=== PATIENT | female | born 1975 | race Caucasian/White ===

== ENCOUNTER 2017-03-05 16:59 | Emergency (ER) | payer SELFPAY ==
[2017-03-05 17:13] VITALS: BP 116/75; PULSE 90; RESP 16; TEMP 98.1
--- NOTE | 2017-03-05 17:27 | XR ---
EXAMINATION TYPE: XR ankle complete RT DATE OF EXAM: 03/05/2017 COMPARISON: NONE HISTORY: Injury and pain TECHNIQUE: 3 views FINDINGS: Ankle mortise is anatomic. I see no fracture nor dislocation. Joint spaces appear normal. IMPRESSION: Negative right ankle exam
--- NOTE | 2017-03-05 17:32 | ED ---
General Adult HPI - General Chief complaint: Extremity Injury, Lower Stated complaint: [facility]HS-Ankle Injury Time Seen by Provider: 03/05/17 17:06 Source: patient, RN notes reviewed Mode of arrival: ambulatory Limitations: no limitations - History of Present Illness Initial comments: This is a 42-year-old female who presents to the emergency department with chief complaint of right ankle injury. Patient states the injury occurred on . She states that she was at work during the time and was walking down a set of stairs. She fell down 2-3 stairs and is unsure of the mechanism of injury. She states that pain is localized to the "bone" of her ankle. She reports that she's been taking ibuprofen daily but that it is starting to make her feel sick to her stomach. She states that she is able to ambulate normally but continues to have mild pain. Denies fever, chills, chest pain, shortness of breath, abdominal pain, nausea or vomiting, constipation or diarrhea, dysuria or hematuria, numbness or tingling, headache or vision changes. - Related Data Home Medications Medication Instructions Recorded Confirmed No Known Home Medications [No 03/05/17 03/05/17 Known Home Medications] Allergies Allergy/AdvReac Type Severity Reaction Status Date / Time No Known Allergies Allergy Verified 03/05/17 17:22 Review of Systems ROS Statement: Those systems with pertinent positive or pertinent negative responses have been documented in the HPI. ROS Other: All systems not noted in ROS Statement are negative. Past Medical History Past Medical History: No Reported History History of Any Multi-Drug Resistant Organisms: None Reported Past Surgical History: No Surgical Hx Reported Past Psychological History: No Psychological Hx Reported Smoking Status: Current every day smoker Past Alcohol Use History: None Reported Past Drug Use History: None Reported General Exam - General Exam Comments Initial Comments: General: Awake and alert, well-developed; in no apparent distress. Ambulating normally. HEENT: Head atraumatic, normocephalic. Pupils are equal, round and reactive to light. Extraocular movements intact. Neck: Supple. Normal ROM. Cardiovascular: Regular rate and rhythm. No murmurs, rubs or gallops. Chest symmetrical. Respiratory: Lungs clear to auscultation bilaterally. No wheezes, rales or rhonchi. Normal respiratory effort with no use of accessory muscles. Musculoskeletal: Normal active and passive range of motion of right ankle however pain is elicited with flexion, extension, inversion and eversion. Mild swelling noted at the lateral malleolus. Sensation is intact. Pedal pulses 2+ equal and palpable bilaterally. Skin: [place], warm and dry without rashes or lesions. Neurological: Alert and oriented x3. CN II-XII grossly intact. Speech is fluent and answers are appropriate. No focal neuro deficits. Psychiatric: Normal mood and affect. No overt signs of depression or anxiety noted. Limitations: no limitations Course Vital Signs 03/05/17 17:10 Temperature 98.1 F Pulse Rate 90 Respiratory 16 Rate Blood Pressure 116/75 O2 Sat by Pulse 96 Oximetry Medical Decision Making - Medical Decision Making This is a 43-year-old female who presents to the emergency department with chief complaint of right ankle injury. Patient is unsure of the mechanism of injury but states that on 02/19/17 she fell down a set of stairs at work and has had right ankle pain ever since. X-ray revealed no acute fractures or dislocations. Recommended rest, elevation, ice and compression with Obed bandage. Patient given a referral to orthopedics. She is in no acute distress at this time. She'll be discharged home. Patient is in agreement and voices understanding. All questions were answered. - Radiology Data Radiology results: report reviewed X-ray right ankle findings: Ankle mortise is anatomic. I see no fracture nor dislocation. Joint spaces appear normal. Impression: Negative right ankle exam. Disposition Clinical Impression: Right ankle sprain Disposition: HOME SELF-CARE Condition: Good Instructions: Ankle Sprain (ED) Additional Instructions: Please follow up with primary care provider within 1-2 days. Return to emergency department if symptoms should worsen or any concerns arise. Referrals: None,Stated [Primary Care Provider] - 1-2 days Time of Disposition: 17:47
== END 2017-03-05 18:05 | disposition home or self-care (01) ==
LOC: EC 16:59
DX: S93.401A Sprain of unspecified ligament of right ankle, initial encounter (principal); F17.200 Nicotine dependence, unspecified, uncomplicated; W10.9XXA Fall (on) (from) unspecified stairs and steps, initial encounter; Y92.69 Other specified industrial and construction area as the place of occurrence of the external cause; Y93.89 Activity, other specified; Y99.0 Civilian activity done for income or pay
CPT/HCPCS: 99283

== ENCOUNTER → 2019-02-15 | Outpatient (CLI) | payer OTHER ==
--- NOTE | 2019-02-15 12:04 | XR ---
EXAMINATION TYPE: XR knee complete bilateral DATE OF EXAM: 02/15/2019 CLINICAL HISTORY: Fall last night with bilateral knee pain, contusions, and abrasions. TECHNIQUE: Three views of bilateral knees were obtained. COMPARISON: None. FINDINGS: There is no acute fracture/dislocation evident in either knee. The tri-compartment joint spaces appear aligned. Tibial plateau sclerosis and medial compartment joint space narrowing as well as lateral compartment joint space narrowing are seen on the right with subchondral cyst formation o f the lateral compartment. Very small patellofemoral compartment osteophyte is seen on the right. Kenneth evelyne is incidentally noted bilaterally. The overlying soft tissue appears unremarkable. IMPRESSION: 1. No acute fracture or dislocation in either knee. 2. 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
== END | disposition home or self-care (01) ==
LOC: RADXRMAIN 11:30
PROVIDERS: ATTEND Emergency Medicine
DX: M12.861 Other specific arthropathies, not elsewhere classified, right knee (principal); S80.02XA Contusion of left knee, initial encounter; S81.001A Unspecified open wound, right knee, initial encounter

== ENCOUNTER 2021-10-12 15:27 | Emergency (ER) | payer OTHER ==
[2021-10-12 15:50] VITALS: TEMP 98.3
[2021-10-12] MEDS ORDERED: IPRATROPIUM-ALBUTEROL 3 ML NEB INHALATION STA (16:19)
[2021-10-12] MEDS ORDERED: methylPREDNISolone SOD SUCCI 125 MG/2 ML VIAL IV STA (16:19)
[2021-10-12] MEDS ORDERED: MAGNESIUM SULFATE-D5W PMX 1 GM in DEXTROSE/WATER 1 100ML.BAG IVPB STA (16:19)
--- NOTE | 2021-10-12 16:56 | ED ---
SOB HPI - General Chief Complaint: Shortness of Breath Stated Complaint: BRIANNA Time Seen by Provider: 10/12/21 16:05 Source: patient Mode of arrival: ambulatory Limitations: no limitations - History of Present Illness Initial Comments: 46 year old female with no reported past medical history presents to the emergency Department with cough, shortness of breath and difficulty breathing since . She reports that she has a nonproductive cough, fatigue and some mild diarrhea. No sick contacts of similar symptoms. Denies fevers. No vomiting. Does have some nausea. She began having some chest pain due to the frequent coughing. Denies previous history of cardiac disease. No history of COPD or asthma. She is a smoker. Denies DVT or PE. No calf pain or swelling. Patient does not use nebulizers or inhalers. She is not vaccinated. She denies any abdominal pain. No back pain. No other alleviating, precipitating or modifying factors - Related Data Previous Rx's Medication Instructions Recorded Albuterol Sulfate [Proair Hfa] 1 - 2 puff INHALATION Q4HR PRN 10/12/21 #8.5 gm Doxycycline Hyclate 100 mg PO BID #10 tab 10/12/21 Allergies Allergy/AdvReac Type Severity Reaction Status Date / Time codeine Allergy Unknown Verified 10/12/21 15:50 Review of Systems ROS Statement: Those systems with pertinent positive or pertinent negative responses have been documented in the HPI. ROS Other: All systems not noted in ROS Statement are negative. Past Medical History Past Medical History: No Reported History History of Any Multi-Drug Resistant Organisms: None Reported Past Surgical History: Cholecystectomy Past Psychological History: No Psychological Hx Reported Smoking Status: Former smoker Past Alcohol Use History: None Reported Past Drug Use History: None Reported General Exam Limitations: no limitations Course Vital Signs 10/12/21 10/12/21 10/12/21 15:47 17:03 17:10 Temperature 98.3 F Pulse Rate 83 72 75 Respiratory 20 Rate Blood Pressure 124/81 O2 Sat by Pulse 95 Oximetry 10/12/21 10/12/21 18:29 19:02 Temperature Pulse Rate 78 Respiratory 18 18 Rate Blood Pressure 126/74 O2 Sat by Pulse 97 Oximetry Medical Decision Making - Medical Decision Making Upon arrival patient was placed into room 6. A thorough history and physical exam was performed. Patient is given a DuoNeb breathing treatment. IV access is established and she is given 1 g of magnesium, 125 of Solu-Medrol. Laboratory studies are conducted and chest x-rays performed. Laboratory studies reveal white count of 16.6. Covid and influenza are not affected. Chest x-ray demonstrates pulmonary interstitial edema. Heart failure or interstitial pneumonia. Patient's are clinically concerning for pneumonia. Recommended albuterol inhaler and antibiotics. Patient was given a dose of Rocephin. During administration she became nauseated and therefore was given 4 mg of Zofran. She is also given 500 mg of azithromycin. Patient will be discharged home on doxycycline. Instructed using inhaler every 4 hours. Needs to follow- up with her primary care doctor in 2-4 days. Repeat x-ray in 6 weeks to ensure improvement. Return to the emergency room for any new or worsening symptoms. Patient agreed to the treatment plan and discharged home in stable condition - Lab Data Result diagrams: 10/12/21 16:50 10/12/21 16:50 Lab Results 10/12/21 10/12/21 10/12/21 Range/Units 16:50 16:50 16:50 WBC 16.6 H (3.8-10.6) k/uL RBC 4.38 (3.80-5.40) m/uL Hgb 14.5 (11.4-16.0) gm/dL Hct 43.9 (34.0-46.0) % MCV 100.3 H (80.0-100.0) fL MCH 33.0 (25.0-35.0) pg MCHC 32.9 (31.0-37.0) g/dL RDW 13.0 (11.5-15.5) % Plt Count 362 (150-450) k/uL MPV 7.4 Neutrophils % 78 % Lymphocytes % 11 % Monocytes % 6 % Eosinophils % 3 % Basophils % 1 % Neutrophils # 12.9 H (1.3-7.7) k/uL Lymphocytes # 1.8 (1.0-4.8) k/uL Monocytes # 0.9 (0-1.0) k/uL Eosinophils # 0.5 (0-0.7) k/uL Basophils # 0.2 (0-0.2) k/uL PT 10.1 (9.0-12.0) sec INR 0.9 (<1.2) APTT 24.2 (22.0-30.0) sec Sodium 137 (137-145) mmol/L Potassium 4.2 (3.5-5.1) mmol/L Chloride 107 (98-107) mmol/L Carbon Dioxide 23 (22-30) mmol/L Anion Gap 7 mmol/L BUN 8 (7-17) mg/dL Creatinine 0.63 (0.52-1.04) mg/dL Est GFR (CKD-EPI)AfAm >90 (>60 ml/min/1.73 sqM) Est GFR (CKD-EPI)NonAf >90 (>60 ml/min/1.73 sqM) Glucose 90 (74-99) mg/dL Plasma Lactic Acid Yeison (0.7-2.0) mmol/L Calcium 8.6 (8.4-10.2) mg/dL Total Bilirubin 0.3 (0.2-1.3) mg/dL AST 52 H (14-36) U/L ALT 63 H (4-34) U/L Alkaline Phosphatase 106 (38-126) U/L Troponin I (0.000-0.034) ng/mL NT-Pro-B Natriuret Pep pg/mL Total Protein 6.7 (6.3-8.2) g/dL Albumin 3.9 (3.5-5.0) g/dL Coronavirus (PCR) (Not Detectd) Influenza Type A RNA (Not Detectd) Influenza Type B (PCR) (Not Detectd) 10/12/21 10/12/21 10/12/21 Range/Units 16:50 16:50 16:50 WBC (3.8-10.6) k/uL RBC (3.80-5.40) m/uL Hgb (11.4-16.0) gm/dL Hct (34.0-46.0) % MCV (80.0-100.0) fL MCH (25.0-35.0) pg MCHC (31.0-37.0) g/dL RDW (11.5-15.5) % Plt Count (150-450) k/uL MPV Neutrophils % % Lymphocytes % % Monocytes % % Eosinophils % % Basophils % % Neutrophils # (1.3-7.7) k/uL Lymphocytes # (1.0-4.8) k/uL Monocytes # (0-1.0) k/uL Eosinophils # (0-0.7) k/uL Basophils # (0-0.2) k/uL PT (9.0-12.0) sec INR (<1.2) APTT (22.0-30.0) sec Sodium (137-145) mmol/L Potassium (3.5-5.1) mmol/L Chloride (98-107) mmol/L Carbon Dioxide (22-30) mmol/L Anion Gap mmol/L BUN (7-17) mg/dL Creatinine (0.52-1.04) mg/dL Est GFR (CKD-EPI)AfAm (>60 ml/min/1.73 sqM) Est GFR (CKD-EPI)NonAf (>60 ml/min/1.73 sqM) Glucose (74-99) mg/dL Plasma Lactic Acid Yeison 1.1 (0.7-2.0) mmol/L Calcium (8.4-10.2) mg/dL Total Bilirubin (0.2-1.3) mg/dL AST (14-36) U/L ALT (4-34) U/L Alkaline Phosphatase (38-126) U/L Troponin I <0.012 (0.000-0.034) ng/mL NT-Pro-B Natriuret Pep 458 pg/mL Total Protein (6.3-8.2) g/dL Albumin (3.5-5.0) g/dL Coronavirus (PCR) (Not Detectd) Influenza Type A RNA (Not Detectd) Influenza Type B (PCR) (Not Detectd) 10/12/21 10/12/21 Range/Units 16:50 16:50 WBC (3.8-10.6) k/uL RBC (3.80-5.40) m/uL Hgb (11.4-16.0) gm/dL Hct (34.0-46.0) % MCV (80.0-100.0) fL MCH (25.0-35.0) pg MCHC (31.0-37.0) g/dL RDW (11.5-15.5) % Plt Count (150-450) k/uL MPV Neutrophils % % Lymphocytes % % Monocytes % % Eosinophils % % Basophils % % Neutrophils # (1.3-7.7) k/uL Lymphocytes # (1.0-4.8) k/uL Monocytes # (0-1.0) k/uL Eosinophils # (0-0.7) k/uL Basophils # (0-0.2) k/uL PT (9.0-12.0) sec INR (<1.2) APTT (22.0-30.0) sec Sodium (137-145) mmol/L Potassium (3.5-5.1) mmol/L Chloride (98-107) mmol/L Carbon Dioxide (22-30) mmol/L Anion Gap mmol/L BUN (7-17) mg/dL Creatinine (0.52-1.04) mg/dL Est GFR (CKD-EPI)AfAm (>60 ml/min/1.73 sqM) Est GFR (CKD-EPI)NonAf (>60 ml/min/1.73 sqM) Glucose (74-99) mg/dL Plasma Lactic Acid Yeison (0.7-2.0) mmol/L Calcium (8.4-10.2) mg/dL Total Bilirubin (0.2-1.3) mg/dL AST (14-36) U/L ALT (4-34) U/L Alkaline Phosphatase (38-126) U/L Troponin I (0.000-0.034) ng/mL NT-Pro-B Natriuret Pep pg/mL Total Protein (6.3-8.2) g/dL Albumin (3.5-5.0) g/dL Coronavirus (PCR) Not Detected (Not Detectd) Influenza Type A RNA Not Detected (Not Detectd) Influenza Type B (PCR) Not Detected (Not Detectd) - EKG Data EKG Comments: EKG demonstrates sinus rhythm with a rate of 69. AR interval 142. QRS 74. QTC 399. No acute ischemic changes Disposition Clinical Impression: Cough, Acute respiratory insufficiency, CAP (community acquired pneumonia) Disposition: HOME SELF-CARE Condition: Stable Instructions (If sedation given, give patient instructions): Bacterial Pneumonia (ED) Additional Instructions: Take the antibiotics as directed. Use your inhaler every 4 hours. Follow-up with your doctor in 2-4 days. you need to have a repeat chest x-ray in 6 weeks to ensure improvement Prescriptions: Doxycycline Hyclate 100 mg PO BID #10 tab Albuterol Sulfate [Proair Hfa] 1 - 2 puff INHALATION Q4HR PRN #8.5 gm PRN Reason: difficulty in breathing Is patient prescribed a controlled substance at d/c from ED?: No Referrals: None,Stated [Primary Care Provider] - 1-2 days Time of Disposition: 18:44
[2021-10-12 17:18] LABS: Basophils # (A) 0.2 k/uL (0-0.2); Basophils % (A) 1 %; Eosinophils # (A) 0.5 k/uL (0-0.7); Eosinophils % (A) 3 %; HCT 43.9 % (34.0-46.0); HGB 14.5 gm/dL (11.4-16.0); Lymphocytes # (A) 1.8 k/uL (1.0-4.8); Lymphocytes % (A) 11 %; MCHC 32.9 g/dL (31.0-37.0); MCV 100.3 fL (80.0-100.0); Mean Platelet Volume 7.4; Monocytes # (A) 0.9 k/uL (0-1.0); Monocytes % (A) 6 %; Neutrophils # (A) 12.9 k/uL (1.3-7.7); Neutrophils % (A) 78 %; Platelet Count 362 k/uL (150-450); RBC 4.38 m/uL (3.80-5.40); WBC 16.6 k/uL (3.8-10.6)
[2021-10-12 17:26] LABS: INR 0.9 (<1.2); Partial Thromboplastin Time 24.2 sec (22.0-30.0); Prothrombin Time 10.1 sec (9.0-12.0)
[2021-10-12 17:31] LABS: ALT 63 U/L (4-34); AST 52 U/L (14-36); African American GFR (CKD) >90 (>60 ml/min/1.73 sqM); Albumin 3.9 g/dL (3.5-5.0); Alkaline Phosphatase 106 U/L (38-126); Anion Gap 7 mmol/L; Blood Urea Nitrogen 8 mg/dL (7-17); Calcium 8.6 mg/dL (8.4-10.2); Carbon Dioxide 23 mmol/L (22-30); Chloride 107 mmol/L (98-107); Glucose 90 mg/dL (74-99); Non-African American GFR(CKD) >90 (>60 ml/min/1.73 sqM); Potassium 4.2 mmol/L (3.5-5.1); Sodium 137 mmol/L (137-145); Total Bilirubin 0.3 mg/dL (0.2-1.3); Total Protein 6.7 g/dL (6.3-8.2)
[2021-10-12] MEDS ORDERED: AZITHROMYCIN 500 MG TAB PO STA (18:15)
[2021-10-12] MEDS ORDERED: cefTRIAXone IN SWFI 1,000 MG/10 ML SYRINGE IVP STA (18:15)
--- NOTE | 2021-10-12 18:25 | XR ---
EXAMINATION TYPE: XR chest 2V DATE OF EXAM: 10/12/2021 COMPARISON: NONE HISTORY: Short of breath TECHNIQUE: Views FINDINGS: Heart is normal. There is coarse interstitial density in the lungs. There is pulmonary inte rstitial edema. No definite pleural effusion. Bony thorax is intact. IMPRESSION: There is some pulmonary interstitial edema. This could be due to heart failure or interst itial pneumonia.
[2021-10-12 18:35] VITALS: RESP 18
[2021-10-12] MEDS ORDERED: ONDANSETRON 4 MG/2 ML VIAL IVP STA (18:52)
[2021-10-12 19:02] VITALS: BP 126/74; PULSE 78
== END 2021-10-12 19:02 | disposition home or self-care (01) ==
LOC: EC 15:27
DX: J18.9 Pneumonia, unspecified organism (principal); Z20.822 Contact with and (suspected) exposure to COVID-19; Z87.891 Personal history of nicotine dependence
CPT/HCPCS: 36415; 94640; 93005; 83880; 80053; 83605; 84484; 85025; 85610; 85730; 87502; 87635; 71046; 99285; 96365; 96375 ×3; J2930; J2405; J0696; J3475

== ENCOUNTER 2021-11-03 11:56 | Emergency (ER) | payer OTHER ==
[2021-11-03 12:05] VITALS: TEMP 97.7
[2021-11-03 12:35] LABS: Basophils # (A) 0.1 k/uL (0-0.2); Basophils % (A) 1 %; Eosinophils # (A) 1.1 k/uL (0-0.7); Eosinophils % (A) 11 %; HCT 48.6 % (34.0-46.0); Lymphocytes # (A) 2.3 k/uL (1.0-4.8); Lymphocytes % (A) 25 %; MCH 32.5 pg (25.0-35.0); MCHC 32.9 g/dL (31.0-37.0); MCV 98.7 fL (80.0-100.0); Mean Platelet Volume 7.2; Monocytes # (A) 0.7 k/uL (0-1.0); Monocytes % (A) 7 %; Neutrophils % (A) 53 %; Platelet Count 350 k/uL (150-450); RBC 4.92 m/uL (3.80-5.40); RDW 13.1 % (11.5-15.5); WBC 9.4 k/uL (3.8-10.6)
[2021-11-03 12:50] LABS: ALT 88 U/L (4-34); AST 66 U/L (14-36); African American GFR (CKD) >90 (>60 ml/min/1.73 sqM); Albumin 4.1 g/dL (3.5-5.0); Alkaline Phosphatase 99 U/L (38-126); Anion Gap 6 mmol/L; Blood Urea Nitrogen 10 mg/dL (7-17); Calcium 8.9 mg/dL (8.4-10.2); Carbon Dioxide 23 mmol/L (22-30); Chloride 109 mmol/L (98-107); Glucose 85 mg/dL (74-99); Magnesium 2.1 mg/dL (1.6-2.3); Non-African American GFR(CKD) >90 (>60 ml/min/1.73 sqM); Potassium 4.1 mmol/L (3.5-5.1); Sodium 138 mmol/L (137-145); Total Bilirubin 0.5 mg/dL (0.2-1.3)
[2021-11-03 12:51] LABS: Prothrombin Time 10.7 sec (9.0-12.0)
--- NOTE | 2021-11-03 13:24 | ED ---
SOB HPI - General Chief Complaint: Shortness of Breath Stated Complaint: BRIANNA Source: patient Mode of arrival: ambulatory Limitations: no limitations - History of Present Illness Initial Comments: 36-year-old female presents the emergency room with reported shortness of breath. She was seen in the emergency department 3 weeks ago for similar complaint. Was diagnosed with pneumonia. She took a course of steroids and antibiotics. Was also prescribed an inhaler. Since the medications as directed and states that she originally did have some improvement in her symptoms. This was short-lived of the patient began having worsening shortness of breath this past week. She did not follow up with her primary care doctor. She admits to nonproductive cough. Patient is a smoker. No history of COPD or asthma. She denies any fevers, chills. No chest pain. No previous history of cardiac disease. Denies any lower extremity swelling. No other alleviating, precipitating or modifying factors - Related Data Home Medications Medication Instructions Recorded Confirmed Albuterol Sulfate [Proair Hfa] 1 - 2 puff INHALATION RT-Q4H PRN 11/03/21 11/03/21 Dextroamphetamine/Amphetamine 60 mg PO DAILY 11/03/21 11/03/21 [Adderall Xr 30 mg Capsule] Previous Rx's Medication Instructions Recorded Albuterol Sulfate [Proair Hfa] 1 - 2 puff INHALATION Q4HR #8.5 gm 11/03/21 predniSONE [Deltasone] 20 mg PO BID #10 tab 11/03/21 Allergies Allergy/AdvReac Type Severity Reaction Status Date / Time codeine Allergy Unknown Verified 11/03/21 14:32 Review of Systems ROS Statement: Those systems with pertinent positive or pertinent negative responses have been documented in the HPI. ROS Other: All systems not noted in ROS Statement are negative. Past Medical History Past Medical History: No Reported History History of Any Multi-Drug Resistant Organisms: None Reported Past Surgical History: Cholecystectomy Past Psychological History: No Psychological Hx Reported Smoking Status: Former smoker Past Alcohol Use History: None Reported Past Drug Use History: None Reported General Exam Limitations: no limitations General appearance: alert, in no apparent distress Head exam: Present: atraumatic, normocephalic, normal inspection Eye exam: Present: normal appearance, PERRL, EOMI. Absent: scleral icterus, conjunctival injection, periorbital swelling ENT exam: Present: normal exam, mucous membranes moist Neck exam: Present: normal inspection. Absent: tenderness, meningismus, lymphadenopathy Respiratory exam: Present: wheezes, decreased breath sounds. Absent: respiratory distress, rales, rhonchi, stridor Cardiovascular Exam: Present: regular rate, normal rhythm, normal heart sounds. Absent: systolic murmur, diastolic murmur, rubs, gallop, clicks GI/Abdominal exam: Present: soft, normal bowel sounds. Absent: distended, tenderness, guarding, rebound, rigid Extremities exam: Present: normal inspection, full ROM, normal capillary refill. Absent: tenderness, pedal edema, joint swelling, calf tenderness Back exam: Present: normal inspection Neurological exam: Present: alert, oriented X3, CN II-XII intact Psychiatric exam: Present: normal affect, normal mood Skin exam: Present: warm, dry, intact, normal color. Absent: rash Course Vital Signs 11/03/21 11/03/21 11/03/21 12:01 12:15 13:00 Temperature 97.7 F Pulse Rate 81 68 Respiratory 22 24 20 Rate Blood Pressure 114/72 106/71 O2 Sat by Pulse 95 97 Oximetry 11/03/21 14:24 Temperature Pulse Rate 71 Respiratory 18 Rate Blood Pressure 106/70 O2 Sat by Pulse 96 Oximetry Medical Decision Making - Medical Decision Making Upon arrival patient was placed into room 19. Thorough history and physical exam was performed. Patient does not demonstrate any signs of respiratory distress. IV is established laboratory studies are conducted area and she is swabbed for cold and flu. Patient went for a CT of her chest that she does have an elevated d-dimer which demonstrated some pulmonary fibrosis with no signs of PE. Results are discussed with the patient. She is resting comfortably in bed. I recommended steroid course at this time and need for pulmonology follow- up for primary function testing. Patient understood this. She is to see her primary care doctor in 2-4 days. Pulmonary function testing is negative and the patient will need further cardiac workup for which she understood. I did write her for another inhaler. She has any new or worsening symptoms she is to return to the emergency room. Patient agreed and was discharged home in stable condition - Lab Data Result diagrams: 11/03/21 12:11 11/03/21 12:11 Lab Results 11/03/21 11/03/21 11/03/21 Range/Units 12:11 12:11 12:11 WBC 9.4 (3.8-10.6) k/uL RBC 4.92 (3.80-5.40) m/uL Hgb 16.0 (11.4-16.0) gm/dL Hct 48.6 H (34.0-46.0) % MCV 98.7 (80.0-100.0) fL MCH 32.5 (25.0-35.0) pg MCHC 32.9 (31.0-37.0) g/dL RDW 13.1 (11.5-15.5) % Plt Count 350 (150-450) k/uL MPV 7.2 Neutrophils % 53 % Lymphocytes % 25 % Monocytes % 7 % Eosinophils % 11 % Basophils % 1 % Neutrophils # 5.0 (1.3-7.7) k/uL Lymphocytes # 2.3 (1.0-4.8) k/uL Monocytes # 0.7 (0-1.0) k/uL Eosinophils # 1.1 H (0-0.7) k/uL Basophils # 0.1 (0-0.2) k/uL PT 10.7 (9.0-12.0) sec INR 1.0 (<1.2) APTT 25.0 (22.0-30.0) sec D-Dimer 0.54 (<0.60) mg/L FEU Sodium 138 (137-145) mmol/L Potassium 4.1 (3.5-5.1) mmol/L Chloride 109 H (98-107) mmol/L Carbon Dioxide 23 (22-30) mmol/L Anion Gap 6 mmol/L BUN 10 (7-17) mg/dL Creatinine 0.66 (0.52-1.04) mg/dL Est GFR (CKD-EPI)AfAm >90 (>60 ml/min/1.73 sqM) Est GFR (CKD-EPI)NonAf >90 (>60 ml/min/1.73 sqM) Glucose 85 (74-99) mg/dL Plasma Lactic Acid Yeison (0.7-2.0) mmol/L Calcium 8.9 (8.4-10.2) mg/dL Magnesium 2.1 (1.6-2.3) mg/dL Total Bilirubin 0.5 (0.2-1.3) mg/dL AST 66 H (14-36) U/L ALT 88 H (4-34) U/L Alkaline Phosphatase 99 (38-126) U/L Troponin I (0.000-0.034) ng/mL NT-Pro-B Natriuret Pep pg/mL Total Protein 7.0 (6.3-8.2) g/dL Albumin 4.1 (3.5-5.0) g/dL Coronavirus (PCR) (Not Detectd) Influenza Type A RNA (Not Detectd) Influenza Type B (PCR) (Not Detectd) 11/03/21 11/03/21 11/03/21 Range/Units 12:11 12:11 12:11 WBC (3.8-10.6) k/uL RBC (3.80-5.40) m/uL Hgb (11.4-16.0) gm/dL Hct (34.0-46.0) % MCV (80.0-100.0) fL MCH (25.0-35.0) pg MCHC (31.0-37.0) g/dL RDW (11.5-15.5) % Plt Count (150-450) k/uL MPV Neutrophils % % Lymphocytes % % Monocytes % % Eosinophils % % Basophils % % Neutrophils # (1.3-7.7) k/uL Lymphocytes # (1.0-4.8) k/uL Monocytes # (0-1.0) k/uL Eosinophils # (0-0.7) k/uL Basophils # (0-0.2) k/uL PT (9.0-12.0) sec INR (<1.2) APTT (22.0-30.0) sec D-Dimer (<0.60) mg/L FEU Sodium (137-145) mmol/L Potassium (3.5-5.1) mmol/L Chloride (98-107) mmol/L Carbon Dioxide (22-30) mmol/L Anion Gap mmol/L BUN (7-17) mg/dL Creatinine (0.52-1.04) mg/dL Est GFR (CKD-EPI)AfAm (>60 ml/min/1.73 sqM) Est GFR (CKD-EPI)NonAf (>60 ml/min/1.73 sqM) Glucose (74-99) mg/dL Plasma Lactic Acid Yeison 1.0 (0.7-2.0) mmol/L Calcium (8.4-10.2) mg/dL Magnesium (1.6-2.3) mg/dL Total Bilirubin (0.2-1.3) mg/dL AST (14-36) U/L ALT (4-34) U/L Alkaline Phosphatase (38-126) U/L Troponin I <0.012 (0.000-0.034) ng/mL NT-Pro-B Natriuret Pep 59 pg/mL Total Protein (6.3-8.2) g/dL Albumin (3.5-5.0) g/dL Coronavirus (PCR) (Not Detectd) Influenza Type A RNA (Not Detectd) Influenza Type B (PCR) (Not Detectd) 11/03/21 11/03/21 Range/Units 12:11 12:11 WBC (3.8-10.6) k/uL RBC (3.80-5.40) m/uL Hgb (11.4-16.0) gm/dL Hct (34.0-46.0) % MCV (80.0-100.0) fL MCH (25.0-35.0) pg MCHC (31.0-37.0) g/dL RDW (11.5-15.5) % Plt Count (150-450) k/uL MPV Neutrophils % % Lymphocytes % % Monocytes % % Eosinophils % % Basophils % % Neutrophils # (1.3-7.7) k/uL Lymphocytes # (1.0-4.8) k/uL Monocytes # (0-1.0) k/uL Eosinophils # (0-0.7) k/uL Basophils # (0-0.2) k/uL PT (9.0-12.0) sec INR (<1.2) APTT (22.0-30.0) sec D-Dimer (<0.60) mg/L FEU Sodium (137-145) mmol/L Potassium (3.5-5.1) mmol/L Chloride (98-107) mmol/L Carbon Dioxide (22-30) mmol/L Anion Gap mmol/L BUN (7-17) mg/dL Creatinine (0.52-1.04) mg/dL Est GFR (CKD-EPI)AfAm (>60 ml/min/1.73 sqM) Est GFR (CKD-EPI)NonAf (>60 ml/min/1.73 sqM) Glucose (74-99) mg/dL Plasma Lactic Acid Yeison (0.7-2.0) mmol/L Calcium (8.4-10.2) mg/dL Magnesium (1.6-2.3) mg/dL Total Bilirubin (0.2-1.3) mg/dL AST (14-36) U/L ALT (4-34) U/L Alkaline Phosphatase (38-126) U/L Troponin I (0.000-0.034) ng/mL NT-Pro-B Natriuret Pep pg/mL Total Protein (6.3-8.2) g/dL Albumin (3.5-5.0) g/dL Coronavirus (PCR) Not Detected (Not Detectd) Influenza Type A RNA Not Detected (Not Detectd) Influenza Type B (PCR) Not Detected (Not Detectd) - EKG Data EKG Comments: EKG demonstrates sinus rhythm with a rate of 67. VT interval 146. QRS 71. QTC of 415. No acute ST segment elevations or depressions Disposition Clinical Impression: Acute respiratory insufficiency Disposition: HOME SELF-CARE Condition: Stable Instructions (If sedation given, give patient instructions): Shortness of Breath (ED) Additional Instructions: Take the steroids as directed. Use the inhaler every 4 hours, 2 puffs. Stop smoking. Follow up with the net technical [facility] for pulmonary function testing. If your lung function is normal, then I recommended an echo of your heart to further workup your shortness of breath Prescriptions: predniSONE [Deltasone] 20 mg PO BID #10 tab Albuterol Sulfate [Proair Hfa] 1 - 2 puff INHALATION Q4HR #8.5 gm Is patient prescribed a controlled substance at d/c from ED?: No Referrals: None,Stated [Primary Care Provider] - 1-2 days Shabbir Hernandez MD [STAFF PHYSICIAN] - 1-2 days Time of Disposition: 14:53
--- NOTE | 2021-11-03 14:15 | CT ---
EXAMINATION TYPE: CT chest angio for PE DATE OF EXAM: 11/03/2021 COMPARISON: Chest x-ray 10/12/2021 HISTORY: SOB, recent pneumonia CT DLP: 339.7 mGycm Automated exposure control for dose reduction was used. CONTRAST: CT Chest for pulmonary embolism performed with with IV Contrast, patient injected with 80cc mL of Iso jaylen 370. Three-dimensional reconstructions performed on an alternate workstation and reviewed. FINDINGS: LUNGS: The lungs are show calcified granuloma are scattered bilateral. There is no pleural effusion or pneumothorax seen. The tracheobronchial tree is patent. MEDIASTINUM: There is less than optimal enhancement of the pulmonary artery and its branches, there i s no CT evidence for pulmonary embolism. Calcified hilar or mediastinal nodes are noted. There are no greater than 1 cm hilar or mediastinal lymph nodes. No pericardial effusion is seen. AORTA: No additional significant abnormality is seen. OTHER: The liver shows low attenuation likely due to hepatic steatosis, patient is post cholecystect mariann. IMPRESSION: Old granulomatous disease. No evident pulmonary embolus. Additional findings above.
[2021-11-03 14:25] VITALS: BP 106/70; PULSE 71; RESP 18
[2021-11-03] MEDS ORDERED: methylPREDNISolone SOD SUCCI 125 MG/2 ML VIAL IV STA (14:51)
== END 2021-11-03 15:09 | disposition home or self-care (01) ==
LOC: EC 11:56
DX: R06.89 Other abnormalities of breathing (principal); Z87.891 Personal history of nicotine dependence; Z88.5 Allergy status to narcotic agent; Z79.899 Other long term (current) drug therapy; Z20.822 Contact with and (suspected) exposure to COVID-19
CPT/HCPCS: 36415; 93005; 85379; 83880; 80053; 83605; 83735; 84484; 85025; 85610; 85730; 87502; 87635; 71275; 99285; 96374; J2930; Q9967

== ENCOUNTER 2024-04-09 01:03 | Emergency (ER) | payer OTHER ==
[2024-04-09 02:59] VITALS: BP 125/78; PULSE 103; RESP 20; TEMP 98.6
--- NOTE | 2024-04-09 03:10 | ED ---
General Adult HPI - General Chief complaint: Extremity Injury, Lower Stated complaint: Foot Issue Source: patient, family Mode of arrival: wheelchair Limitations: no limitations - History of Present Illness Initial comments: 49-year-old female presenting with chief complaint of swelling to the bilateral lower extremities. Patient was seen at [facility] on 04/07 and diag nosed with a PE, she is currently on Eliquis. She is concerned today because she has increased swelling to the lower legs. She does confirm that she has a DVT. Patient currently has stage III cervical cancer and is undergoing chemotherapy and radiation. She is having no increased shortness of breath or chest pain. No fever. No injury or trauma. No numbness. - Related Data Home Medications Medication Instructions Recorded Confirmed Albuterol Sulfate [Proair Hfa] 1 - 2 puff INHALATION RT-Q4H PRN 11/03/21 11/03/21 Dextroamphetamine/Amphetamine 60 mg PO DAILY 11/03/21 11/03/21 [Adderall Xr 30 mg Capsule] Previous Rx's Medication Instructions Recorded Albuterol Sulfate [Proair Hfa] 1 - 2 puff INHALATION Q4HR #8.5 gm 11/03/21 predniSONE [Deltasone] 20 mg PO BID #10 tab 11/03/21 Furosemide [Lasix] 20 mg PO DAILY 3 Days #3 tab 04/09/24 Allergies Allergy/AdvReac Type Severity Reaction Status Date / Time codeine Allergy Unknown Verified 04/09/24 02:59 Review of Systems ROS Statement: Those systems with pertinent positive or pertinent negative responses have been documented in the HPI. ROS Other: All systems not noted in ROS Statement are negative. Past Medical History Past Medical History: No Reported History History of Any Multi-Drug Resistant Organisms: None Reported Past Surgical History: Cholecystectomy Past Psychological History: No Psychological Hx Reported Smoking Status: Current some day smoker Past Alcohol Use History: None Reported Past Drug Use History: None Reported General Exam Limitations: no limitations General appearance: alert, in no apparent distress Head exam: Present: atraumatic, normocephalic, normal inspection Eye exam: Present: normal appearance, EOMI Neck exam: Present: normal inspection. Absent: meningismus Respiratory exam: Absent: respiratory distress Extremities exam: Present: pedal edema Neurological exam: Present: alert, oriented X3 Psychiatric exam: Present: normal affect, normal mood Skin exam: Present: warm, dry, normal color Course Vital Signs 04/09/24 02:52 Temperature 98.6 F Pulse Rate 103 H Respiratory 20 Rate Blood Pressure 125/78 O2 Sat by Pulse 99 Oximetry Medical Decision Making - Medical Decision Making Was pt. sent in by a medical professional or institution (MANJULA Clinton, SCREW MACHINE SET UP OPERATOR, urgent care, hospital, or custodial...) When possible be specific @ -No Did you speak to anyone other than the patient for history (EMS, parent, family, police, friend...)? What history was obtained from this source @ -No Did you review nursing and triage notes (agree or disagree)? Why? @ -I reviewed and agree with nursing and triage notes Were old charts reviewed (outside hosp., previous admission, EMS record, old EKG, old radiological studies, urgent care reports/EKG's, custodial records)? Report findings @ -No old charts were reviewed Differential Diagnosis (chest pain, altered mental status, abdominal pain women, abdominal pain men, vaginal bleeding, weakness, fever, dyspnea, syncope, headache, dizziness, GI bleed, back pain, seizure, CVA, palpatations, mental health, musculoskeletal)? @ -Differential includes DVT, chemotherapy side effect, CHF, this is not an all-inclusive list EKG interpreted by me (3pts min.). @ -As above X-rays interpreted by me (1pt min.). @ -None done CT interpreted by me (1pt min.). @ -None done U/S interpreted by me (1pt. min.). @ -None done What testing was considered but not performed or refused? (CT, X-rays, U/S, labs)? Why? @ -None What meds were considered but not given or refused? Why? @ -None Did you discuss the management of the patient with other professionals (professionals i.e. MANJULA Clinton, SCREW MACHINE SET UP OPERATOR, lab, RT, psych nurse, social work supervisor, beater out leveling machine, teacher, infantry weapons officer, case supervisor)? Give summary @ -No Was smoking cessation discussed for >3mins.? @ -No Was critical care preformed (if so, how long)? @ -No Were there social determinants of health that impacted care today? How? (Homelessness, low income, unemployed, alcoholism, drug addiction, transportation, low edu. Level, literacy, decrease access to med. care, long-term, rehab)? @ -No Was there de-escalation of care discussed even if they declined (Discuss DNR or withdrawal of care, Hospice)? DNR status @ -No What co-morbidities impacted this encounter? (DM, HTN, Smoking, COPD, CAD, Cancer, CVA, ARF, Chemo, Hep., AIDS, mental health diagnosis, sleep apnea, morbid obesity)? @ -None Was patient admitted / discharged? Hospital course, mention meds given and route, prescriptions, significant lab abnormalities, going to OR and other pertinent info. @ -49-year-old female presenting with chief complaint of lower extremity swelling. Patient was diagnosed with a DVT back on the and is currently on Eliquis. She is concerned that she has increased swelling to the lower extremities. She is having no increased shortness of breath or chest pain. Patient currently has stage III cervical cancer and is on chemotherapy and radiation. She does have 2+ pitting edema to the lower extremities. This is likely a combination of the patient's DVT and possible decreased oncotic pressure with chemotherapy treatments. I offered to perform labs, the patient declined stating that she would just rather go home and rest. She is given a short course of Lasix 20 mg. Continue taking Eliquis as prescribed. Follow-up with oncologist. Follow-up with PCP. Report back to ER with any new or worsening symptoms. Discussed return parameters and answered all questions. Patient conveyed verbal understanding and agreed to the plan. I discussed this case in detail with my attending Dr. Lucia Undiagnosed new problem with uncertain prognosis? @ -No Drug Therapy requiring intensive monitoring for toxicity (Heparin, Nitro, Insulin, Cardizem)? @ -No Were any procedures done? @ -No Diagnosis/symptom? @ -Lower extremity swelling Acute, or Chronic, or Acute on Chronic? @ -Acute Uncomplicated (without systemic symptoms) or Complicated (systemic symptoms)? @ -Uncomplicated Side effects of treatment? @ -No Exacerbation, Progression, or Severe Exacerbation? @ -No Poses a threat to life or bodily function? How? (Chest pain, [place], CA, pneumonia, PE, COPD, DKA, ARF, appy, cholecystitis, CVA, Diverticulitis, Homicidal, Suicidal, threat to staff... and all critical care pts) @ -The swelling alone poses no immediate threat Disposition Clinical Impression: Swelling of lower extremity, DVT (deep venous thrombosis) Disposition: HOME SELF-CARE Condition: Good Instructions (If sedation given, give patient instructions): Deep Vein Thrombosis (ED) Additional Instructions: Follow-up with your PCP and oncologist. Report back to ER with any new or worsening symptoms. Continue taking your blood thinner as prescribed Prescriptions: Furosemide [Lasix] 20 mg PO DAILY 3 Days #3 tab Is patient prescribed a controlled substance at d/c from ED?: No Referrals: Nonstaff,Physician [Primary Care Provider] - 1-2 days Time of Disposition: 03:10
== END 2024-04-09 03:10 | disposition home or self-care (01) ==
LOC: EC 01:03
DX: I82.403 Acute embolism and thrombosis of unspecified deep veins of lower extremity, bilateral (principal); F17.200 Nicotine dependence, unspecified, uncomplicated; Z88.5 Allergy status to narcotic agent
CPT/HCPCS: 99282

== ENCOUNTER 2024-04-16 11:48 | Inpatient (IN) | payer BC, OTHER ==
--- NOTE | 2024-04-16 12:03 | ED ---
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 Patient is currently on chemo but has not had a treatment in approximately 2 to 3 weeks. Oncology out of [place]. Patient's is aiding in HPI and past medical history as patient feels unwell. They report for the past 2 days patient has not been able to urinate except for dribbles. Patient also is experiencing abdominal distention and fluid retention. Patient reports she has been feeling extremely weak with chills. No fevers at home. Patient has taken [id number] Tylenol for symptom control last dose last night. No history of alcoholism. , at bedside, states patient does appear mildly jaundiced. This is new in the past 2 days. Patient reports nausea no vomiting. No change in bowel habits. Patient does admit to an increase of shortness of breath in the past couple of days with a cough. No chest pain. - Related Data Home Medications Medication Instructions Recorded Confirmed Apixaban [Eliquis] 5 mg PO BID 04/16/24 04/16/24 metFORMIN HCL [Glucophage] 500 mg PO BID 04/16/24 04/16/24 sitaGLIPtin [Januvia] 100 mg PO DAILY 04/16/24 04/16/24 Allergies Allergy/AdvReac Type Severity Reaction Status Date / Time codeine Allergy Unknown Verified 04/16/24 16:14 Review of Systems ROS Statement: Those systems with pertinent positive or pertinent negative responses have been documented in the HPI. ROS Other: All systems not noted in ROS Statement are negative. Past Medical History Past Medical History: No Reported History History of Any Multi-Drug Resistant Organisms: None Reported Past Surgical History: Cholecystectomy Past Psychological History: No Psychological Hx Reported Smoking Status: Current some day smoker Past Alcohol Use History: None Reported Past Drug Use History: None Reported General Exam - General Exam Comments Initial Comments: Visual Physical Exam Vital signs reviewed General: Ill-appearing, shaking, no signs of acute distress Head: Normocephalic, atraumatic Eyes: PERRLA, EOMI ENT: Airway patent Chest: Nonlabored breathing Skin: No visual rash, normal skin tone Neuro: Alert and oriented 3 Musculoskeletal: No gross abnormalities General appearance: alert, in no apparent distress Respiratory exam: Present: normal lung sounds bilaterally. Absent: respiratory distress, wheezes, rales, rhonchi, stridor Cardiovascular Exam: Present: normal rhythm, tachycardia, normal heart sounds GI/Abdominal exam: Present: soft, distended Extremities exam: Present: other (1+ pedal edema bilaterally.) Neurological exam: Present: alert, oriented X3, CN II-XII intact Skin exam: Present: warm, dry, intact, other (Jaundiced) Course Vital Signs 04/16/24 04/16/24 04/16/24 12:15 14:58 15:36 Temperature 101.5 F H 101.2 F H Pulse Rate 122 H 114 H 112 H Respiratory 18 22 22 Rate Blood Pressure 118/67 124/67 109/63 O2 Sat by Pulse 100 100 Oximetry 04/16/24 04/16/24 04/16/24 16:00 17:00 19:49 Temperature 99.0 F Pulse Rate 108 H 112 H 107 H Respiratory 24 22 18 Rate Blood Pressure 112/64 99/55 92/46 O2 Sat by Pulse 98 97 96 Oximetry - Reevaluation(s) Reevaluation #1: 04/16/24 13:16 Bladder scan 533ml. Walker catheter insertion with 75 cc of output. 04/16/24 1541 Case discussed with Mika CONWAY, [facility] physicians, for admission. 04/16/2024 15:45 Case discussed with on-call vascular, , given concern of near occluded infrarenal abdominal aorta. He states this can be managed outpatient. EKG Findings - EKG Comments: EKG Findings:: EKG taken at 12: 28 showing sinus tachycardia. No ST segment elevations or depressions. No T wave abnormalities. Normal axis. Ventricular rate 124, WV interval 100, QRS ration 70, QT/QTc 315/388. Medical Decision Making - Medical Decision Making I performed the quick note portion of this chart. Electronically signed by Calvin Meier PA-C Was pt. sent in by a medical professional or institution (MANJULA Clinton, MOBILE MARKETING MANAGER, urgent care, hospital, or group home...) When possible be specific @ -No Did you speak to anyone other than the patient for history (EMS, parent, family, police, friend...)? What history was obtained from this source @ -No Did you review nursing and triage notes (agree or disagree)? Why? @ -I reviewed and agree with nursing and triage notes Were old charts reviewed (outside hosp., previous admission, EMS record, old EKG, old radiological studies, urgent care reports/EKG's, group home records)? Report findings @ -Yes, I reviewed ER visit from 04-09-2024 patient seen here for bilateral lower extremity edema. Per that note on 04-07-2024 patient diagnosed with a pulmonary embolism at [facility] and started on Eliquis. Patient refusing further workup and was discharged with Lasix. Differential Diagnosis (chest pain, altered mental status, abdominal pain women, abdominal pain men, vaginal bleeding, weakness, fever, dyspnea, syncope, headache, dizziness, GI bleed, back pain, seizure, CVA, palpatations, mental health, musculoskeletal)? @ -Differential Abdominal Pain Women: Appendicitis, Cholecystitis, diverticulosis, ischemic bowel, pancreatitis, hepatitis, UTI, gastroenteritis, AAA, incarcerated hernia, bowel obstruction, constipation, inflammatory bowel, hepatitis, peptic ulcer disease, splenic infarction, perforated viscus, vulvitis, ovarian torsion, PID, kidney stone, placenta abruption, this is not meant to be an all-inclusive list EKG interpreted by me (3pts min.). @ -As above X-rays interpreted by me (1pt min.). @ -CXR interpreted me negative for acute focal consolidations or pneumothorax. CT interpreted by me (1pt min.). @ -CTA chest showing bilateral lower lobe segmental and subsegmental pulmonary artery emboli. Right greater than left. No evidence of right heart strain. CT abdomen pelvis showing moderate volume diffuse abdominal ascites. 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 Bilateral common iliac arteries are patent due to reconstruction. U/S interpreted by me (1pt. min.). @ -None done What testing was considered but not performed or refused? (CT, X-rays, U/S, labs)? Why? @ -None What meds were considered but not given or refused? Why? @ -None Did you discuss the management of the patient with other professionals (professionals i.e. , PA, MOBILE MARKETING MANAGER, lab, RT, psych nurse, social media marketing manager, title lawyer, teacher, tax revenue officer, pillowcase turner)? Give summary @ -Yes, case discussed with [facility], Mika Keating MOBILE MARKETING MANAGER. for admission. Case also discussed with computer application developer vascular, Dr. Emerson, given concern of near occlusion infrarenal abdominal aorta. He advises can be managed outpatient. Was smoking cessation discussed for >3mins.? @ -I discussed smoking cessation for greater than 3 minutes. The risk of smoking were discussed with the patient including but not limited to risks of cancer, stroke, coronary artery disease and COPD. Also discussed with patient were multiple methods of quitting smoking. Lastly we discussed the financial cost of smoking. Was critical care preformed (if so, how long)? @ -Yes, 31 minutes Were there social determinants of health that impacted care today? How? (Homelessness, low income, unemployed, alcoholism, drug addiction, transportation, low edu. Level, literacy, decrease access to med. care, senior care, rehab)? @ -No Was there de-escalation of care discussed even if they declined (Discuss DNR or withdrawal of care, Hospice)? DNR status @ -No What co-morbidities impacted this encounter? (DM, HTN, Smoking, COPD, CAD, Cancer, CVA, ARF, Chemo, Hep., AIDS, mental health diagnosis, sleep apnea, morbid obesity)? @ -Cervical cancer currently on chemotherapy, diabetes mellitus, history of pulmonary embolism on Eliquis Was patient admitted / discharged? Hospital course, mention meds given and route, prescriptions, significant lab abnormalities, going to OR and other pertinent info. @ -Discharged. 49-year-old female presented to the ER for evaluation of urinary retention. Upon examination, patient resting comfortably on stretcher. Patient is febrile upon arrival at 101.5 F and tachycardic at 112 vitals otherwise stable. Patient appears jaundice with mild conversational dyspnea. Patient has a distended abdomen with generalized tenderness. 1+ pedal edema bilaterally. Given patient's presentation and history, thorough workup including CTA chest and CT abdomen/pelvis will be obtained. Bladder scan initially obtained showing 533 mL, accuracy of this may be skewed due to ascites. Walker catheter placed at that time with 75 mL dark urine output. CBC showing a hyperchromic normocytic anemia of 9.9, thrombocytopenia 68, WBC 7.5. Sodium 131, potassium 4.1, chloride 101, carbon dioxide 20. Lactic acid 3.4. Total bilirubin 3.3, AST 310, ALT 45, alk phos 491. Transaminitis/ascites possibly due to metastatic disease. Serum alcohol and acetaminophen levels less than 10. Urine analysis with 2+ bilirubin and 7 WBCs, rare bacteria. Viral swabs positive for COVID. Chest x-ray negative. CTA chest obtained as patient reports a history of pulmonary embolisms and complaining of shortness of breath. CTA chest showing bilateral pulmonary embolus with no evidence of right heart strain. High-dose heparin given for pulmonary emboli. CT abdomen pelvis showing moderate abdominal ascites. 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 Abdominal aorta findings were discussed with on-call vascular, Dr. Silver, who states incidental finding can be followed up outpatient. Patient's fever treated with p.o. ibuprofen and Tylenol. Given findings of pulmonary embolisms admission was considered and discussed with [facility] physicians, Laron Keating NP. Patient started on maintenance fluid at 130cc/h as chest x-ray showing no signs of pulmonary vascular congestion.. Pulmonology on consult. Patient is agreeable for admission. Case discussed with the attending by Dr. Mcgraw. Undiagnosed new problem with uncertain prognosis? @ -No Drug Therapy requiring intensive monitoring for toxicity (Heparin, Nitro, Insulin, Cardizem)? @ -Yes, heparin Were any procedures done? @ -No Diagnosis/symptom? @ -Bilateral pulmonary emboli/COVID-19/acute viral sinusitis/transaminitis/ascites Acute, or Chronic, or Acute on Chronic? @ -Acute Uncomplicated (without systemic symptoms) or Complicated (systemic symptoms)? @ -Complicated Side effects of treatment? @ -No Exacerbation, Progression, or Severe Exacerbation? @ -No Poses a threat to life or bodily function? How? (Chest pain, USA, PA, pneumonia, PE, COPD, DKA, ARF, appy, cholecystitis, CVA, Diverticulitis, Homicidal, Suicidal, threat to staff... and all critical care pts) @ -Yes, pulmonary embolisms can lead to hypoxia and lethal cardiac arrhythmias. Malignancy is also life-threatening. - Lab Data Result diagrams: 04/16/24 17:44 04/16/24 12:55 Lab Results 04/16/24 04/16/24 04/16/24 Range/Units 12:39 12:55 12:55 WBC 7.5 (3.8-10.6) k/uL RBC 3.03 L (3.80-5.40) m/uL Hgb 9.9 L (11.4-16.0) gm/dL Hct 30.8 L (34.0-46.0) % MCV 101.5 H (80.0-100.0) fL MCH 32.7 (25.0-35.0) pg MCHC 32.2 (31.0-37.0) g/dL RDW 30.0 H (11.5-15.5) % Plt Count 68 L (150-450) k/uL MPV 10.4 Neutrophils % 89 % Lymphocytes % 2 % Monocytes % 5 % Eosinophils % 2 % Basophils % 0 % Neutrophils # 6.7 (1.3-7.7) k/uL Lymphocytes # 0.1 L (1.0-4.8) k/uL Monocytes # 0.4 (0-1.0) k/uL Eosinophils # 0.2 (0-0.7) k/uL Basophils # 0.0 (0-0.2) k/uL Manual Slide Review Performed Hypochromasia Moderate Anisocytosis Marked Microcytosis Slight Macrocytosis Marked A Target Cells Present PT (10.0-12.5) sec INR (<1.2) APTT (22.0-30.0) sec Sodium 131 L (137-145) mmol/L Potassium 4.1 (3.5-5.1) mmol/L Chloride 101 (98-107) mmol/L Carbon Dioxide 20 L (22-30) mmol/L Anion Gap 10 mmol/L BUN 10 (7-17) mg/dL Creatinine 0.58 (0.52-1.04) mg/dL Est GFR (CKD-EPI)AfAm >90 (>60 ml/min/1.73 sqM) Est GFR (CKD-EPI)NonAf >90 (>60 ml/min/1.73 sqM) Glucose 181 H (74-99) mg/dL Lactic Ac Sepsis Rflx Plasma Lactic Acid Yeison (0.7-2.0) mmol/L Calcium 7.4 L (8.4-10.2) mg/dL Total Bilirubin 3.3 H (0.2-1.3) mg/dL Conjugated Bilirubin 1.0 H (0.0-0.3) mg/dL Unconjugated Bilirubin 0.8 (0.0-1.1) mg/dL Delta Bilirubin 1.5 H (0.0-0.2) mg/dL AST 310 H (14-36) U/L ALT 45 H (4-34) U/L Alkaline Phosphatase 491 H (38-126) U/L NT-Pro-B Natriuret Pep pg/mL Total Protein 6.5 (6.3-8.2) g/dL Albumin 2.7 L (3.5-5.0) g/dL Urine Color Urine Appearance (Clear) Urine pH (5.0-8.0) Ur Specific [place] (1.001-1.035) Urine Protein (Negative) Urine Glucose (UA) (Negative) Urine Ketones (Negative) Urine Blood (Negative) Urine Nitrite (Negative) Urine Bilirubin (Negative) Urine Urobilinogen (<2.0) mg/dL Ur Leukocyte Esterase (Negative) Urine RBC (0-5) /hpf Urine WBC (0-5) /hpf Ur Squamous Epith Cells (0-4) /hpf Urine Bacteria (None) /hpf Urine Mucus (None) /hpf Acetaminophen <10.0 ug/mL Serum Alcohol <10 mg/dL Influenza Type A (PCR) Not Detected (Not Detectd) Influenza Type B (PCR) Not Detected (Not Detectd) RSV (PCR) Not Detected (Not Detectd) SARS-CoV-2 (PCR) Detected A (Not Detectd) 04/16/24 04/16/24 04/16/24 Range/Units 12:55 12:55 12:55 WBC (3.8-10.6) k/uL RBC (3.80-5.40) m/uL Hgb (11.4-16.0) gm/dL Hct (34.0-46.0) % MCV (80.0-100.0) fL MCH (25.0-35.0) pg MCHC (31.0-37.0) g/dL RDW (11.5-15.5) % Plt Count (150-450) k/uL MPV Neutrophils % % Lymphocytes % % Monocytes % % Eosinophils % % Basophils % % Neutrophils # (1.3-7.7) k/uL Lymphocytes # (1.0-4.8) k/uL Monocytes # (0-1.0) k/uL Eosinophils # (0-0.7) k/uL Basophils # (0-0.2) k/uL Manual Slide Review Hypochromasia Anisocytosis Microcytosis Macrocytosis Target Cells PT 15.6 H (10.0-12.5) sec INR 1.5 H (<1.2) APTT 24.4 (22.0-30.0) sec Sodium (137-145) mmol/L Potassium (3.5-5.1) mmol/L Chloride (98-107) mmol/L Carbon Dioxide (22-30) mmol/L Anion Gap mmol/L BUN (7-17) mg/dL Creatinine (0.52-1.04) mg/dL Est GFR (CKD-EPI)AfAm (>60 ml/min/1.73 sqM) Est GFR (CKD-EPI)NonAf (>60 ml/min/1.73 sqM) Glucose (74-99) mg/dL Lactic Ac Sepsis Rflx Plasma Lactic Acid Yeison 3.4 H* (0.7-2.0) mmol/L Calcium (8.4-10.2) mg/dL Total Bilirubin (0.2-1.3) mg/dL Conjugated Bilirubin (0.0-0.3) mg/dL Unconjugated Bilirubin (0.0-1.1) mg/dL Delta Bilirubin (0.0-0.2) mg/dL AST (14-36) U/L ALT (4-34) U/L Alkaline Phosphatase (38-126) U/L NT-Pro-B Natriuret Pep 800 pg/mL Total Protein (6.3-8.2) g/dL Albumin (3.5-5.0) g/dL Urine Color Urine Appearance (Clear) Urine pH (5.0-8.0) Ur Specific [place] (1.001-1.035) Urine Protein (Negative) Urine Glucose (UA) (Negative) Urine Ketones (Negative) Urine Blood (Negative) Urine Nitrite (Negative) Urine Bilirubin (Negative) Urine Urobilinogen (<2.0) mg/dL Ur Leukocyte Esterase (Negative) Urine RBC (0-5) /hpf Urine WBC (0-5) /hpf Ur Squamous Epith Cells (0-4) /hpf Urine Bacteria (None) /hpf Urine Mucus (None) /hpf Acetaminophen ug/mL Serum Alcohol mg/dL Influenza Type A (PCR) (Not Detectd) Influenza Type B (PCR) (Not Detectd) RSV (PCR) (Not Detectd) SARS-CoV-2 (PCR) (Not Detectd) 04/16/24 04/16/24 Range/Units 13:07 14:13 WBC (3.8-10.6) k/uL RBC (3.80-5.40) m/uL Hgb (11.4-16.0) gm/dL Hct (34.0-46.0) % MCV (80.0-100.0) fL MCH (25.0-35.0) pg MCHC (31.0-37.0) g/dL RDW (11.5-15.5) % Plt Count (150-450) k/uL MPV Neutrophils % % Lymphocytes % % Monocytes % % Eosinophils % % Basophils % % Neutrophils # (1.3-7.7) k/uL Lymphocytes # (1.0-4.8) k/uL Monocytes # (0-1.0) k/uL Eosinophils # (0-0.7) k/uL Basophils # (0-0.2) k/uL Manual Slide Review Hypochromasia Anisocytosis Microcytosis Macrocytosis Target Cells PT (10.0-12.5) sec INR (<1.2) APTT (22.0-30.0) sec Sodium (137-145) mmol/L Potassium (3.5-5.1) mmol/L Chloride (98-107) mmol/L Carbon Dioxide (22-30) mmol/L Anion Gap mmol/L BUN (7-17) mg/dL Creatinine (0.52-1.04) mg/dL Est GFR (CKD-EPI)AfAm (>60 ml/min/1.73 sqM) Est GFR (CKD-EPI)NonAf (>60 ml/min/1.73 sqM) Glucose (74-99) mg/dL Lactic Ac Sepsis Rflx Y Plasma Lactic Acid Yeison (0.7-2.0) mmol/L Calcium (8.4-10.2) mg/dL Total Bilirubin (0.2-1.3) mg/dL Conjugated Bilirubin (0.0-0.3) mg/dL Unconjugated Bilirubin (0.0-1.1) mg/dL Delta Bilirubin (0.0-0.2) mg/dL AST (14-36) U/L ALT (4-34) U/L Alkaline Phosphatase (38-126) U/L NT-Pro-B Natriuret Pep pg/mL Total Protein (6.3-8.2) g/dL Albumin (3.5-5.0) g/dL Urine Color Dark Brown Urine Appearance Cloudy H (Clear) Urine pH 6.0 (5.0-8.0) Ur Specific [place] 1.038 H (1.001-1.035) Urine Protein 1+ H (Negative) Urine Glucose (UA) 1+ H (Negative) Urine Ketones Negative (Negative) Urine Blood Negative (Negative) Urine Nitrite Negative (Negative) Urine Bilirubin 2+ H (Negative) Urine Urobilinogen 12.0 (<2.0) mg/dL Ur Leukocyte Esterase Negative (Negative) Urine RBC 2 (0-5) /hpf Urine WBC 7 H (0-5) /hpf Ur Squamous Epith Cells <1 (0-4) /hpf Urine Bacteria Rare H (None) /hpf Urine Mucus Many H (None) /hpf Acetaminophen ug/mL Serum Alcohol mg/dL Influenza Type A (PCR) (Not Detectd) Influenza Type B (PCR) (Not Detectd) RSV (PCR) (Not Detectd) SARS-CoV-2 (PCR) (Not Detectd) - Radiology Data Radiology results: report reviewed, image reviewed Disposition Clinical Impression: Pulmonary embolism, Cervical cancer, Transaminitis, COVID-19, Acute viral sinusitis Disposition: ADMITTED IP TO THIS HOSP Condition: Stable Time of Disposition: 15:50
[2024-04-16] MEDS: ACETAMINOPHEN TAB 500 MG TAB PO STA (13:00)
[2024-04-16 13:23] LABS: Influenza A Not Detected (Not Detectd); Influenza B Not Detected (Not Detectd); RSV Not Detected (Not Detectd)
[2024-04-16 13:24] LABS: ALT 45 U/L (4-34); AST 310 U/L (14-36); Acetaminophen <10.0 ug/mL; African American GFR (CKD) >90 (>60 ml/min/1.73 sqM); Albumin 2.7 g/dL (3.5-5.0); Alcohol <10 mg/dL; Alkaline Phosphatase 491 U/L (38-126); Anion Gap 10 mmol/L; Bilirubin, Delta 1.5 mg/dL (0.0-0.2); Bilirubin,Unconjugated 0.8 mg/dL (0.0-1.1); Blood Urea Nitrogen 10 mg/dL (7-17); Calcium 7.4 mg/dL (8.4-10.2); Carbon Dioxide 20 mmol/L (22-30); Chloride 101 mmol/L (98-107); Glucose 181 mg/dL (74-99); Non-African American GFR(CKD) >90 (>60 ml/min/1.73 sqM); Potassium 4.1 mmol/L (3.5-5.1); Sodium 131 mmol/L (137-145); Total Bilirubin 3.3 mg/dL (0.2-1.3); Total Protein 6.5 g/dL (6.3-8.2)
[2024-04-16 13:38] LABS: Appearance,Urine Cloudy (Clear); Bacteria,Urine Rare /hpf; Bilirubin,Urine 2+ (Negative); Blood,Urine Negative (Negative); Color,Urine Dark Brown; Glucose,Urine (UA) 1+ (Negative); Ketones,Urine Negative (Negative); Leukocyte Esterase,Urine Negative (Negative); Mucus,Urine Many /hpf; Nitrite,Urine Negative (Negative); Protein,Urine 1+ (Negative); RBC,Urine 2 /hpf (0-5); Specific Gravity,Urine 1.038 (1.001-1.035); Squamous Epithelial Cell,Urine <1 /hpf (0-4); WBC,Urine 7 /hpf (0-5)
[2024-04-16 13:41] LABS: Anisocytosis Marked; Basophils % (A) 0 %; Eosinophils # (A) 0.2 k/uL (0-0.7); Eosinophils % (A) 2 %; HCT 30.8 % (34.0-46.0); HGB 9.9 gm/dL (11.4-16.0); Hypochromasia Moderate; Lymphocytes # (A) 0.1 k/uL (1.0-4.8); Lymphocytes % (A) 2 %; MCH 32.7 pg (25.0-35.0); MCHC 32.2 g/dL (31.0-37.0); MCV 101.5 fL (80.0-100.0); Macrocytosis Marked; Mean Platelet Volume 10.4; Microcytosis Slight; Monocytes # (A) 0.4 k/uL (0-1.0); Monocytes % (A) 5 %; Neutrophils # (A) 6.7 k/uL (1.3-7.7); Neutrophils % (A) 89 %; RBC 3.03 m/uL (3.80-5.40); WBC 7.5 k/uL (3.8-10.6)
[2024-04-16 13:46] LABS: INR 1.5 (<1.2); Partial Thromboplastin Time 24.4 sec (22.0-30.0); Prothrombin Time 15.6 sec (10.0-12.5)
[2024-04-16 14:19] LABS: Target Cells Present
[2024-04-16 14:20] LABS: Platelet Count 68 k/uL (150-450)
--- NOTE | 2024-04-16 14:50 | XR ---
EXAMINATION TYPE: XR chest 2V DATE OF EXAM: 04/16/2024 2:44 PM COMPARISON: Previous chest 10/12/2021. CLINICAL INDICATION: Female, 49 years old with history of fever; H TECHNIQUE: XR chest 2V Frontal and lateral views of the chest. FINDINGS: Lungs/Pleura: There is no evidence of pleural effusion, focal consolidation, or pneumothorax. Pulmonary vascularity: Unremarkable. Heart/mediastinum: Cardiomediastinal silhouette is unremarkable. Musculoskeletal: No acute osseous pathology. Other findings: None Lines/Tubes: Left chest wall port catheter with distal catheter tip terminating in the region of the distal SVC. IMPRESSION: No acute cardiopulmonary disease/process. [facility], , 04/16/2024 2:48 PM
--- NOTE | 2024-04-16 15:15 | CT ---
EXAMINATION TYPE: CT abdomen pelvis w con DATE OF EXAM: 04/16/2024 2:46 PM COMPARISON: None. CLINICAL INDICATION: Female, 49 years old with history of distended abdomen/urinary retention/hx cerv ical ca; Abdominal distension, urinary retention, hx cervical ca TECHNIQUE: Axial CT abdomen pelvis w con;Sagittal and coronal reformats were created on a separate w orkstation. Contrast used:100 mL of Isovue 370 with IV Contrast, (none if empty) Oral contrast used: without Oral Contrast (none if empty) CT DLP: 2200.9 mGycm, Automated exposure control for dose reduction was used. FINDINGS: LOWER CHEST: Unremarkable ABDOMEN LIVER: Diffusely hypoattenuating parenchyma. GALLBLADDER AND BILE DUCTS: The gallbladder is surgically absent. PANCREAS: Unremarkable. SPLEEN: Unremarkable. ADRENAL GLANDS: Mild nonspecific nodularity of the right adrenal gland measuring 8 mm (series 3 image 35). No left-sided renal nodule. KIDNEYS AND URETERS: Calcifications along the mid/inferior left kidney. No hydronephrosis or hydroure ter. No enhancing renal mass. PELVIS BLADDER: Decompressed with intraluminal Walker catheter and associated nondependent gas. REPRODUCTIVE: Uterus unremarkable. ABDOMEN & PELVIS STOMACH AND BOWEL: Stomach and duodenum are unremarkable No evidence of bowel obstruction. PERITONEUM/RETROPERITONEUM: Moderate volume diffuse abdominal ascites. VASCULATURE: Diffuse mixed calcified carotid plaque throughout the abdominal aorta with near complete occlusion of the infrarenal aorta (series 3 image 56) 3 prominently noncalcified plaque. Bilateral c ommon iliac arteries appear patent with reconstitution. MUSCULOSKELETAL: No acute osseous abnormalities LYMPH NODES: No gross evidence for lymphadenopathy. SOFT TISSUE/ABDOMINAL WALL: Unremarkable IMPRESSION: 1. Moderate volume diffuse abdominal ascites. 2. Hepatic steatosis. 3. 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 Bilateral common iliac arteries are patent due to reconstitution. [facility], , 04/16/2024 3:13 PM
--- NOTE | 2024-04-16 15:23 | CT ---
EXAMINATION TYPE: CT chest angio for PE DATE OF EXAM: 04/16/2024 2:46 PM COMPARISON: Previous CT chest study 11/03/2021. CLINICAL INDICATION: Female, 49 years old with history of SOB/ hc PE; SOB, hx PE, Covid + TECHNIQUE/CONTRAST: CTA scan of the thorax is performed with IV Contrast, patient injected with 100 mL of Isovue 370, MIP images are created and reviewed these are created on a separate workstation.. CT DLP: 2200.9 mGycm, Automated exposure control for dose reduction was used. FINDINGS: Pulmonary Artery: Low-density filling defects throughout the bilateral lower lobe segmental and subse gmental pulmonary artery branches, right greater than left. No convincing CT evidence for right heart strain at this time. The pulmonary artery is of normal size. Lungs/Pleura: No evidence of focal consolidation, pleural effusion or pneumothorax. No new suspicious or enlarging pulmonary nodule. Airway: Large airways are patent. Heart: Heart is within normal limits for size. Vasculature: No evidence of aortic aneurysm. Mediastinum: No gross evidence of adenopathy. Musculoskeletal: No acute osseous abnormalities Soft Tissues/lymph nodes: Unremarkable. Lower neck: No significant findings. Upper Abdomen: Hepatic steatosis. IMPRESSION: Bilateral lower lobe segmental and subsegmental pulmonary artery emboli, right greater than left. No convincing CT evidence of right heart strain. *Critical findings were discussed with Lindsey FAIR at 3:15 PM on 04/16/2024. [facility], , 04/16/2024 3:21 PM
[2024-04-16] MEDS ORDERED: HEPARIN SODIUM 1,000 UN/ML (10ML VL) IV PRN (15:24)
[2024-04-16] MEDS: HEPARIN SODIUM 1,000 UN/ML (10ML VL) IV ONE (15:39)
[2024-04-16] MEDS: HEPARIN SOD,PORK IN 0.45% NACL 25,000 UNIT in 0.45% NACL 1 250ML.BAG IV SCH (15:40)
[2024-04-16] MEDS: IBUPROFEN 600 MG TAB PO STA (15:41)
[2024-04-16] MEDS: SODIUM CHLORIDE 0.9% 1,000 ML IV STA (15:41)
[2024-04-16] MEDS: MORPHINE SULFATE 4 MG/ML SYRINGE IVP STA (15:42)
[2024-04-16] MEDS ORDERED: NALOXONE 0.4 MG/ML 1 ML VIAL IV PRN ×2 (15:47→16:11)
[2024-04-16] MEDS ORDERED: DEXTROSE 50% SYRINGE 50 ML IVP PRN ×2 (16:45)
--- NOTE | 2024-04-16 16:48 | P.HPIM ---
History of Present Illness H&P Date: 04/16/24 Chief Complaint: abdominal pain Nell is a 49-year-old female with past medical history of type 2 diabetes and history of DVT/PE on Eliquis History is a bit limited as the patient appears to be slightly confused. I attempted to call the patient's however the number was noted to be disconnected. Most of the history is obtained through the patient although was limited due to her confusion The patient reports that she was diagnosed with stage III ovarian cancer in January. She reports that she was diagnosed with ovarian cancer she was noted to be having vaginal bleeding. She reports that he started chemotherapy and radiation shortly thereafter. She is unable to tell me what chemotherapy she is receiving. She reports her oncologist is out of [place]. She reports that she has not had chemotherapy or radiation for the past 2 weeks due to feeling un well. She had then presented to the ER for further evaluation When she presented the ER she was very tachycardic 100% room air and was noted to be febrile with a temperature of 101.5 lab work had shown a white blood cell count 7.5 MCV was 101.5. CMP had revealed a lactic acid of 3.4 urinalysis had revealed slight hemoglobin. COVID-[address] abdomen pelvis had revealed moderate volume diffuse abdominal ascites with hepatic steatosis. 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 CTA chest revealed bilateral lower segmental and subsegmental PE. Past Medical History Past Medical History: No Reported History Additional Past Medical History / Comment(s): Cervical cx stage- 3C. DVT History of Any Multi-Drug Resistant Organisms: None Reported Past Surgical History: Cholecystectomy Past Psychological History: No Psychological Hx Reported Smoking Status: Current some day smoker Past Alcohol Use History: None Reported Past Drug Use History: None Reported Medications and Allergies Home Medications Medication Instructions Recorded Confirmed Type Apixaban [Eliquis] 5 mg PO BID 04/16/24 04/16/24 History metFORMIN HCL [Glucophage] 500 mg PO BID 04/16/24 04/16/24 History sitaGLIPtin [Januvia] 100 mg PO DAILY 04/16/24 04/16/24 History Allergies Allergy/AdvReac Type Severity Reaction Status Date / Time codeine Allergy Unknown Verified 04/16/24 16:14 Physical Exam Vitals: Vital Signs Temp Pulse Resp BP Pulse Ox 04/16/24 16:00 108 H 24 112/64 98 01/05/25 15:36 112 H 22 109/63 04/16/24 14:58 101.2 F H 114 H 22 124/67 100 04/16/24 12:15 101.5 F H 122 H 18 118/67 100 Intake and Output 04/16/24 04/16/24 04/16/24 06:59 14:59 22:59 Other: Weight 90.718 kg General: Female, appears stated age, appears slightly ill Derm: warm, dry Head: atraumatic, normocephalic, symmetric Eyes: EOMI, no lid lag, anicteric sclera, pupils equal round reactive to light ENT: Nose and ears atraumatic, no thrush, no pharyngeal erythema Neck: No thyromegaly, no cervical lymphadenopathy, trachea midline, supple Mouth: no lip lesion, mucus membranes moist Cardiovascular: S1S2 reg, no murmur, positive posterior tibial pulse bilateral, no edema, capillary refill less than 2 seconds Lungs: clear to ascultation bilateral on nasal cannula Abdominal: soft, nontender to palpation, no guarding, no appreciable organomegaly, normal bowel sounds Ext: no gross muscle atrophy, muscle strength muscle strength 5 out of 5 in all 4 extremities, no contractures Neuro: Moving all extremity spontaneously Psych: Alert, oriented, appropriate affect Results CBC & Chem 7: 04/16/24 12:55 04/16/24 12:55 Labs: Abnormal Lab Results - Last 24 Hours (Table) 04/16/24 04/16/24 04/16/24 Range/Units 12:39 12:55 12:55 RBC 3.03 L (3.80-5.40) m/uL Hgb 9.9 L (11.4-16.0) gm/dL Hct 30.8 L (34.0-46.0) % MCV 101.5 H (80.0-100.0) fL RDW 30.0 H (11.5-15.5) % Plt Count 68 L (150-450) k/uL Lymphocytes # 0.1 L (1.0-4.8) k/uL Macrocytosis Marked A PT (10.0-12.5) sec INR (<1.2) Sodium 131 L (137-145) mmol/L Carbon Dioxide 20 L (22-30) mmol/L Glucose 181 H (74-99) mg/dL Plasma Lactic Acid Yeison (0.7-2.0) mmol/L Calcium 7.4 L (8.4-10.2) mg/dL Total Bilirubin 3.3 H (0.2-1.3) mg/dL Conjugated Bilirubin 1.0 H (0.0-0.3) mg/dL Delta Bilirubin 1.5 H (0.0-0.2) mg/dL AST 310 H (14-36) U/L ALT 45 H (4-34) U/L Alkaline Phosphatase 491 H (38-126) U/L Albumin 2.7 L (3.5-5.0) g/dL Urine Appearance (Clear) Ur Specific [place] (1.001-1.035) Urine Protein (Negative) Urine Glucose (UA) (Negative) Urine Bilirubin (Negative) Urine WBC (0-5) /hpf Urine Bacteria (None) /hpf Urine Mucus (None) /hpf SARS-CoV-2 (PCR) Detected A (Not Detectd) 04/16/24 04/16/24 04/16/24 Range/Units 12:55 12:55 13:07 RBC (3.80-5.40) m/uL Hgb (11.4-16.0) gm/dL Hct (34.0-46.0) % MCV (80.0-100.0) fL RDW (11.5-15.5) % Plt Count (150-450) k/uL Lymphocytes # (1.0-4.8) k/uL Macrocytosis PT 15.6 H (10.0-12.5) sec INR 1.5 H (<1.2) Sodium (137-145) mmol/L Carbon Dioxide (22-30) mmol/L Glucose (74-99) mg/dL Plasma Lactic Acid Yeison 3.4 H* (0.7-2.0) mmol/L Calcium (8.4-10.2) mg/dL Total Bilirubin (0.2-1.3) mg/dL Conjugated Bilirubin (0.0-0.3) mg/dL Delta Bilirubin (0.0-0.2) mg/dL AST (14-36) U/L ALT (4-34) U/L Alkaline Phosphatase (38-126) U/L Albumin (3.5-5.0) g/dL Urine Appearance Cloudy H (Clear) Ur Specific [place] 1.038 H (1.001-1.035) Urine Protein 1+ H (Negative) Urine Glucose (UA) 1+ H (Negative) Urine Bilirubin 2+ H (Negative) Urine WBC 7 H (0-5) /hpf Urine Bacteria Rare H (None) /hpf Urine Mucus Many H (None) /hpf SARS-CoV-2 (PCR) (Not Detectd) Assessment and Plan Assessment: #) B/l PE. Likely provoked in the setting of active malignancy. Home medication list shows she is on Eliquis however the patient denied any history of DVT/PE when I had discussed with her. Chart review reveals that she was di agnosed with a PE on April 07 at [facility]. 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 The patient does have a history of tobacco use. ER had discussed with vascular surgery and no acute surgical intervention for now. #) Moderate volume abdominal ascites. On my review of CT scan there is a small pocket of ascites, however I do not think that this is amenable to paracentesis. I suspect this may be malignant ascites from her cervical cancer however will need to confirm with cytology and an order for that would ideally wait for ascites to be larger to safely perform a paracentesis #) Hepatic steatosis. The patient denied any excessive alcohol consumption upon my history taking however her MCV is noted be 101 her ethanol level is negative however CT imaging does show evidence of hepatic steatosis. Furthermore her platelet count is noted to be 68. #) COVID-19. The patient is on room air she is slightly dyspneic and she is febrile. Blood cultures have been obtained and are pending. At this time I would monitor off antibiotics as there is no source of bacterial infection, however low threshold to start antibiotics if any signs of hemodynamic instability. I suspect the patient may be immunocompromised from her concurrent chemotherapy but it is unknown which regimen she is on #) Tobacco use. uses 1/2 PPD. Recommend cessation. Nicotine patch while inpatient #) Stage III cervical cancer. She was diagnosed in January 2024 as she was having vaginal bleeding. She was started on chemotherapy and radiation. She reports her last session was 2 weeks prior. She reports her primary oncologist is from [place]. ONcology input as she expresses she would like a 2nd opinon and a new oncologist. #) Dm2, continue metformin, sitagliptin. Low intensity sliding scale insulin Dispo: med/surge Time with Patient: Greater than 30
[2024-04-16] MEDS: NICOTINE 14MG/24HR PATCH TRANSDERM SCH (17:06)
[2024-04-16 17:26] LABS: Glucose,Whole Blood 231 mg/dL (70-110)
[2024-04-16] MEDS: INSULIN ASPART (NovoLOG) 100 UNIT/ML VIAL SQ SCH (17:28)
[2024-04-16] MEDS: metFORMIN 500 MG TAB PO SCH (17:28)
[2024-04-16 18:22] LABS: NT-Pro-B-Type Natriuretic Pept 800 pg/mL
--- NOTE | 2024-04-16 18:24 | US ---
EXAMINATION TYPE: US venous doppler duplex LE DATE OF EXAM: 04/16/2024 4:57 PM COMPARISON: NONE CLINICAL INDICATION: Female, 49 years old with history of pulmonary embolism; ON IV heparin, bilatera l PE, Pain TECHNIQUE: The lower extremity deep venous system is examined utilizing real time linear array sonog yusra with graded compression, color doppler sonography, and spectral doppler. SIDE PERFORMED: Bilateral FINDINGS: VESSELS IMAGED: Common Femoral Vein Deep Femoral Vein Greater Saphenous Vein Femoral Vein Popliteal Vein Small Saphenous Vein Proximal Calf Veins Right Leg: Echogenic echoes in proximal popliteal vein, Color Doppler imaging shows patency of the v essels. Spectral waveforms are within normal limits. Left Leg: Negative for DVT, Color Doppler imaging shows patency of the vessels. Spectral waveforms a re within normal limits. IMPRESSION: 1. Nonocclusive thrombosis involving the right popliteal vein with preserved compression. 2. No evidence of left-sided DVT. [facility], , 04/16/2024 6:22 PM
[2024-04-16 18:34] LABS: Anisocytosis Marked; Basophils % (A) 0 %; Eosinophils # (A) 0.1 k/uL (0-0.7); Eosinophils % (A) 1 %; HCT 25.3 % (34.0-46.0); Hypochromasia Marked; Lymphocytes # (A) 0.2 k/uL (1.0-4.8); Lymphocytes % (A) 2 %; MCH 32.1 pg (25.0-35.0); MCHC 31.1 g/dL (31.0-37.0); Macrocytosis Marked; Mean Platelet Volume 9.9; Microcytosis Slight; Monocytes # (A) 0.5 k/uL (0-1.0); Monocytes % (A) 5 %; Neutrophils # (A) 9.3 k/uL (1.3-7.7); Neutrophils % (A) 91 %; RBC 2.46 m/uL (3.80-5.40); WBC 10.2 k/uL (3.8-10.6)
[2024-04-16 18:40] LABS: HGB 7.9 gm/dL (11.4-16.0); Platelet Count 62 k/uL (150-450); RDW 29.9 % (11.5-15.5)
[2024-04-16 21:08] LABS: Glucose,Whole Blood 252 mg/dL (70-110)
[2024-04-16 23:23] LABS: Chol/HDL Ratio 6.33 Ratio; LDL Cholesterol,Calculated 61.8 mg/dL (0.0-131.0)
[2024-04-17] MEDS: HYDROcodone/APAP 5-325MG 1 EACH TAB PO PRN (00:40)
[2024-04-17] MEDS: ONDANSETRON 4 MG/2 ML VIAL IVP PRN (04:08)
[2024-04-17] MEDS ORDERED: ALBUTEROL NEBULIZED 2.5 MG/3 ML INHALATION PRN (05:21)
--- NOTE | 2024-04-17 05:28 | P.CNPUL ---
History of Present Illness Consult date: 04/17/24 Requesting physician: Lindsey Meier Reason for consult: pulmonary embolism Chief complaint: Urinary retention History of present illness: Patient is a 49-year-old female with past medical history significant for cervical cancer, current smoker, diabetes mellitus, and recent diagnosis of pulmonary embolism/DVT. Patient is technically a poor historian. Receives most of her medical care out of [place]. Her oncologist is out of [place]. She has cervical cancer and stopped chemotherapy treatments approximately 3 weeks ago because she has been feeling too sick. States that she was recent hospitalized on April 06 at [facility] and was found to have DVT/PE. She was started on Eliquis. Denies missing any doses. Reportedly, had a more recent hospitalization at [facility], but left AGAINST MEDICAL ADVICE. Patient presented to emergency department yesterday afternoon with a chief complaint of inability to urinate and abdominal distention/bladder fullness. No other urinary symptoms or dysuria. An indwelling urinary catheter was inserted and remains in place. Patient also reporting symptoms of nonproductive cough, fevers, generalized weakness. Her appetite has been poor intermittently nauseous. Denies any abdominal, vomiting, diarrhea. Denies any chest pain, heart palpitation, lightheadedness, syncopal events. Does endorse right lower extremity swelling. Chest x-ray did not show any acute cardiopulmonary process. 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 Bilateral common iliac artery is patent due to reconstitution. Chest CT angio demo nstrating bilateral lower lobe segmental and subsegmental pulmonary artery emboli, right greater than left, without obvious CT evidence of right-sided heart strain. Patient was started on IV heparin infusion. CBC on arrival: WBC count 10.2, hemoglobin 7.9, hematocrit 25.3, platelets 62,000. Most recent APTT supratherapeutic at 92.6. CMP: Sodium 131, potassium 4.1, chloride 101, serum bicarb 20, BUN 10, creatinine 0.58, glucose 181. Lactic was 3.4 and is down to 1.8. Total bilirubin 3.3. AST 310, ALT 45, ALP 491. Troponin is less than 0.012. NT proBNP 800. Intermittently febrile with a Tmax of 101.5 F in the ED. Urinalysis unremarkable for urinary tract infection. Was positive for COVID PCR. Patient is currently being evaluated in the emergency department, she is on room air oxygen, no acute distress. Continues on IV heparin infusion per protocol. Denies any acute blood loss including vaginal bleeding, melena, hematochezia, hematemesis. Current vitals: 99 F, heart rate 96 bpm, blood pressure 127/67 mmHg, nontachypneic, SpO2 96% on room air oxygen. Review of Systems Constitutional: Reports chills, Reports fatigue, Reports fever, Reports poor appetite, Reports weight loss, Denies night sweats, Denies weight gain Ears, nose, mouth and throat: Reports nasal congestion, Reports post-nasal drip, Denies epistaxis, Denies headache, Denies nasal discharge, Denies sinus pain, Denies sinus pressure, Denies sore throat Cardiovascular: Denies chest pain, Denies leg edema, Denies orthopnea, Denies palpitations, Denies paroxysmal nocturnal dyspnea, Denies syncope Respiratory: Reports congestion, Reports cough, Reports dyspnea, Denies cough with sputum, Denies hemoptysis, Denies home oxygen Gastrointestinal: Reports loss of appetite, Reports nausea, Denies abdominal pain, Denies change in bowel habits, Denies diarrhea, Denies vomiting Genitourinary: Reports incomplete emptying, Denies dysuria, Denies flank pain, Denies urinary frequency Musculoskeletal: Denies limitation of motion Integumentary: Denies rash, Denies unusual bruising Neurological: Denies seizures, Denies syncope Psychiatric: Denies anxiety, Denies depression Past Medical History Past Medical History: No Reported History Additional Past Medical History / Comment(s): Cervical cx stage- 3C. DVT History of Any Multi-Drug Resistant Organisms: None Reported Past Surgical History: Cholecystectomy Past Psychological History: No Psychological Hx Reported Smoking Status: Current some day smoker Past Alcohol Use History: None Reported Past Drug Use History: None Reported Medications and Allergies Home Medications Medication Instructions Recorded Confirmed Type Apixaban [Eliquis] 5 mg PO BID 04/16/24 04/16/24 History metFORMIN HCL [Glucophage] 500 mg PO BID 04/16/24 04/16/24 History sitaGLIPtin [Januvia] 100 mg PO DAILY 04/16/24 04/16/24 History Allergies Allergy/AdvReac Type Severity Reaction Status Date / Time codeine Allergy Unknown Verified 04/16/24 16:14 Physical Exam Vitals: Vital Signs Temp Pulse Resp BP Pulse Ox 04/17/24 02:53 96 16 127/67 04/16/24 23:58 96 16 102/61 96 04/16/24 19:49 107 H 18 92/46 96 04/16/24 17:00 99.0 F 112 H 22 99/55 97 04/16/24 16:00 108 H 24 112/64 98 04/16/24 15:36 112 H 22 109/63 04/16/24 14:58 101.2 F H 114 H 22 124/67 100 04/16/24 12:15 101.5 F H 122 H 18 118/67 100 Intake and Output 04/16/24 04/16/24 04/17/24 14:59 22:59 06:59 Intake Total 120.018 Balance 120.018 Intake: Intake, IV Titration 120.018 Amount Heparin Sod,Pork in 0.45% 120.018 NaCl 25,000 unit In 0.45 % NaCl 1 250ml.bag @ 18 UNITS/KG/HR 16.329 mls/hr IV .[id number] [facility] Rx#: [id number] Other: Weight 90.718 kg GENERAL EXAM: Alert, 49-year-old white female, comfortable in no apparent distress. HEAD: Normocephalic and atraumatic EYES: Normal reaction of pupils, equal size. NOSE: Clear with pink turbinates. THROAT: No erythema or exudates. NECK: No masses, no JVD. CHEST: No chest wall deformity. LUNGS: Equal air entry with no crackles, wheeze, rhonchi or dullness. On room air oxygen. No conversational dyspnea or accessory muscle use.. CVS: S1 and S2 normal with no audible murmur, regular rhythm. No extra heart sounds ABDOMEN: No hepatosplenomegaly, active bowel sounds, no guarding or rigidity. SPINE: No scoliosis or deformity SKIN: No rashes CENTRAL NERVOUS SYSTEM: No focal deficits, tone is normal in all 4 extremities. EXTREMITIES: Nonpitting bilateral lower extremity edema, right greater than left. No clubbing, or cyanosis. Peripheral pulses are intact. Results - Laboratory Findings CBC and BMP: 04/17/24 06:11 04/16/24 12:55 PT/INR, D-dimer PT 15.6 sec (10.0-12.5) H 04/16/24 12:55 INR 1.5 (<1.2) H 04/16/24 12:55 Abnormal lab findings: Abnormal Labs 04/16/24 04/16/24 04/16/24 12:39 12:55 12:55 RBC 3.03 L Hgb 9.9 L Hct 30.8 L MCV 101.5 H RDW 30.0 H Plt Count 68 L Neutrophils # Lymphocytes # 0.1 L Macrocytosis Marked A PT INR APTT Sodium 131 L Carbon Dioxide 20 L Glucose 181 H POC Glucose (mg/dL) Plasma Lactic Acid Yeison Calcium 7.4 L Total Bilirubin 3.3 H Conjugated Bilirubin 1.0 H Delta Bilirubin 1.5 H AST 310 H ALT 45 H Alkaline Phosphatase 491 H Albumin 2.7 L Triglycerides HDL Cholesterol Urine Appearance Ur Specific [place] Urine Protein Urine Glucose (UA) Urine Bilirubin Urine WBC Urine Bacteria Urine Mucus SARS-CoV-2 (PCR) Detected A 04/16/24 04/16/24 04/16/24 12:55 12:55 12:55 RBC Hgb Hct MCV RDW Plt Count Neutrophils # Lymphocytes # Macrocytosis PT 15.6 H INR 1.5 H APTT Sodium Carbon Dioxide Glucose POC Glucose (mg/dL) Plasma Lactic Acid Yeison 3.4 H* Calcium Total Bilirubin Conjugated Bilirubin Delta Bilirubin AST ALT Alkaline Phosphatase Albumin Triglycerides 171.00 H HDL Cholesterol 18.00 L Urine Appearance Ur Specific [place] Urine Protein Urine Glucose (UA) Urine Bilirubin Urine WBC Urine Bacteria Urine Mucus SARS-CoV-2 (PCR) 04/16/24 04/16/24 04/16/24 13:07 17:24 17:44 RBC 2.46 L Hgb 7.9 L D Hct 25.3 L MCV 103.0 H RDW 29.9 H Plt Count 62 L Neutrophils # 9.3 H Lymphocytes # 0.2 L Macrocytosis Marked A PT INR APTT Sodium Carbon Dioxide Glucose POC Glucose (mg/dL) 231 H Plasma Lactic Acid Yeison Calcium Total Bilirubin Conjugated Bilirubin Delta Bilirubin AST ALT Alkaline Phosphatase Albumin Triglycerides HDL Cholesterol Urine Appearance Cloudy H Ur Specific [place] 1.038 H Urine Protein 1+ H Urine Glucose (UA) 1+ H Urine Bilirubin 2+ H Urine WBC 7 H Urine Bacteria Rare H Urine Mucus Many H SARS-CoV-2 (PCR) 04/16/24 04/16/24 04/16/24 20:00 21:05 21:24 RBC Hgb Hct MCV RDW Plt Count Neutrophils # Lymphocytes # Macrocytosis PT INR APTT 92.6 H Sodium Carbon Dioxide Glucose POC Glucose (mg/dL) 252 H Plasma Lactic Acid Yeison 2.3 H* Calcium Total Bilirubin Conjugated Bilirubin Delta Bilirubin AST ALT Alkaline Phosphatase Albumin Triglycerides HDL Cholesterol Urine Appearance Ur Specific [place] Urine Protein Urine Glucose (UA) Urine Bilirubin Urine WBC Urine Bacteria Urine Mucus SARS-CoV-2 (PCR) - Diagnostic Findings Chest x-ray: image reviewed CT scan - chest: image reviewed Assessment and Plan Assessment: Bilateral lower lobe segmental and subsegmental pulmonary artery emboli, right greater than left clot burden. No CT evidence of right-sided heart strain. States that she was recently diagnosed with PE/DVT at outside facility, and was already started on Eliquis. 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, with reconstitution at the bilateral common iliac arteries, vascular surgery consulted DVT, nonocclusive thrombus involving the right popliteal vein Moderate volume diffuse abdominal ascites, as reported in CT Hepatic steatosis Bicytopenia, with anemia and thrombocytopenia Current ongoing tobacco dependence Plan: Patient's medications, labs, imaging reviewed Continue IV heparin infusion On room air oxygen, no signs of hemodynamic compromise No CT evidence of right-sided heart strain, follow-up with transthoracic echocardiogram Will likely transition patient back to Eliquis prior to hospital discharge, which will continue indefinitely Monitor for acute blood loss, patient did have a 2 g drop in her hemoglobin. Continue supportive treatment for patient's acute COVID infection. No evidence of focal infiltrates/pneumonia or COVID-pneumonia. Tylenol for antipyretic, Robitussin DM as antitussive, as needed albuterol HFA inhaler for wheezing or dyspnea Oncology is consulted in regards to patient's cervical cancer Vascular surgery consult for abdominal aortic occlusion We will continue to follow I have personally seen and examined the patient, performed the documentation and the assessment and plan as written. Number of minutes spent on the visit:20 On 04/17/2024, the patient is being seen in joint evaluation along with the nurse practitioner. This evaluation was done more than 30 minutes. In summary, this is a 49-year-old female patient with known history of stage III cervical cancer who has received systemic chemotherapy on outpatient basis. The patient had a recent admission to [facility] where the patient was found to have DVT/pulmonary embolism. The patient was started on anticoagulation. She denies missing any doses. Subsequently, she went to [facility] where she left AGAINST MEDICAL ADVICE. She presented to us with difficulties in urination and abdominal distention and bladder fullness. CAT scan of the abdomen and pelvis was done and showed moderate volume abdominal ascites, hepatic steatosis, and occlusion of the infrarenal abdominal aorta and patent bilateral iliacs. CAT scan of the chest showed bilateral lower lobe segmental and subsegmental pulmo nary embolism right more than left. the patient is currently on iv heparin. The patient has no significant pelvic pain. The patient was seen by urology and based on their opinion, there is no significant urinary retention. In terms of her blood work, she has normal creatinine of 0.5 with a BUN of 10. Her sodium levels at 131 with a potassium level of 4.1. LFTs are mildly elevated and a serum bicarb is at 20 with a sodium level of 131. The white cell count today is at 10.4 with a hemoglobin of 7.8. The patient is currently on IV heparin. No significant respiratory distress. She is on room air oxygen with a pulse ox of 99%. Echocardiogram was also done and it showed a preserved LV function with an EF of around 55 to 60%. No significant valve abnormalities. RV size and function was essentially within normal limits. Doppler of the lower extremity showed nonocclusive thrombus in the right popliteal vein and no DVT on the left. Plan In terms of her pulmonary embolism, we will keep the patient on IV heparin. Will need a vascular surgical consultation regarding a large plaque involving the infrarenal aorta. Will follow-up with urology. Will monitor urine output. May need a paracentesis regarding the abdominal ascites. A oncology consultation will also be of value. Time with Patient: Greater than 30
[2024-04-17 06:39] LABS: Anisocytosis Marked; Basophils % (A) 0 %; Eosinophils # (A) 0.2 k/uL (0-0.7); Eosinophils % (A) 2 %; HGB 7.8 gm/dL (11.4-16.0); Hypochromasia Marked; Lymphocytes # (A) 0.3 k/uL (1.0-4.8); Lymphocytes % (A) 3 %; MCH 32.1 pg (25.0-35.0); MCHC 31.2 g/dL (31.0-37.0); MCV 102.7 fL (80.0-100.0); Macrocytosis Marked; Mean Platelet Volume 9.5; Microcytosis Slight; Monocytes # (A) 0.3 k/uL (0-1.0); Monocytes % (A) 3 %; Neutrophils # (A) 9.5 k/uL (1.3-7.7); Neutrophils % (A) 91 %; RBC 2.44 m/uL (3.80-5.40); WBC 10.4 k/uL (3.8-10.6)
[2024-04-17 06:41] LABS: Platelet Count 56 k/uL (150-450)
[2024-04-17 08:48] LABS: Glucose,Whole Blood 209 mg/dL (70-110)
[2024-04-17] MEDS ORDERED: NON FORMULARY DRUG (Dextroamphetamine/Amphetamine [Adderall Xr 30 Mg Capsule] 30 MG Cap.Er PO SCH (09:00)
[2024-04-17] MEDS: LINAGLIPTIN 5 MG TABLET PO SCH (09:09)
[2024-04-17 12:14] LABS: Glucose,Whole Blood 236 mg/dL (70-110)
--- NOTE | 2024-04-17 12:45 | P.GSCN ---
History of Present Illness Consult date: 04/17/24 Reason for Consult: Abdominal aorta occlusion Requesting physician: Archie Jean History of present illness: This is a pleasant 49-year-old female with a history of diabetes mellitus, cervical cancer diagnosed in January who was undergoing chemotherapy and radiation treatment, recent diagnosis of pulmonary embolism, and half pack per day smoker for 30 years. Patient presented to the hospital with complaints that she has been unable to urinate. Apparently as part of her evaluation she had a CT of the abdomen that reported infrarenal abdominal aorta occlusion and vascular surgery was consulted. Patient was recently diagnosed with pulmonary embolism and DVT a couple weeks ago and was on Eliquis. Patient states she was told that she only had clot in one of her lungs. She had a CTA of her chest that shows bilateral PEs. Currently has a Walker catheter in with about a liter of dark urine. Patient states that she has no history of known abdominal aortic occlusion. No abdominal pain or chest pain. Review of Systems A 14 point review systems was completed all pertinent positives and negatives as stated in the HPI. Past Medical History Past Medical History: No Reported History Additional Past Medical History / Comment(s): Cervical cx stage- 3C. DVT History of Any Multi-Drug Resistant Organisms: None Reported Past Surgical History: Cholecystectomy Past Psychological History: No Psychological Hx Reported Smoking Status: Current some day smoker Past Alcohol Use History: None Reported Past Drug Use History: None Reported Medications and Allergies Home Medications Medication Instructions Recorded Confirmed Type Apixaban [Eliquis] 5 mg PO BID 04/16/24 04/16/24 History metFORMIN HCL [Glucophage] 500 mg PO BID 04/16/24 04/16/24 History sitaGLIPtin [Januvia] 100 mg PO DAILY 04/16/24 04/16/24 History Allergies Allergy/AdvReac Type Severity Reaction Status Date / Time codeine Allergy Unknown Verified 04/16/24 16:14 Surgical - Exam Vital Signs Temp Pulse Resp BP Pulse Ox 101.5 F H 122 H 18 118/67 100 04/16/24 12:15 04/16/24 12:15 04/16/24 12:15 04/16/24 12:15 04/16/24 12:15 General appearance: The patient is alert, oriented, appears in no acute distress. HET: Head is normocephalic and atraumatic. Pupils are equal and reactive. Neck: Supple. No carotid bruit. Heart: Regular. Lungs: Equal expansion, normal respiratory effort, bilateral expiratory wheeze. Abdomen: Soft, nontender, nondistended. Anasarca. Extremities: Normal skin color and turgor. Palpable bilateral femoral and popli teal pulses. Palpable left PT. Neurological: No focal deficits. Strength and sensation are grossly intact. Results - Labs 04/17/24 06:11 04/16/24 12:55 Abnormal Lab Results - Last 24 Hours (Table) 04/16/24 04/16/24 04/16/24 Range/Units 12:39 12:55 12:55 RBC 3.03 L (3.80-5.40) m/uL Hgb 9.9 L (11.4-16.0) gm/dL Hct 30.8 L (34.0-46.0) % MCV 101.5 H (80.0-100.0) fL RDW 30.0 H (11.5-15.5) % Plt Count 68 L (150-450) k/uL Neutrophils # (1.3-7.7) k/uL Lymphocytes # 0.1 L (1.0-4.8) k/uL Macrocytosis Marked A PT (10.0-12.5) sec INR (<1.2) APTT (22.0-30.0) sec Sodium 131 L (137-145) mmol/L Carbon Dioxide 20 L (22-30) mmol/L Glucose 181 H (74-99) mg/dL POC Glucose (mg/dL) (70-110) mg/dL Hemoglobin A1c (<=6.0) % Plasma Lactic Acid Yeison (0.7-2.0) mmol/L Calcium 7.4 L (8.4-10.2) mg/dL Total Bilirubin 3.3 H (0.2-1.3) mg/dL Conjugated Bilirubin 1.0 H (0.0-0.3) mg/dL Delta Bilirubin 1.5 H (0.0-0.2) mg/dL AST 310 H (14-36) U/L ALT 45 H (4-34) U/L Alkaline Phosphatase 491 H (38-126) U/L Albumin 2.7 L (3.5-5.0) g/dL Triglycerides (0.00-149.00) mg/dL HDL Cholesterol (40.00-60.00) mg/dL Urine Appearance (Clear) Ur Specific Broadbent (1.001-1.035) Urine Protein (Negative) Urine Glucose (UA) (Negative) Urine Bilirubin (Negative) Urine WBC (0-5) /hpf Urine Bacteria (None) /hpf Urine Mucus (None) /hpf SARS-CoV-2 (PCR) Detected A (Not Detectd) 04/16/24 04/16/24 04/16/24 Range/Units 12:55 12:55 12:55 RBC (3.80-5.40) m/uL Hgb (11.4-16.0) gm/dL Hct (34.0-46.0) % MCV (80.0-100.0) fL RDW (11.5-15.5) % Plt Count (150-450) k/uL Neutrophils # (1.3-7.7) k/uL Lymphocytes # (1.0-4.8) k/uL Macrocytosis PT 15.6 H (10.0-12.5) sec INR 1.5 H (<1.2) APTT (22.0-30.0) sec Sodium (137-145) mmol/L Carbon Dioxide (22-30) mmol/L Glucose (74-99) mg/dL POC Glucose (mg/dL) (70-110) mg/dL Hemoglobin A1c (<=6.0) % Plasma Lactic Acid Yeison 3.4 H* (0.7-2.0) mmol/L Calcium (8.4-10.2) mg/dL Total Bilirubin (0.2-1.3) mg/dL Conjugated Bilirubin (0.0-0.3) mg/dL Delta Bilirubin (0.0-0.2) mg/dL AST (14-36) U/L ALT (4-34) U/L Alkaline Phosphatase (38-126) U/L Albumin (3.5-5.0) g/dL Triglycerides 171.00 H (0.00-149.00) mg/dL HDL Cholesterol 18.00 L (40.00-60.00) mg/dL Urine Appearance (Clear) Ur Specific Broadbent (1.001-1.035) Urine Protein (Negative) Urine Glucose (UA) (Negative) Urine Bilirubin (Negative) Urine WBC (0-5) /hpf Urine Bacteria (None) /hpf Urine Mucus (None) /hpf SARS-CoV-2 (PCR) (Not Detectd) 04/16/24 04/16/24 04/16/24 Range/Units 13:07 17:24 17:44 RBC 2.46 L (3.80-5.40) m/uL Hgb 7.9 L D (11.4-16.0) gm/dL Hct 25.3 L (34.0-46.0) % MCV 103.0 H (80.0-100.0) fL RDW 29.9 H (11.5-15.5) % Plt Count 62 L (150-450) k/uL Neutrophils # 9.3 H (1.3-7.7) k/uL Lymphocytes # 0.2 L (1.0-4.8) k/uL Macrocytosis Marked A PT (10.0-12.5) sec INR (<1.2) APTT (22.0-30.0) sec Sodium (137-145) mmol/L Carbon Dioxide (22-30) mmol/L Glucose (74-99) mg/dL POC Glucose (mg/dL) 231 H (70-110) mg/dL Hemoglobin A1c (<=6.0) % Plasma Lactic Acid Yeison (0.7-2.0) mmol/L Calcium (8.4-10.2) mg/dL Total Bilirubin (0.2-1.3) mg/dL Conjugated Bilirubin (0.0-0.3) mg/dL Delta Bilirubin (0.0-0.2) mg/dL AST (14-36) U/L ALT (4-34) U/L Alkaline Phosphatase (38-126) U/L Albumin (3.5-5.0) g/dL Triglycerides (0.00-149.00) mg/dL HDL Cholesterol (40.00-60.00) mg/dL Urine Appearance Cloudy H (Clear) Ur Specific Broadbent 1.038 H (1.001-1.035) Urine Protein 1+ H (Negative) Urine Glucose (UA) 1+ H (Negative) Urine Bilirubin 2+ H (Negative) Urine WBC 7 H (0-5) /hpf Urine Bacteria Rare H (None) /hpf Urine Mucus Many H (None) /hpf SARS-CoV-2 (PCR) (Not Detectd) 04/16/24 04/16/24 04/16/24 Range/Units 20:00 21:05 21:24 RBC (3.80-5.40) m/uL Hgb (11.4-16.0) gm/dL Hct (34.0-46.0) % MCV (80.0-100.0) fL RDW (11.5-15.5) % Plt Count (150-450) k/uL Neutrophils # (1.3-7.7) k/uL Lymphocytes # (1.0-4.8) k/uL Macrocytosis PT (10.0-12.5) sec INR (<1.2) APTT 92.6 H (22.0-30.0) sec Sodium (137-145) mmol/L Carbon Dioxide (22-30) mmol/L Glucose (74-99) mg/dL POC Glucose (mg/dL) 252 H (70-110) mg/dL Hemoglobin A1c (<=6.0) % Plasma Lactic Acid Yeison 2.3 H* (0.7-2.0) mmol/L Calcium (8.4-10.2) mg/dL Total Bilirubin (0.2-1.3) mg/dL Conjugated Bilirubin (0.0-0.3) mg/dL Delta Bilirubin (0.0-0.2) mg/dL AST (14-36) U/L ALT (4-34) U/L Alkaline Phosphatase (38-126) U/L Albumin (3.5-5.0) g/dL Triglycerides (0.00-149.00) mg/dL HDL Cholesterol (40.00-60.00) mg/dL Urine Appearance (Clear) Ur Specific Broadbent (1.001-1.035) Urine Protein (Negative) Urine Glucose (UA) (Negative) Urine Bilirubin (Negative) Urine WBC (0-5) /hpf Urine Bacteria (None) /hpf Urine Mucus (None) /hpf SARS-CoV-2 (PCR) (Not Detectd) 04/17/24 04/17/24 04/17/24 Range/Units 06:11 06:11 06:11 RBC 2.44 L (3.80-5.40) m/uL Hgb 7.8 L (11.4-16.0) gm/dL Hct 25.0 L (34.0-46.0) % MCV 102.7 H (80.0-100.0) fL RDW 30.0 H (11.5-15.5) % Plt Count 56 L (150-450) k/uL Neutrophils # 9.5 H (1.3-7.7) k/uL Lymphocytes # 0.3 L (1.0-4.8) k/uL Macrocytosis Marked A PT (10.0-12.5) sec INR (<1.2) APTT 53.6 H (22.0-30.0) sec Sodium (137-145) mmol/L Carbon Dioxide (22-30) mmol/L Glucose (74-99) mg/dL POC Glucose (mg/dL) (70-110) mg/dL Hemoglobin A1c 9.6 H (<=6.0) % Plasma Lactic Acid Yeison (0.7-2.0) mmol/L Calcium (8.4-10.2) mg/dL Total Bilirubin (0.2-1.3) mg/dL Conjugated Bilirubin (0.0-0.3) mg/dL Delta Bilirubin (0.0-0.2) mg/dL AST (14-36) U/L ALT (4-34) U/L Alkaline Phosphatase (38-126) U/L Albumin (3.5-5.0) g/dL Triglycerides (0.00-149.00) mg/dL HDL Cholesterol (40.00-60.00) mg/dL Urine Appearance (Clear) Ur Specific Broadbent (1.001-1.035) Urine Protein (Negative) Urine Glucose (UA) (Negative) Urine Bilirubin (Negative) Urine WBC (0-5) /hpf Urine Bacteria (None) /hpf Urine Mucus (None) /hpf SARS-CoV-2 (PCR) (Not Detectd) 04/17/24 Range/Units 08:41 RBC (3.80-5.40) m/uL Hgb (11.4-16.0) gm/dL Hct (34.0-46.0) % MCV (80.0-100.0) fL RDW (11.5-15.5) % Plt Count (150-450) k/uL Neutrophils # (1.3-7.7) k/uL Lymphocytes # (1.0-4.8) k/uL Macrocytosis PT (10.0-12.5) sec INR (<1.2) APTT (22.0-30.0) sec Sodium (137-145) mmol/L Carbon Dioxide (22-30) mmol/L Glucose (74-99) mg/dL POC Glucose (mg/dL) 209 H (70-110) mg/dL Hemoglobin A1c (<=6.0) % Plasma Lactic Acid Yeison (0.7-2.0) mmol/L Calcium (8.4-10.2) mg/dL Total Bilirubin (0.2-1.3) mg/dL Conjugated Bilirubin (0.0-0.3) mg/dL Delta Bilirubin (0.0-0.2) mg/dL AST (14-36) U/L ALT (4-34) U/L Alkaline Phosphatase (38-126) U/L Albumin (3.5-5.0) g/dL Triglycerides (0.00-149.00) mg/dL HDL Cholesterol (40.00-60.00) mg/dL Urine Appearance (Clear) Ur Specific Broadbent (1.001-1.035) Urine Protein (Negative) Urine Glucose (UA) (Negative) Urine Bilirubin (Negative) Urine WBC (0-5) /hpf Urine Bacteria (None) /hpf Urine Mucus (None) /hpf SARS-CoV-2 (PCR) (Not Detectd) Diabetes panel 04/16/24 04/16/24 04/17/24 Range/Units 12:55 12:55 06:11 Sodium 131 L (137-145) mmol/L Potassium 4.1 (3.5-5.1) mmol/L Chloride 101 (98-107) mmol/L Carbon Dioxide 20 L (22-30) mmol/L BUN 10 (7-17) mg/dL Creatinine 0.58 (0.52-1.04) mg/dL Glucose 181 H (74-99) mg/dL Hemoglobin A1c 9.6 H (<=6.0) % Calcium 7.4 L (8.4-10.2) mg/dL AST 310 H (14-36) U/L ALT 45 H (4-34) U/L Alkaline Phosphatase 491 H (38-126) U/L Total Protein 6.5 (6.3-8.2) g/dL Albumin 2.7 L (3.5-5.0) g/dL Triglycerides 171.00 H (0.00-149.00) mg/dL HDL Cholesterol 18.00 L (40.00-60.00) mg/dL Calcium panel 04/16/24 Range/Units 12:55 Calcium 7.4 L (8.4-10.2) mg/dL Albumin 2.7 L (3.5-5.0) g/dL Pituitary panel 04/16/24 Range/Units 12:55 Sodium 131 L (137-145) mmol/L Potassium 4.1 (3.5-5.1) mmol/L Chloride 101 (98-107) mmol/L Carbon Dioxide 20 L (22-30) mmol/L BUN 10 (7-17) mg/dL Creatinine 0.58 (0.52-1.04) mg/dL Glucose 181 H (74-99) mg/dL Calcium 7.4 L (8.4-10.2) mg/dL Adrenal panel 04/16/24 Range/Units 12:55 Sodium 131 L (137-145) mmol/L Potassium 4.1 (3.5-5.1) mmol/L Chloride 101 (98-107) mmol/L Carbon Dioxide 20 L (22-30) mmol/L BUN 10 (7-17) mg/dL Creatinine 0.58 (0.52-1.04) mg/dL Glucose 181 H (74-99) mg/dL Calcium 7.4 L (8.4-10.2) mg/dL Total Bilirubin 3.3 H (0.2-1.3) mg/dL AST 310 H (14-36) U/L ALT 45 H (4-34) U/L Alkaline Phosphatase 491 H (38-126) U/L Total Protein 6.5 (6.3-8.2) g/dL Albumin 2.7 L (3.5-5.0) g/dL - Imaging Comments: CT abdomen pelvis with contrast reports moderate volume diffuse abdominal ascite s. Hepatic steatosis. 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 Bilateral common iliac arteries are patent due to reconstitution. Chest CTA reports bilateral lower lobe segmental and subsegmental pulmonary artery emboli, right greater than left. No convincing CT evidence of right heart strain. Venous Doppler reports nonocclusive thrombosis involving the right popliteal vein with preserved compression. No evidence of left-sided DVT. Assessment and Plan Assessment: 1. 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 Urinary retention 3. Cervical cancer 4. Diabetes mellitus 5. Current smoker Plan: Patient is here presenting with urinary retention and inability to urinate. Recent diagnosis of cervical cancer in January of this year was on chemo therapy and radiation therapy. current daily smoker with history of diabetes, she is asymptomatic of abdominal aortic occlusion. She has reconstitution of bilateral common iliac arteries. There is no indication for any vascular surgical intervention. She can follow-up as an outpatient with vascular surgery. Recommend consultation with urology for urinary retention. Thank you for this consultation, we will sign off at this time. The impression and plan of care has been dictated as directed. I performed a history and examination of this patient, discussed the same with the dictator. I agree with the dictator's note ,documented as a scribe. Any additional findings or plans will be noted.
[2024-04-17] MEDS: HYDROmorphone 0.5 MG/0.5 ML SYRINGE IVP PRN (13:00)
--- NOTE | 2024-04-17 13:29 | CA ---
Transthoracic Echo Report Name: Nell Soliman Age: 49 Gender: F : 1975 Exam Date: 04/17/2024 10:57 Exam Location: [facility] Ht (in): 68 Wt (lb): 200 Ordering Physician: Bakari Hui NPC Attending/Referring Phys: Belkis Apodaca NPC [employer] Sales Producer Sindy Garza, MAMIE Procedure CPT: Indications: bilateral PE; evaluate for RV strain Cardiac Hx: Covid+ Technical Quality: Fair Contrast 1: Total Dose (mL): Contrast 2: Total Dose (mL): MEASUREMENTS (Male / Female) Normal Values 2D ECHO LV Diastolic Diameter PLAX 4.4 cm 4.2 - 5.9 / 3.9 - 5.3 cm LV Systolic Diameter PLAX 2.5 cm IVS Diastolic Thickness 1.0 cm 0.6 - 1.0 / 0.6 - 0.9 cm LVPW Diastolic Thickness 1.2 cm 0.6 - 1.0 / 0.6 - 0.9 cm LV Relative Wall Thickness 0.5 RV Internal Dim ED PLAX 2.1 cm LA Systolic Diameter LX 4.1 cm 3.0 - 4.0 / 2.7 - 3.8 cm LV Diastolic Volume MOD BP 59.2 cm??? 67 - 155 / 56 - 104 cm??? LV Systolic Volume MOD BP 20.9 cm??? 22 - 58 / 19 - 49 cm??? LV Ejection Fraction MOD BP 64.7 % >= 55 % LV Cardiac Index MOD BP 1741.1 cm???/min???m??? LV Diastolic Volume MOD 4C 65.5 cm??? LV Systolic Volume MOD 4C 23.0 cm??? LV Ejection Fraction MOD 4C 65.0 % LV Cardiac Index MOD 4C 1934.9 cm???/min???m??? LV Diastolic Length 4C 8.0 cm LV Systolic Length 4C 5.8 cm LV Diastolic Volume MOD 2C 42.7 cm??? LV Systolic Volume MOD 2C 19.2 cm??? LV Ejection Fraction MOD 2C 55.0 % LV Cardiac Index MOD 2C 1066.2 cm???/min???m??? LV Diastolic Length 2C 6.3 cm LV Systolic Length 2C 5.8 cm M-MODE Aortic Root Diameter MM 2.3 cm LA Systolic Diameter MM 4.1 cm LA Ao Ratio MM 1.8 DOPPLER AV Peak Velocity 177.9 cm/s AV Peak Gradient 12.7 mmHg AV Mean Velocity 139.9 cm/s AV Mean Gradient 8.3 mmHg AV Velocity Time Integral 35.5 cm LVOT Peak Velocity 133.6 cm/s LVOT Peak Gradient 7.1 mmHg LVOT Velocity Time Integral 27.8 cm Mitral E Point Velocity 132.8 cm/s Mitral A Point Velocity 103.6 cm/s Mitral E to A Ratio 1.3 MV Deceleration Time 288.5 ms MV E' Velocity 10.2 cm/s Mitral E to MV E' Ratio 13.1 TR Peak Velocity 250.6 cm/s TR Peak Gradient 25.1 mmHg Right Ventricular Systolic Press 36.5 mmHg FINDINGS Left Ventricle Left ventricular ejection fraction is estimated at 55-60 %. Mildly increased septal wall thickness. Mildly increased posterior wall thickness. Normal left ventricular systolic function with no obvious regional wall motion abnormalities. Left ventricular cavity size normal. Right Ventricle Normal RV size. normal right ventricular global systolic function. Mild pulmonary hypertension. Right Atrium Normal right atrial size. Left Atrium Mildly increased left atrial diameter. Mitral Valve Structurally normal mitral valve. Trace mitral regurgitation. No mitral stenosis. Aortic Valve Trileaflet aortic valve. No aortic valve stenosis or regurgitation. Tricuspid Valve Structurally normal tricuspid valve. Mild tricuspid regurgitation. No tricuspid stenosis. Pulmonic Valve Structurally normal pulmonic valve. Trace pulmonic regurgitation. No pulmonic stenosis. Pericardium No pericardial or pleural effusion. Aorta Normal size aortic root and proximal ascending aorta. CONCLUSIONS LVEF 55% Mild concentric LVH No obvious regional wall motion abnormality Normal RV size and systolic function. RVSP 37 mmHg Mild left atrial dilatation No significant valvular dysfunction Previewed by: Dr Douglas Puga (Electronically Signed) Final Date: 17 April 2024 13:28
--- NOTE | 2024-04-17 13:51 | P.GSCN ---
History of Present Illness Consult date: 04/17/24 History of present illness: 49 yo female with cervical cancer being treated with chemotherapy 1953 and radiation in . She came in with sob, bilateral pe and abdominal distention. We were asked to see for "urine retention". the patient has ascites on the ct scan. She was bladder scanned for > 500ml but only 75 ml were obtained with the catheter. She states that she has been straining to void. The patients urine is unremarkable. Uniquely the patient has not had that sensation to void she just feels that she thinks she should void given the time of day and the mount of fluid she is taken in. She has never had previous urologic problems. She has never seen a urologist before. There was some pelvic pain. Review of Systems All systems: negative - Constitutional Denies fever, Denies weight loss - EENT Eyes: denies blurred vision Ears, nose, mouth and throat: Denies dysphagia - Cardiovascular Denies chest pain, Denies shortness of breath - Respiratory Denies cough, Denies 7 - Gastrointestinal Reports as per HPI - Genitourinary Genitourinary: Denies dysuria, Denies hematuria - Integumentary Denies rash, Denies unusual bruising - Neurological Denies headaches, Denies syncope - Hematologic/Lymphatic Denies easy bleeding, Denies easy bruising Past Medical History Past Medical History: No Reported History Additional Past Medical History / Comment(s): Cervical cx stage- 3C. DVT History of Any Multi-Drug Resistant Organisms: None Reported Past Surgical History: Cholecystectomy Past Psychological History: No Psychological Hx Reported Smoking Status: Current some day smoker Past Alcohol Use History: None Reported Past Drug Use History: None Reported Medications and Allergies Home Medications Medication Instructions Recorded Confirmed Type Apixaban [Eliquis] 5 mg PO BID 04/16/24 04/16/24 History metFORMIN HCL [Glucophage] 500 mg PO BID 04/16/24 04/16/24 History sitaGLIPtin [Januvia] 100 mg PO DAILY 04/16/24 04/16/24 History Allergies Allergy/AdvReac Type Severity Reaction Status Date / Time codeine Allergy Unknown Verified 04/16/24 16:14 Surgical - Exam Vital Signs Temp Pulse Resp BP Pulse Ox 101.5 F H 122 H 18 118/67 100 04/16/24 12:15 04/16/24 12:15 04/16/24 12:15 04/16/24 12:15 04/16/24 12:15 - General well developed, well nourished, no distress - Eyes normal ocular movement, no icteric - ENT no hearing loss, no congestion - Neck no masses, trachea midline - Respiratory normal respiratory effort, clear to auscultation - Abdomen Abdomen: soft, non tender, no guarding, no rigid, no rebound, distended - Integumentary no rash, no abnormal pigmentation - Neurologic no disoriented, no combative - Psychiatric oriented to time, oriented to person, oriented to place, speech is normal, memory intact Results - Labs 04/17/24 06:11 04/16/24 12:55 Abnormal Lab Results - Last 24 Hours (Table) 04/16/24 04/16/24 04/16/24 Range/Units 12:39 12:55 12:55 RBC 3.03 L (3.80-5.40) m/uL Hgb 9.9 L (11.4-16.0) gm/dL Hct 30.8 L (34.0-46.0) % MCV 101.5 H (80.0-100.0) fL RDW 30.0 H (11.5-15.5) % Plt Count 68 L (150-450) k/uL Neutrophils # (1.3-7.7) k/uL Lymphocytes # 0.1 L (1.0-4.8) k/uL Macrocytosis Marked A PT (10.0-12.5) sec INR (<1.2) APTT (22.0-30.0) sec Sodium 131 L (137-145) mmol/L Carbon Dioxide 20 L (22-30) mmol/L Glucose 181 H (74-99) mg/dL POC Glucose (mg/dL) (70-110) mg/dL Hemoglobin A1c (<=6.0) % Plasma Lactic Acid Yeison (0.7-2.0) mmol/L Calcium 7.4 L (8.4-10.2) mg/dL Total Bilirubin 3.3 H (0.2-1.3) mg/dL Conjugated Bilirubin 1.0 H (0.0-0.3) mg/dL Delta Bilirubin 1.5 H (0.0-0.2) mg/dL AST 310 H (14-36) U/L ALT 45 H (4-34) U/L Alkaline Phosphatase 491 H (38-126) U/L Albumin 2.7 L (3.5-5.0) g/dL Triglycerides (0.00-149.00) mg/dL HDL Cholesterol (40.00-60.00) mg/dL Urine Appearance (Clear) Ur Specific Mason (1.001-1.035) Urine Protein (Negative) Urine Glucose (UA) (Negative) Urine Bilirubin (Negative) Urine WBC (0-5) /hpf Urine Bacteria (None) /hpf Urine Mucus (None) /hpf SARS-CoV-2 (PCR) Detected A (Not Detectd) 04/16/24 04/16/24 04/16/24 Range/Units 12:55 12:55 12:55 RBC (3.80-5.40) m/uL Hgb (11.4-16.0) gm/dL Hct (34.0-46.0) % MCV (80.0-100.0) fL RDW (11.5-15.5) % Plt Count (150-450) k/uL Neutrophils # (1.3-7.7) k/uL Lymphocytes # (1.0-4.8) k/uL Macrocytosis PT 15.6 H (10.0-12.5) sec INR 1.5 H (<1.2) APTT (22.0-30.0) sec Sodium (137-145) mmol/L Carbon Dioxide (22-30) mmol/L Glucose (74-99) mg/dL POC Glucose (mg/dL) (70-110) mg/dL Hemoglobin A1c (<=6.0) % Plasma Lactic Acid Yeison 3.4 H* (0.7-2.0) mmol/L Calcium (8.4-10.2) mg/dL Total Bilirubin (0.2-1.3) mg/dL Conjugated Bilirubin (0.0-0.3) mg/dL Delta Bilirubin (0.0-0.2) mg/dL AST (14-36) U/L ALT (4-34) U/L Alkaline Phosphatase (38-126) U/L Albumin (3.5-5.0) g/dL Triglycerides 171.00 H (0.00-149.00) mg/dL HDL Cholesterol 18.00 L (40.00-60.00) mg/dL Urine Appearance (Clear) Ur Specific Mason (1.001-1.035) Urine Protein (Negative) Urine Glucose (UA) (Negative) Urine Bilirubin (Negative) Urine WBC (0-5) /hpf Urine Bacteria (None) /hpf Urine Mucus (None) /hpf SARS-CoV-2 (PCR) (Not Detectd) 04/16/24 04/16/24 04/16/24 Range/Units 13:07 17:24 17:44 RBC 2.46 L (3.80-5.40) m/uL Hgb 7.9 L D (11.4-16.0) gm/dL Hct 25.3 L (34.0-46.0) % MCV 103.0 H (80.0-100.0) fL RDW 29.9 H (11.5-15.5) % Plt Count 62 L (150-450) k/uL Neutrophils # 9.3 H (1.3-7.7) k/uL Lymphocytes # 0.2 L (1.0-4.8) k/uL Macrocytosis Marked A PT (10.0-12.5) sec INR (<1.2) APTT (22.0-30.0) sec Sodium (137-145) mmol/L Carbon Dioxide (22-30) mmol/L Glucose (74-99) mg/dL POC Glucose (mg/dL) 231 H (70-110) mg/dL Hemoglobin A1c (<=6.0) % Plasma Lactic Acid Yeison (0.7-2.0) mmol/L Calcium (8.4-10.2) mg/dL Total Bilirubin (0.2-1.3) mg/dL Conjugated Bilirubin (0.0-0.3) mg/dL Delta Bilirubin (0.0-0.2) mg/dL AST (14-36) U/L ALT (4-34) U/L Alkaline Phosphatase (38-126) U/L Albumin (3.5-5.0) g/dL Triglycerides (0.00-149.00) mg/dL HDL Cholesterol (40.00-60.00) mg/dL Urine Appearance Cloudy H (Clear) Ur Specific Mason 1.038 H (1.001-1.035) Urine Protein 1+ H (Negative) Urine Glucose (UA) 1+ H (Negative) Urine Bilirubin 2+ H (Negative) Urine WBC 7 H (0-5) /hpf Urine Bacteria Rare H (None) /hpf Urine Mucus Many H (None) /hpf SARS-CoV-2 (PCR) (Not Detectd) 04/16/24 04/16/24 04/16/24 Range/Units 20:00 21:05 21:24 RBC (3.80-5.40) m/uL Hgb (11.4-16.0) gm/dL Hct (34.0-46.0) % MCV (80.0-100.0) fL RDW (11.5-15.5) % Plt Count (150-450) k/uL Neutrophils # (1.3-7.7) k/uL Lymphocytes # (1.0-4.8) k/uL Macrocytosis PT (10.0-12.5) sec INR (<1.2) APTT 92.6 H (22.0-30.0) sec Sodium (137-145) mmol/L Carbon Dioxide (22-30) mmol/L Glucose (74-99) mg/dL POC Glucose (mg/dL) 252 H (70-110) mg/dL Hemoglobin A1c (<=6.0) % Plasma Lactic Acid Yeison 2.3 H* (0.7-2.0) mmol/L Calcium (8.4-10.2) mg/dL Total Bilirubin (0.2-1.3) mg/dL Conjugated Bilirubin (0.0-0.3) mg/dL Delta Bilirubin (0.0-0.2) mg/dL AST (14-36) U/L ALT (4-34) U/L Alkaline Phosphatase (38-126) U/L Albumin (3.5-5.0) g/dL Triglycerides (0.00-149.00) mg/dL HDL Cholesterol (40.00-60.00) mg/dL Urine Appearance (Clear) Ur Specific Mason (1.001-1.035) Urine Protein (Negative) Urine Glucose (UA) (Negative) Urine Bilirubin (Negative) Urine WBC (0-5) /hpf Urine Bacteria (None) /hpf Urine Mucus (None) /hpf SARS-CoV-2 (PCR) (Not Detectd) 04/17/24 04/17/24 04/17/24 Range/Units 06:11 06:11 06:11 RBC 2.44 L (3.80-5.40) m/uL Hgb 7.8 L (11.4-16.0) gm/dL Hct 25.0 L (34.0-46.0) % MCV 102.7 H (80.0-100.0) fL RDW 30.0 H (11.5-15.5) % Plt Count 56 L (150-450) k/uL Neutrophils # 9.5 H (1.3-7.7) k/uL Lymphocytes # 0.3 L (1.0-4.8) k/uL Macrocytosis Marked A PT (10.0-12.5) sec INR (<1.2) APTT 53.6 H (22.0-30.0) sec Sodium (137-145) mmol/L Carbon Dioxide (22-30) mmol/L Glucose (74-99) mg/dL POC Glucose (mg/dL) (70-110) mg/dL Hemoglobin A1c 9.6 H (<=6.0) % Plasma Lactic Acid Yeison (0.7-2.0) mmol/L Calcium (8.4-10.2) mg/dL Total Bilirubin (0.2-1.3) mg/dL Conjugated Bilirubin (0.0-0.3) mg/dL Delta Bilirubin (0.0-0.2) mg/dL AST (14-36) U/L ALT (4-34) U/L Alkaline Phosphatase (38-126) U/L Albumin (3.5-5.0) g/dL Triglycerides (0.00-149.00) mg/dL HDL Cholesterol (40.00-60.00) mg/dL Urine Appearance (Clear) Ur Specific Mason (1.001-1.035) Urine Protein (Negative) Urine Glucose (UA) (Negative) Urine Bilirubin (Negative) Urine WBC (0-5) /hpf Urine Bacteria (None) /hpf Urine Mucus (None) /hpf SARS-CoV-2 (PCR) (Not Detectd) 04/17/24 Range/Units 08:41 RBC (3.80-5.40) m/uL Hgb (11.4-16.0) gm/dL Hct (34.0-46.0) % MCV (80.0-100.0) fL RDW (11.5-15.5) % Plt Count (150-450) k/uL Neutrophils # (1.3-7.7) k/uL Lymphocytes # (1.0-4.8) k/uL Macrocytosis PT (10.0-12.5) sec INR (<1.2) APTT (22.0-30.0) sec Sodium (137-145) mmol/L Carbon Dioxide (22-30) mmol/L Glucose (74-99) mg/dL POC Glucose (mg/dL) 209 H (70-110) mg/dL Hemoglobin A1c (<=6.0) % Plasma Lactic Acid Yeison (0.7-2.0) mmol/L Calcium (8.4-10.2) mg/dL Total Bilirubin (0.2-1.3) mg/dL Conjugated Bilirubin (0.0-0.3) mg/dL Delta Bilirubin (0.0-0.2) mg/dL AST (14-36) U/L ALT (4-34) U/L Alkaline Phosphatase (38-126) U/L Albumin (3.5-5.0) g/dL Triglycerides (0.00-149.00) mg/dL HDL Cholesterol (40.00-60.00) mg/dL Urine Appearance (Clear) Ur Specific Mason (1.001-1.035) Urine Protein (Negative) Urine Glucose (UA) (Negative) Urine Bilirubin (Negative) Urine WBC (0-5) /hpf Urine Bacteria (None) /hpf Urine Mucus (None) /hpf SARS-CoV-2 (PCR) (Not Detectd) Diabetes panel 04/16/24 04/16/24 04/17/24 Range/Units 12:55 12:55 06:11 Sodium 131 L (137-145) mmol/L Potassium 4.1 (3.5-5.1) mmol/L Chloride 101 (98-107) mmol/L Carbon Dioxide 20 L (22-30) mmol/L BUN 10 (7-17) mg/dL Creatinine 0.58 (0.52-1.04) mg/dL Glucose 181 H (74-99) mg/dL Hemoglobin A1c 9.6 H (<=6.0) % Calcium 7.4 L (8.4-10.2) mg/dL AST 310 H (14-36) U/L ALT 45 H (4-34) U/L Alkaline Phosphatase 491 H (38-126) U/L Total Protein 6.5 (6.3-8.2) g/dL Albumin 2.7 L (3.5-5.0) g/dL Triglycerides 171.00 H (0.00-149.00) mg/dL HDL Cholesterol 18.00 L (40.00-60.00) mg/dL Calcium panel 04/16/24 Range/Units 12:55 Calcium 7.4 L (8.4-10.2) mg/dL Albumin 2.7 L (3.5-5.0) g/dL Pituitary panel 04/16/24 Range/Units 12:55 Sodium 131 L (137-145) mmol/L Potassium 4.1 (3.5-5.1) mmol/L Chloride 101 (98-107) mmol/L Carbon Dioxide 20 L (22-30) mmol/L BUN 10 (7-17) mg/dL Creatinine 0.58 (0.52-1.04) mg/dL Glucose 181 H (74-99) mg/dL Calcium 7.4 L (8.4-10.2) mg/dL Adrenal panel 04/16/24 Range/Units 12:55 Sodium 131 L (137-145) mmol/L Potassium 4.1 (3.5-5.1) mmol/L Chloride 101 (98-107) mmol/L Carbon Dioxide 20 L (22-30) mmol/L BUN 10 (7-17) mg/dL Creatinine 0.58 (0.52-1.04) mg/dL Glucose 181 H (74-99) mg/dL Calcium 7.4 L (8.4-10.2) mg/dL Total Bilirubin 3.3 H (0.2-1.3) mg/dL AST 310 H (14-36) U/L ALT 45 H (4-34) U/L Alkaline Phosphatase 491 H (38-126) U/L Total Protein 6.5 (6.3-8.2) g/dL Albumin 2.7 L (3.5-5.0) g/dL - Imaging CT scan - abdomen: report reviewed, image reviewed CT scan - pelvis: report reviewed, image reviewed Assessment and Plan Assessment: Impression: cervical cancer with abdominal distention and ascites. Sensory urinary issues r/o retention recommendations. the patient was not in retention as evidenced by only 75ml in the bladder. I suspect the bladder scan was erroneus due to the ascites which is a common cause of error on bladder scan. I suspect her sensory issues are due to the ascites.. At this juncture I have no further urological recommendations. The catheter should remain in place until she is ambulatory and feeling better. She will obviously need medical and oncologic evaluation for her ascites.
--- NOTE | 2024-04-17 14:50 | P.PN ---
Subjective Progress Note Date: 04/17/24 Principal diagnosis: sob 49-year-old female with past medical history of type 2 diabetes and recent history of DVT/PE on Eliquis. The patient reports that she was diagnosed with s tage III ovarian cancer in January. She reports that he started chemotherapy and radiation shortly thereafter. She is unable to tell me what chemotherapy she is receiving. She reports her oncologist is out of [place]. She reports that she has not had chemotherapy or radiation for the past 2 weeks due to feeling unwell. She had then presented to the ER for further evaluation. When she presented the ER she was very tachycardic, sats 100% room air and was noted to be febrile with a temperature of 101.5 lab work had shown a white blood cell count 7.5 MCV was 101.5. CMP had revealed a lactic acid of 3.4 urinalysis had revealed slight hemoglobin. COVID-[address] abdomen pelvis had r evealed moderate volume diffuse abdominal ascites with hepatic steatosis. 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 CTA chest revealed bilateral lower segmental and subsegmental PE. 1/ Feeling the same. Still with sob. Has cough that is chronic. No pain. No nausea or vomiting. Peak temp 101.5 24 hours ago. Objective - Vital Signs Vital signs: Vital Signs Temp 98.7 F 04/17/24 10:12 Pulse 98 04/17/24 12:55 Resp 19 04/17/24 12:55 BP 124/69 04/17/24 12:55 Pulse Ox 99 04/17/24 12:55 FiO2 Intake & Output 04/16/24 04/17/24 04/17/24 18:59 06:59 18:59 Intake Total 120.018 123.379 Balance 120.018 123.379 Weight 90.718 kg Intake: Intake, IV Titration 120.018 123.379 Amount Heparin Sod,Pork in 0.45% 120.018 123.379 NaCl 25,000 unit In 0.45 % NaCl 1 250ml.bag @ 18 UNITS/KG/HR 16.329 mls/hr IV .[id number] [facility] Rx#: [id number] - Exam General: Female, appears stated age, appears slightly ill Derm: warm, dry Head: atraumatic, normocephalic, symmetric Eyes: EOMI, no lid lag, anicteric sclera, pupils equal round reactive to light ENT: Nose and ears atraumatic, no thrush, no pharyngeal erythema Neck: No thyromegaly, no cervical lymphadenopathy, trachea midline, supple Mouth: no lip lesion, mucus membranes moist Cardiovascular: S1S2 reg, no murmur, positive posterior tibial pulse bilateral, no edema, capillary refill less than 2 seconds Lungs: clear to ascultation bilateral on nasal cannula Abdominal: soft, nontender to palpation, no guarding, no appreciable organomegaly, normal bowel sounds Ext: no gross muscle atrophy, muscle strength muscle strength 5 out of 5 in all 4 extremities, no contractures Neuro: Moving all extremity spontaneously Psych: Alert, oriented, appropriate affect - Labs CBC & Chem 7: 04/17/24 06:11 04/16/24 12:55 Labs: Abnormal Lab Results - Last 24 Hours (Table) 04/16/24 04/16/24 04/16/24 Range/Units 12:55 17:24 17:44 RBC 2.46 L (3.80-5.40) m/uL Hgb 7.9 L D (11.4-16.0) gm/dL Hct 25.3 L (34.0-46.0) % MCV 103.0 H (80.0-100.0) fL RDW 29.9 H (11.5-15.5) % Plt Count 62 L (150-450) k/uL Neutrophils # 9.3 H (1.3-7.7) k/uL Lymphocytes # 0.2 L (1.0-4.8) k/uL Macrocytosis Marked A APTT (22.0-30.0) sec POC Glucose (mg/dL) 231 H (70-110) mg/dL Hemoglobin A1c (<=6.0) % Plasma Lactic Acid Yeison (0.7-2.0) mmol/L Triglycerides 171.00 H (0.00-149.00) mg/dL HDL Cholesterol 18.00 L (40.00-60.00) mg/dL 04/16/24 04/16/24 04/16/24 Range/Units 20:00 21:05 21:24 RBC (3.80-5.40) m/uL Hgb (11.4-16.0) gm/dL Hct (34.0-46.0) % MCV (80.0-100.0) fL RDW (11.5-15.5) % Plt Count (150-450) k/uL Neutrophils # (1.3-7.7) k/uL Lymphocytes # (1.0-4.8) k/uL Macrocytosis APTT 92.6 H (22.0-30.0) sec POC Glucose (mg/dL) 252 H (70-110) mg/dL Hemoglobin A1c (<=6.0) % Plasma Lactic Acid Yeison 2.3 H* (0.7-2.0) mmol/L Triglycerides (0.00-149.00) mg/dL HDL Cholesterol (40.00-60.00) mg/dL 04/17/24 04/17/24 04/17/24 Range/Units 06:11 06:11 06:11 RBC 2.44 L (3.80-5.40) m/uL Hgb 7.8 L (11.4-16.0) gm/dL Hct 25.0 L (34.0-46.0) % MCV 102.7 H (80.0-100.0) fL RDW 30.0 H (11.5-15.5) % Plt Count 56 L (150-450) k/uL Neutrophils # 9.5 H (1.3-7.7) k/uL Lymphocytes # 0.3 L (1.0-4.8) k/uL Macrocytosis Marked A APTT 53.6 H (22.0-30.0) sec POC Glucose (mg/dL) (70-110) mg/dL Hemoglobin A1c 9.6 H (<=6.0) % Plasma Lactic Acid Yeison (0.7-2.0) mmol/L Triglycerides (0.00-149.00) mg/dL HDL Cholesterol (40.00-60.00) mg/dL 04/17/24 04/17/24 Range/Units 08:41 12:12 RBC (3.80-5.40) m/uL Hgb (11.4-16.0) gm/dL Hct (34.0-46.0) % MCV (80.0-100.0) fL RDW (11.5-15.5) % Plt Count (150-450) k/uL Neutrophils # (1.3-7.7) k/uL Lymphocytes # (1.0-4.8) k/uL Macrocytosis APTT (22.0-30.0) sec POC Glucose (mg/dL) 209 H 236 H (70-110) mg/dL Hemoglobin A1c (<=6.0) % Plasma Lactic Acid Yeison (0.7-2.0) mmol/L Triglycerides (0.00-149.00) mg/dL HDL Cholesterol (40.00-60.00) mg/dL Assessment and Plan Plan: #) B/l PE. Likely provoked in the setting of active malignancy. Continue heparin GTT at this time for anticoagulation. Convert to oral eliquis upon discharge per pulm. Echo showed EF 55% without right heart strain. 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 The patient does have a history of tobacco use. ER had discussed with vascular surgery and no acute surgical intervention for now. #) Moderate volume abdominal ascites. On my review of CT scan there is a small pocket of ascites, consult IR for possible paracentesis, r/o malignant ascites from her cervical cancer however will need to confirm with cytology. #) COVID-19. Likley the cause of the fever. Blood cultures have been obtained and are pending. At this time I would monitor off antibiotics as there is no source of bacterial infection, however low threshold to start antibiotics if any signs of hemodynamic instability. #) Tobacco use. uses 1/2 PPD. Recommend cessation. Nicotine patch while inpatient #) Stage III cervical cancer. D/w oncology service Dr. Kwok. She was diagnosed in January 2024 as she was having vaginal bleeding. She was started on chemotherapy and radiation. She reports her last session was 2 weeks prior. She reports her primary oncologist is from [place]. #) Dm2, continue metformin, sitagliptin. Low intensity sliding scale insulin. A1c 9.6
[2024-04-17 16:18] LABS: Glucose,Whole Blood 208 mg/dL (70-110)
[2024-04-17] MEDS: ACETAMINOPHEN TAB 325 MG TAB PO PRN (17:14)
--- NOTE | 2024-04-17 21:00 | P.CONS ---
History of Present Illness - Reason for Consult Consult date: 04/17/24 [facility] cancer Requesting physician: Archie Jean - Chief Complaint abd pain, weakness - History of Present Illness Patient is a 49 year old female with past medical history significant for cervical cancer, current smoker, diabetes mellitus, and recent diagnosis of pul monary embolism/DVT anticoagulated with Eliquis. Patient receives her oncological care in [place] and has been treated with RT and chemo, completing cycle 5 approx 3 weeks ago, and states she has decided to not proceed with her last cycle of treatment due to side effects. Per patient she has localized disease with no known distant metastases. She reports she was recently hospitalized on April 06 at [facility] and was found to have DVT/PE and was subsequently started on Eliquis. Denies any missed doses and that she completed the loading dose. Patient presented to emergency room with urinary retention and abdominal discomfort. Denies dysuria. UA negative for UTI. Blood cultures pending. Viral testing, positive for COVID. Tmax of 101.5 has been noted. Lactic acid 3.4, bilirubin 3.3 with transaminitis noted. Creatinine 0.58, GFR greater than 90. WBC 10.4, hemoglobin 7.8, platelets 56,000. On admit CTA chest showing bilateral lower lobe segmental and subsegmental pulmonary artery emboli, right greater than left with no convincing evidence of right heart strain. Dopplers of bilateral lower extremities showing nonocclusive thrombosis in proximal right popliteal vein. Left lower extremity negative for DVT. Heparin drip started. CT abdomen pelvis revealed moderate volume diffuse abdominal ascites. Hepatic steatosis. 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 Bilateral common iliac arteries patent. Review of Systems 10 point ROS is negative except as stated in the HPI Past Medical History Past Medical History: No Reported History Additional Past Medical History / Comment(s): Cervical cx stage- 3C. DVT History of Any Multi-Drug Resistant Organisms: None Reported Past Surgical History: Cholecystectomy Past Psychological History: No Psychological Hx Reported Smoking Status: Current some day smoker Past Alcohol Use History: None Reported Past Drug Use History: None Reported Medications and Allergies Home Medications Medication Instructions Recorded Confirmed Type Apixaban [Eliquis] 5 mg PO BID 04/16/24 04/16/24 History metFORMIN HCL [Glucophage] 500 mg PO BID 04/16/24 04/16/24 History sitaGLIPtin [Januvia] 100 mg PO DAILY 04/16/24 04/16/24 History Allergies Allergy/AdvReac Type Severity Reaction Status Date / Time codeine Allergy Unknown Verified 04/16/24 16:14 Physical Exam Vitals: Vital Signs Temp Pulse Resp BP Pulse Ox 04/17/24 05:46 95 16 101/65 04/17/24 02:53 96 16 127/67 04/16/24 23:58 96 16 102/61 96 04/16/24 19:49 107 H 18 92/46 96 04/16/24 17:00 99.0 F 112 H 22 99/55 97 04/16/24 16:00 108 H 24 112/64 98 04/16/24 15:36 112 H 22 109/63 04/16/24 14:58 101.2 F H 114 H 22 124/67 100 04/16/24 12:15 101.5 F H 122 H 18 118/67 100 Intake and Output 04/16/24 04/17/24 04/17/24 22:59 06:59 14:59 Intake Total 120.018 123.379 Balance 120.018 123.379 Intake: Intake, IV Titration 120.018 123.379 Amount Heparin Sod,Pork in 0.45% 120.018 123.379 NaCl 25,000 unit In 0.45 % NaCl 1 250ml.bag @ 18 UNITS/KG/HR 16.329 mls/hr IV .[id number] [facility] Rx#: [id number] - Constitutional General appearance: no acute distress - EENT Eyes: EOMI ENT: hearing grossly normal - Respiratory Respiratory: bilateral: CTA - Cardiovascular Rhythm: regular - Gastrointestinal mild diffuse tenderness General gastrointestinal: distended - Integumentary Integumentary: no cyanotic, pale - Psychiatric Psychiatric: A&O x's 3 Results CBC & Chem 7: 04/17/24 06:11 04/16/24 12:55 Labs: Abnormal Lab Results - Last 24 Hours (Table) 04/16/24 04/16/24 04/16/24 Range/Units 12:39 12:55 12:55 RBC 3.03 L (3.80-5.40) m/uL Hgb 9.9 L (11.4-16.0) gm/dL Hct 30.8 L (34.0-46.0) % MCV 101.5 H (80.0-100.0) fL RDW 30.0 H (11.5-15.5) % Plt Count 68 L (150-450) k/uL Neutrophils # (1.3-7.7) k/uL Lymphocytes # 0.1 L (1.0-4.8) k/uL Macrocytosis Marked A PT (10.0-12.5) sec INR (<1.2) APTT (22.0-30.0) sec Sodium 131 L (137-145) mmol/L Carbon Dioxide 20 L (22-30) mmol/L Glucose 181 H (74-99) mg/dL POC Glucose (mg/dL) (70-110) mg/dL Hemoglobin A1c (<=6.0) % Plasma Lactic Acid Yeison (0.7-2.0) mmol/L Calcium 7.4 L (8.4-10.2) mg/dL Total Bilirubin 3.3 H (0.2-1.3) mg/dL Conjugated Bilirubin 1.0 H (0.0-0.3) mg/dL Delta Bilirubin 1.5 H (0.0-0.2) mg/dL AST 310 H (14-36) U/L ALT 45 H (4-34) U/L Alkaline Phosphatase 491 H (38-126) U/L Albumin 2.7 L (3.5-5.0) g/dL Triglycerides (0.00-149.00) mg/dL HDL Cholesterol (40.00-60.00) mg/dL Urine Appearance (Clear) Ur Specific [place] (1.001-1.035) Urine Protein (Negative) Urine Glucose (UA) (Negative) Urine Bilirubin (Negative) Urine WBC (0-5) /hpf Urine Bacteria (None) /hpf Urine Mucus (None) /hpf SARS-CoV-2 (PCR) Detected A (Not Detectd) 04/16/24 04/16/24 04/16/24 Range/Units 12:55 12:55 12:55 RBC (3.80-5.40) m/uL Hgb (11.4-16.0) gm/dL Hct (34.0-46.0) % MCV (80.0-100.0) fL RDW (11.5-15.5) % Plt Count (150-450) k/uL Neutrophils # (1.3-7.7) k/uL Lymphocytes # (1.0-4.8) k/uL Macrocytosis PT 15.6 H (10.0-12.5) sec INR 1.5 H (<1.2) APTT (22.0-30.0) sec Sodium (137-145) mmol/L Carbon Dioxide (22-30) mmol/L Glucose (74-99) mg/dL POC Glucose (mg/dL) (70-110) mg/dL Hemoglobin A1c (<=6.0) % Plasma Lactic Acid Yeison 3.4 H* (0.7-2.0) mmol/L Calcium (8.4-10.2) mg/dL Total Bilirubin (0.2-1.3) mg/dL Conjugated Bilirubin (0.0-0.3) mg/dL Delta Bilirubin (0.0-0.2) mg/dL AST (14-36) U/L ALT (4-34) U/L Alkaline Phosphatase (38-126) U/L Albumin (3.5-5.0) g/dL Triglycerides 171.00 H (0.00-149.00) mg/dL HDL Cholesterol 18.00 L (40.00-60.00) mg/dL Urine Appearance (Clear) Ur Specific [place] (1.001-1.035) Urine Protein (Negative) Urine Glucose (UA) (Negative) Urine Bilirubin (Negative) Urine WBC (0-5) /hpf Urine Bacteria (None) /hpf Urine Mucus (None) /hpf SARS-CoV-2 (PCR) (Not Detectd) 04/16/24 04/16/24 04/16/24 Range/Units 13:07 17:24 17:44 RBC 2.46 L (3.80-5.40) m/uL Hgb 7.9 L D (11.4-16.0) gm/dL Hct 25.3 L (34.0-46.0) % MCV 103.0 H (80.0-100.0) fL RDW 29.9 H (11.5-15.5) % Plt Count 62 L (150-450) k/uL Neutrophils # 9.3 H (1.3-7.7) k/uL Lymphocytes # 0.2 L (1.0-4.8) k/uL Macrocytosis Marked A PT (10.0-12.5) sec INR (<1.2) APTT (22.0-30.0) sec Sodium (137-145) mmol/L Carbon Dioxide (22-30) mmol/L Glucose (74-99) mg/dL POC Glucose (mg/dL) 231 H (70-110) mg/dL Hemoglobin A1c (<=6.0) % Plasma Lactic Acid Yeison (0.7-2.0) mmol/L Calcium (8.4-10.2) mg/dL Total Bilirubin (0.2-1.3) mg/dL Conjugated Bilirubin (0.0-0.3) mg/dL Delta Bilirubin (0.0-0.2) mg/dL AST (14-36) U/L ALT (4-34) U/L Alkaline Phosphatase (38-126) U/L Albumin (3.5-5.0) g/dL Triglycerides (0.00-149.00) mg/dL HDL Cholesterol (40.00-60.00) mg/dL Urine Appearance Cloudy H (Clear) Ur Specific [place] 1.038 H (1.001-1.035) Urine Protein 1+ H (Negative) Urine Glucose (UA) 1+ H (Negative) Urine Bilirubin 2+ H (Negative) Urine WBC 7 H (0-5) /hpf Urine Bacteria Rare H (None) /hpf Urine Mucus Many H (None) /hpf SARS-CoV-2 (PCR) (Not Detectd) 04/16/24 04/16/24 04/16/24 Range/Units 20:00 21:05 21:24 RBC (3.80-5.40) m/uL Hgb (11.4-16.0) gm/dL Hct (34.0-46.0) % MCV (80.0-100.0) fL RDW (11.5-15.5) % Plt Count (150-450) k/uL Neutrophils # (1.3-7.7) k/uL Lymphocytes # (1.0-4.8) k/uL Macrocytosis PT (10.0-12.5) sec INR (<1.2) APTT 92.6 H (22.0-30.0) sec Sodium (137-145) mmol/L Carbon Dioxide (22-30) mmol/L Glucose (74-99) mg/dL POC Glucose (mg/dL) 252 H (70-110) mg/dL Hemoglobin A1c (<=6.0) % Plasma Lactic Acid Yeison 2.3 H* (0.7-2.0) mmol/L Calcium (8.4-10.2) mg/dL Total Bilirubin (0.2-1.3) mg/dL Conjugated Bilirubin (0.0-0.3) mg/dL Delta Bilirubin (0.0-0.2) mg/dL AST (14-36) U/L ALT (4-34) U/L Alkaline Phosphatase (38-126) U/L Albumin (3.5-5.0) g/dL Triglycerides (0.00-149.00) mg/dL HDL Cholesterol (40.00-60.00) mg/dL Urine Appearance (Clear) Ur Specific [place] (1.001-1.035) Urine Protein (Negative) Urine Glucose (UA) (Negative) Urine Bilirubin (Negative) Urine WBC (0-5) /hpf Urine Bacteria (None) /hpf Urine Mucus (None) /hpf SARS-CoV-2 (PCR) (Not Detectd) 04/17/24 04/17/24 04/17/24 Range/Units 06:11 06:11 06:11 RBC 2.44 L (3.80-5.40) m/uL Hgb 7.8 L (11.4-16.0) gm/dL Hct 25.0 L (34.0-46.0) % MCV 102.7 H (80.0-100.0) fL RDW 30.0 H (11.5-15.5) % Plt Count 56 L (150-450) k/uL Neutrophils # 9.5 H (1.3-7.7) k/uL Lymphocytes # 0.3 L (1.0-4.8) k/uL Macrocytosis Marked A PT (10.0-12.5) sec INR (<1.2) APTT 53.6 H (22.0-30.0) sec Sodium (137-145) mmol/L Carbon Dioxide (22-30) mmol/L Glucose (74-99) mg/dL POC Glucose (mg/dL) (70-110) mg/dL Hemoglobin A1c 9.6 H (<=6.0) % Plasma Lactic Acid Yeison (0.7-2.0) mmol/L Calcium (8.4-10.2) mg/dL Total Bilirubin (0.2-1.3) mg/dL Conjugated Bilirubin (0.0-0.3) mg/dL Delta Bilirubin (0.0-0.2) mg/dL AST (14-36) U/L ALT (4-34) U/L Alkaline Phosphatase (38-126) U/L Albumin (3.5-5.0) g/dL Triglycerides (0.00-149.00) mg/dL HDL Cholesterol (40.00-60.00) mg/dL Urine Appearance (Clear) Ur Specific [place] (1.001-1.035) Urine Protein (Negative) Urine Glucose (UA) (Negative) Urine Bilirubin (Negative) Urine WBC (0-5) /hpf Urine Bacteria (None) /hpf Urine Mucus (None) /hpf SARS-CoV-2 (PCR) (Not Detectd) 04/17/24 Range/Units 08:41 RBC (3.80-5.40) m/uL Hgb (11.4-16.0) gm/dL Hct (34.0-46.0) % MCV (80.0-100.0) fL RDW (11.5-15.5) % Plt Count (150-450) k/uL Neutrophils # (1.3-7.7) k/uL Lymphocytes # (1.0-4.8) k/uL Macrocytosis PT (10.0-12.5) sec INR (<1.2) APTT (22.0-30.0) sec Sodium (137-145) mmol/L Carbon Dioxide (22-30) mmol/L Glucose (74-99) mg/dL POC Glucose (mg/dL) 209 H (70-110) mg/dL Hemoglobin A1c (<=6.0) % Plasma Lactic Acid Yeison (0.7-2.0) mmol/L Calcium (8.4-10.2) mg/dL Total Bilirubin (0.2-1.3) mg/dL Conjugated Bilirubin (0.0-0.3) mg/dL Delta Bilirubin (0.0-0.2) mg/dL AST (14-36) U/L ALT (4-34) U/L Alkaline Phosphatase (38-126) U/L Albumin (3.5-5.0) g/dL Triglycerides (0.00-149.00) mg/dL HDL Cholesterol (40.00-60.00) mg/dL Urine Appearance (Clear) Ur Specific [place] (1.001-1.035) Urine Protein (Negative) Urine Glucose (UA) (Negative) Urine Bilirubin (Negative) Urine WBC (0-5) /hpf Urine Bacteria (None) /hpf Urine Mucus (None) /hpf SARS-CoV-2 (PCR) (Not Detectd) CT scan - abdomen: report reviewed CT scan - chest: report reviewed CT scan - pelvis: report reviewed Venous US: report reviewed Assessment and Plan (1) COVID-19 Current Visit: Yes Status: Acute Priority: High Code(s): U07.1 - COVID-19 SNOMED Code(s): 134131517 (2) Cervical cancer Current Visit: Yes Status: Acute Priority: High Code(s): C53.9 - MALIGNANT NEOPLASM OF CERVIX UTERI, UNSPECIFIED SNOMED Code(s): 459791992 (3) Pulmonary embolism Current Visit: Yes Status: Acute Priority: High Code(s): I26.99 - OTHER PULMONARY EMBOLISM WITHOUT ACUTE COR PULMONALE SNOMED Code(s): 01064172 (4) Transaminitis Current Visit: Yes Status: Acute Priority: High Code(s): R74.01 - ELEVATION OF LEVELS OF LIVER TRANSAMINASE LEVELS SNOMED Code(s): 046264865 (5) DVT (deep venous thrombosis) Current Visit: Yes Status: Acute Priority: High Code(s): I82.409 - ACUTE EMBOLISM AND THOMBOS UNSP DEEP VN UNSP LOWER EXTREMITY SNOMED Code(s): 185010495 Plan: DVT/PE: Diagnosed with pulmonary embolism/DVT at [facility] on 04/06/24. Anticoagulated with Eliquis, denies any missed doses -On admit CTA chest showing bilateral lower lobe segmental and subsegmental pulmonary artery emboli, right greater than left with no convincing evidence of right heart strain. Dopplers of bilateral lower extremities showing nonocclusive thrombosis in proximal right popliteal vein. Left lower extremity negative for DVT -Heparin drip started -Hemoglobin 7.8, platelets 56,000. Cytopenias likely chemo induced. Continue to monitor CBC, hold anticoagulation for plts less than 50,000 -Unsure at this time, if this would be considered Eliquis failure, as patient was just diagnosed with PE/DVT on 04/06. More likely these findings are the same from recently noted blood clots on 04/06. Will need to request imaging obtained at [facility] for comparison. For now continue heparin drip COVID: Positive COVID testing -Continue supportive care -Defer management to admitting team and pulm Cervical cancer: History of cervical cancer. Patient receives her oncological care in [place] and has been treated with RT and chemo, completing cycle 5 approx 3 weeks ago, and states she has decided to not proceed with her last cycle of treatment due to side effects. Per patient she has localized disease with no known distant metastases. -CT abdomen pelvis revealed moderate volume diffuse abdominal ascites. Hepatic steatosis. -IR consult placed for paracentesis, cytology requested. Ok to hold heparin prior to procedure -Patient to follow up with her primary oncologist on discharge for further treatment recommendations attests: I have seen and examined pt, performed H&P, developed impression and plan of care. Discussed with dictator. Agree with documentation, dictated as a scribe
[2024-04-17 21:26] LABS: Glucose,Whole Blood 340 mg/dL (70-110)
[2024-04-18 01:25] LABS: ALT 42 U/L (8-44); AST 204 U/L (13-35); Albumin 2.2 g/dL (3.8-4.9); Alkaline Phosphatase 378 U/L (41-126); Blood Urea Nitrogen 13.9 mg/dL (9.0-27.0); Carbon Dioxide 21.6 mmol/L (21.6-31.8); Chloride 103 mmol/L (96-109); Glucose 207 mg/dL (70-110); Potassium 3.4 mmol/L (3.5-5.5); Sodium 137 mmol/L (135-145); Total Protein 5.3 g/dL (6.2-8.2)
[2024-04-18] MEDS: guaiFENesin-DM 100-10MG/5ML 10 ML CUP PO PRN (04:54)
[2024-04-18 07:32] LABS: Glucose,Whole Blood 153 mg/dL (70-110)
[2024-04-18 08:02] LABS: Anisocytosis Marked; Basophils % (A) 0 %; Eosinophils # (A) 0.1 k/uL (0-0.7); Eosinophils % (A) 1 %; HCT 24.8 % (34.0-46.0); HGB 7.3 gm/dL (11.4-16.0); Hypochromasia Marked; Lymphocytes # (A) 0.3 k/uL (1.0-4.8); Lymphocytes % (A) 3 %; MCH 30.6 pg (25.0-35.0); MCHC 29.5 g/dL (31.0-37.0); MCV 103.5 fL (80.0-100.0); Macrocytosis Marked; Mean Platelet Volume 9.4; Microcytosis Slight; Monocytes # (A) 0.5 k/uL (0-1.0); Monocytes % (A) 4 %; Neutrophils # (A) 9.4 k/uL (1.3-7.7); Neutrophils % (A) 90 %; WBC 10.4 k/uL (3.8-10.6)
[2024-04-18 08:07] LABS: Platelet Count 72 k/uL (150-450); RDW 30.3 % (11.5-15.5)
[2024-04-18] MEDS: ALBUTEROL HFA INHALER INHALATION PRN (08:40)
[2024-04-18 10:51] LABS: Glucose,Whole Blood 199 mg/dL (70-110)
[2024-04-18 11:35] LABS: ALT 35 U/L (4-34); AST 170 U/L (14-36); African American GFR (CKD) >90 (>60 ml/min/1.73 sqM); Albumin 2.2 g/dL (3.5-5.0); Alkaline Phosphatase 502 U/L (38-126); Anion Gap 6 mmol/L; Blood Urea Nitrogen 11 mg/dL (7-17); Calcium 6.9 mg/dL (8.4-10.2); Carbon Dioxide 23 mmol/L (22-30); Chloride 102 mmol/L (98-107); Glucose 171 mg/dL (74-99); Non-African American GFR(CKD) >90 (>60 ml/min/1.73 sqM); Potassium 3.5 mmol/L (3.5-5.1); Sodium 131 mmol/L (137-145); Total Bilirubin 1.9 mg/dL (0.2-1.3); Total Protein 5.4 g/dL (6.3-8.2)
[2024-04-18 14:58] VITALS: BMI 30.4
--- NOTE | 2024-04-18 15:56 | P.PN ---
Subjective Progress Note Date: 04/18/24 Hospital Course: A 49-year-old female with medical history of type II DM, tobacco use disorder, history of DVT/PE on Eliquis, history of stage III ovarian cancer chemotherapy and radiation, last treatment 2 weeks before admission, who presented to the ED with abdominal pain. When she presented the ER she was very tachycardic 100% room air and was noted to be febrile with a temperature of 101.5 lab work had shown a white blood cell count 7.5 MCV was 101.5. CMP had revealed a lactic acid of 3.4 urinalysis had revealed slight hemoglobin. COVID-[address] abdomen pelvis had revealed moderate volume diffuse abdominal ascites with hepatic steatosis. 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 CTA chest revealed bilateral lower segmental and subsegmental PE. TTE showed EF of 55% with no right heart strain. Patient was started on heparin, pulmonology consulted. Recommended vascular surgery consult to evaluate for large plaque involving the infrarenal aorta, vascular surgery did not recommend any intervention at this time as patient is asymptomatic. We are consulted for paracentesis, cytology requested, heme-onc following. Subjective: Patient was seen and examined at bedside, complains of fatigue, otherwise feeling better, states that lower extremity swelling is improved Pertinent positives and negatives as discussed above, a complete review of systems was performed and all other systems are negative. Vitals Signs Reviewed. General: [nontoxic], [no distress], [appears at stated age] Derm: [warm], [dry] Head: [atraumatic], [normocephalic], [symmetric] Eyes: [EOMI], [no lid lag], [anicteric sclera] Mouth: [no lip lesion], [mucus membranes moist] Cardiovascular: [S1S2 reg], [no murmur] Lungs: [CTA bilateral], [no rhonchi, no rales] , [no accessory muscle use] Abdominal: [soft], [ nontender to palpation], [no guarding], [no appreciable organomegaly], mildly distended, fluid wave Ext: [no gross muscle atrophy], [no edema], [no contractures] Neuro: [ CN II-XI grossly intact], [no focal neuro deficits] Psych: [Alert], [oriented], [appropriate affect] CBC with stable thrombocytopenia and normocytic anemia, hyponatremia Assessment and Plan: [Active:] Bilateral lower lobe segmental and subsegmental pulmonary emboli with no right heart strain Diagnosed with a DVT and PE on 04/06/2024 started on Eliquis -Bilateral lower extremity venous duplex negative for DVT -Continue heparin drip -Will be resumed on Eliquis at discharge Asymptomatic COVID infection Continue supportive supportive measures Cervical cancer Moderate ascites Hepatic steatosis Acute on chronic anemia Thrombocytopenia likely secondary to chemotherapy Hyponatremia Elevated AST, ALT, ALP -Receives care in [place] -Status post chemo and radiation therap -IR consulted for paracentesis, cytology requested -Follow-up with primary oncology at discharge for further treatment recommendation 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 -Vascular surgery consulted, no surgical intervention at this time -Monitor CBC, hold anticoagulation for platelets less than 50K Type II DM, continue metformin, sitagliptin, SSI DVT ppx: Heparin drip Anticipated discharge place: TBD Anticipated discharge time: 48 hours Objective - Vital Signs Vital signs: Vital Signs Temp 98.2 F 04/18/24 15:36 Pulse 100 04/18/24 15:36 Resp 20 04/18/24 15:36 BP 120/58 04/18/24 15:36 Pulse Ox 99 04/18/24 15:36 FiO2 Intake & Output 04/17/24 04/18/24 04/18/24 18:59 06:59 18:59 Intake Total 123.379 218.635 415.997 Output Total 1100 500 Balance 123.379 -881.365 -84.003 Weight 90.718 kg Intake: Intake, IV Titration 123.379 218.635 175.997 Amount Heparin Sod,Pork in 0.45% 123.379 218.635 175.997 NaCl 25,000 unit In 0.45 % NaCl 1 250ml.bag @ 18 UNITS/KG/HR 16.329 mls/hr IV .[id number] [facility] Rx#: [id number] Oral 240 Output: Urine 1100 500 Uretheral (Walker) 1100 350 Other: Voiding Method Indwelling Catheter - Labs CBC & Chem 7: 04/18/24 05:53 04/18/24 10:34 Labs: Abnormal Lab Results - Last 24 Hours (Table) 04/17/24 04/17/24 04/17/24 Range/Units 06:11 16:15 21:25 RBC (3.80-5.40) m/uL Hgb (11.4-16.0) gm/dL Hct (34.0-46.0) % MCV (80.0-100.0) fL MCHC (31.0-37.0) g/dL RDW (11.5-15.5) % Plt Count (150-450) k/uL Neutrophils # (1.3-7.7) k/uL Lymphocytes # (1.0-4.8) k/uL Macrocytosis APTT (22.0-30.0) sec Sodium (137-145) mmol/L Potassium 3.4 L (3.5-5.5) mmol/L Anion Gap 12.40 H (4.00-12.00) mmol/L Creatinine (0.52-1.04) mg/dL Glucose 207 H (70-110) mg/dL POC Glucose (mg/dL) 208 H 340 H (70-110) mg/dL Calcium 7.0 L (8.7-10.3) mg/dL Total Bilirubin 2.0 H (0.3-1.2) mg/dL AST 204 H (13-35) U/L ALT (4-34) U/L Alkaline Phosphatase 378 H (41-126) U/L Total Protein 5.3 L (6.2-8.2) g/dL Albumin 2.2 L (3.8-4.9) g/dL 04/18/24 04/18/24 04/18/24 Range/Units 05:53 05:53 07:29 RBC 2.40 L (3.80-5.40) m/uL Hgb 7.3 L (11.4-16.0) gm/dL Hct 24.8 L (34.0-46.0) % MCV 103.5 H (80.0-100.0) fL MCHC 29.5 L (31.0-37.0) g/dL RDW 30.3 H (11.5-15.5) % Plt Count 72 L (150-450) k/uL Neutrophils # 9.4 H (1.3-7.7) k/uL Lymphocytes # 0.3 L (1.0-4.8) k/uL Macrocytosis Marked A APTT 41.7 H (22.0-30.0) sec Sodium (137-145) mmol/L Potassium (3.5-5.5) mmol/L Anion Gap (4.00-12.00) mmol/L Creatinine (0.52-1.04) mg/dL Glucose (70-110) mg/dL POC Glucose (mg/dL) 153 H (70-110) mg/dL Calcium (8.7-10.3) mg/dL Total Bilirubin (0.3-1.2) mg/dL AST (13-35) U/L ALT (4-34) U/L Alkaline Phosphatase (41-126) U/L Total Protein (6.2-8.2) g/dL Albumin (3.8-4.9) g/dL 04/18/24 04/18/24 Range/Units 10:34 10:50 RBC (3.80-5.40) m/uL Hgb (11.4-16.0) gm/dL Hct (34.0-46.0) % MCV (80.0-100.0) fL MCHC (31.0-37.0) g/dL RDW (11.5-15.5) % Plt Count (150-450) k/uL Neutrophils # (1.3-7.7) k/uL Lymphocytes # (1.0-4.8) k/uL Macrocytosis APTT (22.0-30.0) sec Sodium 131 L (137-145) mmol/L Potassium (3.5-5.5) mmol/L Anion Gap (4.00-12.00) mmol/L Creatinine 0.51 L (0.52-1.04) mg/dL Glucose 171 H (70-110) mg/dL POC Glucose (mg/dL) 199 H (70-110) mg/dL Calcium 6.9 L (8.7-10.3) mg/dL Total Bilirubin 1.9 H (0.3-1.2) mg/dL AST 170 H (13-35) U/L ALT 35 H (4-34) U/L Alkaline Phosphatase 502 H (41-126) U/L Total Protein 5.4 L (6.2-8.2) g/dL Albumin 2.2 L (3.8-4.9) g/dL Microbiology - Last 24 Hours (Table) 04/16/24 12:55 Blood Culture - Preliminary Blood 04/16/24 12:55 Blood Culture - Preliminary Blood
[2024-04-18 16:37] LABS: Glucose,Whole Blood 173 mg/dL (70-110)
[2024-04-18] MEDS: MELATONIN 3 MG TABLET PO PRN (20:08)
[2024-04-18 20:45] LABS: Glucose,Whole Blood 176 mg/dL (70-110)
--- NOTE | 2024-04-18 22:03 | P.PN ---
Subjective Progress Note Date: 04/18/24 Patient is a 49-year-old female with past medical history significant for cervical cancer, current smoker, diabetes mellitus, and recent diagnosis of pulmonary embolism/DVT. Patient is technically a poor historian. Receives most of her medical care out of [place]. Her oncologist is out of [place]. She has cervical cancer and stopped chemotherapy treatments approximately 3 weeks ago because she has been feeling too sick. States that she was recent hospitalized on April 06 at [facility] and was found to have DVT/PE. She was started on Eliquis. Denies missing any doses. Reportedly, had a more recent hospitalization at [facility], but left AGAINST MEDICAL ADVICE. Patient presented to emergency department yesterday afternoon with a chief complaint of inability to urinate and abdominal distention/bladder fullness. No other urinary symptoms or dysuria. An indwelling urinary catheter was inserted and remains in place. Patient also reporting symptoms of nonproductive cough, fevers, generalized weakness. Her appetite has been poor intermittently nauseous. Denies any abdominal, vomiting, diarrhea. Denies any chest pain, heart palpitation, lightheadedness, syncopal events. Does endorse right lower extremity swelling. Chest x-ray did not show any acute cardiopulmonary process. 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 Bilateral common iliac artery is patent due to reconstitution. Chest CT angio demonstrating bilateral lower lobe segmental and subsegmental pulmonary artery emboli, right greater than left, without obvious CT evidence of right-sided heart strain. Patient was started on IV heparin infusion. CBC on arrival: WBC count 10.2, hemoglobin 7.9, hematocrit 25.3, platelets 62,000. Most recent APTT supratherapeutic at 92.6. CMP: Sodium 131, potassium 4.1, chloride 101, serum bicarb 20, BUN 10, creatinine 0.58, glucose 181. Lactic was 3.4 and is down to 1.8. Total bilirubin 3.3. AST 310, ALT 45, ALP 491. Troponin is less than 0.012. NT proBNP 800. Intermittently febrile with a Tmax of 101.5 F in the ED. Urinalysis unremarkable for urinary tract infection. Was positive for COVID PCR. Patient is currently being evaluated in the emergency department, she is on room air oxygen, no acute distress. Continues on IV heparin infusion per protocol. Denies any acute blood loss including vaginal bleeding, melena, hematochezia, hematemesis. Current vitals: 99 F, heart rate 96 bpm, blood pressure 127/67 mmHg, nontachypneic, SpO2 96% on room air oxygen. On 04/18/2024, the patient is being seen for a follow-up. Doing well. No specific complaints. Remains on IV heparin. No chest pain. No cough. No sputum production. No pleurisy. No hemoptysis. Producing urine output and the patient has a Walker catheter in place. Renal function stable with a BUN of 11 and a creatinine of 0.5. Rest of the electrolytes are all within normal limits. LFTs remain mildly elevated. The white cell count is at 10.4 with a hemoglobin 7.3 and a platelet count of 72. The patient was seen by medical oncology. Recommendations were made to drain the pelvic fluid for diagnostic and therapeutic purposes. The patient has also noted to be COVID-positive and the patient is receiving supportive care. Doppler lower extremity showed nonocclusive thrombus in the proximal right popliteal vein. Left lower extremity was negative for DVT. The patient is also known to have segmental and subsegmental pulmonary emboli in the lower lobes right more than left. Hemodynamically stable. Echocardiogram was done on 04/17/2024 revealing a p reserved LV function, no significant valvular abnormalities. Objective - Vital Signs Vital signs: Vital Signs Temp 99 F 04/18/24 10:00 Pulse 99 04/18/24 10:00 Resp 18 04/18/24 10:00 BP 128/64 04/18/24 10:00 Pulse Ox 98 04/18/24 10:00 FiO2 Intake & Output 04/17/24 04/18/24 04/18/24 18:59 06:59 18:59 Intake Total 123.379 218.635 Output Total 1100 350 Balance 123.379 -881.365 -350 Intake: Intake, IV Titration 123.379 218.635 Amount Heparin Sod,Pork in 0.45% 123.379 218.635 NaCl 25,000 unit In 0.45 % NaCl 1 250ml.bag @ 18 UNITS/KG/HR 16.329 mls/hr IV .[id number] [facility] Rx#: [id number] Output: Urine 1100 350 Uretheral (Walker) 1100 350 - Exam GENERAL EXAM: Alert, 49-year-old white female, comfortable in no apparent distress. HEAD: Normocephalic and atraumatic EYES: Normal reaction of pupils, equal size. NOSE: Clear with pink turbinates. THROAT: No erythema or exudates. NECK: No masses, no JVD. CHEST: No chest wall deformity. LUNGS: Equal air entry with no crackles, wheeze, rhonchi or dullness. On room air oxygen. No conversational dyspnea or accessory muscle use.. CVS: S1 and S2 normal with no audible murmur, regular rhythm. No extra heart sounds ABDOMEN: No hepatosplenomegaly, active bowel sounds, no guarding or rigidity. SPINE: No scoliosis or deformity SKIN: No rashes CENTRAL NERVOUS SYSTEM: No focal deficits, tone is normal in all 4 extremities. EXTREMITIES: Nonpitting bilateral lower extremity edema, right greater than left. No clubbing, or cyanosis. Peripheral pulses are intact. - Labs CBC & Chem 7: 04/18/24 05:53 04/18/24 10:34 Labs: Abnormal Lab Results - Last 24 Hours (Table) 04/17/24 04/17/24 04/17/24 Range/Units 06:11 12:12 16:15 RBC (3.80-5.40) m/uL Hgb (11.4-16.0) gm/dL Hct (34.0-46.0) % MCV (80.0-100.0) fL MCHC (31.0-37.0) g/dL RDW (11.5-15.5) % Plt Count (150-450) k/uL Neutrophils # (1.3-7.7) k/uL Lymphocytes # (1.0-4.8) k/uL Macrocytosis APTT (22.0-30.0) sec Potassium 3.4 L (3.5-5.5) mmol/L Anion Gap 12.40 H (4.00-12.00) mmol/L Glucose 207 H (70-110) mg/dL POC Glucose (mg/dL) 236 H 208 H (70-110) mg/dL Calcium 7.0 L (8.7-10.3) mg/dL Total Bilirubin 2.0 H (0.3-1.2) mg/dL AST 204 H (13-35) U/L Alkaline Phosphatase 378 H (41-126) U/L Total Protein 5.3 L (6.2-8.2) g/dL Albumin 2.2 L (3.8-4.9) g/dL 04/17/24 04/18/24 04/18/24 Range/Units 21:25 05:53 05:53 RBC 2.40 L (3.80-5.40) m/uL Hgb 7.3 L (11.4-16.0) gm/dL Hct 24.8 L (34.0-46.0) % MCV 103.5 H (80.0-100.0) fL MCHC 29.5 L (31.0-37.0) g/dL RDW 30.3 H (11.5-15.5) % Plt Count 72 L (150-450) k/uL Neutrophils # 9.4 H (1.3-7.7) k/uL Lymphocytes # 0.3 L (1.0-4.8) k/uL Macrocytosis Marked A APTT 41.7 H (22.0-30.0) sec Potassium (3.5-5.5) mmol/L Anion Gap (4.00-12.00) mmol/L Glucose (70-110) mg/dL POC Glucose (mg/dL) 340 H (70-110) mg/dL Calcium (8.7-10.3) mg/dL Total Bilirubin (0.3-1.2) mg/dL AST (13-35) U/L Alkaline Phosphatase (41-126) U/L Total Protein (6.2-8.2) g/dL Albumin (3.8-4.9) g/dL 04/18/24 04/18/24 Range/Units 07:29 10:50 RBC (3.80-5.40) m/uL Hgb (11.4-16.0) gm/dL Hct (34.0-46.0) % MCV (80.0-100.0) fL MCHC (31.0-37.0) g/dL RDW (11.5-15.5) % Plt Count (150-450) k/uL Neutrophils # (1.3-7.7) k/uL Lymphocytes # (1.0-4.8) k/uL Macrocytosis APTT (22.0-30.0) sec Potassium (3.5-5.5) mmol/L Anion Gap (4.00-12.00) mmol/L Glucose (70-110) mg/dL POC Glucose (mg/dL) 153 H 199 H (70-110) mg/dL Calcium (8.7-10.3) mg/dL Total Bilirubin (0.3-1.2) mg/dL AST (13-35) U/L Alkaline Phosphatase (41-126) U/L Total Protein (6.2-8.2) g/dL Albumin (3.8-4.9) g/dL Microbiology - Last 24 Hours (Table) 04/16/24 12:55 Blood Culture - Preliminary Blood 04/16/24 12:55 Blood Culture - Preliminary Blood Assessment and Plan Assessment: Bilateral lower lobe segmental and subsegmental pulmonary artery emboli, right greater than left clot burden. No CT evidence of right-sided heart strain. States that she was recently diagnosed with PE/DVT at outside facility, and was already started on Eliquis. Currently, the patient is on IV heparin. 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, with reconstitution at the bilateral common iliac arteries, vascular surgery consulted DVT, nonocclusive thrombus involving the right popliteal vein Moderate volume diffuse abdominal ascites, as reported in CT Hepatic steatosis Bicytopenia, with anemia and thrombocytopenia Current ongoing tobacco dependence Plan: Continue IV heparin infusion Interventional radiology to drain the pelvic fluid for diagnostic and therapeutic purposes and staging purposes Patient currently on room air oxygen No CT evidence of right-sided heart strain, follow-up with transthoracic echocardiogram Will likely transition patient back to Eliquis once oncologic workup and staging is completed Continue supportive treatment for patient's acute COVID infection. No evidence of focal infiltrates/pneumonia or COVID-pneumonia. Tylenol for antipyretic, Robitussin DM as antitussive, as needed albuterol HFA inhaler for wheezing or dyspnea Oncology is consulted in regards to patient's cervical cancer Vascular surgery consult for abdominal aortic occlusion, consult is appreciated no intervention to be done Urine output is adequate and the patient has normal renal function We will continue to followis regarding the abdominal ascites. A oncology consultation will also be of value.
[2024-04-19 05:53] LABS: Glucose,Whole Blood 140 mg/dL (70-110)
[2024-04-19 08:25] LABS: African American GFR (CKD) >90 (>60 ml/min/1.73 sqM); Anion Gap 6 mmol/L; Blood Urea Nitrogen 9 mg/dL (7-17); Calcium 6.8 mg/dL (8.4-10.2); Carbon Dioxide 23 mmol/L (22-30); Chloride 103 mmol/L (98-107); Glucose 130 mg/dL (74-99); Non-African American GFR(CKD) >90 (>60 ml/min/1.73 sqM); Potassium 3.6 mmol/L (3.5-5.1); Sodium 132 mmol/L (137-145)
[2024-04-19 08:27] LABS: Anisocytosis Marked; Basophils % (A) 0 %; Eosinophils # (A) 0.2 k/uL (0-0.7); Eosinophils % (A) 2 %; HCT 26.7 % (34.0-46.0); HGB 8.1 gm/dL (11.4-16.0); Hypochromasia Marked; Lymphocytes # (A) 0.4 k/uL (1.0-4.8); Lymphocytes % (A) 4 %; MCH 31.8 pg (25.0-35.0); MCHC 30.4 g/dL (31.0-37.0); MCV 104.9 fL (80.0-100.0); Macrocytosis Marked; Mean Platelet Volume 8.9; Microcytosis Slight; Monocytes # (A) 0.3 k/uL (0-1.0); Monocytes % (A) 3 %; Neutrophils # (A) 9.6 k/uL (1.3-7.7); Neutrophils % (A) 90 %; RBC 2.55 m/uL (3.80-5.40); WBC 10.6 k/uL (3.8-10.6)
[2024-04-19 08:31] LABS: Platelet Count 59 k/uL (150-450); RDW 29.8 % (11.5-15.5)
--- NOTE | 2024-04-19 10:27 | US ---
EXAMINATION TYPE: US paracentesis abd w/image DATE OF EXAM: 04/19/2024 9:46 AM COMPARISON: prior paracentesis. CLINICAL INDICATION:Female, 49 years old with history of ascites; , ascites ATTENDING: Dr. Baljeet Albert PROCEDURE: Informed consent was obtained. The risks of the procedure were extensively explained incl uding risk of damage to surrounding bowel with perforation and need for additional procedures. Proced ure was performed in the ultrasound procedure suite. Ultrasound imaging of the abdomen demonstrate as citic fluid. An appropriate access site was localized to the right lower abdomen. Timeout was taken p er protocol. The skin was prepped and draped in the usual sterile fashion and then locally anesthetiz ed with 1% lidocaine. The peritoneal cavity was then accessed via a 5-[place] one-step needle/cathete r. Approximately 1200 mL of clear straw-colored fluid was obtained. Samples were sent to the lab for analysis. Postprocedural imaging of the abdomen demonstrate a minimal amount of abdominal fluid. Patient tolerated procedure well without immediate complication. Hemostasis at the procedural site w as obtained with a sterile bandage placed. The patient was monitored in the holding area following th e procedure and was subsequently discharged in stable condition. IMPRESSION: Ultrasound guided paracentesis, with approximately 1200 mL of clear straw-colored fluid drained. Path ology results pending. No immediate complications were evident. [facility], , 04/19/2024 10:25 AM
[2024-04-19 11:33] LABS: Glucose,Whole Blood 163 mg/dL (70-110)
--- NOTE | 2024-04-19 11:59 | P.PN ---
Subjective Progress Note Date: 04/19/24 Hospital Course: A 49-year-old female with medical history of type II DM, tobacco use disorder, history of DVT/PE on Eliquis, history of stage III ovarian cancer chemotherapy and radiation, last treatment 2 weeks before admission, who presented to the ED with abdominal pain. When she presented the ER she was very tachycardic 100% room air and was noted to be febrile with a temperature of 101.5 lab work had shown a white blood cell count 7.5 MCV was 101.5. CMP had revealed a lactic acid of 3.4 urinalysis had revealed slight hemoglobin. COVID-[address] abdomen pelvis had revealed moderate volume diffuse abdominal ascites with hepatic steatosis. 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 CTA chest revealed bilateral lower segmental and subsegmental PE. TTE showed EF of 55% with no right heart strain. Patient was started on heparin, pulmonology consulted. Recommended vascular surgery consult to evaluate for large plaque involving the infrarenal aorta, vascular surgery did not recommend any intervention at this time as patient is asymptomatic. IR consulted for paracentesis, cytology requested, heme-onc following. , s/p 1200 cc of clear straw-colored fluid drained on 04/19, cytology pending Pertinent Imaging: Ultrasound paracentesis note reviewed Subjective: Patient was seen and examined after paracentesis, feeling better, denies SOB, chest pain today Pertinent positives and negatives as discussed above, a complete review of syste ms was performed and all other systems are negative. Vitals Signs Reviewed. General: [nontoxic], [no distress], [appears at stated age] Derm: [warm], [dry] Head: [atraumatic], [normocephalic], [symmetric] Eyes: [EOMI], [no lid lag], [anicteric sclera] Mouth: [no lip lesion], [mucus membranes moist] Cardiovascular: [S1S2 reg], [no murmur] Lungs: [CTA bilateral], [no rhonchi, no rales] , [no accessory muscle use] Abdominal: [soft], [ nontender to palpation], [no guarding], [no appreciable organomegaly], mildly distended, fluid wave Ext: [no gross muscle atrophy], [no edema], [no contractures] Neuro: [ CN II-XI grossly intact], [no focal neuro deficits] Psych: [Alert], [oriented], [appropriate affect] Data Reviewed Today: Pertinent Labs: No leukocytosis, hemoglobin stable at 8, platelets count down from 72-59, sodium 132 up from 131 yesterday, euglycemic Imaging: [] Assessment and Plan: Bilateral lower lobe segmental and subsegmental pulmonary emboli with no right heart strain Diagnosed with a DVT and PE on 04/06/2024 started on Eliquis -Bilateral lower extremity venous duplex negative for DVT -Continue heparin drip -Will be resumed on Eliquis at discharge Asymptomatic COVID infection Continue supportive supportive measures Cervical cancer Moderate ascites status post paracentesis 04/19 Hepatic steatosis Acute on chronic anemia Thrombocytopenia likely secondary to chemotherapy Hyponatremia Elevated AST, ALT, ALP -Receives care in [place] -Status post chemo and radiation therap -IR consulted for paracentesis, s/p 1200 cc of clear straw-colored fluid drained cytology pending -Follow-up with primary oncology at discharge for further treatment recommendation 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 -Vascular surgery consulted, no surgical intervention at this time -Monitor CBC, hold anticoagulation for platelets less than 50K Type II DM, continue metformin, sitagliptin, SSI DVT ppx: Heparin drip Anticipated discharge place: TBD Anticipated discharge time: 48 hours Objective - Vital Signs Vital signs: Vital Signs Temp 96.6 F L 04/19/24 03:30 Pulse 96 04/19/24 09:41 Resp 12 04/19/24 09:41 BP 135/63 04/19/24 09:41 Pulse Ox 98 04/19/24 09:41 FiO2 Intake & Output 04/18/24 04/19/24 04/19/24 18:59 06:59 18:59 Intake Total 415.997 Output Total 500 300 150 Balance -84.003 -300 -150 Weight 90.718 kg 107.3 kg Intake: Intake, IV Titration 175.997 Amount Heparin Sod,Pork in 0.45% 175.997 NaCl 25,000 unit In 0.45 % NaCl 1 250ml.bag @ 18 UNITS/KG/HR 16.329 mls/hr IV .[id number] [facility] Rx#: [id number] Oral 240 Output: Urine 500 300 150 Uretheral (Walker) 350 Other: Voiding Method Indwelling Catheter Indwelling Catheter - Labs CBC & Chem 7: 04/19/24 06:55 04/19/24 06:55 Labs: Abnormal Lab Results - Last 24 Hours (Table) 04/18/24 04/18/24 04/19/24 Range/Units 16:36 20:43 05:52 RBC (3.80-5.40) m/uL Hgb (11.4-16.0) gm/dL Hct (34.0-46.0) % MCV (80.0-100.0) fL MCHC (31.0-37.0) g/dL RDW (11.5-15.5) % Plt Count (150-450) k/uL Neutrophils # (1.3-7.7) k/uL Lymphocytes # (1.0-4.8) k/uL Macrocytosis APTT (22.0-30.0) sec Sodium (137-145) mmol/L Glucose (74-99) mg/dL POC Glucose (mg/dL) 173 H 176 H 140 H (70-110) mg/dL Calcium (8.4-10.2) mg/dL 04/19/24 04/19/24 04/19/24 Range/Units 06:55 06:55 06:55 RBC 2.55 L (3.80-5.40) m/uL Hgb 8.1 L (11.4-16.0) gm/dL Hct 26.7 L (34.0-46.0) % MCV 104.9 H (80.0-100.0) fL MCHC 30.4 L (31.0-37.0) g/dL RDW 29.8 H (11.5-15.5) % Plt Count 59 L (150-450) k/uL Neutrophils # 9.6 H (1.3-7.7) k/uL Lymphocytes # 0.4 L (1.0-4.8) k/uL Macrocytosis Marked A APTT 33.1 H (22.0-30.0) sec Sodium 132 L (137-145) mmol/L Glucose 130 H (74-99) mg/dL POC Glucose (mg/dL) (70-110) mg/dL Calcium 6.8 L (8.4-10.2) mg/dL 04/19/24 Range/Units 11:22 RBC (3.80-5.40) m/uL Hgb (11.4-16.0) gm/dL Hct (34.0-46.0) % MCV (80.0-100.0) fL MCHC (31.0-37.0) g/dL RDW (11.5-15.5) % Plt Count (150-450) k/uL Neutrophils # (1.3-7.7) k/uL Lymphocytes # (1.0-4.8) k/uL Macrocytosis APTT (22.0-30.0) sec Sodium (137-145) mmol/L Glucose (74-99) mg/dL POC Glucose (mg/dL) 163 H (70-110) mg/dL Calcium (8.4-10.2) mg/dL Microbiology - Last 24 Hours (Table) 04/16/24 12:55 Blood Culture - Preliminary Blood 04/16/24 12:55 Blood Culture - Preliminary Blood
--- NOTE | 2024-04-19 14:03 | P.PN ---
Subjective Progress Note Date: 04/19/24 Patient is a 49-year-old female with past medical history significant for cervical cancer, current smoker, diabetes mellitus, and recent diagnosis of pulmonary embolism/DVT. Patient is technically a poor historian. Receives most of her medical care out of [place]. Her oncologist is out of [place]. She has cervical cancer and stopped chemotherapy treatments approximately 3 weeks ago because she has been feeling too sick. States that she was recent hospitalized on April 06 at [facility] and was found to have DVT/PE. She was started on Eliquis. Denies missing any doses. Reportedly, had a more recent hospitalization at [facility], but left AGAINST MEDICAL ADVICE. Patient presented to emergency department yesterday afternoon with a chief complaint of inability to urinate and abdominal distention/bladder fullness. No other urinary symptoms or dysuria. An indwelling urinary catheter was inserted and remains in place. Patient also reporting symptoms of nonproductive cough, fevers, generalized weakness. Her appetite has been poor intermittently nauseous. Denies any abdominal, vomiting, diarrhea. Denies any chest pain, heart palpitation, lightheadedness, syncopal events. Does endorse right lower extremity swelling. Chest x-ray did not show any acute cardiopulmonary process. 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 Bilateral common iliac artery is patent due to reconstitution. Chest CT angio demonstrating bilateral lower lobe segmental and subsegmental pulmonary artery emboli, right greater than left, without obvious CT evidence of right-sided heart strain. Patient was started on IV heparin infusion. CBC on arrival: WBC count 10.2, hemoglobin 7.9, hematocrit 25.3, platelets 62,000. Most recent APTT supratherapeutic at 92.6. CMP: Sodium 131, potassium 4.1, chloride 101, serum bicarb 20, BUN 10, creatinine 0.58, glucose 181. Lactic was 3.4 and is down to 1.8. Total bilirubin 3.3. AST 310, ALT 45, ALP 491. Troponin is less than 0.012. NT proBNP 800. Intermittently febrile with a Tmax of 101.5 F in the ED. Urinalysis unremarkable for urinary tract infection. Was positive for COVID PCR. Patient is currently being evaluated in the emergency department, she is on room air oxygen, no acute distress. Continues on IV heparin infusion per protocol. Denies any acute blood loss including vaginal bleeding, melena, hematochezia, hematemesis. Current vitals: 99 F, heart rate 96 bpm, blood pressure 127/67 mmHg, nontachypneic, SpO2 96% on room air oxygen. On 04/18/2024, the patient is being seen for a follow-up. Doing well. No specific complaints. Remains on IV heparin. No chest pain. No cough. No sputum production. No pleurisy. No hemoptysis. Producing urine output and the patient has a Walker catheter in place. Renal function stable with a BUN of 11 and a creatinine of 0.5. Rest of the electrolytes are all within normal limits. LFTs remain mildly elevated. The white cell count is at 10.4 with a hemoglobin 7.3 and a platelet count of 72. The patient was seen by medical oncology. Recommendations were made to drain the pelvic fluid for diagnostic and therapeutic purposes. The patient has also noted to be COVID-positive and the patient is receiving supportive care. Doppler lower extremity showed nonocclusive thrombus in the proximal right popliteal vein. Left lower extremity was negative for DVT. The patient is also known to have segmental and subsegmental pulmonary emboli in the lower lobes right more than left. Hemodynamically stable. Echocardiogram was done on 04/17/2024 revealing a p reserved LV function, no significant valvular abnormalities. On 04/19/2024, the patient is being seen for a follow-up. Resting comfortably in bed. Remains on IV heparin. No chest pain pleurisy or hemoptysis. Tolerating anticoagulation well and the patient's hemoglobin today is at 8.1. Rest of the electrolytes are all within normal limits. She does have some abdominal distention. She is having regular bowel movements and her last bowel movement was around 2 days ago. She is also voiding and urinating. The patient underwent an ultrasound-guided paracentesis by interventional radiology and approximately 1.2 L of clear straw-colored fluid was drained. The fluid will be sent for cytologic evaluation. Otherwise, the electrolytes are all within normal limits. Sodium levels at 132, potassium level is 3.6, BUN is 9 with a creatinine of 0.5. Oncology on the case. Echocardiogram showed a preserved LV function, no significant valvular abnormalities. Objective - Vital Signs Vital signs: Vital Signs Temp 96.6 F L 04/19/24 03:30 Pulse 96 04/19/24 09:41 Resp 12 04/19/24 09:41 BP 135/63 04/19/24 09:41 Pulse Ox 98 04/19/24 09:41 FiO2 Intake & Output 04/18/24 04/19/24 04/19/24 18:59 06:59 18:59 Intake Total 415.997 Output Total 500 300 150 Balance -84.003 -300 -150 Weight 90.718 kg 107.3 kg Intake: Intake, IV Titration 175.997 Amount Heparin Sod,Pork in 0.45% 175.997 NaCl 25,000 unit In 0.45 % NaCl 1 250ml.bag @ 18 UNITS/KG/HR 16.329 mls/hr IV .[id number] [facility] Rx#: [id number] Oral 240 Output: Urine 500 300 150 Uretheral (Walker) 350 Other: Voiding Method Indwelling Catheter Indwelling Catheter - Exam GENERAL EXAM: Alert, 49-year-old white female, comfortable in no apparent distress. HEAD: Normocephalic and atraumatic EYES: Normal reaction of pupils, equal size. NOSE: Clear with pink turbinates. THROAT: No erythema or exudates. NECK: No masses, no JVD. CHEST: No chest wall deformity. LUNGS: Equal air entry with no crackles, wheeze, rhonchi or dullness. On room air oxygen. No conversational dyspnea or accessory muscle use.. CVS: S1 and S2 normal with no audible murmur, regular rhythm. No extra heart sounds ABDOMEN: No hepatosplenomegaly, active bowel sounds, no guarding or rigidity. SPINE: No scoliosis or deformity SKIN: No rashes CENTRAL NERVOUS SYSTEM: No focal deficits, tone is normal in all 4 extremities. EXTREMITIES: Nonpitting bilateral lower extremity edema, right greater than left. No clubbing, or cyanosis. Peripheral pulses are intact. - Labs CBC & Chem 7: 04/19/24 06:55 04/19/24 06:55 Labs: Abnormal Lab Results - Last 24 Hours (Table) 04/18/24 04/18/24 04/19/24 Range/Units 16:36 20:43 05:52 RBC (3.80-5.40) m/uL Hgb (11.4-16.0) gm/dL Hct (34.0-46.0) % MCV (80.0-100.0) fL MCHC (31.0-37.0) g/dL RDW (11.5-15.5) % Plt Count (150-450) k/uL Neutrophils # (1.3-7.7) k/uL Lymphocytes # (1.0-4.8) k/uL Macrocytosis APTT (22.0-30.0) sec Sodium (137-145) mmol/L Glucose (74-99) mg/dL POC Glucose (mg/dL) 173 H 176 H 140 H (70-110) mg/dL Calcium (8.4-10.2) mg/dL 04/19/24 04/19/24 04/19/24 Range/Units 06:55 06:55 06:55 RBC 2.55 L (3.80-5.40) m/uL Hgb 8.1 L (11.4-16.0) gm/dL Hct 26.7 L (34.0-46.0) % MCV 104.9 H (80.0-100.0) fL MCHC 30.4 L (31.0-37.0) g/dL RDW 29.8 H (11.5-15.5) % Plt Count 59 L (150-450) k/uL Neutrophils # 9.6 H (1.3-7.7) k/uL Lymphocytes # 0.4 L (1.0-4.8) k/uL Macrocytosis Marked A APTT 33.1 H (22.0-30.0) sec Sodium 132 L (137-145) mmol/L Glucose 130 H (74-99) mg/dL POC Glucose (mg/dL) (70-110) mg/dL Calcium 6.8 L (8.4-10.2) mg/dL 04/19/24 Range/Units 11:22 RBC (3.80-5.40) m/uL Hgb (11.4-16.0) gm/dL Hct (34.0-46.0) % MCV (80.0-100.0) fL MCHC (31.0-37.0) g/dL RDW (11.5-15.5) % Plt Count (150-450) k/uL Neutrophils # (1.3-7.7) k/uL Lymphocytes # (1.0-4.8) k/uL Macrocytosis APTT (22.0-30.0) sec Sodium (137-145) mmol/L Glucose (74-99) mg/dL POC Glucose (mg/dL) 163 H (70-110) mg/dL Calcium (8.4-10.2) mg/dL Microbiology - Last 24 Hours (Table) 04/16/24 12:55 Blood Culture - Preliminary Blood 04/16/24 12:55 Blood Culture - Preliminary Blood Assessment and Plan Assessment: Bilateral lower lobe segmental and subsegmental pulmonary artery emboli, right greater than left clot burden. No CT evidence of right-sided heart strain. States that she was recently diagnosed with PE/DVT at outside facility, and was already started on Eliquis. Currently, the patient is on IV heparin. This is a provoked event and underlying risk factors including cervical cancer and recent COVID-19 infections Acute COVID infection, chest x-ray does not show any evidence of COVID-pneumonia or focal infiltrate, currently on room air oxygen Acute dyspnea, likely secondary to combination of above, currently inactive and stable History of cervical cancer, reportedly took herself off chemotherapy treatments 3 weeks ago Ascites, status post IR guided paracentesis with removal of 1.2 L of ascitic fluid. Pending further workup and cytology. 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, with reconstitution at the bilateral common iliac arteries, vascular surgery consulted DVT, nonocclusive thrombus involving the right popliteal vein Moderate volume diffuse abdominal ascites, as reported in CT Hepatic steatosis Bicytopenia, with anemia and thrombocytopenia Current ongoing tobacco dependence Plan: Continue IV heparin infusion Paracentesis was done this morning by interventional radiology with removal of 1.2 L of ascitic fluid, pending cytologic evaluation, rule out malignant ascites Patient currently on room air oxygen No CT evidence of right-sided heart strain, follow-up with transthoracic echoc ardiogram Will likely transition patient back to Eliquis once oncologic workup and staging is completed Continue supportive treatment for patient's acute COVID infection. No evidence of focal infiltrates/pneumonia or COVID-pneumonia. Tylenol for antipyretic, Robitussin DM as antitussive, as needed albuterol HFA inhaler for wheezing or dyspnea Oncology is consulted in regards to patient's cervical cancer Vascular surgery consult for abdominal aortic occlusion, consult is appreciated no intervention to be done Urine output is adequate and the patient has normal renal function We will continue to follow
[2024-04-19 16:19] LABS: Glucose,Whole Blood 223 mg/dL (70-110)
[2024-04-19 17:00] LABS: Appearance,BF Clear (Clear)
--- NOTE | 2024-04-19 18:34 | P.PN ---
Subjective Progress Note Date: 04/19/24 At todays visit, pt reporting hse is feeling improved. Denies SOB, CP. Continues heparin drip. S/p paracentesis, with 1.2L removed Objective - Vital Signs Vital signs: Vital Signs Temp 96.6 F L 04/19/24 03:30 Pulse 96 04/19/24 09:41 Resp 12 04/19/24 09:41 BP 135/63 04/19/24 09:41 Pulse Ox 98 04/19/24 09:41 FiO2 Intake & Output 04/18/24 04/19/24 04/19/24 18:59 06:59 18:59 Intake Total 415.997 Output Total 500 300 150 Balance -84.003 -300 -150 Weight 90.718 kg 107.3 kg Intake: Intake, IV Titration 175.997 Amount Heparin Sod,Pork in 0.45% 175.997 NaCl 25,000 unit In 0.45 % NaCl 1 250ml.bag @ 18 UNITS/KG/HR 16.329 mls/hr IV .[id number] [facility] Rx#: [id number] Oral 240 Output: Urine 500 300 150 Uretheral (Walker) 350 Other: Voiding Method Indwelling Catheter Indwelling Catheter - Constitutional General appearance: Present: average body habitus, no acute distress - EENT Eyes: Present: anicteric sclerae, EOMI ENT: Present: hearing grossly normal - Respiratory Details: breathing is even and unlabored - Cardiovascular Details: well perfused - Integumentary Integumentary: Absent: cyanotic, jaundiced - Musculoskeletal Musculoskeletal: Present: strength equal bilaterally - Psychiatric Psychiatric: Present: A&O x's 3 - Labs CBC & Chem 7: 04/19/24 06:55 04/19/24 06:55 Labs: Abnormal Lab Results - Last 24 Hours (Table) 04/18/24 04/18/24 04/19/24 Range/Units 16:36 20:43 05:52 RBC (3.80-5.40) m/uL Hgb (11.4-16.0) gm/dL Hct (34.0-46.0) % MCV (80.0-100.0) fL MCHC (31.0-37.0) g/dL RDW (11.5-15.5) % Plt Count (150-450) k/uL Neutrophils # (1.3-7.7) k/uL Lymphocytes # (1.0-4.8) k/uL Macrocytosis APTT (22.0-30.0) sec Sodium (137-145) mmol/L Glucose (74-99) mg/dL POC Glucose (mg/dL) 173 H 176 H 140 H (70-110) mg/dL Calcium (8.4-10.2) mg/dL 04/19/24 04/19/24 04/19/24 Range/Units 06:55 06:55 06:55 RBC 2.55 L (3.80-5.40) m/uL Hgb 8.1 L (11.4-16.0) gm/dL Hct 26.7 L (34.0-46.0) % MCV 104.9 H (80.0-100.0) fL MCHC 30.4 L (31.0-37.0) g/dL RDW 29.8 H (11.5-15.5) % Plt Count 59 L (150-450) k/uL Neutrophils # 9.6 H (1.3-7.7) k/uL Lymphocytes # 0.4 L (1.0-4.8) k/uL Macrocytosis Marked A APTT 33.1 H (22.0-30.0) sec Sodium 132 L (137-145) mmol/L Glucose 130 H (74-99) mg/dL POC Glucose (mg/dL) (70-110) mg/dL Calcium 6.8 L (8.4-10.2) mg/dL 04/19/24 Range/Units 11:22 RBC (3.80-5.40) m/uL Hgb (11.4-16.0) gm/dL Hct (34.0-46.0) % MCV (80.0-100.0) fL MCHC (31.0-37.0) g/dL RDW (11.5-15.5) % Plt Count (150-450) k/uL Neutrophils # (1.3-7.7) k/uL Lymphocytes # (1.0-4.8) k/uL Macrocytosis APTT (22.0-30.0) sec Sodium (137-145) mmol/L Glucose (74-99) mg/dL POC Glucose (mg/dL) 163 H (70-110) mg/dL Calcium (8.4-10.2) mg/dL Microbiology - Last 24 Hours (Table) 04/16/24 12:55 Blood Culture - Preliminary Blood 04/16/24 12:55 Blood Culture - Preliminary Blood - Imaging and Cardiology CT scan - chest: report reviewed Assessment and Plan (1) COVID-19 Current Visit: Yes Status: Acute Priority: High Code(s): U07.1 - COVID-19 SNOMED Code(s): 192106058 (2) Cervical cancer Current Visit: Yes Status: Acute Priority: High Code(s): C53.9 - MALIGNANT NEOPLASM OF CERVIX UTERI, UNSPECIFIED SNOMED Code(s): 134587974 (3) Pulmonary embolism Current Visit: Yes Status: Acute Priority: High Code(s): I26.99 - OTHER PULMONARY EMBOLISM WITHOUT ACUTE COR PULMONALE SNOMED Code(s): 43145074 (4) Transaminitis Current Visit: Yes Status: Acute Priority: High Code(s): R74.01 - ELEVATION OF LEVELS OF LIVER TRANSAMINASE LEVELS SNOMED Code(s): 696495352 (5) DVT (deep venous thrombosis) Current Visit: Yes Status: Acute Priority: High Code(s): I82.409 - ACUTE EMBOLISM AND THOMBOS UNSP DEEP VN UNSP LOWER EXTREMITY SNOMED Code(s): 417880922 Plan: DVT/PE: Diagnosed with pulmonary embolism/DVT at [facility] on 04/06/24. Anticoagulated with Eliquis, denies any missed doses -On admit CTA chest showing bilateral lower lobe segmental and subsegmental pulmonary artery emboli, right greater than left with no convincing evidence of right heart strain. Dopplers of bilateral lower extremities showing nonocclusive thrombosis in proximal right popliteal vein. Left lower extremity negative for DVT -Heparin drip started -Hemoglobin 8.1, platelets 59,000. Cytopenias likely chemo induced. Continue to monitor CBC, hold anticoagulation for plts less than 50,000 -Requested records from [facility] for comparison, images unable to sent electronically, CD of images have been requested to be sent to hospital. Reviewed written report of CTA chest obtained at [place], reporting small volume right lower lobe pulmonary emboli, most proximal clot in the segmental branches. Repeat CTA obtained here, now reports bilateral lower lobe segmental and subsegmental pulmonary emboli, right greater than left. Based on these findings would have to assume Eliquis failure. Will obtain APLS labs, if found to positive pt will need to be anticoagulated with coumadin or lovenox, if negative pt can be started on pradaxa. Continue heparin drip for now COVID: Positive COVID testing -Continue supportive care -Defer management to admitting team and pulm Cervical cancer: History of cervical cancer. Patient receives her oncological care in [place] and has been treated with RT and chemo, completing cycle 5 approx 3 weeks ago, and states she has decided to not proceed with her last cycle of treatment due to side effects. Per patient she has localized disease with no known distant metastases. -CT abdomen pelvis revealed moderate volume diffuse abdominal ascites. Hepatic steatosis. -IR consult placed for paracentesis. S/p para with 1.2 L removed. Cytology pending -Patient to follow up with her primary oncologist on discharge for further treatment recommendations
[2024-04-19 19:05] LABS: Glucose, BF Source Ascities; Glucose, Body Fluid 139 mg/dL; T. Protein, Body Fluid Source Ascities; Total Protein, Body Fluid 3060 mg/dL
[2024-04-19 20:13] LABS: Glucose,Whole Blood 163 mg/dL (70-110)
[2024-04-19 20:49] LABS: Cardiolipin Ab IgG Interp Negative (Negative); Cardiolipin Ab IgM Interp Negative (Negative); Cardiolipin IgA Antibody 2.3 U/mL; Cardiolipin IgM Antibody <1.5 U/mL
[2024-04-20 05:53] LABS: Glucose,Whole Blood 126 mg/dL (70-110)
[2024-04-20 07:12] LABS: Anisocytosis Marked; Basophils % (A) 0 %; Eosinophils # (A) 0.2 k/uL (0-0.7); Eosinophils % (A) 2 %; HCT 26.8 % (34.0-46.0); HGB 8.2 gm/dL (11.4-16.0); Hypochromasia Marked; Lymphocytes # (A) 0.3 k/uL (1.0-4.8); Lymphocytes % (A) 4 %; MCH 32.1 pg (25.0-35.0); MCHC 30.6 g/dL (31.0-37.0); MCV 104.7 fL (80.0-100.0); Macrocytosis Marked; Mean Platelet Volume 9.4; Microcytosis Slight; Monocytes # (A) 0.4 k/uL (0-1.0); Monocytes % (A) 5 %; Neutrophils # (A) 7.3 k/uL (1.3-7.7); Neutrophils % (A) 87 %; RBC 2.56 m/uL (3.80-5.40); WBC 8.4 k/uL (3.8-10.6)
[2024-04-20 07:21] LABS: African American GFR (CKD) >90 (>60 ml/min/1.73 sqM); Anion Gap 3 mmol/L; Blood Urea Nitrogen 8 mg/dL (7-17); Calcium 6.9 mg/dL (8.4-10.2); Carbon Dioxide 28 mmol/L (22-30); Chloride 101 mmol/L (98-107); Glucose 110 mg/dL (74-99); Non-African American GFR(CKD) >90 (>60 ml/min/1.73 sqM); Potassium 3.5 mmol/L (3.5-5.1); Sodium 132 mmol/L (137-145)
[2024-04-20 07:40] LABS: Platelet Count 71 k/uL (150-450); RDW 29.6 % (11.5-15.5)
[2024-04-20 11:48] LABS: Glucose,Whole Blood 143 mg/dL (70-110)
[2024-04-20 12:04] LABS: APTT 78 Sec(s) (<43); APTT 1:1 Mix 51 Sec(s) (<43); DRVVT 1:1 Mix 37 Sec(s) (<44); Dilute Russell Viper Venom 54 Sec(s) (<44); Hexagonal Phase Neutralization Positive (Negative)
--- NOTE | 2024-04-20 13:29 | P.PN ---
Subjective Progress Note Date: 04/20/24 Hospital Course: A 49-year-old female with medical history of type II DM, tobacco use disorder, history of DVT/PE on Eliquis, history of stage III ovarian cancer chemotherapy and radiation, last treatment 2 weeks before admission, who presented to the ED with abdominal pain. When she presented the ER she was very tachycardic 100% room air and was noted to be febrile with a temperature of 101.5 lab work had shown a white blood cell count 7.5 MCV was 101.5. CMP had revealed a lactic acid of 3.4 urinalysis had revealed slight hemoglobin. COVID-[address] abdomen pelvis had revealed moderate volume diffuse abdominal ascites with hepatic steatosis. 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 CTA chest revealed bilateral lower segmental and subsegmental PE. TTE showed EF of 55% with no right heart strain. Patient was started on heparin, pulmonology consulted. Recommended vascular surgery consult to evaluate for large plaque involving the infrarenal aorta, vascular surgery did not recommend any intervention at this time as patient is asymptomatic. IR consulted for paracentesis, cytology requested, heme-onc following. , s/p 1200 cc of clear straw-colored fluid drained on 04/19, cytology pending. Per heme-onc, patient's initial CT reported small volume right lower lobe pulmonary emboli with most proximal clot in the segmental branches, while CTA on admission here reported bilateral lower lobe segmental and subsegmental pulmonary emboli. Thus, patient is considered to have Eliquis failure, antiphospholipid syndrome labs ordered. Subjective: Patient was seen and examined at bedside, complains of feeling fatigued, also noted headache, Pertinent positives and negatives as discussed above, a complete review of systems was performed and all other systems are negative. Vitals Signs Reviewed. General: [nontoxic], [no distress], [appears at stated age] Derm: [warm], [dry] Head: [atraumatic], [normocephalic], [symmetric] Eyes: [EOMI], [no lid lag], [anicteric sclera] Mouth: [no lip lesion], [mucus membranes moist] Cardiovascular: [S1S2 reg], [no murmur] Lungs: [CTA bilateral], [no rhonchi, no rales] , [no accessory muscle use] Abdominal: [soft], [ nontender to palpation], [no guarding], [no appreciable organomegaly], mildly distended, fluid wave Ext: [no gross muscle atrophy], [no edema], [no contractures] Neuro: [ CN II-XI grossly intact], [no focal neuro deficits] Psych: [Alert], [oriented], [appropriate affect] Data Reviewed Today: Pertinent Labs: Hemoglobin stable at 8.2, platelet count slightly improved to 71, WBCs WNL, sodium stable 132, creatinine normal, blood sugars well- controlled. Assessment and Plan: Bilateral lower lobe segmental and subsegmental pulmonary emboli with no right heart strain, eliquis failure Diagnosed with a DVT and PE on 04/06/2024 started on Eliquis -Bilateral lower extremity venous duplex negative for DVT -Continue heparin drip -Antiphospholipid workup -Heme-onc following -Pulmonology following -Complains of marked SOB 04/20, ordered chest x-ray, EKG, pending Asymptomatic COVID infection Continue supportive supportive measures Cervical cancer Moderate ascites status post paracentesis 04/19 Hepatic steatosis Acute on chronic anemia Thrombocytopenia likely secondary to chemotherapy Hyponatremia Elevated AST, ALT, ALP -Receives care in [place] -Status post chemo and radiation therap -IR consulted for paracentesis, s/p 1200 cc of clear straw-colored fluid drained cytology pending -Follow-up with primary oncology at discharge for further treatment recommendation 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 -Vascular surgery consulted, no surgical intervention at this time -Monitor CBC, hold anticoagulation for platelets less than 50K Type II DM, continue metformin, sitagliptin, SSI DVT ppx: Heparin drip Anticipated discharge place: home Anticipated discharge time: 24-48 hours Objective - Vital Signs Vital signs: Vital Signs Temp 97 F L 04/20/24 00:10 Pulse 99 04/20/24 04:10 Resp 16 04/20/24 04:10 BP 116/65 04/20/24 04:10 Pulse Ox 100 04/20/24 04:10 FiO2 Intake & Output 04/19/24 04/20/24 04/20/24 18:59 06:59 18:59 Intake Total 694 225.893 114.988 Output Total 700 375 Balance -6 -149.107 114.988 Weight 106.2 kg Intake: Intake, IV Titration 250 225.893 114.988 Amount Heparin Sod,Pork in 0.45% 250 225.893 114.988 NaCl 25,000 unit In 0.45 % NaCl 1 250ml.bag @ 18 UNITS/KG/HR 16.329 mls/hr IV .[id number] [facility] Rx#: [id number] Oral 444 Output: Urine 700 375 Other: Voiding Method Indwelling Catheter Indwelling Catheter # Bowel Movements 0 - Labs CBC & Chem 7: 04/20/24 05:53 04/20/24 05:53 Labs: Abnormal Lab Results - Last 24 Hours (Table) 04/19/24 04/19/24 04/19/24 Range/Units 12:13 16:17 18:41 RBC (3.80-5.40) m/uL Hgb (11.4-16.0) gm/dL Hct (34.0-46.0) % MCV (80.0-100.0) fL MCHC (31.0-37.0) g/dL RDW (11.5-15.5) % Plt Count (150-450) k/uL Lymphocytes # (1.0-4.8) k/uL Macrocytosis APTT 40.4 H (22.0-30.0) sec Lupus Anticoag aPTT 78 H (<43) Sec(s) Lupus Anticoag PTT Mix 51 H (<43) Sec(s) Dil Carlos Viper Venom 54 H (<44) Sec(s) Lupus Hexagonal Phase Positive A (Negative) Sodium (137-145) mmol/L Glucose (74-99) mg/dL POC Glucose (mg/dL) 223 H (70-110) mg/dL Calcium (8.4-10.2) mg/dL 04/19/24 04/20/24 04/20/24 Range/Units 20:09 05:50 05:53 RBC 2.56 L (3.80-5.40) m/uL Hgb 8.2 L (11.4-16.0) gm/dL Hct 26.8 L (34.0-46.0) % MCV 104.7 H (80.0-100.0) fL MCHC 30.6 L (31.0-37.0) g/dL RDW 29.6 H (11.5-15.5) % Plt Count 71 L (150-450) k/uL Lymphocytes # 0.3 L (1.0-4.8) k/uL Macrocytosis Marked A APTT (22.0-30.0) sec Lupus Anticoag aPTT (<43) Sec(s) Lupus Anticoag PTT Mix (<43) Sec(s) Dil Carlos Viper Venom (<44) Sec(s) Lupus Hexagonal Phase (Negative) Sodium (137-145) mmol/L Glucose (74-99) mg/dL POC Glucose (mg/dL) 163 H 126 H (70-110) mg/dL Calcium (8.4-10.2) mg/dL 04/20/24 04/20/24 04/20/24 Range/Units 05:53 05:53 11:46 RBC (3.80-5.40) m/uL Hgb (11.4-16.0) gm/dL Hct (34.0-46.0) % MCV (80.0-100.0) fL MCHC (31.0-37.0) g/dL RDW (11.5-15.5) % Plt Count (150-450) k/uL Lymphocytes # (1.0-4.8) k/uL Macrocytosis APTT 33.3 H (22.0-30.0) sec Lupus Anticoag aPTT (<43) Sec(s) Lupus Anticoag PTT Mix (<43) Sec(s) Dil Carlos Viper Venom (<44) Sec(s) Lupus Hexagonal Phase (Negative) Sodium 132 L (137-145) mmol/L Glucose 110 H (74-99) mg/dL POC Glucose (mg/dL) 143 H (70-110) mg/dL Calcium 6.9 L (8.4-10.2) mg/dL 04/20/24 Range/Units 12:15 RBC (3.80-5.40) m/uL Hgb (11.4-16.0) gm/dL Hct (34.0-46.0) % MCV (80.0-100.0) fL MCHC (31.0-37.0) g/dL RDW (11.5-15.5) % Plt Count (150-450) k/uL Lymphocytes # (1.0-4.8) k/uL Macrocytosis APTT 38.7 H (22.0-30.0) sec Lupus Anticoag aPTT (<43) Sec(s) Lupus Anticoag PTT Mix (<43) Sec(s) Dil Carlos Viper Venom (<44) Sec(s) Lupus Hexagonal Phase (Negative) Sodium (137-145) mmol/L Glucose (74-99) mg/dL POC Glucose (mg/dL) (70-110) mg/dL Calcium (8.4-10.2) mg/dL Microbiology - Last 24 Hours (Table) 04/19/24 09:27 Gram Stain - Preliminary Ascites Fluid Body Fluid Culture - Preliminary 04/16/24 12:55 Blood Culture - Preliminary Blood 04/16/24 12:55 Blood Culture - Preliminary Blood
[2024-04-20 16:55] LABS: Glucose,Whole Blood 185 mg/dL (70-110)
--- NOTE | 2024-04-20 17:27 | P.PN ---
Subjective Progress Note Date: 04/20/24 Patient is a 49-year-old female with past medical history significant for cervical cancer, current smoker, diabetes mellitus, and recent diagnosis of pulmonary embolism/DVT. Patient is technically a poor historian. Receives most of her medical care out of [place]. Her oncologist is out of [place]. She has cervical cancer and stopped chemotherapy treatments approximately 3 weeks ago because she has been feeling too sick. States that she was recent hospitalized on April 06 at [facility] and was found to have DVT/PE. She was started on Eliquis. Denies missing any doses. Reportedly, had a more recent hospitalization at [facility], but left AGAINST MEDICAL ADVICE. Patient presented to emergency department yesterday afternoon with a chief complaint of inability to urinate and abdominal distention/bladder fullness. No other urinary symptoms or dysuria. An indwelling urinary catheter was inserted and remains in place. Patient also reporting symptoms of nonproductive cough, fevers, generalized weakness. Her appetite has been poor intermittently nauseous. Denies any abdominal, vomiting, diarrhea. Denies any chest pain, heart palpitation, lightheadedness, syncopal events. Does endorse right lower extremity swelling. Chest x-ray did not show any acute cardiopulmonary process. 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 Bilateral common iliac artery is patent due to reconstitution. Chest CT angio demonstrating bilateral lower lobe segmental and subsegmental pulmonary artery emboli, right greater than left, without obvious CT evidence of right-sided heart strain. Patient was started on IV heparin infusion. CBC on arrival: WBC count 10.2, hemoglobin 7.9, hematocrit 25.3, platelets 62,000. Most recent APTT supratherapeutic at 92.6. CMP: Sodium 131, potassium 4.1, chloride 101, serum bicarb 20, BUN 10, creatinine 0.58, glucose 181. Lactic was 3.4 and is down to 1.8. Total bilirubin 3.3. AST 310, ALT 45, ALP 491. Troponin is less than 0.012. NT proBNP 800. Intermittently febrile with a Tmax of 101.5 F in the ED. Urinalysis unremarkable for urinary tract infection. Was positive for COVID PCR. Patient is currently being evaluated in the emergency department, she is on room air oxygen, no acute distress. Continues on IV heparin infusion per protocol. Denies any acute blood loss including vaginal bleeding, melena, hematochezia, hematemesis. Current vitals: 99 F, heart rate 96 bpm, blood pressure 127/67 mmHg, nontachypneic, SpO2 96% on room air oxygen. On 04/18/2024, the patient is being seen for a follow-up. Doing well. No specific complaints. Remains on IV heparin. No chest pain. No cough. No sputum production. No pleurisy. No hemoptysis. Producing urine output and the patient has a Walker catheter in place. Renal function stable with a BUN of 11 and a creatinine of 0.5. Rest of the electrolytes are all within normal limits. LFTs remain mildly elevated. The white cell count is at 10.4 with a hemoglobin 7.3 and a platelet count of 72. The patient was seen by medical oncology. Recommendations were made to drain the pelvic fluid for diagnostic and therapeutic purposes. The patient has also noted to be COVID-positive and the patient is receiving supportive care. Doppler lower extremity showed nonocclusive thrombus in the proximal right popliteal vein. Left lower extremity was negative for DVT. The patient is also known to have segmental and subsegmental pulmonary emboli in the lower lobes right more than left. Hemodynamically stable. Echocardiogram was done on 04/17/2024 revealing a p reserved LV function, no significant valvular abnormalities. On 04/19/2024, the patient is being seen for a follow-up. Resting comfortably in bed. Remains on IV heparin. No chest pain pleurisy or hemoptysis. Tolerating anticoagulation well and the patient's hemoglobin today is at 8.1. Rest of the electrolytes are all within normal limits. She does have some abdominal distention. She is having regular bowel movements and her last bowel movement was around 2 days ago. She is also voiding and urinating. The patient underwent an ultrasound-guided paracentesis by interventional radiology and approximately 1.2 L of clear straw-colored fluid was drained. The fluid will be sent for cytologic evaluation. Otherwise, the electrolytes are all within normal limits. Sodium levels at 132, potassium level is 3.6, BUN is 9 with a creatinine of 0.5. Oncology on the case. Echocardiogram showed a preserved LV function, no significant valvular abnormalities. On 04/20/2024, the patient is being seen for a follow-up. Resting comfortably in bed. Remains on IV heparin. Continues to have some abdominal distention. Patient is status post paracentesis. Ascitic fluid cytology still pending for now. No respiratory distress. Currently afebrile. Hemodynamically stable with a pulse ox of 91% room air oxygen. No new labs are available from today. She is feeling fatigued. She is able to urinate for now. Objective - Vital Signs Vital signs: Vital Signs Temp 97 F L 04/20/24 00:10 Pulse 99 04/20/24 04:10 Resp 16 04/20/24 04:10 BP 116/65 04/20/24 04:10 Pulse Ox 100 04/20/24 04:10 FiO2 Intake & Output 04/19/24 04/20/24 04/20/24 18:59 06:59 18:59 Intake Total 694 225.893 Output Total 700 375 Balance -6 -149.107 Weight 106.2 kg Intake: Intake, IV Titration 250 225.893 Amount Heparin Sod,Pork in 0.45% 250 225.893 NaCl 25,000 unit In 0.45 % NaCl 1 250ml.bag @ 18 UNITS/KG/HR 16.329 mls/hr IV .[id number] [facility] Rx#: [id number] Oral 444 Output: Urine 700 375 Other: Voiding Method Indwelling Catheter Indwelling Catheter - Exam GENERAL EXAM: Alert, 49-year-old white female, comfortable in no apparent distress. HEAD: Normocephalic and atraumatic EYES: Normal reaction of pupils, equal size. NOSE: Clear with pink turbinates. THROAT: No erythema or exudates. NECK: No masses, no JVD. CHEST: No chest wall deformity. LUNGS: Equal air entry with no crackles, wheeze, rhonchi or dullness. On room air oxygen. No conversational dyspnea or accessory muscle use.. CVS: S1 and S2 normal with no audible murmur, regular rhythm. No extra heart sounds ABDOMEN: No hepatosplenomegaly, active bowel sounds, no guarding or rigidity. SPINE: No scoliosis or deformity SKIN: No rashes CENTRAL NERVOUS SYSTEM: No focal deficits, tone is normal in all 4 extremities. EXTREMITIES: Nonpitting bilateral lower extremity edema, right greater than left. No clubbing, or cyanosis. Peripheral pulses are intact. - Labs CBC & Chem 7: 04/20/24 05:53 04/20/24 05:53 Labs: Abnormal Lab Results - Last 24 Hours (Table) 04/19/24 04/19/24 04/19/24 Range/Units 11:22 16:17 18:41 RBC (3.80-5.40) m/uL Hgb (11.4-16.0) gm/dL Hct (34.0-46.0) % MCV (80.0-100.0) fL MCHC (31.0-37.0) g/dL RDW (11.5-15.5) % Plt Count (150-450) k/uL Lymphocytes # (1.0-4.8) k/uL Macrocytosis APTT 40.4 H (22.0-30.0) sec Sodium (137-145) mmol/L Glucose (74-99) mg/dL POC Glucose (mg/dL) 163 H 223 H (70-110) mg/dL Calcium (8.4-10.2) mg/dL 04/19/24 04/20/24 04/20/24 Range/Units 20:09 05:50 05:53 RBC 2.56 L (3.80-5.40) m/uL Hgb 8.2 L (11.4-16.0) gm/dL Hct 26.8 L (34.0-46.0) % MCV 104.7 H (80.0-100.0) fL MCHC 30.6 L (31.0-37.0) g/dL RDW 29.6 H (11.5-15.5) % Plt Count 71 L (150-450) k/uL Lymphocytes # 0.3 L (1.0-4.8) k/uL Macrocytosis Marked A APTT (22.0-30.0) sec Sodium (137-145) mmol/L Glucose (74-99) mg/dL POC Glucose (mg/dL) 163 H 126 H (70-110) mg/dL Calcium (8.4-10.2) mg/dL 04/20/24 04/20/24 Range/Units 05:53 05:53 RBC (3.80-5.40) m/uL Hgb (11.4-16.0) gm/dL Hct (34.0-46.0) % MCV (80.0-100.0) fL MCHC (31.0-37.0) g/dL RDW (11.5-15.5) % Plt Count (150-450) k/uL Lymphocytes # (1.0-4.8) k/uL Macrocytosis APTT 33.3 H (22.0-30.0) sec Sodium 132 L (137-145) mmol/L Glucose 110 H (74-99) mg/dL POC Glucose (mg/dL) (70-110) mg/dL Calcium 6.9 L (8.4-10.2) mg/dL Microbiology - Last 24 Hours (Table) 04/19/24 09:27 Gram Stain - Preliminary Ascites Fluid Body Fluid Culture - Preliminary 04/16/24 12:55 Blood Culture - Preliminary Blood 04/16/24 12:55 Blood Culture - Preliminary Blood Assessment and Plan Assessment: Bilateral lower lobe segmental and subsegmental pulmonary artery emboli, right greater than left clot burden. No CT evidence of right-sided heart strain. States that she was recently diagnosed with PE/DVT at outside facility, and was already started on Eliquis. Currently, the patient is on IV heparin. This is a provoked event and underlying risk factors including cervical cancer and recent COVID-19 infections Acute COVID infection, chest x-ray does not show any evidence of COVID-pneumonia or focal infiltrate, currently on room air oxygen Acute dyspnea, likely secondary to combination of above, currently inactive and stable History of cervical cancer, reportedly took herself off chemotherapy treatments 3 weeks ago Ascites, status post IR guided paracentesis with removal of 1.2 L of ascitic fluid. Pending further workup and cytology. 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, with reconstitution at the bilateral common iliac arteries, vascular surgery consulted DVT, nonocclusive thrombus involving the right popliteal vein Moderate volume diffuse abdominal ascites, as reported in CT Hepatic steatosis Bicytopenia, with anemia and thrombocytopenia Current ongoing tobacco dependence Plan: Overall respiratory status is stable Continue IV heparin infusion, can be transition to Eliquis at the time of discharge Paracentesis was done this morning by interventional radiology with removal of 1.2 L of ascitic fluid, pending cytologic evaluation, rule out malignant ascites Patient currently on room air oxygen No CT evidence of right-sided heart strain, follow-up with transthoracic echocardiogram Will likely transition patient back to [facility] once oncologic workup and staging is completed Continue supportive treatment for patient's acute COVID infection. No evidence of focal infiltrates/pneumonia or COVID-pneumonia. Tylenol for antipyretic, Robitussin DM as antitussive, as needed albuterol HFA inhaler for wheezing or dyspnea Oncology is consulted in regards to patient's cervical cancer Vascular surgery consult for abdominal aortic occlusion, consult is appreciated no intervention to be done Urine output is adequate and the patient has normal renal function We will continue to follow
[2024-04-20 20:22] LABS: Glucose,Whole Blood 209 mg/dL (70-110)
[2024-04-21 03:00] VITALS: RESP 18
[2024-04-21 05:56] LABS: Glucose,Whole Blood 161 mg/dL (70-110)
[2024-04-21 07:26] LABS: Anisocytosis Marked; Basophils % (A) 0 %; Eosinophils # (A) 0.2 k/uL (0-0.7); Eosinophils % (A) 2 %; HCT 24.3 % (34.0-46.0); HGB 7.5 gm/dL (11.4-16.0); Hypochromasia Marked; Lymphocytes # (A) 0.5 k/uL (1.0-4.8); Lymphocytes % (A) 6 %; MCH 32.4 pg (25.0-35.0); MCHC 30.8 g/dL (31.0-37.0); MCV 105.3 fL (80.0-100.0); Macrocytosis Marked; Mean Platelet Volume 8.8; Microcytosis Slight; Monocytes # (A) 0.4 k/uL (0-1.0); Monocytes % (A) 4 %; Neutrophils # (A) 7.5 k/uL (1.3-7.7); Neutrophils % (A) 85 %; RBC 2.31 m/uL (3.80-5.40); WBC 8.7 k/uL (3.8-10.6)
[2024-04-21 07:43] LABS: RDW 28.8 % (11.5-15.5)
[2024-04-21 07:44] LABS: Platelet Count 68 k/uL (150-450)
[2024-04-21 07:52] LABS: African American GFR (CKD) >90 (>60 ml/min/1.73 sqM); Anion Gap 4 mmol/L; Blood Urea Nitrogen 8 mg/dL (7-17); Calcium 6.8 mg/dL (8.4-10.2); Carbon Dioxide 25 mmol/L (22-30); Chloride 102 mmol/L (98-107); Glucose 131 mg/dL (74-99); Non-African American GFR(CKD) >90 (>60 ml/min/1.73 sqM); Potassium 3.8 mmol/L (3.5-5.1); Sodium 131 mmol/L (137-145)
--- NOTE | 2024-04-21 08:37 | XR ---
EXAMINATION TYPE: XR chest 1V portable DATE OF EXAM: 04/21/2024 CLINICAL HISTORY: Difficulty breathing progress study. TECHNIQUE: Single AP portable upright view of the chest is obtained. COMPARISON: Chest x-ray from 5 days earlier FINDINGS: Stable left-sided subclavian MediPort catheter. There is mild vascular congestion and smal l to tiny left pleural effusion. Cardiac silhouette size is upper limits of normal. There is new righ t mid lung lateral basilar linear atelectasis. Osseous structures are intact. IMPRESSION: New Mild central vascular congestion and small to tiny left pleural effusion. Findings s uggest fluid overload state. [facility], , 04/21/2024 8:34 AM
[2024-04-21 10:25] LABS: Mixed Population RBC Present; Poikilocytosis (M) Present
[2024-04-21] MEDS: FUROSEMIDE 10 MG/ML 4 ML VIAL IV ONE (10:42)
[2024-04-21 11:47] LABS: Glucose,Whole Blood 148 mg/dL (70-110)
--- NOTE | 2024-04-21 15:45 | P.PN ---
Subjective Progress Note Date: 04/21/24 Patient is a 49-year-old female with past medical history significant for cervical cancer, current smoker, diabetes mellitus, and recent diagnosis of pulmonary embolism/DVT. Patient is technically a poor historian. Receives most of her medical care out of [place]. Her oncologist is out of [place]. She has cervical cancer and stopped chemotherapy treatments approximately 3 weeks ago because she has been feeling too sick. States that she was recent hospitalized on April 06 at [facility] and was found to have DVT/PE. She was started on Eliquis. Denies missing any doses. Reportedly, had a more recent hospitalization at [facility], but left AGAINST MEDICAL ADVICE. Patient presented to emergency department yesterday afternoon with a chief complaint of inability to urinate and abdominal distention/bladder fullness. No other urinary symptoms or dysuria. An indwelling urinary catheter was inserted and remains in place. Patient also reporting symptoms of nonproductive cough, fevers, generalized weakness. Her appetite has been poor intermittently nauseous. Denies any abdominal, vomiting, diarrhea. Denies any chest pain, heart palpitation, lightheadedness, syncopal events. Does endorse right lower extremity swelling. Chest x-ray did not show any acute cardiopulmonary process. 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 Bilateral common iliac artery is patent due to reconstitution. Chest CT angio demonstrating bilateral lower lobe segmental and subsegmental pulmonary artery emboli, right greater than left, without obvious CT evidence of right-sided heart strain. Patient was started on IV heparin infusion. CBC on arrival: WBC count 10.2, hemoglobin 7.9, hematocrit 25.3, platelets 62,000. Most recent APTT supratherapeutic at 92.6. CMP: Sodium 131, potassium 4.1, chloride 101, serum bicarb 20, BUN 10, creatinine 0.58, glucose 181. Lactic was 3.4 and is down to 1.8. Total bilirubin 3.3. AST 310, ALT 45, ALP 491. Troponin is less than 0.012. NT proBNP 800. Intermittently febrile with a Tmax of 101.5 F in the ED. Urinalysis unremarkable for urinary tract infection. Was positive for COVID PCR. Patient is currently being evaluated in the emergency department, she is on room air oxygen, no acute distress. Continues on IV heparin infusion per protocol. Denies any acute blood loss including vaginal bleeding, melena, hematochezia, hematemesis. Current vitals: 99 F, heart rate 96 bpm, blood pressure 127/67 mmHg, nontachypneic, SpO2 96% on room air oxygen. On 04/18/2024, the patient is being seen for a follow-up. Doing well. No specific complaints. Remains on IV heparin. No chest pain. No cough. No sputum production. No pleurisy. No hemoptysis. Producing urine output and the patient has a Walker catheter in place. Renal function stable with a BUN of 11 and a creatinine of 0.5. Rest of the electrolytes are all within normal limits. LFTs remain mildly elevated. The white cell count is at 10.4 with a hemoglobin 7.3 and a platelet count of 72. The patient was seen by medical oncology. Recommendations were made to drain the pelvic fluid for diagnostic and therapeutic purposes. The patient has also noted to be COVID-positive and the patient is receiving supportive care. Doppler lower extremity showed nonocclusive thrombus in the proximal right popliteal vein. Left lower extremity was negative for DVT. The patient is also known to have segmental and subsegmental pulmonary emboli in the lower lobes right more than left. Hemodynamically stable. Echocardiogram was done on 04/17/2024 revealing a p reserved LV function, no significant valvular abnormalities. On 04/19/2024, the patient is being seen for a follow-up. Resting comfortably in bed. Remains on IV heparin. No chest pain pleurisy or hemoptysis. Tolerating anticoagulation well and the patient's hemoglobin today is at 8.1. Rest of the electrolytes are all within normal limits. She does have some abdominal distention. She is having regular bowel movements and her last bowel movement was around 2 days ago. She is also voiding and urinating. The patient underwent an ultrasound-guided paracentesis by interventional radiology and approximately 1.2 L of clear straw-colored fluid was drained. The fluid will be sent for cytologic evaluation. Otherwise, the electrolytes are all within normal limits. Sodium levels at 132, potassium level is 3.6, BUN is 9 with a creatinine of 0.5. Oncology on the case. Echocardiogram showed a preserved LV function, no significant valvular abnormalities. On 04/20/2024, the patient is being seen for a follow-up. Resting comfortably in bed. Remains on IV heparin. Continues to have some abdominal distention. Patient is status post paracentesis. Ascitic fluid cytology still pending for now. No respiratory distress. Currently afebrile. Hemodynamically stable with a pulse ox of 91% room air oxygen. No new labs are available from today. She is feeling fatigued. She is able to urinate for now. On 04/21/2024, patient is being seen for a follow-up. Remains on IV heparin. No shortness of breath and oxygenation remained stable and the patient remains on room air oxygen. Oncologist to follow-up on the cervical cancer as the patient also has a ascitic fluid that was drained and the fluid cytology remains pending. Blood work from today shows a hemoglobin of 7.5, slightly lower compared to yesterday with a white cell count of 8.7 and a platelet count of 68. Noted the patient's platelet counts have been persistently lower. BUN is at 8 with a creatinine of 0.5 and a sodium levels at 131 with a potassium level of 3.8. The follow-up chest x-ray was done today and it shows mild pulm vessel congestion and a tiny left-sided pleural effusion. Remains on Tradjenta. Remains on Glucophage. Remains on NovoLog sign scale coverage. Objective - Vital Signs Vital signs: Vital Signs Temp 97.3 F L 04/20/24 23:17 Pulse 107 H 04/21/24 03:00 Resp 18 04/21/24 03:00 BP 132/66 04/21/24 03:00 Pulse Ox 100 04/21/24 03:00 FiO2 Intake & Output 04/20/24 04/21/24 04/21/24 18:59 06:59 18:59 Intake Total 114.988 135.012 193.289 Output Total 500 Balance -385.012 135.012 193.289 Intake: Intake, IV Titration 114.988 135.012 193.289 Amount Heparin Sod,Pork in 0.45% 114.988 135.012 193.289 NaCl 25,000 unit In 0.45 % NaCl 1 250ml.bag @ 18 UNITS/KG/HR 16.329 mls/hr IV .[id number] [facility] Rx#: [id number] Output: Urine 500 Other: Voiding Method Indwelling Catheter Indwelling Catheter # Bowel Movements 2 1 - Exam GENERAL EXAM: Alert, 49-year-old white female, comfortable in no apparent distress. HEAD: Normocephalic and atraumatic EYES: Normal reaction of pupils, equal size. NOSE: Clear with pink turbinates. THROAT: No erythema or exudates. NECK: No masses, no JVD. CHEST: No chest wall deformity. LUNGS: Equal air entry with no crackles, wheeze, rhonchi or dullness. On room air oxygen. No conversational dyspnea or accessory muscle use.. CVS: S1 and S2 normal with no audible murmur, regular rhythm. No extra heart sounds ABDOMEN: No hepatosplenomegaly, active bowel sounds, no guarding or rigidity. SPINE: No scoliosis or deformity SKIN: No rashes CENTRAL NERVOUS SYSTEM: No focal deficits, tone is normal in all 4 extremities. EXTREMITIES: Nonpitting bilateral lower extremity edema, right greater than left. No clubbing, or cyanosis. Peripheral pulses are intact. - Labs CBC & Chem 7: 04/21/24 06:43 04/21/24 06:43 Labs: Abnormal Lab Results - Last 24 Hours (Table) 04/19/24 04/20/24 04/20/24 Range/Units 12:13 11:46 12:15 RBC (3.80-5.40) m/uL Hgb (11.4-16.0) gm/dL Hct (34.0-46.0) % MCV (80.0-100.0) fL MCHC (31.0-37.0) g/dL RDW (11.5-15.5) % Plt Count (150-450) k/uL Lymphocytes # (1.0-4.8) k/uL Macrocytosis APTT 38.7 H (22.0-30.0) sec Lupus Anticoag aPTT 78 H (<43) Sec(s) Lupus Anticoag PTT Mix 51 H (<43) Sec(s) Dil Carlos Viper Venom 54 H (<44) Sec(s) Lupus Hexagonal Phase Positive A (Negative) Sodium (137-145) mmol/L Glucose (74-99) mg/dL POC Glucose (mg/dL) 143 H (70-110) mg/dL Calcium (8.4-10.2) mg/dL 04/20/24 04/20/24 04/20/24 Range/Units 16:53 18:55 20:21 RBC (3.80-5.40) m/uL Hgb (11.4-16.0) gm/dL Hct (34.0-46.0) % MCV (80.0-100.0) fL MCHC (31.0-37.0) g/dL RDW (11.5-15.5) % Plt Count (150-450) k/uL Lymphocytes # (1.0-4.8) k/uL Macrocytosis APTT 41.6 H (22.0-30.0) sec Lupus Anticoag aPTT (<43) Sec(s) Lupus Anticoag PTT Mix (<43) Sec(s) Dil Carlos Viper Venom (<44) Sec(s) Lupus Hexagonal Phase (Negative) Sodium (137-145) mmol/L Glucose (74-99) mg/dL POC Glucose (mg/dL) 185 H 209 H (70-110) mg/dL Calcium (8.4-10.2) mg/dL 04/21/24 04/21/24 04/21/24 Range/Units 05:55 06:43 06:43 RBC 2.31 L (3.80-5.40) m/uL Hgb 7.5 L (11.4-16.0) gm/dL Hct 24.3 L (34.0-46.0) % MCV 105.3 H (80.0-100.0) fL MCHC 30.8 L (31.0-37.0) g/dL RDW 28.8 H (11.5-15.5) % Plt Count 68 L (150-450) k/uL Lymphocytes # 0.5 L (1.0-4.8) k/uL Macrocytosis Marked A APTT (22.0-30.0) sec Lupus Anticoag aPTT (<43) Sec(s) Lupus Anticoag PTT Mix (<43) Sec(s) Dil Carlos Viper Venom (<44) Sec(s) Lupus Hexagonal Phase (Negative) Sodium 131 L (137-145) mmol/L Glucose 131 H (74-99) mg/dL POC Glucose (mg/dL) 161 H (70-110) mg/dL Calcium 6.8 L (8.4-10.2) mg/dL 04/21/24 Range/Units 06:43 RBC (3.80-5.40) m/uL Hgb (11.4-16.0) gm/dL Hct (34.0-46.0) % MCV (80.0-100.0) fL MCHC (31.0-37.0) g/dL RDW (11.5-15.5) % Plt Count (150-450) k/uL Lymphocytes # (1.0-4.8) k/uL Macrocytosis APTT 38.5 H (22.0-30.0) sec Lupus Anticoag aPTT (<43) Sec(s) Lupus Anticoag PTT Mix (<43) Sec(s) Dil Carlos Viper Venom (<44) Sec(s) Lupus Hexagonal Phase (Negative) Sodium (137-145) mmol/L Glucose (74-99) mg/dL POC Glucose (mg/dL) (70-110) mg/dL Calcium (8.4-10.2) mg/dL Microbiology - Last 24 Hours (Table) 04/19/24 09:27 Gram Stain - Preliminary Ascites Fluid Body Fluid Culture - Preliminary Assessment and Plan Assessment: Bilateral lower lobe segmental and subsegmental pulmonary artery emboli, right greater than left clot burden. No CT evidence of right-sided heart strain. States that she was recently diagnosed with PE/DVT at outside facility, and was already started on Eliquis. Currently, the patient is on IV heparin. This is a provoked event and underlying risk factors including cervical cancer and recent COVID-19 infections. Chest x-ray from 04/21/2024 shows cardiomegaly with mild pulm vessel congestion. Acute COVID infection, chest x-ray does not show any evidence of COVID-pneumonia or focal infiltrate, currently on room air oxygen Acute dyspnea, likely secondary to combination of above, currently inactive and stable History of cervical cancer, reportedly took herself off chemotherapy treatments 3 weeks ago Ascites, status post IR guided paracentesis with removal of 1.2 L of ascitic fluid. Pending further workup and cytology. 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 Plan: Overall respiratory status is stable Continue IV heparin infusion, can be transition to Eliquis at the time of discharge Paracentesis was done this morning by interventional radiology with removal of 1.2 L of ascitic fluid, pending cytologic evaluation, rule out malignant ascites Patient currently on room air oxygen No CT evidence of right-sided heart strain, follow-up with transthoracic echocardiogram Will likely transition patient back to [facility] once oncologic workup and staging is completed Continue supportive treatment for patient's acute COVID infection. No evidence of focal infiltrates/pneumonia or COVID-pneumonia. Tylenol for antipyretic, Robitussin DM as antitussive, as needed albuterol HFA inhaler for wheezing or dyspnea Oncology is consulted in regards to patient's cervical cancer Vascular surgery consult for abdominal aortic occlusion, consult is appreciated no intervention to be done Urine output is adequate and the patient has normal renal function Follow-up chest x-ray from today was noted We will continue to follow
--- NOTE | 2024-04-21 16:01 | P.DS ---
Providers Date of admission: 04/16/24 16:28 Attending physician: Wesley Lazo MD Consults: 04/16/24 15:47 Consult Physician Urgent Consulting Provider: Baljeet Green Consult Reason/Comments: PE Do you want consulting provider notified?: Yes 04/16/24 16:46 Consult Physician Routine Consulting Provider: Lauryn Coronel Consult Reason/Comments: stage 3 cervical cancer Do you want consulting provider notified?: Yes 04/17/24 09:26 Consult Physician Routine Consulting Provider: Cecil Momin Consult Reason/Comments: unable to urinate, cervical ca Do you want consulting provider notified?: Yes 04/21/24 10:12 Consult Physician Urgent Consulting Provider: Lauryn Coronel Consult Reason/Comments: Cervical cancer, PE, anticoagulation recommendation Do you want consulting provider notified?: Yes Hospital Course: Discharge Diagnosis: Bilateral lower lobe segmental and subsegmental pulmonary emboli with no right heart strain, eliquis failure Diagnosed with a DVT and PE on 04/06/2024 started on Eliquis Asymptomatic COVID infection Cervical cancer Moderate ascites status post paracentesis 04/19 Hepatic steatosis Acute on chronic anemia Thrombocytopenia likely secondary to chemotherapy Hyponatremia Elevated AST, ALT, ALP 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 When she presented the ER she was very tachycardic 100% room air and was noted to be febrile with a temperature of 101.5 lab work had shown a white blood cell count 7.5 MCV was 101.5. CMP had revealed a lactic acid of 3.4 urinalysis had revealed slight hemoglobin. COVID-[address] abdomen pelvis had revealed moderate volume diffuse abdominal ascites with hepatic steatosis. 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 CTA chest revealed bilateral lower segmental and subsegmental PE. TTE showed EF of 55% with no right heart strain. Patient was started on heparin, pulmonology consulted. Recommended vascular surgery consult to evaluate for large plaque involving the infrarenal aorta, vascular surgery did not recommend any intervention at this time as patient is asymptomatic. IR consulted for paracentesis, cytology requested, heme-onc following. , s/p 1200 cc of clear straw-colored fluid drained on 04/19, cytology revealed no malignant cells. Per heme-onc, patient's initial CT reported small volume right lower lobe pulmonary emboli with most proximal clot in the segmental branches, while CTA on admission here reported bilateral lower lobe segmental and subsegmental pulmonary emboli. Thus, patient is considered to have Eliquis failure, antiphospholipid syndrome labs ordered and came back negative, patient will be discharged on Pradaxa. Patient was complaining of ongoing shortness of breath, chest x-ray showed mild pulmonary congestion, was given a dose of IV Lasix, will be discharged home on 3 more days of oral Lasix, follow-up with PCP. Patient needs to follow-up with her primary oncology team Declined PTOT eval Patient seen and examined at bedside. Vital signs reviewed and stable. General: [nontoxic], [no distress], [appears at stated age] Derm: [warm], [dry] Head: [atraumatic], [normocephalic], [symmetric] Eyes: [EOMI], [no lid lag], [anicteric sclera] Mouth: [no lip lesion], [mucus membranes moist] Cardiovascular: [S1S2 reg], [no murmur] Lungs: [CTA bilateral], [no rhonchi, no rales] , [no accessory muscle use] Abdominal: [soft], [ nontender to palpation], [no guarding], [no appreciable organomegaly], mildly distended Ext: [no gross muscle atrophy], [no edema], [no contractures] Neuro: [ CN II-XI grossly intact], [no focal neuro deficits] Psych: [Alert], [oriented], [appropriate affect] A total of 40 minutes of time were spent preparing this complex discharge summar y. Patient was discharged on 04/21/2024. Patient Condition at Discharge: Stable Plan - Discharge Summary Discharge Rx Participant: No New Discharge Prescriptions: New Furosemide [Lasix] 40 mg PO DAILY #3 tablet Dabigatran [Pradaxa] 150 mg PO BID #60 capsule Continue metFORMIN HCL [Glucophage] 500 mg PO BID sitaGLIPtin [Januvia] 100 mg PO DAILY Discharge Medication List metFORMIN HCL [Glucophage] 500 mg PO BID 04/16/24 [History] sitaGLIPtin [Januvia] 100 mg PO DAILY 04/16/24 [History] Dabigatran [Pradaxa] 150 mg PO BID #60 capsule 04/21/24 [Rx] Furosemide [Lasix] 40 mg PO DAILY #3 tablet 04/21/24 [Rx] Follow up Appointment(s)/Referral(s): Juan Francisco Emerson DO [Doctor of Osteopathic Medicine] - 4 Weeks None,Stated [REFERRING] - 1-2 days Patient Instructions/Handouts: Dabigatran (By mouth) Activity/Diet/Wound Care/Special Instructions: Please, follow up with your PCP, oncology Tale lasix 40 daily for the next 3 days, please, discuss need for further water pills with your PCP Discharge Disposition: HOME SELF-CARE
--- NOTE | 2024-04-21 17:06 | P.PN ---
Subjective Progress Note Date: 04/21/24 Hospital Course: A 49-year-old female with medical history of type II DM, tobacco use disorder, history of DVT/PE on Eliquis, history of stage III ovarian cancer chemotherapy and radiation, last treatment 2 weeks before admission, who presented to the ED with abdominal pain. When she presented the ER she was very tachycardic 100% room air and was noted to be febrile with a temperature of 101.5 lab work had shown a white blood cell count 7.5 MCV was 101.5. CMP had revealed a lactic acid of 3.4 urinalysis had revealed slight hemoglobin. COVID-[address] abdomen pelvis had revealed moderate volume diffuse abdominal ascites with hepatic steatosis. 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 CTA chest revealed bilateral lower segmental and subsegmental PE. TTE showed EF of 55% with no right heart strain. Patient was started on heparin, pulmonology consulted. Recommended vascular surgery consult to evaluate for large plaque involving the infrarenal aorta, vascular surgery did not recommend any intervention at this time as patient is asymptomatic. IR consulted for paracentesis, cytology requested, heme-onc following. , s/p 1200 cc of clear straw-colored fluid drained on 04/19, cytology revealed no malignant cells. Per heme-onc, patient's initial CT reported small volume right lower lobe pulmonary emboli with most proximal clot in the segmental branches, while CTA on admission here reported bilateral lower lobe segmental and subsegmental p ulmonary emboli. Thus, patient is considered to have Eliquis failure, antiphospholipid syndrome labs ordered and came back negative, patient will be discharged on Pradaxa. Patient was complaining of ongoing shortness of breath, chest x-ray showed mild pulmonary congestion, was given a dose of IV Lasix, will be discharged home on 3 more days of oral Lasix, follow-up with PCP. Patient needs to follow-up with her primary oncology team Declined PTOT eval 04/21 patient is cleared for discharge, pending insurance authorization for generic Pradaxa. Subjective: Seen and examined at bedside, complaining of fatigue, low energy, some shortness of breath Pertinent positives and negatives as discussed above, a complete review of systems was performed and all other systems are negative. Vitals Signs Reviewed. Vital signs reviewed and stable. General: [nontoxic], [no distress], [appears at stated age] Derm: [warm], [dry] Head: [atraumatic], [normocephalic], [symmetric] Eyes: [EOMI], [no lid lag], [anicteric sclera] Mouth: [no lip lesion], [mucus membranes moist] Cardiovascular: [S1S2 reg], [no murmur] Lungs: [CTA bilateral], [no rhonchi, no rales] , [no accessory muscle use] Abdominal: [soft], [ nontender to palpation], [no guarding], [no appreciable organomegaly], mildly distended Ext: [no gross muscle atrophy], [no edema], [no contractures] Neuro: [ CN II-XI grossly intact], [no focal neuro deficits] Psych: [Alert], [oriented], [appropriate affect] Data Reviewed Today: Pertinent Labs: Hemoglobin 7.5, no leukocytosis, platelets 68, sodium 131,, normal kidney function Last x-ray with mild pulmonary vascular congestion Bilateral lower lobe segmental and subsegmental pulmonary emboli with no right heart strain, eliquis failure Diagnosed with a DVT and PE on 04/06/2024 started on Eliquis SOB, mild pulmonary vascular congestion -Bilateral lower extremity venous duplex negative for DVT -stop heparin, start pradaxa -antiphospholipid syndrome labs ordered and came back negative, patient will be discharged on Pradaxa, pending insurance authorization -Heme-onc following -Pulmonology following -Complains of SOB 04/20, ordered chest x-ray, EKG no ischemic changes -A dose of IV Lasix 40 onc Asymptomatic COVID infection Continue supportive supportive measures Cervical cancer Moderate ascites status post paracentesis 04/19 Hepatic steatosis Acute on chronic anemia Thrombocytopenia likely secondary to chemotherapy Hyponatremia Elevated AST, ALT, ALP -Receives care in [place] -Status post chemo and radiation therap -IR consulted for paracentesis, s/p 1200 cc of clear straw-colored fluid drained cytology pending -Follow-up with primary oncology at discharge for further treatment recommendation 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 -Vascular surgery consulted, no surgical intervention at this time -Monitor CBC, hold anticoagulation for platelets less than 50K Type II DM, continue metformin, sitagliptin, SSI DVT ppx: pradaxa Anticipated discharge place: home Anticipated discharge time: 04/22/2024 Objective - Vital Signs Vital signs: Vital Signs Temp 97.3 F L 04/20/24 23:17 Pulse 107 H 04/21/24 14:00 Resp 18 04/21/24 14:00 BP 132/66 04/21/24 03:00 Pulse Ox 100 04/21/24 03:00 FiO2 Intake & Output 04/20/24 04/21/24 04/21/24 18:59 06:59 18:59 Intake Total 114.988 135.012 250.000 Output Total 500 1600 Balance -385.012 135.012 -1350.000 Intake: Intake, IV Titration 114.988 135.012 250.000 Amount Heparin Sod,Pork in 0.45% 114.988 135.012 250.000 NaCl 25,000 unit In 0.45 % NaCl 1 250ml.bag @ 18 UNITS/KG/HR 16.329 mls/hr IV .[id number] [facility] Rx#: [id number] Output: Urine 500 1600 Other: Voiding Method Indwelling Catheter Indwelling Catheter Indwelling Catheter # Bowel Movements 2 1 - Labs CBC & Chem 7: 04/21/24 06:43 04/21/24 06:43 Labs: Abnormal Lab Results - Last 24 Hours (Table) 04/20/24 04/20/24 04/21/24 Range/Units 18:55 20:21 05:55 RBC (3.80-5.40) m/uL Hgb (11.4-16.0) gm/dL Hct (34.0-46.0) % MCV (80.0-100.0) fL MCHC (31.0-37.0) g/dL RDW (11.5-15.5) % Plt Count (150-450) k/uL Lymphocytes # (1.0-4.8) k/uL Macrocytosis APTT 41.6 H (22.0-30.0) sec Sodium (137-145) mmol/L Glucose (74-99) mg/dL POC Glucose (mg/dL) 209 H 161 H (70-110) mg/dL Calcium (8.4-10.2) mg/dL 04/21/24 04/21/24 04/21/24 Range/Units 06:43 06:43 06:43 RBC 2.31 L (3.80-5.40) m/uL Hgb 7.5 L (11.4-16.0) gm/dL Hct 24.3 L (34.0-46.0) % MCV 105.3 H (80.0-100.0) fL MCHC 30.8 L (31.0-37.0) g/dL RDW 28.8 H (11.5-15.5) % Plt Count 68 L (150-450) k/uL Lymphocytes # 0.5 L (1.0-4.8) k/uL Macrocytosis Marked A APTT 38.5 H (22.0-30.0) sec Sodium 131 L (137-145) mmol/L Glucose 131 H (74-99) mg/dL POC Glucose (mg/dL) (70-110) mg/dL Calcium 6.8 L (8.4-10.2) mg/dL 04/21/24 Range/Units 11:46 RBC (3.80-5.40) m/uL Hgb (11.4-16.0) gm/dL Hct (34.0-46.0) % MCV (80.0-100.0) fL MCHC (31.0-37.0) g/dL RDW (11.5-15.5) % Plt Count (150-450) k/uL Lymphocytes # (1.0-4.8) k/uL Macrocytosis APTT (22.0-30.0) sec Sodium (137-145) mmol/L Glucose (74-99) mg/dL POC Glucose (mg/dL) 148 H (70-110) mg/dL Calcium (8.4-10.2) mg/dL Microbiology - Last 24 Hours (Table) 04/19/24 09:27 Anaerobic Culture - Preliminary Ascites Fluid 04/19/24 09:27 Gram Stain - Preliminary Ascites Fluid Body Fluid Culture - Preliminary
[2024-04-21 17:07] LABS: Glucose,Whole Blood 165 mg/dL (70-110)
--- NOTE | 2024-04-21 17:55 | P.PN ---
Subjective Progress Note Date: 04/21/24 At todays visit, pt reporting she is concerned for discharge due to urinary retention. Walker catheter is in place. Denies SOB, CP. Continues heparin drip, awaiting prior auth for pradaxa. S/p paracentesis, with 1.2L removed, cytology pending Objective - Vital Signs Vital signs: Vital Signs Temp 97.3 F L 04/20/24 23:17 Pulse 107 H 04/21/24 03:00 Resp 18 04/21/24 03:00 BP 132/66 04/21/24 03:00 Pulse Ox 100 04/21/24 03:00 FiO2 Intake & Output 04/20/24 04/21/24 04/21/24 18:59 06:59 18:59 Intake Total 114.988 135.012 193.289 Output Total 500 Balance -385.012 135.012 193.289 Intake: Intake, IV Titration 114.988 135.012 193.289 Amount Heparin Sod,Pork in 0.45% 114.988 135.012 193.289 NaCl 25,000 unit In 0.45 % NaCl 1 250ml.bag @ 18 UNITS/KG/HR 16.329 mls/hr IV .[id number] [facility] Rx#: [id number] Output: Urine 500 Other: Voiding Method Indwelling Catheter Indwelling Catheter # Bowel Movements 2 1 - Constitutional General appearance: Present: average body habitus, no acute distress - EENT Eyes: Present: anicteric sclerae, EOMI ENT: Present: hearing grossly normal - Respiratory Details: breathing is even and unlabored - Cardiovascular Details: skin warm and dry - Gastrointestinal General gastrointestinal: Present: soft. Absent: tenderness - Integumentary Integumentary: Absent: cyanotic, jaundiced - Psychiatric Psychiatric: Present: A&O x's 3 - Labs CBC & Chem 7: 04/21/24 06:43 04/21/24 06:43 Labs: Abnormal Lab Results - Last 24 Hours (Table) 04/19/24 04/20/24 04/20/24 Range/Units 12:13 11:46 12:15 RBC (3.80-5.40) m/uL Hgb (11.4-16.0) gm/dL Hct (34.0-46.0) % MCV (80.0-100.0) fL MCHC (31.0-37.0) g/dL RDW (11.5-15.5) % Plt Count (150-450) k/uL Lymphocytes # (1.0-4.8) k/uL Macrocytosis APTT 38.7 H (22.0-30.0) sec Lupus Anticoag aPTT 78 H (<43) Sec(s) Lupus Anticoag PTT Mix 51 H (<43) Sec(s) Dil Carlos Viper Venom 54 H (<44) Sec(s) Lupus Hexagonal Phase Positive A (Negative) Sodium (137-145) mmol/L Glucose (74-99) mg/dL POC Glucose (mg/dL) 143 H (70-110) mg/dL Calcium (8.4-10.2) mg/dL 04/20/24 04/20/24 04/20/24 Range/Units 16:53 18:55 20:21 RBC (3.80-5.40) m/uL Hgb (11.4-16.0) gm/dL Hct (34.0-46.0) % MCV (80.0-100.0) fL MCHC (31.0-37.0) g/dL RDW (11.5-15.5) % Plt Count (150-450) k/uL Lymphocytes # (1.0-4.8) k/uL Macrocytosis APTT 41.6 H (22.0-30.0) sec Lupus Anticoag aPTT (<43) Sec(s) Lupus Anticoag PTT Mix (<43) Sec(s) Dil Carlos Viper Venom (<44) Sec(s) Lupus Hexagonal Phase (Negative) Sodium (137-145) mmol/L Glucose (74-99) mg/dL POC Glucose (mg/dL) 185 H 209 H (70-110) mg/dL Calcium (8.4-10.2) mg/dL 04/21/24 04/21/24 04/21/24 Range/Units 05:55 06:43 06:43 RBC 2.31 L (3.80-5.40) m/uL Hgb 7.5 L (11.4-16.0) gm/dL Hct 24.3 L (34.0-46.0) % MCV 105.3 H (80.0-100.0) fL MCHC 30.8 L (31.0-37.0) g/dL RDW 28.8 H (11.5-15.5) % Plt Count 68 L (150-450) k/uL Lymphocytes # 0.5 L (1.0-4.8) k/uL Macrocytosis Marked A APTT (22.0-30.0) sec Lupus Anticoag aPTT (<43) Sec(s) Lupus Anticoag PTT Mix (<43) Sec(s) Dil Carlos Viper Venom (<44) Sec(s) Lupus Hexagonal Phase (Negative) Sodium 131 L (137-145) mmol/L Glucose 131 H (74-99) mg/dL POC Glucose (mg/dL) 161 H (70-110) mg/dL Calcium 6.8 L (8.4-10.2) mg/dL 04/21/24 Range/Units 06:43 RBC (3.80-5.40) m/uL Hgb (11.4-16.0) gm/dL Hct (34.0-46.0) % MCV (80.0-100.0) fL MCHC (31.0-37.0) g/dL RDW (11.5-15.5) % Plt Count (150-450) k/uL Lymphocytes # (1.0-4.8) k/uL Macrocytosis APTT 38.5 H (22.0-30.0) sec Lupus Anticoag aPTT (<43) Sec(s) Lupus Anticoag PTT Mix (<43) Sec(s) Dil Carlos Viper Venom (<44) Sec(s) Lupus Hexagonal Phase (Negative) Sodium (137-145) mmol/L Glucose (74-99) mg/dL POC Glucose (mg/dL) (70-110) mg/dL Calcium (8.4-10.2) mg/dL Microbiology - Last 24 Hours (Table) 04/19/24 09:27 Gram Stain - Preliminary Ascites Fluid Body Fluid Culture - Preliminary Assessment and Plan (1) COVID-19 Current Visit: Yes Status: Acute Priority: High Code(s): U07.1 - COVID-19 SNOMED Code(s): 794967188 (2) Cervical cancer Current Visit: Yes Status: Acute Priority: High Code(s): C53.9 - MALIGNANT NEOPLASM OF CERVIX UTERI, UNSPECIFIED SNOMED Code(s): 779938794 (3) Pulmonary embolism Current Visit: Yes Status: Acute Priority: High Code(s): I26.99 - OTHER PULMONARY EMBOLISM WITHOUT ACUTE COR PULMONALE SNOMED Code(s): 98237840 (4) Transaminitis Current Visit: Yes Status: Acute Priority: High Code(s): R74.01 - ELEVATI ON OF LEVELS OF LIVER TRANSAMINASE LEVELS SNOMED Code(s): 359580848 (5) DVT (deep venous thrombosis) Current Visit: Yes Status: Acute Priority: High Code(s): I82.409 - ACUTE EMBOLISM AND THOMBOS UNSP DEEP VN UNSP LOWER EXTREMITY SNOMED Code(s): 515819601 Plan: DVT/PE: Diagnosed with pulmonary embolism/DVT at [facility] on 04/06/24. Anticoagulated with Eliquis, denies any missed doses -On admit CTA chest showing bilateral lower lobe segmental and subsegmental pulmonary artery emboli, right greater than left with no convincing evidence of right heart strain. Dopplers of bilateral lower extremities showing nonocclusive thrombosis in proximal right popliteal vein. Left lower extremity negative for DVT -Heparin drip started -Hemoglobin 8.7, platelets 68,000. Cytopenias likely chemo induced. Continue to monitor CBC, hold anticoagulation for plts less than 50,000 -Requested records from [facility] for comparison, images unable to sent electronically, CD of images have been requested to be sent to hospital. Reviewed written report of CTA chest obtained at [place], reporting small volume right lower lobe pulmonary emboli, most proximal clot in the segmental branches. Repeat CTA obtained here, now reports bilateral lower lobe segmental and subsegmental pulmonary emboli, right greater than left. Based on these findings would have to assume Eliquis failure. -APLS labs obtained. Beta 2- glycoprotein antibodies and cardiolipins negative. Lupus anticoagulant positive, but this is non-specific, due to heparin use. -Patient can be transitioned to pradaxa 150mg BID once prior auth obtained. Case management consulted to obtain prior auth, script has been sent to [place] Anticoagulation change discussed with pt, instructed pt to discontinue Eliquis. Case discussed with admitting team today COVID: Positive COVID testing -Continue supportive care -Defer management to admitting team and pulm Cervical cancer: History of cervical cancer. Patient receives her oncological care in [place] and has been treated with RT and chemo, completing cycle 5 approx 3 weeks ago, and states she has decided to not proceed with her last cycle of treatment due to side effects. Per patient she has localized disease with no known distant metastases. -CT abdomen pelvis revealed moderate volume diffuse abdominal ascites. Hepatic steatosis. -IR consult placed for paracentesis. S/p para with 1.2 L removed. Cytology pending -Patient to follow up with her primary oncologist on discharge for further treatment recommendations attests: I have seen and examined pt, performed H&P, developed impression and plan of care. Discussed with dictator. Agree with documentation, dictated as a scribe
[2024-04-21] MEDS: DABIGATRAN 150 MG CAP PO SCH (20:58)
[2024-04-21 21:32] LABS: Glucose,Whole Blood 171 mg/dL (70-110)
[2024-04-22 04:42] VITALS: TEMP 97.5
[2024-04-22 04:43] VITALS: BP 118/57; PULSE 98
[2024-04-22 05:48] LABS: Glucose,Whole Blood 192 mg/dL (70-110)
--- NOTE | 2024-04-22 12:51 | P.PN ---
Subjective Progress Note Date: 04/22/24 Patient is a 49-year-old female with past medical history significant for cervical cancer, current smoker, diabetes mellitus, and recent diagnosis of pulmonary embolism/DVT. Patient is technically a poor historian. Receives most of her medical care out of [place]. Her oncologist is out of [place]. She has cervical cancer and stopped chemotherapy treatments approximately 3 weeks ago because she has been feeling too sick. States that she was recent hospitalized on April 06 at [facility] and was found to have DVT/PE. She was started on Eliquis. Denies missing any doses. Reportedly, had a more recent hospitalization at [facility], but left AGAINST MEDICAL ADVICE. Patient presented to emergency department yesterday afternoon with a chief complaint of inability to urinate and abdominal distention/bladder fullness. No other urinary symptoms or dysuria. An indwelling urinary catheter was inserted and remains in place. Patient also reporting symptoms of nonproductive cough, fevers, generalized weakness. Her appetite has been poor intermittently nauseous. Denies any abdominal, vomiting, diarrhea. Denies any chest pain, heart palpitation, lightheadedness, syncopal events. Does endorse right lower extremity swelling. Chest x-ray did not show any acute cardiopulmonary process. 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 Bilateral common iliac artery is patent due to reconstitution. Chest CT angio demonstrating bilateral lower lobe segmental and subsegmental pulmonary artery emboli, right greater than left, without obvious CT evidence of right-sided heart strain. Patient was started on IV heparin infusion. CBC on arrival: WBC count 10.2, hemoglobin 7.9, hematocrit 25.3, platelets 62,000. Most recent APTT supratherapeutic at 92.6. CMP: Sodium 131, potassium 4.1, chloride 101, serum bicarb 20, BUN 10, creatinine 0.58, glucose 181. Lactic was 3.4 and is down to 1.8. Total bilirubin 3.3. AST 310, ALT 45, ALP 491. Troponin is less than 0.012. NT proBNP 800. Intermittently febrile with a Tmax of 101.5 F in the ED. Urinalysis unremarkable for urinary tract infection. Was positive for COVID PCR. Patient is currently being evaluated in the emergency department, she is on room air oxygen, no acute distress. Continues on IV heparin infusion per protocol. Denies any acute blood loss including vaginal bleeding, melena, hematochezia, hematemesis. Current vitals: 99 F, heart rate 96 bpm, blood pressure 127/67 mmHg, nontachypneic, SpO2 96% on room air oxygen. On 04/18/2024, the patient is being seen for a follow-up. Doing well. No specific complaints. Remains on IV heparin. No chest pain. No cough. No sputum production. No pleurisy. No hemoptysis. Producing urine output and the patient has a Walker catheter in place. Renal function stable with a BUN of 11 and a creatinine of 0.5. Rest of the electrolytes are all within normal limits. LFTs remain mildly elevated. The white cell count is at 10.4 with a hemoglobin 7.3 and a platelet count of 72. The patient was seen by medical oncology. Recommendations were made to drain the pelvic fluid for diagnostic and therapeutic purposes. The patient has also noted to be COVID-positive and the patient is receiving supportive care. Doppler lower extremity showed nonocclusive thrombus in the proximal right popliteal vein. Left lower extremity was negative for DVT. The patient is also known to have segmental and subsegmental pulmonary emboli in the lower lobes right more than left. Hemodynamically stable. Echocardiogram was done on 04/17/2024 revealing a p reserved LV function, no significant valvular abnormalities. On 04/19/2024, the patient is being seen for a follow-up. Resting comfortably in bed. Remains on IV heparin. No chest pain pleurisy or hemoptysis. Tolerating anticoagulation well and the patient's hemoglobin today is at 8.1. Rest of the electrolytes are all within normal limits. She does have some abdominal distention. She is having regular bowel movements and her last bowel movement was around 2 days ago. She is also voiding and urinating. The patient underwent an ultrasound-guided paracentesis by interventional radiology and approximately 1.2 L of clear straw-colored fluid was drained. The fluid will be sent for cytologic evaluation. Otherwise, the electrolytes are all within normal limits. Sodium levels at 132, potassium level is 3.6, BUN is 9 with a creatinine of 0.5. Oncology on the case. Echocardiogram showed a preserved LV function, no significant valvular abnormalities. On 04/20/2024, the patient is being seen for a follow-up. Resting comfortably in bed. Remains on IV heparin. Continues to have some abdominal distention. Patient is status post paracentesis. Ascitic fluid cytology still pending for now. No respiratory distress. Currently afebrile. Hemodynamically stable with a pulse ox of 91% room air oxygen. No new labs are available from today. She is feeling fatigued. She is able to urinate for now. On 04/21/2024, patient is being seen for a follow-up. Remains on IV heparin. No shortness of breath and oxygenation remained stable and the patient remains on room air oxygen. Oncologist to follow-up on the cervical cancer as the patient also has a ascitic fluid that was drained and the fluid cytology remains pending. Blood work from today shows a hemoglobin of 7.5, slightly lower compared to yesterday with a white cell count of 8.7 and a platelet count of 68. Noted the patient's platelet counts have been persistently lower. BUN is at 8 with a creatinine of 0.5 and a sodium levels at 131 with a potassium level of 3.8. The follow-up chest x-ray was done today and it shows mild pulm vessel congestion and a tiny left-sided pleural effusion. Remains on Tradjenta. Remains on Glucophage. Remains on NovoLog sign scale coverage. On 04/22/2024, condition is stable. No new complaints. The patient will be taken off the IV heparin and the patient will be discharged home on Pradaxa 150 mg p.o. twice a day. She remains on room air oxygen. The plan is to follow-up with oncology regarding the malignancy. The ascitic fluid showed mesothelial cells and there was no evidence of any malignancy. No new labs are available from today. Hemodynamically stable. Objective - Vital Signs Vital signs: Vital Signs Temp 97.5 F L 04/22/24 03:20 Pulse 98 04/22/24 03:20 Resp 18 04/22/24 03:20 BP 118/57 04/22/24 03:20 Pulse Ox 97 04/22/24 03:20 FiO2 Intake & Output 04/21/24 04/22/24 04/22/24 18:59 06:59 18:59 Intake Total 368.000 Output Total 1950 Balance -1582.000 Weight 107 kg Intake: Intake, IV Titration 250.000 Amount Heparin Sod,Pork in 0.45% 250.000 NaCl 25,000 unit In 0.45 % NaCl 1 250ml.bag @ 18 UNITS/KG/HR 16.329 mls/hr IV .[id number] [facility] Rx#: [id number] Oral 118 Output: Urine 1950 Other: Voiding Method Indwelling Catheter Toilet # Voids 1 - Exam GENERAL EXAM: Alert, 49-year-old white female, comfortable in no apparent distress. HEAD: Normocephalic and atraumatic EYES: Normal reaction of pupils, equal size. NOSE: Clear with pink turbinates. THROAT: No erythema or exudates. NECK: No masses, no JVD. CHEST: No chest wall deformity. LUNGS: Equal air entry with no crackles, wheeze, rhonchi or dullness. On room air oxygen. No conversational dyspnea or accessory muscle use.. CVS: S1 and S2 normal with no audible murmur, regular rhythm. No extra heart sounds ABDOMEN: No hepatosplenomegaly, active bowel sounds, no guarding or rigidity. SPINE: No scoliosis or deformity SKIN: No rashes CENTRAL NERVOUS SYSTEM: No focal deficits, tone is normal in all 4 extremities. EXTREMITIES: Nonpitting bilateral lower extremity edema, right greater than left. No clubbing, or cyanosis. Peripheral pulses are intact. - Labs CBC & Chem 7: 04/21/24 06:43 04/21/24 06:43 Labs: Abnormal Lab Results - Last 24 Hours (Table) 04/21/24 04/21/24 04/21/24 Range/Units 06:43 11:46 17:06 Lymphocytes # 0.5 L (1.0-4.8) k/uL POC Glucose (mg/dL) 148 H 165 H (70-110) mg/dL 04/21/24 04/22/24 Range/Units 21:11 05:47 Lymphocytes # (1.0-4.8) k/uL POC Glucose (mg/dL) 171 H 192 H (70-110) mg/dL Microbiology - Last 24 Hours (Table) 04/19/24 09:27 Gram Stain - Preliminary Ascites Fluid Body Fluid Culture - Preliminary 04/16/24 12:55 Blood Culture - Final Blood 04/16/24 12:55 Blood Culture - Final Blood 04/19/24 09:27 Anaerobic Culture - Preliminary Ascites Fluid Assessment and Plan Assessment: Bilateral lower lobe segmental and subsegmental pulmonary artery emboli, right greater than left clot burden. No CT evidence of right-sided heart strain. States that she was recently diagnosed with PE/DVT at outside facility, and was already started on Eliquis. Currently, the patient is on IV heparin. This is a provoked event and underlying risk factors including cervical cancer and recent COVID-19 infections. Chest x-ray from 04/21/2024 shows cardiomegaly with mild pulm vessel congestion. The patient remains on room air oxygen. Hemodynamically stable. Acute COVID infection, chest x-ray does not show any evidence of COVID-pneumonia or focal infiltrate, currently on room air oxygen Acute dyspnea, likely secondary to combination of above, currently inactive and stable History of cervical cancer, reportedly took herself off chemotherapy treatments 3 weeks ago Ascites, status post IR guided paracentesis with removal of 1.2 L of ascitic fluid. Pending further workup and cytology. 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 Plan: Overall respiratory status is stable Patient was discharged home on Pradaxa 150 mg p.o. twice a day Paracentesis was done this morning by interventional radiology with removal of 1.2 L of ascitic fluid, fluid cytology was negative for malignancy Patient currently on room air oxygen No CT evidence of right-sided heart strain, follow-up with transthoracic echocardiogram Continue supportive treatment for patient's acute COVID infection. Tylenol for antipyretic, Robitussin DM as antitussive, as needed albuterol HFA inhaler for wheezing or dyspnea Oncology is consulted in regards to patient's cervical cancer Vascular surgery consult for abdominal aortic occlusion, consult is appreciated no intervention to be done Urine output is adequate and the patient has normal renal function Will likely get discharged home today
--- NOTE | 2024-04-24 18:54 | CDI ---
Documentation Clarification Form Date: 04/24/2024 06:39:28 PM From: Nirmala Ruiz Phone: Admit Date: 04/16/2024 04:28:00 PM Patient Name: Nell Soliman Visit Number: [id number] Discharge Date: 04/22/2024 08:53:00 AM ATTENTION: The Clinical Documentation Specialists (CDI) and [facility] Coding Staff appreciate your assistance in clarifying documentation. Please respond to the clarification below the line at the bottom and electronically sign. The CDI & [facility] Coding staff will review the response and follow-up if needed. Please note: Queries are made part of the Legal Health Record. If you have any questions, please contact the author of this message via ITS. Doctor/Provider: Victorina Ash Your patient has a [id number]. Please clarify if there is an additional diagnosis and/or clinical significance related to this value. History/Risk Factors: 49yo F, Dino lower lobe segmental andsubsegmental pulmonary emboli d/t eliquis failure, COVID, Cervical cancer, ascites, hepatic steatosis, anemia, thrombocytopeniad/tchemotherapy, hyponatremia, intrarenal abdominal aorta Clinical indicators: Glucose 04/16 181 1/6 207 1/7 171 1/8 130 1/9 110 /10 131 Treatment: Low intensity sliding scale insulin Is there an additional diagnosis and/or clinical significance related to the above lab result/information? [ x ] Type 2 diabetes mellitus with hyperglycemia [ ] Type 2 diabetes mellitus without hyperglycemia [ ] No additional diagnosis/Not clinically significant [ ] Other, please specify [ ] Unable to determine (Template Last Revised: May 2020) MTDD
== END 2024-04-22 08:53 | disposition home or self-care (01) | DRG 175 ==
LOC: EC 11:48 → 3SCARD 16:28
PROVIDERS: ADMIT Family Medicine; ATTEND Family Medicine
PROC: 0W9G3ZZ Drainage of Peritoneal Cavity, Percutaneous Approach (ICD-10-PCS; principal; 2024-04-19)
DX: I26.99 Other pulmonary embolism without acute cor pulmonale (principal); U07.1 COVID-19; R18.8 Other ascites; I74.09 Other arterial embolism and thrombosis of abdominal aorta; E87.1 Hypo-osmolality and hyponatremia; C56.9 Malignant neoplasm of unspecified ovary; D69.59 Other secondary thrombocytopenia; C53.9 Malignant neoplasm of cervix uteri, unspecified; K76.0 Fatty (change of) liver, not elsewhere classified; D63.0 Anemia in neoplastic disease; E11.65 Type 2 diabetes mellitus with hyperglycemia; I82.431 Acute embolism and thrombosis of right popliteal vein; T45.1X5A Adverse effect of antineoplastic and immunosuppressive drugs, initial encounter; F17.210 Nicotine dependence, cigarettes, uncomplicated; R33.9 Retention of urine, unspecified; R39.16 Straining to void; I51.7 Cardiomegaly; Z92.3 Personal history of irradiation; Z79.01 Long term (current) use of anticoagulants; Z79.84 Long term (current) use of oral hypoglycemic drugs
CPT/HCPCS: 36415; 49083; 51702; 51798; 71045; 71046; 71275; 74177; 80048; 80053; 80061; 80143; 80320; 81001; 82248; 82607; 82945; 83036; 83605; 83880; 84157; 84484; 85025; 85598; 85610; 85613; 85730; 85732; 86146; 86147; 87040; 87070; 87075; 87205; 87636; 88108; 88305; 88341; 88342; 89050; 93005; 93306; 93970; 94640; 96361; 96365; 96366; 96375; 96376; 99291; 99406

== ENCOUNTER 2024-04-30 11:59 | Inpatient (IN) | payer BC, OTHER ==
[2024-04-30 13:15] LABS: Anisocytosis Marked; Basophils % (A) 0 %; Eosinophils # (A) 0.1 k/uL (0-0.7); Eosinophils % (A) 1 %; HCT 29.3 % (34.0-46.0); Hypochromasia Marked; Lymphocytes # (A) 0.5 k/uL (1.0-4.8); Lymphocytes % (A) 5 %; MCH 35.1 pg (25.0-35.0); MCHC 31.4 g/dL (31.0-37.0); Macrocytosis Marked; Mean Platelet Volume 8.4; Monocytes # (A) 0.6 k/uL (0-1.0); Monocytes % (A) 6 %; Neutrophils # (A) 7.9 k/uL (1.3-7.7); Neutrophils % (A) 85 %; RBC 2.62 m/uL (3.80-5.40); RDW 24.8 % (11.5-15.5); WBC 9.3 k/uL (3.8-10.6)
[2024-04-30 13:17] LABS: HGB 9.2 gm/dL (11.4-16.0); MCV 111.7 fL (80.0-100.0)
[2024-04-30] MEDS: MORPHINE SULFATE 4 MG/ML SYRINGE IVP STA ×2 (13:17→15:51)
[2024-04-30 13:18] LABS: INR 1.4 (<1.2); Partial Thromboplastin Time 25.2 sec (22.0-30.0); Platelet Count 200 k/uL (150-450); Prothrombin Time 14.6 sec (10.0-12.5)
[2024-04-30 13:24] LABS: ALT 29 U/L (4-34); AST 125 U/L (14-36); African American GFR (CKD) >90 (>60 ml/min/1.73 sqM); Albumin 2.5 g/dL (3.5-5.0); Alkaline Phosphatase 738 U/L (38-126); Anion Gap 10 mmol/L; Blood Urea Nitrogen 7 mg/dL (7-17); Calcium 7.5 mg/dL (8.4-10.2); Carbon Dioxide 22 mmol/L (22-30); Chloride 104 mmol/L (98-107); Glucose 201 mg/dL (74-99); Magnesium 1.8 mg/dL (1.6-2.3); Non-African American GFR(CKD) >90 (>60 ml/min/1.73 sqM); Potassium 2.8 mmol/L (3.5-5.1); Sodium 136 mmol/L (137-145); Total Bilirubin 1.8 mg/dL (0.2-1.3); Total Protein 6.3 g/dL (6.3-8.2)
[2024-04-30 13:32] LABS: NT-Pro-B-Type Natriuretic Pept 704 pg/mL
--- NOTE | 2024-04-30 13:35 | XR ---
EXAMINATION TYPE: XR chest 2V DATE OF EXAM: 04/30/2024 1:29 PM COMPARISON: Chest radiographs from 04/21/2024 CLINICAL INDICATION: Female, 49 years old with history of difficulty breathing; [facility] TECHNIQUE: XR chest 2V Frontal and lateral views of the chest. FINDINGS: Lungs/Pleura: There is no evidence of pleural effusion, focal consolidation, or pneumothorax. Pulmonary vascularity: Unremarkable. Heart/mediastinum: Cardiomediastinal silhouette is enlarged and stable. Musculoskeletal: No acute osseous pathology. Other findings: None Lines/Tubes: [id number] projecting over the left hemithorax with distal tip at the superior vena cava.. IMPRESSION: No acute cardiopulmonary disease/process. [facility], , 04/30/2024 1:33 PM
[2024-04-30 13:41] LABS: Poikilocytosis (M) Present; Polychromasia Present
[2024-04-30 13:42] LABS: Tear Drop Cells Present
[2024-04-30 13:55] LABS: Appearance,Urine Clear (Clear); Bacteria,Urine Many /hpf; Bilirubin,Urine 1+ (Negative); Blood,Urine Negative (Negative); Color,Urine Yellow; Glucose,Urine (UA) 4+ (Negative); Ketones,Urine Trace (Negative); Leukocyte Esterase,Urine Trace (Negative); Mucus,Urine Many /hpf; Nitrite,Urine Negative (Negative); Protein,Urine 1+ (Negative); RBC,Urine <1 /hpf (0-5); Specific Gravity,Urine 1.022 (1.001-1.035); Squamous Epithelial Cell,Urine 1 /hpf (0-4); WBC,Urine 21 /hpf (0-5)
[2024-04-30] MEDS ORDERED: NALOXONE 0.4 MG/ML 1 ML VIAL IV PRN (14:50)
--- NOTE | 2024-04-30 14:54 | ED ---
SOB HPI - General Chief Complaint: Shortness of Breath Stated Complaint: BRIANNA Time Seen by Provider: 04/30/24 12:05 Source: patient Mode of arrival: ambulatory Limitations: no limitations - History of Present Illness Initial Comments: 49-year-old female with past medical history of cervical cancer on radiation, PE, diabetes who presents emergency department reporting shortness of breath. Patient was recently hospitalized and discharged on the after they found a pulmonary embolism. Patient had been on Eliquis at that time and continued to have extension of the PE therefore she was switched to Pradaxa. She has been taking the medication as it is prescribed without any missed doses. Reports that she continues to be short of breath. During last hospitalization they thought that she had some fluid in her lungs. They sent her home on a 3-day course of Lasix. States that she took all 3 pills but continues to be short of breath. Patient admits to lower extremity edema as well as increasing abdominal ascites. Patient recently had paracentesis with removal of 1 L. She admits to continued weight gain. No fevers. No coughing. Patient also has 2 dribbling of urine. No other alleviating, precipitating or modifying factors - Related Data Previous Rx's Medication Instructions Recorded Dabigatran [Pradaxa] 150 mg PO BID #60 capsule 04/21/24 Furosemide [Lasix] 40 mg PO DAILY 30 Days #30 tab 05/09/24 HYDROcodone/APAP 5-325MG [[place] 1 tab PO Q4HR PRN 3 Days #18 tab 05/09/24 5-325] Naloxone HCl [Narcan] 4 mg NASAL ONCE #1 each 05/09/24 Nicotine 14Mg/24Hr Patch [Habitrol] 1 patch TRANSDERM DAILY 28 Days 05/09/24 #28 patch Spironolactone [Aldactone] 50 mg PO BID 30 Days #30 tab 05/09/24 Tamsulosin [Flomax] 0.4 mg PO PC-BRKFST 30 Days #30 cap 05/09/24 Allergies Allergy/AdvReac Type Severity Reaction Status Date / Time codeine Allergy Unknown Verified 04/30/24 15:02 Review of Systems ROS Statement: Those systems with pertinent positive or pertinent negative responses have been documented in the HPI. ROS Other: All systems not noted in ROS Statement are negative. Past Medical History Past Medical History: Diabetes Mellitus Additional Past Medical History / Comment(s): Cervical cx stage- 3C. DVT History of Any Multi-Drug Resistant Organisms: None Reported Past Surgical History: Cholecystectomy Additional Past Surgical History / Comment(s): right foot ortho surgery Past Anesthesia/Blood Transfusion Reactions: No Reported Reaction Past Psychological History: No Psychological Hx Reported Smoking Status: Current some day smoker Past Alcohol Use History: None Reported Past Drug Use History: None Reported General Exam Limitations: no limitations General appearance: alert, in no apparent distress Head exam: Present: atraumatic, normocephalic, normal inspection Eye exam: Present: normal appearance, PERRL, EOMI. Absent: scleral icterus, conjunctival injection, periorbital swelling ENT exam: Present: normal exam, mucous membranes moist Neck exam: Present: normal inspection. Absent: tenderness, meningismus, lymphadenopathy Respiratory exam: Present: decreased breath sounds Cardiovascular Exam: Present: normal rhythm, tachycardia GI/Abdominal exam: Present: distended, tenderness, other (fluid wave) Back exam: Present: normal inspection Neurological exam: Present: alert, oriented X3, CN II-XII intact Psychiatric exam: Present: normal affect, normal mood Skin exam: Present: warm, dry, intact, normal color. Absent: rash Course Vital Signs 04/30/24 04/30/24 04/30/24 12:00 12:09 12:30 Temperature 98 F Pulse Rate 116 H 97 Respiratory 20 22 20 Rate Blood Pressure 150/61 127/71 O2 Sat by Pulse 100 Oximetry 04/30/24 04/30/24 04/30/24 13:00 13:30 14:00 Temperature Pulse Rate 96 102 H 100 Respiratory 21 20 21 Rate Blood Pressure 136/79 127/69 124/73 O2 Sat by Pulse Oximetry 04/30/24 04/30/24 04/30/24 14:30 15:16 20:10 Temperature Pulse Rate 106 H 113 H Respiratory 20 24 20 Rate Blood Pressure 139/70 122/77 128/63 O2 Sat by Pulse 97 Oximetry 05/01/24 05/01/24 05/01/24 00:01 02:21 04:14 Temperature Pulse Rate 106 H 101 H 106 H Respiratory 18 18 20 Rate Blood Pressure 132/77 133/76 128/68 O2 Sat by Pulse 96 97 95 Oximetry 05/01/24 06:53 Temperature 96.7 F L Pulse Rate 95 Respiratory 18 Rate Blood Pressure 123/77 O2 Sat by Pulse 98 Oximetry Medical Decision Making - Medical Decision Making Was pt. sent in by a medical professional or institution (MANJULA Clinton, REGISTERED NURSING PROFESSOR, urgent care, hospital, or penitentiary...) When possible be specific @ -No Did you speak to anyone other than the patient for history (EMS, parent, family, police, friend...)? What history was obtained from this source @ -No Did you review nursing and triage notes (agree or disagree)? Why? @ -I reviewed and agree with nursing and triage notes Were old charts reviewed (outside hosp., previous admission, EMS record, old EKG, old radiological studies, urgent care reports/EKG's, penitentiary records)? Report findings @ -I reviewed an echo that the patient had completed on April 17 Differential Diagnosis (chest pain, altered mental status, abdominal pain women, abdominal pain men, vaginal bleeding, weakness, fever, dyspnea, syncope, headache, dizziness, GI bleed, back pain, seizure, CVA, palpatations, mental health, musculoskeletal)? @ -Differential Dyspnea: Coronary syndrome, arrhythmia, tamponade, asthma, COPD, pulmonary embolism, pneumonia, pneumothorax, pulmonary effusion, anaphylaxis, diabetic ketoacidosis, flailed chest, pulmonary contusion, diaphragmatic rupture, anemia, neuromuscular, this is not meant to be an all-inclusive list. EKG interpreted by me (3pts min.). @ -Yes and demonstrates sinus tachycardia with a rate of 103. MI interval 130. QRS 80. QTc of 391. No acute ST segment elevations or depressions X-rays interpreted by me (1pt min.). @ -Yes which demonstrates no acute process CT interpreted by me (1pt min.). @ -Yes which does not appear to show extension of her PE U/S interpreted by me (1pt. min.). @ -None done What testing was considered but not performed or refused? (CT, X-rays, U/S, labs)? Why? @ -None What meds were considered but not given or refused? Why? @ -None Did you discuss the management of the patient with other professionals (professionals i.e. MANJULA Clinton, REGISTERED NURSING PROFESSOR, lab, RT, psych nurse, administrator social welfare, leather carver, teacher, patient safety officer, case fitter)? Give summary @ -Spoke with Dr. Santana for admission Was smoking cessation discussed for >3mins.? @ -No Was critical care preformed (if so, how long)? @ -No Were there social determinants of health that impacted care today? How? (Homelessness, low income, unemployed, alcoholism, drug addiction, transportation, low edu. Level, literacy, decrease access to med. care, nursing home, rehab)? @ -No Was there de-escalation of care discussed even if they declined (Discuss DNR or withdrawal of care, Hospice)? DNR status @ -No What co-morbidities impacted this encounter? (DM, HTN, Smoking, COPD, CAD, Cancer, CVA, ARF, Chemo, Hep., AIDS, mental health diagnosis, sleep apnea, morbid obesity)? @ -Cervical cancer, PE Was patient admitted / discharged? Hospital course, mention meds given and route, prescriptions, significant lab abnormalities, going to OR and other pertinent info. @ -Upon arrival patient seen and evaluated in bed 8. Thorough history and physical exam was performed. IV access was established. Laboratory studies are conducted. Chest x-ray was performed. I did repeat the patient's CT as she was reporting increasing dyspnea with recent PE diagnosis. She previously failed anticoagulation and developed a PE while on it. CT does not demonstrate any worsening PE. This is discussed with the patient. Dyspnea may be due to increasing fluid status. Patient will be admitted for paracentesis consultation. Spoke with Dr. Santana for the admission Undiagnosed new problem with uncertain prognosis? @ -No Drug Therapy requiring intensive monitoring for toxicity (Heparin, Nitro, Insulin, Cardizem)? @ -No Were any procedures done? @ -No Diagnosis/symptom? @ -Acute dyspnea, abdominal ascites, history of cervical cancer, recent diagnosis of PE Acute, or Chronic, or Acute on Chronic? @ -Acute on chronic Uncomplicated (without systemic symptoms) or Complicated (systemic symptoms)? @ -Complicated Side effects of treatment? @ -No Exacerbation, Progression, or Severe Exacerbation? @ -No Poses a threat to life or bodily function? How? (Chest pain, [place], [place], pneumonia, PE, COPD, DKA, ARF, appy, cholecystitis, CVA, Diverticulitis, Homicidal, Suicidal, threat to staff... and all critical care pts) @ -No - Lab Data Result diagrams: 05/08/24 04:00 05/08/24 04:00 Lab Results 04/30/24 04/30/2404/30/25 Range/Units 13:00 13:00 13:00 WBC 9.3 (3.8-10.6) k/uL RBC 2.62 L (3.80-5.40) m/uL Hgb 9.2 L D (11.4-16.0) gm/dL Hct 29.3 L (34.0-46.0) % MCV 111.7 H D (80.0-100.0) fL MCH 35.1 H (25.0-35.0) pg MCHC 31.4 (31.0-37.0) g/dL RDW 24.8 H (11.5-15.5) % Plt Count 200 D (150-450) k/uL MPV 8.4 Neutrophils % 85 % Lymphocytes % 5 % Monocytes % 6 % Eosinophils % 1 % Basophils % 0 % Neutrophils # 7.9 H (1.3-7.7) k/uL Lymphocytes # 0.5 L (1.0-4.8) k/uL Monocytes # 0.6 (0-1.0) k/uL Eosinophils # 0.1 (0-0.7) k/uL Basophils # 0.0 (0-0.2) k/uL Manual Slide Review Performed Polychromasia Present Hypochromasia Marked Poikilocytosis (manual Present Anisocytosis Marked Macrocytosis Marked A Tear Drop Cells Present PT 14.6 H (10.0-12.5) sec INR 1.4 H (<1.2) APTT 25.2 (22.0-30.0) sec Sodium 136 L (137-145) mmol/L Potassium 2.8 L (3.5-5.1) mmol/L Chloride 104 (98-107) mmol/L Carbon Dioxide 22 (22-30) mmol/L Anion Gap 10 mmol/L BUN 7 (7-17) mg/dL Creatinine 0.51 L (0.52-1.04) mg/dL Est GFR (CKD-EPI)AfAm >90 (>60 ml/min/1.73 sqM) Est GFR (CKD-EPI)NonAf >90 (>60 ml/min/1.73 sqM) Glucose 201 H (74-99) mg/dL POC Glucose (mg/dL) (70-110) mg/dL POC Glu Pin Sticker ID Lactic Ac Sepsis Rflx Plasma Lactic Acid Yeison (0.7-2.0) mmol/L Calcium 7.5 L (8.4-10.2) mg/dL Magnesium 1.8 (1.6-2.3) mg/dL Total Bilirubin 1.8 H (0.2-1.3) mg/dL AST 125 H (14-36) U/L ALT 29 (4-34) U/L Alkaline Phosphatase 738 H (38-126) U/L Troponin I (0.000-0.034) ng/mL NT-Pro-B Natriuret Pep 704 pg/mL Total Protein 6.3 (6.3-8.2) g/dL Albumin 2.5 L (3.5-5.0) g/dL Urine Color Urine Appearance (Clear) Urine pH (5.0-8.0) Ur Specific [place] (1.001-1.035) Urine Protein (Negative) Urine Glucose (UA) (Negative) Urine Ketones (Negative) Urine Blood (Negative) Urine Nitrite (Negative) Urine Bilirubin (Negative) Urine Urobilinogen (<2.0) mg/dL Ur Leukocyte Esterase (Negative) Urine RBC (0-5) /hpf Urine WBC (0-5) /hpf Ur Squamous Epith Cells (0-4) /hpf Urine Bacteria (None) /hpf Urine Mucus (None) /hpf 04/30/24 04/30/24 04/30/24 Range/Units 13:00 13:00 13:23 WBC (3.8-10.6) k/uL RBC (3.80-5.40) m/uL Hgb (11.4-16.0) gm/dL Hct (34.0-46.0) % MCV (80.0-100.0) fL MCH (25.0-35.0) pg MCHC (31.0-37.0) g/dL RDW (11.5-15.5) % Plt Count (150-450) k/uL MPV Neutrophils % % Lymphocytes % % Monocytes % % Eosinophils % % Basophils % % Neutrophils # (1.3-7.7) k/uL Lymphocytes # (1.0-4.8) k/uL Monocytes # (0-1.0) k/uL Eosinophils # (0-0.7) k/uL Basophils # (0-0.2) k/uL Manual Slide Review Polychromasia Hypochromasia Poikilocytosis (manual Anisocytosis Macrocytosis Tear Drop Cells PT (10.0-12.5) sec INR (<1.2) APTT (22.0-30.0) sec Sodium (137-145) mmol/L Potassium (3.5-5.1) mmol/L Chloride (98-107) mmol/L Carbon Dioxide (22-30) mmol/L Anion Gap mmol/L BUN (7-17) mg/dL Creatinine (0.52-1.04) mg/dL Est GFR (CKD-EPI)AfAm (>60 ml/min/1.73 sqM) Est GFR (CKD-EPI)NonAf (>60 ml/min/1.73 sqM) Glucose (74-99) mg/dL POC Glucose (mg/dL) (70-110) mg/dL POC Glu Pin Sticker ID Lactic Ac Sepsis Rflx Y Plasma Lactic Acid Yeison 4.1 H* (0.7-2.0) mmol/L Calcium (8.4-10.2) mg/dL Magnesium (1.6-2.3) mg/dL Total Bilirubin (0.2-1.3) mg/dL AST (14-36) U/L ALT (4-34) U/L Alkaline Phosphatase (38-126) U/L Troponin I <0.012 (0.000-0.034) ng/mL NT-Pro-B Natriuret Pep pg/mL Total Protein (6.3-8.2) g/dL Albumin (3.5-5.0) g/dL Urine Color Urine Appearance (Clear) Urine pH (5.0-8.0) Ur Specific [place] (1.001-1.035) Urine Protein (Negative) Urine Glucose (UA) (Negative) Urine Ketones (Negative) Urine Blood (Negative) Urine Nitrite (Negative) Urine Bilirubin (Negative) Urine Urobilinogen (<2.0) mg/dL Ur Leukocyte Esterase (Negative) Urine RBC (0-5) /hpf Urine WBC (0-5) /hpf Ur Squamous Epith Cells (0-4) /hpf Urine Bacteria (None) /hpf Urine Mucus (None) /hpf 04/30/24 04/30/24 04/30/24 Range/Units 13:35 16:03 16:54 WBC (3.8-10.6) k/uL RBC (3.80-5.40) m/uL Hgb (11.4-16.0) gm/dL Hct (34.0-46.0) % MCV (80.0-100.0) fL MCH (25.0-35.0) pg MCHC (31.0-37.0) g/dL RDW (11.5-15.5) % Plt Count (150-450) k/uL MPV Neutrophils % % Lymphocytes % % Monocytes % % Eosinophils % % Basophils % % Neutrophils # (1.3-7.7) k/uL Lymphocytes # (1.0-4.8) k/uL Monocytes # (0-1.0) k/uL Eosinophils # (0-0.7) k/uL Basophils # (0-0.2) k/uL Manual Slide Review Polychromasia Hypochromasia Poikilocytosis (manual Anisocytosis Macrocytosis Tear Drop Cells PT (10.0-12.5) sec INR (<1.2) APTT (22.0-30.0) sec Sodium (137-145) mmol/L Potassium (3.5-5.1) mmol/L Chloride (98-107) mmol/L Carbon Dioxide (22-30) mmol/L Anion Gap mmol/L BUN (7-17) mg/dL Creatinine (0.52-1.04) mg/dL Est GFR (CKD-EPI)AfAm (>60 ml/min/1.73 sqM) Est GFR (CKD-EPI)NonAf (>60 ml/min/1.73 sqM) Glucose (74-99) mg/dL POC Glucose (mg/dL) (70-110) mg/dL POC Glu Pin Sticker ID Lactic Ac Sepsis Rflx Y Plasma Lactic Acid Yeison 3.0 H* (0.7-2.0) mmol/L Calcium (8.4-10.2) mg/dL Magnesium (1.6-2.3) mg/dL Total Bilirubin (0.2-1.3) mg/dL AST (14-36) U/L ALT (4-34) U/L Alkaline Phosphatase (38-126) U/L Troponin I (0.000-0.034) ng/mL NT-Pro-B Natriuret Pep pg/mL Total Protein (6.3-8.2) g/dL Albumin (3.5-5.0) g/dL Urine Color Yellow Urine Appearance Clear (Clear) Urine pH 6.0 (5.0-8.0) Ur Specific [place] 1.022 (1.001-1.035) Urine Protein 1+ H (Negative) Urine Glucose (UA) 4+ H (Negative) Urine Ketones Trace H (Negative) Urine Blood Negative (Negative) Urine Nitrite Negative (Negative) Urine Bilirubin 1+ H (Negative) Urine Urobilinogen 6.0 (<2.0) mg/dL Ur Leukocyte Esterase Trace H (Negative) Urine RBC <1 (0-5) /hpf Urine WBC 21 H (0-5) /hpf Ur Squamous Epith Cells 1 (0-4) /hpf Urine Bacteria Many H (None) /hpf Urine Mucus Many H (None) /hpf 04/30/24 04/30/24 04/30/24 Range/Units 18:00 18:00 18:19 WBC (3.8-10.6) k/uL RBC (3.80-5.40) m/uL Hgb (11.4-16.0) gm/dL Hct (34.0-46.0) % MCV (80.0-100.0) fL MCH (25.0-35.0) pg MCHC (31.0-37.0) g/dL RDW (11.5-15.5) % Plt Count (150-450) k/uL MPV Neutrophils % % Lymphocytes % % Monocytes % % Eosinophils % % Basophils % % Neutrophils # (1.3-7.7) k/uL Lymphocytes # (1.0-4.8) k/uL Monocytes # (0-1.0) k/uL Eosinophils # (0-0.7) k/uL Basophils # (0-0.2) k/uL Manual Slide Review Polychromasia Hypochromasia Poikilocytosis (manual Anisocytosis Macrocytosis Tear Drop Cells PT 14.5 H (10.0-12.5) sec INR 1.4 H (<1.2) APTT 33.3 H (22.0-30.0) sec Sodium (137-145) mmol/L Potassium (3.5-5.1) mmol/L Chloride (98-107) mmol/L Carbon Dioxide (22-30) mmol/L Anion Gap mmol/L BUN (7-17) mg/dL Creatinine (0.52-1.04) mg/dL Est GFR (CKD-EPI)AfAm (>60 ml/min/1.73 sqM) Est GFR (CKD-EPI)NonAf (>60 ml/min/1.73 sqM) Glucose (74-99) mg/dL POC Glucose (mg/dL) 185 H (70-110) mg/dL POC Glu Pin Sticker ID Elmer Torres Lactic Ac Sepsis Rflx Plasma Lactic Acid Yeison 2.1 H* (0.7-2.0) mmol/L Calcium (8.4-10.2) mg/dL Magnesium (1.6-2.3) mg/dL Total Bilirubin (0.2-1.3) mg/dL AST (14-36) U/L ALT (4-34) U/L Alkaline Phosphatase (38-126) U/L Troponin I (0.000-0.034) ng/mL NT-Pro-B Natriuret Pep pg/mL Total Protein (6.3-8.2) g/dL Albumin (3.5-5.0) g/dL Urine Color Urine Appearance (Clear) Urine pH (5.0-8.0) Ur Specific [place] (1.001-1.035) Urine Protein (Negative) Urine Glucose (UA) (Negative) Urine Ketones (Negative) Urine Blood (Negative) Urine Nitrite (Negative) Urine Bilirubin (Negative) Urine Urobilinogen (<2.0) mg/dL Ur Leukocyte Esterase (Negative) Urine RBC (0-5) /hpf Urine WBC (0-5) /hpf Ur Squamous Epith Cells (0-4) /hpf Urine Bacteria (None) /hpf Urine Mucus (None) /hpf 04/30/24 04/30/24 04/30/24 Range/Units 19:21 20:19 21:42 WBC (3.8-10.6) k/uL RBC (3.80-5.40) m/uL Hgb (11.4-16.0) gm/dL Hct (34.0-46.0) % MCV (80.0-100.0) fL MCH (25.0-35.0) pg MCHC (31.0-37.0) g/dL RDW (11.5-15.5) % Plt Count (150-450) k/uL MPV Neutrophils % % Lymphocytes % % Monocytes % % Eosinophils % % Basophils % % Neutrophils # (1.3-7.7) k/uL Lymphocytes # (1.0-4.8) k/uL Monocytes # (0-1.0) k/uL Eosinophils # (0-0.7) k/uL Basophils # (0-0.2) k/uL Manual Slide Review Polychromasia Hypochromasia Poikilocytosis (manual Anisocytosis Macrocytosis Tear Drop Cells PT (10.0-12.5) sec INR (<1.2) APTT (22.0-30.0) sec Sodium (137-145) mmol/L Potassium (3.5-5.1) mmol/L Chloride (98-107) mmol/L Carbon Dioxide (22-30) mmol/L Anion Gap mmol/L BUN (7-17) mg/dL Creatinine (0.52-1.04) mg/dL Est GFR (CKD-EPI)AfAm (>60 ml/min/1.73 sqM) Est GFR (CKD-EPI)NonAf (>60 ml/min/1.73 sqM) Glucose (74-99) mg/dL POC Glucose (mg/dL) 152 H (70-110) mg/dL POC Glu Pin Sticker ID Payne Brian Lactic Ac Sepsis Rflx Y Plasma Lactic Acid Yeison 1.6 (0.7-2.0) mmol/L Calcium (8.4-10.2) mg/dL Magnesium (1.6-2.3) mg/dL Total Bilirubin (0.2-1.3) mg/dL AST (14-36) U/L ALT (4-34) U/L Alkaline Phosphatase (38-126) U/L Troponin I (0.000-0.034) ng/mL NT-Pro-B Natriuret Pep pg/mL Total Protein (6.3-8.2) g/dL Albumin (3.5-5.0) g/dL Urine Color Urine Appearance (Clear) Urine pH (5.0-8.0) Ur Specific [place] (1.001-1.035) Urine Protein (Negative) Urine Glucose (UA) (Negative) Urine Ketones (Negative) Urine Blood (Negative) Urine Nitrite (Negative) Urine Bilirubin (Negative) Urine Urobilinogen (<2.0) mg/dL Ur Leukocyte Esterase (Negative) Urine RBC (0-5) /hpf Urine WBC (0-5) /hpf Ur Squamous Epith Cells (0-4) /hpf Urine Bacteria (None) /hpf Urine Mucus (None) /hpf 05/01/24 05/01/24 05/01/24 Range/Units 00:41 00:53 01:01 WBC 11.4 H (3.8-10.6) k/uL RBC 2.18 L (3.80-5.40) m/uL Hgb 7.6 L D (11.4-16.0) gm/dL Hct 24.4 L (34.0-46.0) % MCV 112.0 H (80.0-100.0) fL MCH 35.0 (25.0-35.0) pg MCHC 31.3 (31.0-37.0) g/dL RDW 24.7 H (11.5-15.5) % Plt Count 210 (150-450) k/uL MPV 7.9 Neutrophils % 83 % Lymphocytes % 5 % Monocytes % 8 % Eosinophils % 2 % Basophils % 0 % Neutrophils # 9.5 H (1.3-7.7) k/uL Lymphocytes # 0.6 L (1.0-4.8) k/uL Monocytes # 0.9 (0-1.0) k/uL Eosinophils # 0.2 (0-0.7) k/uL Basophils # 0.0 (0-0.2) k/uL Manual Slide Review Polychromasia Hypochromasia Marked Poikilocytosis (manual Anisocytosis Marked Macrocytosis Marked A Tear Drop Cells PT (10.0-12.5) sec INR (<1.2) APTT 48.1 H (22.0-30.0) sec Sodium 131 L (137-145) mmol/L Potassium 3.1 L (3.5-5.1) mmol/L Chloride 99 (98-107) mmol/L Carbon Dioxide 25 (22-30) mmol/L Anion Gap 7 mmol/L BUN 6 L (7-17) mg/dL Creatinine 0.54 (0.52-1.04) mg/dL Est GFR (CKD-EPI)AfAm >90 (>60 ml/min/1.73 sqM) Est GFR (CKD-EPI)NonAf >90 (>60 ml/min/1.73 sqM) Glucose 133 H (74-99) mg/dL POC Glucose (mg/dL) (70-110) mg/dL POC Glu Pin Sticker ID Lactic Ac Sepsis Rflx Plasma Lactic Acid Yeison (0.7-2.0) mmol/L Calcium 7.1 L (8.4-10.2) mg/dL Magnesium (1.6-2.3) mg/dL Total Bilirubin (0.2-1.3) mg/dL AST (14-36) U/L ALT (4-34) U/L Alkaline Phosphatase (38-126) U/L Troponin I (0.000-0.034) ng/mL NT-Pro-B Natriuret Pep pg/mL Total Protein (6.3-8.2) g/dL Albumin (3.5-5.0) g/dL Urine Color Urine Appearance (Clear) Urine pH (5.0-8.0) Ur Specific [place] (1.001-1.035) Urine Protein (Negative) Urine Glucose (UA) (Negative) Urine Ketones (Negative) Urine Blood (Negative) Urine Nitrite (Negative) Urine Bilirubin (Negative) Urine Urobilinogen (<2.0) mg/dL Ur Leukocyte Esterase (Negative) Urine RBC (0-5) /hpf Urine WBC (0-5) /hpf Ur Squamous Epith Cells (0-4) /hpf Urine Bacteria (None) /hpf Urine Mucus (None) /hpf 05/01/24 05/01/24 Range/Units 06:11 08:18 WBC (3.8-10.6) k/uL RBC (3.80-5.40) m/uL Hgb (11.4-16.0) gm/dL Hct (34.0-46.0) % MCV (80.0-100.0) fL MCH (25.0-35.0) pg MCHC (31.0-37.0) g/dL RDW (11.5-15.5) % Plt Count (150-450) k/uL MPV Neutrophils % % Lymphocytes % % Monocytes % % Eosinophils % % Basophils % % Neutrophils # (1.3-7.7) k/uL Lymphocytes # (1.0-4.8) k/uL Monocytes # (0-1.0) k/uL Eosinophils # (0-0.7) k/uL Basophils # (0-0.2) k/uL Manual Slide Review Polychromasia Hypochromasia Poikilocytosis (manual Anisocytosis Macrocytosis Tear Drop Cells PT (10.0-12.5) sec INR (<1.2) APTT 55.1 H (22.0-30.0) sec Sodium (137-145) mmol/L Potassium (3.5-5.1) mmol/L Chloride (98-107) mmol/L Carbon Dioxide (22-30) mmol/L Anion Gap mmol/L BUN (7-17) mg/dL Creatinine (0.52-1.04) mg/dL Est GFR (CKD-EPI)AfAm (>60 ml/min/1.73 sqM) Est GFR (CKD-EPI)NonAf (>60 ml/min/1.73 sqM) Glucose (74-99) mg/dL POC Glucose (mg/dL) 126 H (70-110) mg/dL POC Glu Pin Sticker ID Bhavesh Vyas Lactic Ac Sepsis Rflx Plasma Lactic Acid Yeison (0.7-2.0) mmol/L Calcium (8.4-10.2) mg/dL Magnesium (1.6-2.3) mg/dL Total Bilirubin (0.2-1.3) mg/dL AST (14-36) U/L ALT (4-34) U/L Alkaline Phosphatase (38-126) U/L Troponin I (0.000-0.034) ng/mL NT-Pro-B Natriuret Pep pg/mL Total Protein (6.3-8.2) g/dL Albumin (3.5-5.0) g/dL Urine Color Urine Appearance (Clear) Urine pH (5.0-8.0) Ur Specific [place] (1.001-1.035) Urine Protein (Negative) Urine Glucose (UA) (Negative) Urine Ketones (Negative) Urine Blood (Negative) Urine Nitrite (Negative) Urine Bilirubin (Negative) Urine Urobilinogen (<2.0) mg/dL Ur Leukocyte Esterase (Negative) Urine RBC (0-5) /hpf Urine WBC (0-5) /hpf Ur Squamous Epith Cells (0-4) /hpf Urine Bacteria (None) /hpf Urine Mucus (None) /hpf Disposition Clinical Impression: Pulmonary embolism, Cervical cancer, Ascites, Respiratory insufficiency Disposition: ADMITTED IP TO THIS HOSP Condition: Fair Is patient prescribed a controlled substance at d/c from ED?: No Time of Disposition: 14:54 Decision to Admit Reason: Admit from EC Decision Date: 04/30/24 Decision Time: 14:54
[2024-04-30] MEDS: cefTRIAXone IN SWFI 1,000 MG/10 ML SYRINGE IVP STA (14:57)
--- NOTE | 2024-04-30 15:19 | CT ---
EXAMINATION TYPE: CT chest angio for PE DATE OF EXAM: 04/30/2024 2:39 PM COMPARISON: Chest radiograph from same day. 04/16/2024 CLINICAL INDICATION: Female, 49 years old with history of tachy, sob, hx pe failed on anticoagulation ; Tachy, sob, hx pe failed on anticoagulation. TECHNIQUE/CONTRAST: CTA scan of the thorax is performed with IV Contrast, patient injected with 180 ml mL of Isovue 370, MIP images are created and reviewed these are created on a separate workstation.. CT DLP: 883.4 mGycm, Automated exposure control for dose reduction was used. FINDINGS: Lungs/Pleura: Scattered upper lobe calcified granuloma. Intralobular septal thickening. No evidence o f focal consolidation, pleural effusion or pneumothorax. Airway: Large airways are patent. Heart: The heart is mildly increased in size. Vasculature: Limited evaluation due to bolus timing, There may still be a filling defect in the right lower lobe in the area of prior pulmonary embolus. The pulmonary artery is of normal size. Mediastinum: No gross evidence of adenopathy. Partially calcified lymph nodes in the mediastinum. Musculoskeletal: No acute osseous abnormalities Soft Tissues/lymph nodes: Unremarkable. Lower neck: No significant findings. Upper Abdomen: The liver is enlarged and diffusely low in attenuation. The gallbladder surgically abs ent. IMPRESSION: 1. Motion and bolus limiting exam no central PE. Evaluation of the lobar segmental and subsegmental branches are suboptimal given motion and poor bolus timing. There is thought to still be filling defe ct in at least the right lower lobe when comparing to 04/16/2024. Consider repeat exam in 24 hours. 2. Mild pulmonary edema correlate for underlying pulmonary congestion. 3. Hepatomegaly. 4. Hepatic steatosis. 5. Sequela of chronic granulomatous disease. Follow up recommendations for incidental pulmonary nodules, if there are any, are per [employer] or [employer]. https://radiopaedia.org/articles/[email or web address]=us [email or web address], , 04/30/2024 3:17 PM
[2024-04-30] MEDS: FUROSEMIDE 10 MG/ML 4 ML VIAL IV STA (15:55)
[2024-04-30] MEDS ORDERED: HEPARIN SODIUM 1,000 UN/ML (10ML VL) IV PRN (16:34)
[2024-04-30] MEDS ORDERED: DEXTROSE 50% SYRINGE 50 ML IVP PRN ×2 (16:50)
--- NOTE | 2024-04-30 16:50 | P.HPIM ---
History of Present Illness H&P Date: 04/30/24 49 year old F with PMH of stage III ovarian CA, pulmonary embolus on Pradaxa, DM presents to the ED for urinary retention for the past 2 days and abdominal bloating progressively getting worse over the past 2 weeks. Abdominal distention is associated with shortness of breath with ambulation. She denies any dysuria, fever or chills, nausea or vomiting, chest pain, palpitations, lightheadedness, changes in bowel habits. No changes in appetite or weight. No numbness/weakness/tinging of the extremities. In the ED she underwent extensive evaluation. BP 150/61, HR 116, RR 20, T 98F, 100% on RA. CBC, Coag panel, CMP significant for RBC 2.62, Hg 9.2, Hct 29.3, MCV 111.7, PT 14.6, INR 1.4, Na 136, K 2.8, Cr 0.51, glu 201, Ca 7.5, T. Bili 1.8, AST 125, alk phos 738, alb 2.5. Trop < 0.012. Mag 1.8. BNP 704. UA trace LE with 21 WBCs. CXR no acute process. CTA chest RLL filling defect, mild pulmonary edema, hepatomegaly, hepatic steatosis, chronic granulomatous disease. EKG sinus tachycardia. Patient is admitted for further workup and management. General: non toxic, no distress, appears at stated age Derm: warm, dry Head: atraumatic, normocephalic, symmetric Eyes: EOMI, no lid lag, anicteric sclera Mouth: no lip lesion, mucus membranes moist Cardiovascular: S1S2 tachy, no murmur Lungs: Decreased BS bilateral, no rhonchi, no rales, no accessory muscle use Abd: Distended, generalized tenderness to palpation in all 4 quadrants without rebound Ext: no gross muscle atrophy, 1+ pitting BL LE edema, no contractures Neuro: no focal neuro deficits Psych: Alert, oriented, appropriate affect Based on my assessment of this patient, this patient meets a high complexity level of care. Abdominal distention likely ascites related to ovarian CA: Lasix 40 mg IV x 1 in the ED. Abd US ordered. IR consulted for paracentesis. Urinary retention: Concerns for UTI. Status post Walker. Start Rocephin 1g IV QD. Collect UCx. Lactic acidosis likely related to underlying malignancy. Supratherapeutic INR and Transaminitis likely related to hepatic steatosis as seen on CTA chest. Hypokalemia: KCl 40 meq PO + 20 meq IV x 1. Repeat in the AM. History of PE: Hold Pradaxa and start high intensity heparin drip in preparation for paracentesis. Monitor APTT. History of stage III ovarian CA: Patient has decided to not undergo any more treatments with Oncology. Infrarenal abdominal aorta occlusion: Outpatient Vascular Sx follow up. CODE STATUS: FULL CODE DVT Prophylaxis: Heparin drip GI Prophylaxis: Protonix Designated medical POA if patient is not able to make medical decisions for themselves: . I have reviewed the following engagement quality consultant notes: ED note. I have reviewed the results of the following tests: As above. I have ordered the following tests: As above. I have discussed the care of this patient with the following independent historian: I have independently interpreted the following test below: CXR. I have discussed the management of this patient with the following physician: Dr. Mcgraw. Past Medical History Past Medical History: Diabetes Mellitus Additional Past Medical History / Comment(s): Cervical cx stage- 3C. DVT History of Any Multi-Drug Resistant Organisms: None Reported Past Surgical History: Cholecystectomy Additional Past Surgical History / Comment(s): right foot ortho surgery Past Anesthesia/Blood Transfusion Reactions: No Reported Reaction Past Psychological History: No Psychological Hx Reported Smoking Status: Current some day smoker Past Alcohol Use History: None Reported Past Drug Use History: None Reported Medications and Allergies Home Medications Medication Instructions Recorded Confirmed Type Dabigatran [Pradaxa] 150 mg PO BID #60 capsule 04/21/24 04/30/24 Rx Allergies Allergy/AdvReac Type Severity Reaction Status Date / Time codeine Allergy Unknown Verified 04/30/24 15:02 Physical Exam Vitals: Vital Signs Temp Pulse Resp BP Pulse Ox 04/30/24 15:16 106 H 24 122/77 04/30/24 14:30 20 139/70 04/30/24 14:00 100 21 124/73 04/30/24 13:30 102 H 20 127/69 04/30/24 13:00 96 21 136/79 04/30/24 12:30 97 20 127/71 04/30/24 12:09 22 04/30/24 12:00 98 F 116 H 20 150/61 100 Intake and Output 04/30/24 04/30/24 04/30/24 06:59 14:59 22:59 Other: Weight 90.718 kg Results CBC & Chem 7: 04/30/24 13:00 04/30/24 13:00 Labs: Abnormal Lab Results - Last 24 Hours (Table) 04/30/24 04/30/24 04/30/24 Range/Units 13:00 13:00 13:00 RBC 2.62 L (3.80-5.40) m/uL Hgb 9.2 L D (11.4-16.0) gm/dL Hct 29.3 L (34.0-46.0) % MCV 111.7 H D (80.0-100.0) fL MCH 35.1 H (25.0-35.0) pg RDW 24.8 H (11.5-15.5) % Neutrophils # 7.9 H (1.3-7.7) k/uL Lymphocytes # 0.5 L (1.0-4.8) k/uL Macrocytosis Marked A PT 14.6 H (10.0-12.5) sec INR 1.4 H (<1.2) Sodium 136 L (137-145) mmol/L Potassium 2.8 L (3.5-5.1) mmol/L Creatinine 0.51 L (0.52-1.04) mg/dL Glucose 201 H (74-99) mg/dL Plasma Lactic Acid Yeison (0.7-2.0) mmol/L Calcium 7.5 L (8.4-10.2) mg/dL Total Bilirubin 1.8 H (0.2-1.3) mg/dL AST 125 H (14-36) U/L Alkaline Phosphatase 738 H (38-126) U/L Albumin 2.5 L (3.5-5.0) g/dL Urine Protein (Negative) Urine Glucose (UA) (Negative) Urine Ketones (Negative) Urine Bilirubin (Negative) Ur Leukocyte Esterase (Negative) Urine WBC (0-5) /hpf Urine Bacteria (None) /hpf Urine Mucus (None) /hpf 04/30/24 04/30/24 Range/Units 13:00 13:35 RBC (3.80-5.40) m/uL Hgb (11.4-16.0) gm/dL Hct (34.0-46.0) % MCV (80.0-100.0) fL MCH (25.0-35.0) pg RDW (11.5-15.5) % Neutrophils # (1.3-7.7) k/uL Lymphocytes # (1.0-4.8) k/uL Macrocytosis PT (10.0-12.5) sec INR (<1.2) Sodium (137-145) mmol/L Potassium (3.5-5.1) mmol/L Creatinine (0.52-1.04) mg/dL Glucose (74-99) mg/dL Plasma Lactic Acid Yeison 4.1 H* (0.7-2.0) mmol/L Calcium (8.4-10.2) mg/dL Total Bilirubin (0.2-1.3) mg/dL AST (14-36) U/L Alkaline Phosphatase (38-126) U/L Albumin (3.5-5.0) g/dL Urine Protein 1+ H (Negative) Urine Glucose (UA) 4+ H (Negative) Urine Ketones Trace H (Negative) Urine Bilirubin 1+ H (Negative) Ur Leukocyte Esterase Trace H (Negative) Urine WBC 21 H (0-5) /hpf Urine Bacteria Many H (None) /hpf Urine Mucus Many H (None) /hpf
[2024-04-30 18:21] LABS: Glucose,Whole Blood 185 mg/dL (70-110)
[2024-04-30] MEDS: INSULIN ASPART (NovoLOG) 100 UNIT/ML VIAL SQ SCH (18:42)
[2024-04-30] MEDS: POTASSIUM CHLORIDE 20 MEQ in WATER FOR INJECTION 1 100ML.BAG IVPB STA (18:44)
[2024-04-30] MEDS: HEPARIN SOD,PORK IN 0.45% NACL 25,000 UNIT in 0.45% NACL 1 250ML.BAG IV SCH (18:45)
[2024-04-30] MEDS: HYDROmorphone 1 MG/ML 1 ML SYRINGE IVP PRN (18:47)
[2024-04-30] MEDS: POTASSIUM CHLORIDE ER 20 MEQ TAB.ER PO STA (18:47)
[2024-04-30 18:55] LABS: INR 1.4 (<1.2); Partial Thromboplastin Time 33.3 sec (22.0-30.0); Prothrombin Time 14.5 sec (10.0-12.5)
--- NOTE | 2024-04-30 19:09 | US ---
EXAMINATION TYPE: US abdomen limited DATE OF EXAM: 04/30/2024 COMPARISON: CT CLINICAL INDICATION: Female, 49 years old with history of evaluate for ascites; ascites. TECHNIQUE: Grayscale imaging of the abdomen for ascites. FINDINGS: Small amount of ascites visualized in the left upper quadrant. IMPRESSION: Small amount of fluid does abdomen [facility] Christina Darling, , 04/30/2024 7:07 PM
[2024-04-30 20:21] LABS: Glucose,Whole Blood 152 mg/dL (70-110)
[2024-05-01 01:30] LABS: Anisocytosis Marked; Basophils % (A) 0 %; Eosinophils # (A) 0.2 k/uL (0-0.7); Eosinophils % (A) 2 %; HCT 24.4 % (34.0-46.0); Hypochromasia Marked; Lymphocytes # (A) 0.6 k/uL (1.0-4.8); Lymphocytes % (A) 5 %; MCHC 31.3 g/dL (31.0-37.0); Macrocytosis Marked; Mean Platelet Volume 7.9; Monocytes # (A) 0.9 k/uL (0-1.0); Monocytes % (A) 8 %; Neutrophils # (A) 9.5 k/uL (1.3-7.7); Neutrophils % (A) 83 %; Platelet Count 210 k/uL (150-450); RBC 2.18 m/uL (3.80-5.40); RDW 24.7 % (11.5-15.5); WBC 11.4 k/uL (3.8-10.6)
[2024-05-01 01:33] LABS: HGB 7.6 gm/dL (11.4-16.0)
[2024-05-01 01:42] LABS: African American GFR (CKD) >90 (>60 ml/min/1.73 sqM); Anion Gap 7 mmol/L; Blood Urea Nitrogen 6 mg/dL (7-17); Calcium 7.1 mg/dL (8.4-10.2); Carbon Dioxide 25 mmol/L (22-30); Chloride 99 mmol/L (98-107); Glucose 133 mg/dL (74-99); Non-African American GFR(CKD) >90 (>60 ml/min/1.73 sqM); Potassium 3.1 mmol/L (3.5-5.1); Sodium 131 mmol/L (137-145)
[2024-05-01 08:19] LABS: Glucose,Whole Blood 126 mg/dL (70-110)
[2024-05-01] MEDS: POTASSIUM CHLORIDE 20 MEQ in WATER FOR INJECTION 1 100ML.BAG IVPB STA (10:25)
[2024-05-01] MEDS: POTASSIUM CHLORIDE ER 20 MEQ TAB.ER PO STA ×2 (10:28→11:29)
[2024-05-01] MEDS: oxyCODONE-APAP 7.5-325MG 1 EACH TAB PO PRN (11:29)
[2024-05-01] MEDS: TAMSULOSIN 0.4 MG CAP.ER.24H PO SCH (11:29)
[2024-05-01] MEDS: NICOTINE 14MG/24HR PATCH TRANSDERM SCH (11:29)
[2024-05-01] MEDS: DABIGATRAN 150 MG CAP PO SCH (11:29)
--- NOTE | 2024-05-01 12:14 | P.PN ---
Subjective Progress Note Date: 05/01/24 49 year old F with PMH of stage III ovarian CA, pulmonary embolus on Pradaxa, DM presents to the ED for urinary retention for the past 2 days and abdominal bloating progressively getting worse over the past 2 weeks. Abdominal distention is associated with shortness of breath with ambulation. She denies any dysuria, fever or chills, nausea or vomiting, chest pain, palpitations, lightheadedness, changes in bowel habits. No changes in appetite or weight. No numbness/weakness/tinging of the extremities. In the ED she underwent extensive evaluation. BP 150/61, HR 116, RR 20, T 98F, 100% on RA. CBC, Coag panel, CMP significant for RBC 2.62, Hg 9.2, Hct 29.3, MCV 111.7, PT 14.6, INR 1.4, Na 136, K 2.8, Cr 0.51, glu 201, Ca 7.5, T. Bili 1.8, AST 125, alk phos 738, alb 2.5. Trop < 0.012. Mag 1.8. BNP 704. UA trace LE with 21 WBCs. CXR no acute process. CTA chest RLL filling defect, mild pulmonary edema, hepatomegaly, hepatic steatosis, chronic granulomatous disease. EKG sinus tachycardia. Patient is admitted for further workup and management. Patient was started on heparin drip for treatment of PE which awaiting paracentesis. Abd US ordered showed small amount of fluid in the abdomen. IR consulted, not enough fluid to drain. Heparin drip was switched back to Pradaxa on 05/01. Patient stated on Rocephin IV for treatment of possible UTI with urine culture pending. Walker catheter placed for urinary retention. She previously had urinary retention during her hospitalization as well. Started on Flomax and Urology consulted. 05/01 Patient was seen and examined. She reports pain from her abdominal bloating. Currently with Walker catheter. CBC and BMP significant for WBC 11.4, RBC 2.18, Hg 7.6, Hct 24.4, MCV 112, Na 131, K 3.1, BUN 6, glu 133, Ca 7.1. APTT 55.1. General: non toxic, no distress, appears at stated age Derm: warm, dry Head: atraumatic, normocephalic, symmetric Eyes: EOMI, no lid lag, anicteric sclera Mouth: no lip lesion, mucus membranes moist Cardiovascular: S1S2 tachy, no murmur Lungs: Decreased BS bilateral, no rhonchi, no rales, no accessory muscle use Abd: Distended, generalized tenderness to palpation in all 4 quadrants without rebound Ext: no gross muscle atrophy, 1+ pitting BL LE edema, no contractures Neuro: no focal neuro deficits Psych: Alert, oriented, appropriate affect Based on my assessment of this patient, this patient meets a high complexity level of care. Abdominal distention likely ascites related to ovarian CA and protein calorie malnutrition: Status post Lasix 40 mg IV x 1 in the ED. Abd US shows small amount of fluid in the abdomen. IR consulted, not enough fluid to drain. Add Ensure TID to meals. Urinary retention: Concerns for UTI. Status post Walker. Continue Rocephin 1g IV QD (D2). Start Flomax 0.4 mg PO QD. Follow UCx. Urology consulted. Lactic acidosis likely related to underlying malignancy. Supratherapeutic INR and Transaminitis likely related to hepatic steatosis as seen on CTA chest. Hypokalemia: KCl 60 meq PO x 1. Repeat in the AM. History of PE: Discontinue Heparin drip and restart Pradaxa 150 mg PO BID. History of stage III ovarian CA: Patient has decided to not undergo any more treatments with Oncology. Infrarenal abdominal aorta occlusion: Outpatient Vascular Sx follow up. CODE STATUS: FULL CODE DVT Prophylaxis: Pradaxa GI Prophylaxis: Protonix Designated medical POA if patient is not able to make medical decisions for themselves: . I have reviewed the following career consultant notes: I have reviewed the results of the following tests: CBC, BMP, APTT. I have ordered the following tests: Repeat BMP and Mag in the AM. I have discussed the care of this patient with the following independent historian: ANDREW Guadarrama. I have independently interpreted the following test below: I have discussed the management of this patient with the following physician: Objective - Vital Signs Vital signs: Vital Signs Temp 97.9 F 05/01/24 08:00 Pulse 100 05/01/24 08:00 Resp 20 05/01/24 08:00 BP 126/79 05/01/24 08:00 Pulse Ox 97 05/01/24 08:00 FiO2 Intake & Output 04/30/24 05/01/24 05/01/24 18:59 06:59 18:59 Intake Total 250 Output Total 1525 Balance -1525 250 Weight 90.718 kg 90.718 kg Intake: Intake, IV Titration 250 Amount Heparin Sod,Pork in 0.45% 250 NaCl 25,000 unit In 0.45 % NaCl 1 250ml.bag @ 18 UNITS/KG/HR 16.329 mls/hr IV .[id number] [facility] Rx#: [id number] Output: Urine 1525 Other: # Voids 1 - Labs CBC & Chem 7: 05/01/24 00:53 05/01/24 01:01 Labs: Abnormal Lab Results - Last 24 Hours (Table) 04/30/24 04/30/24 04/30/24 Range/Units 13:00 13:00 13:00 WBC (3.8-10.6) k/uL RBC 2.62 L (3.80-5.40) m/uL Hgb 9.2 L D (11.4-16.0) gm/dL Hct 29.3 L (34.0-46.0) % MCV 111.7 H D (80.0-100.0) fL MCH 35.1 H (25.0-35.0) pg RDW 24.8 H (11.5-15.5) % Neutrophils # 7.9 H (1.3-7.7) k/uL Lymphocytes # 0.5 L (1.0-4.8) k/uL Macrocytosis Marked A PT 14.6 H (10.0-12.5) sec INR 1.4 H (<1.2) APTT (22.0-30.0) sec Sodium 136 L (137-145) mmol/L Potassium 2.8 L (3.5-5.1) mmol/L BUN (7-17) mg/dL Creatinine 0.51 L (0.52-1.04) mg/dL Glucose 201 H (74-99) mg/dL POC Glucose (mg/dL) (70-110) mg/dL Plasma Lactic Acid Yeison (0.7-2.0) mmol/L Calcium 7.5 L (8.4-10.2) mg/dL Total Bilirubin 1.8 H (0.2-1.3) mg/dL AST 125 H (14-36) U/L Alkaline Phosphatase 738 H (38-126) U/L Albumin 2.5 L (3.5-5.0) g/dL Urine Protein (Negative) Urine Glucose (UA) (Negative) Urine Ketones (Negative) Urine Bilirubin (Negative) Ur Leukocyte Esterase (Negative) Urine WBC (0-5) /hpf Urine Bacteria (None) /hpf Urine Mucus (None) /hpf 04/30/24 04/30/24 04/30/24 Range/Units 13:00 13:35 16:03 WBC (3.8-10.6) k/uL RBC (3.80-5.40) m/uL Hgb (11.4-16.0) gm/dL Hct (34.0-46.0) % MCV (80.0-100.0) fL MCH (25.0-35.0) pg RDW (11.5-15.5) % Neutrophils # (1.3-7.7) k/uL Lymphocytes # (1.0-4.8) k/uL Macrocytosis PT (10.0-12.5) sec INR (<1.2) APTT (22.0-30.0) sec Sodium (137-145) mmol/L Potassium (3.5-5.1) mmol/L BUN (7-17) mg/dL Creatinine (0.52-1.04) mg/dL Glucose (74-99) mg/dL POC Glucose (mg/dL) (70-110) mg/dL Plasma Lactic Acid Yeison 4.1 H* 3.0 H* (0.7-2.0) mmol/L Calcium (8.4-10.2) mg/dL Total Bilirubin (0.2-1.3) mg/dL AST (14-36) U/L Alkaline Phosphatase (38-126) U/L Albumin (3.5-5.0) g/dL Urine Protein 1+ H (Negative) Urine Glucose (UA) 4+ H (Negative) Urine Ketones Trace H (Negative) Urine Bilirubin 1+ H (Negative) Ur Leukocyte Esterase Trace H (Negative) Urine WBC 21 H (0-5) /hpf Urine Bacteria Many H (None) /hpf Urine Mucus Many H (None) /hpf 04/30/24 04/30/24 04/30/24 Range/Units 18:00 18:00 18:19 WBC (3.8-10.6) k/uL RBC (3.80-5.40) m/uL Hgb (11.4-16.0) gm/dL Hct (34.0-46.0) % MCV (80.0-100.0) fL MCH (25.0-35.0) pg RDW (11.5-15.5) % Neutrophils # (1.3-7.7) k/uL Lymphocytes # (1.0-4.8) k/uL Macrocytosis PT 14.5 H (10.0-12.5) sec INR 1.4 H (<1.2) APTT 33.3 H (22.0-30.0) sec Sodium (137-145) mmol/L Potassium (3.5-5.1) mmol/L BUN (7-17) mg/dL Creatinine (0.52-1.04) mg/dL Glucose (74-99) mg/dL POC Glucose (mg/dL) 185 H (70-110) mg/dL Plasma Lactic Acid Yeison 2.1 H* (0.7-2.0) mmol/L Calcium (8.4-10.2) mg/dL Total Bilirubin (0.2-1.3) mg/dL AST (14-36) U/L Alkaline Phosphatase (38-126) U/L Albumin (3.5-5.0) g/dL Urine Protein (Negative) Urine Glucose (UA) (Negative) Urine Ketones (Negative) Urine Bilirubin (Negative) Ur Leukocyte Esterase (Negative) Urine WBC (0-5) /hpf Urine Bacteria (None) /hpf Urine Mucus (None) /hpf 04/30/24 05/01/24 05/01/24 Range/Units 20:19 00:41 00:53 WBC 11.4 H (3.8-10.6) k/uL RBC 2.18 L (3.80-5.40) m/uL Hgb 7.6 L D (11.4-16.0) gm/dL Hct 24.4 L (34.0-46.0) % MCV 112.0 H (80.0-100.0) fL MCH (25.0-35.0) pg RDW 24.7 H (11.5-15.5) % Neutrophils # 9.5 H (1.3-7.7) k/uL Lymphocytes # 0.6 L (1.0-4.8) k/uL Macrocytosis Marked A PT (10.0-12.5) sec INR (<1.2) APTT 48.1 H (22.0-30.0) sec Sodium (137-145) mmol/L Potassium (3.5-5.1) mmol/L BUN (7-17) mg/dL Creatinine (0.52-1.04) mg/dL Glucose (74-99) mg/dL POC Glucose (mg/dL) 152 H (70-110) mg/dL Plasma Lactic Acid Yeison (0.7-2.0) mmol/L Calcium (8.4-10.2) mg/dL Total Bilirubin (0.2-1.3) mg/dL AST (14-36) U/L Alkaline Phosphatase (38-126) U/L Albumin (3.5-5.0) g/dL Urine Protein (Negative) Urine Glucose (UA) (Negative) Urine Ketones (Negative) Urine Bilirubin (Negative) Ur Leukocyte Esterase (Negative) Urine WBC (0-5) /hpf Urine Bacteria (None) /hpf Urine Mucus (None) /hpf 05/01/24 05/01/24 05/01/24 Range/Units 01:01 06:11 08:18 WBC (3.8-10.6) k/uL RBC (3.80-5.40) m/uL Hgb (11.4-16.0) gm/dL Hct (34.0-46.0) % MCV (80.0-100.0) fL MCH (25.0-35.0) pg RDW (11.5-15.5) % Neutrophils # (1.3-7.7) k/uL Lymphocytes # (1.0-4.8) k/uL Macrocytosis PT (10.0-12.5) sec INR (<1.2) APTT 55.1 H (22.0-30.0) sec Sodium 131 L (137-145) mmol/L Potassium 3.1 L (3.5-5.1) mmol/L BUN 6 L (7-17) mg/dL Creatinine (0.52-1.04) mg/dL Glucose 133 H (74-99) mg/dL POC Glucose (mg/dL) 126 H (70-110) mg/dL Plasma Lactic Acid Yeison (0.7-2.0) mmol/L Calcium 7.1 L (8.4-10.2) mg/dL Total Bilirubin (0.2-1.3) mg/dL AST (14-36) U/L Alkaline Phosphatase (38-126) U/L Albumin (3.5-5.0) g/dL Urine Protein (Negative) Urine Glucose (UA) (Negative) Urine Ketones (Negative) Urine Bilirubin (Negative) Ur Leukocyte Esterase (Negative) Urine WBC (0-5) /hpf Urine Bacteria (None) /hpf Urine Mucus (None) /hpf
[2024-05-01 12:36] LABS: Glucose,Whole Blood 139 mg/dL (70-110)
[2024-05-01] MEDS: ONDANSETRON 4 MG/2 ML VIAL IVP PRN (17:13)
[2024-05-01 17:34] LABS: Glucose,Whole Blood 183 mg/dL (70-110)
[2024-05-01 20:19] LABS: Glucose,Whole Blood 166 mg/dL (70-110)
[2024-05-02 06:27] LABS: African American GFR (CKD) >90 (>60 ml/min/1.73 sqM); Anion Gap 4 mmol/L; Blood Urea Nitrogen 7 mg/dL (7-17); Calcium 7.3 mg/dL (8.4-10.2); Carbon Dioxide 27 mmol/L (22-30); Chloride 101 mmol/L (98-107); Glucose 130 mg/dL (74-99); Magnesium 1.7 mg/dL (1.6-2.3); Non-African American GFR(CKD) >90 (>60 ml/min/1.73 sqM); Potassium 3.4 mmol/L (3.5-5.1); Sodium 132 mmol/L (137-145)
[2024-05-02 06:42] LABS: Anisocytosis Marked; Basophils % (A) 0 %; Eosinophils # (A) 0.1 k/uL (0-0.7); Eosinophils % (A) 1 %; HCT 23.1 % (34.0-46.0); HGB 7.2 gm/dL (11.4-16.0); Hypochromasia Moderate; Lymphocytes # (A) 0.4 k/uL (1.0-4.8); Lymphocytes % (A) 4 %; MCH 34.9 pg (25.0-35.0); MCHC 31.3 g/dL (31.0-37.0); MCV 111.7 fL (80.0-100.0); Macrocytosis Marked; Mean Platelet Volume 8.5; Monocytes # (A) 0.6 k/uL (0-1.0); Monocytes % (A) 7 %; Neutrophils # (A) 7.5 k/uL (1.3-7.7); Neutrophils % (A) 85 %; Platelet Count 205 k/uL (150-450); RBC 2.06 m/uL (3.80-5.40); RDW 24.4 % (11.5-15.5); WBC 8.8 k/uL (3.8-10.6)
[2024-05-02 07:16] LABS: Glucose,Whole Blood 145 mg/dL (70-110)
[2024-05-02 12:06] LABS: Glucose,Whole Blood 153 mg/dL (70-110)
[2024-05-02 13:22] LABS: African American GFR (CKD) >90 (>60 ml/min/1.73 sqM); Anion Gap 6 mmol/L; Blood Urea Nitrogen 7 mg/dL (7-17); Calcium 7.4 mg/dL (8.4-10.2); Carbon Dioxide 25 mmol/L (22-30); Chloride 101 mmol/L (98-107); Glucose 129 mg/dL (74-99); Non-African American GFR(CKD) >90 (>60 ml/min/1.73 sqM); Potassium 3.4 mmol/L (3.5-5.1); Sodium 132 mmol/L (137-145)
--- NOTE | 2024-05-02 13:57 | P.GSCN ---
History of Present Illness Consult date: 05/02/24 Reason for Consult: Urinary Retention Requesting physician: Wesley Lazo History of present illness: 49 year old WF with a history of stage III ovarian carcinoma. Her medical history is significant also for diabetes mellitus and a previous pulmonary embolus. She is being treated with chemoradiation. She was hospitalized earlier this month and felt to be in urinary retention. However, CT scan at that time showed evidence of ascites. Bladder scan showed over 500 cc, but only 75 cc of urine was drained when she was catheterized. The patient does report intermittently experiencing difficulty voiding. She underwent paracentesis on April 19, 2024 but now reports progressive abdominal distention. She has an otherwise unremarkable urologic history. Review of Systems - Genitourinary Genitourinary: Reports as per HPI Past Medical History Past Medical History: Diabetes Mellitus, Deep Vein Thrombosis (DVT), Pulmonary Embolus (PE) Additional Past Medical History / Comment(s): Cervical cx stage- 3C. DVT History of Any Multi-Drug Resistant Organisms: None Reported Past Surgical History: Cholecystectomy, Tubal Ligation Additional Past Surgical History / Comment(s): right foot ortho surgery, left arm surgery Past Anesthesia/Blood Transfusion Reactions: No Reported Reaction Past Psychological History: No Psychological Hx Reported Smoking Status: Current every day smoker Past Alcohol Use History: None Reported Past Drug Use History: None Reported Medications and Allergies Home Medications Medication Instructions Recorded Confirmed Type Dabigatran [Pradaxa] 150 mg PO BID #60 capsule 04/21/24 04/30/24 Rx Allergies Allergy/AdvReac Type Severity Reaction Status Date / Time codeine Allergy Unknown Verified 04/30/24 15:02 Surgical - Exam Vital Signs Temp Pulse Resp BP Pulse Ox 98 F 116 H 20 150/61 100 04/30/24 12:00 04/30/24 12:00 04/30/24 12:00 04/30/24 12:00 04/30/24 12:00 - General well developed, well nourished, no distress - Respiratory normal respiratory effort - Abdomen Abdomen: soft, non tender, distended - Psychiatric oriented to time, oriented to person, oriented to place, speech is normal, memory intact Results - Labs 05/02/24 05:26 05/02/24 12:27 Abnormal Lab Results - Last 24 Hours (Table) 05/01/24 05/01/24 05/01/24 Range/Units 08:18 12:34 17:27 RBC (3.80-5.40) m/uL Hgb (11.4-16.0) gm/dL Hct (34.0-46.0) % MCV (80.0-100.0) fL RDW (11.5-15.5) % Lymphocytes # (1.0-4.8) k/uL Macrocytosis Sodium (137-145) mmol/L Potassium (3.5-5.1) mmol/L Creatinine (0.52-1.04) mg/dL Glucose (74-99) mg/dL POC Glucose (mg/dL) 126 H 139 H 183 H (70-110) mg/dL Calcium (8.4-10.2) mg/dL 05/01/24 05/02/24 05/02/24 Range/Units 20:18 05:26 05:26 RBC 2.06 L (3.80-5.40) m/uL Hgb 7.2 L (11.4-16.0) gm/dL Hct 23.1 L (34.0-46.0) % MCV 111.7 H (80.0-100.0) fL RDW 24.4 H (11.5-15.5) % Lymphocytes # 0.4 L (1.0-4.8) k/uL Macrocytosis Marked A Sodium 132 L (137-145) mmol/L Potassium 3.4 L (3.5-5.1) mmol/L Creatinine 0.49 L (0.52-1.04) mg/dL Glucose 130 H (74-99) mg/dL POC Glucose (mg/dL) 166 H (70-110) mg/dL Calcium 7.3 L (8.4-10.2) mg/dL Microbiology - Last 24 Hours (Table) 04/30/24 14:56 Blood Culture - Preliminary Blood 04/30/24 13:35 Urine Culture - Preliminary Urine,Clean Catch Gram Neg Bacilli Diabetes panel 05/02/24 Range/Units 05:26 Sodium 132 L (137-145) mmol/L Potassium 3.4 L (3.5-5.1) mmol/L Chloride 101 (98-107) mmol/L Carbon Dioxide 27 (22-30) mmol/L BUN 7 (7-17) mg/dL Creatinine 0.49 L (0.52-1.04) mg/dL Glucose 130 H (74-99) mg/dL Calcium 7.3 L (8.4-10.2) mg/dL Calcium panel 05/02/24 Range/Units 05:26 Calcium 7.3 L (8.4-10.2) mg/dL Pituitary panel 05/02/24 Range/Units 05:26 Sodium 132 L (137-145) mmol/L Potassium 3.4 L (3.5-5.1) mmol/L Chloride 101 (98-107) mmol/L Carbon Dioxide 27 (22-30) mmol/L BUN 7 (7-17) mg/dL Creatinine 0.49 L (0.52-1.04) mg/dL Glucose 130 H (74-99) mg/dL Calcium 7.3 L (8.4-10.2) mg/dL Adrenal panel 05/02/24 Range/Units 05:26 Sodium 132 L (137-145) mmol/L Potassium 3.4 L (3.5-5.1) mmol/L Chloride 101 (98-107) mmol/L Carbon Dioxide 27 (22-30) mmol/L BUN 7 (7-17) mg/dL Creatinine 0.49 L (0.52-1.04) mg/dL Glucose 130 H (74-99) mg/dL Calcium 7.3 L (8.4-10.2) mg/dL - Imaging CT scan - abdomen: report reviewed, image reviewed Assessment and Plan (1) Retention of urine, unspecified Current Visit: Yes Status: Acute Code(s): R33.9 - RETENTION OF URINE, UNSPECIFIED SNOMED Code(s): 907369057 Plan: The patient currently has an indwelling Walker catheter in place. It is draining clear yellow urine. The patient does not know how much urine was obtained when the catheter was placed. Bladder scan was performed, but unfortunately ascites will yield an inaccurately high volume reflective of the ascites rather than urine within the bladder. I recommended to the patient that she be taught to self catheterize, and do so as needed. She is extremely opposed to this idea. Ultimately, we agreed to remove the Walker catheter, and she will be straight catheterized to check postvoid residuals to assess bladder emptying.
[2024-05-02 15:07] LABS: HCT 24.3 % (37.2-46.3); HGB 7.6 g/dL (12.0-15.0); MCH 34.7 pg (27.0-32.0); MCHC 31.3 g/dL (32.0-37.0); Mean Platelet Volume 10.1 FL (9.5-12.2); NRBC Per 100 WBC 0.03 X 10*3/uL (0.00-0.01); Platelet Count 200 X 10*3/uL (140-440); RBC 2.19 X 10*6/uL (4.10-5.20); RDW 25.2 % (11.5-14.5); WBC 10.02 X 10*3/uL (4.50-10.00)
--- NOTE | 2024-05-02 15:32 | P.PN ---
Subjective Progress Note Date: 05/02/24 Hospital Course: 49-year-old female with PMH of stage III ovarian cancer decided to not undergo any more treatments with oncology, pulmonary embolus failed Eliquis currently on Pradaxa, DM, who presented to the ED with inability to urinate and worsening abdominal bloating, associated shortness of breath with ambulation. No dysuria, fevers, chills, nausea, vomiting, chest pain, changes in bowel habits, appetite, weight. BP 150/61, HR 116, RR 20, T 98F, 100% on RA. CBC, Coag panel, CMP significant for RBC 2.62, Hg 9.2, Hct 29.3, MCV 111.7, PT 14.6, INR 1.4, Na 136, K 2.8, Cr 0.51, glu 201, Ca 7.5, T. Bili 1.8, AST 125, alk phos 738, alb 2.5. Trop < 0.012. Mag 1.8. BNP 704. UA trace LE with 21 WBCs. CXR no acute process. CTA chest RLL filling defect, mild pulmonary edema, hepatomegaly, hepatic steatosis, chronic granulomatous disease. EKG sinus tachycardia. Patient is admitted for further workup and management. Jacek consulted, patient had Walker catheter removed, patient to straight catheterize and check postvoid residuals to assess bladder emptying. Started on Rocephin for UTI, urine cultures pending. Abdominal ultrasound showed small amount of fluid in the abdomen, IR consulted, not enough fluid to drain. Patient was started on Ensure for protein calorie malnutrition. Subjective: Patient was seen and examined at bedside, complains of abdominal bloating and shortness of breath, last bowel movement yesterday Pertinent positives and negatives as discussed above, a complete review of systems was performed and all other systems are negative. Vitals Signs Reviewed. General: [nontoxic], [no distress], [appears at stated age] Derm: [warm], [dry] Head: [atraumatic], [normocephalic], [symmetric] Eyes: [EOMI], [no lid lag], [anicteric sclera] Mouth: [no lip lesion], [mucus membranes moist] Cardiovascular: [S1S2 reg], [no murmur] Lungs: [CTA bilateral], [no rhonchi, no rales] , [no accessory muscle use] Abdominal: Distended, tender Ext: [no gross muscle atrophy], lower extremity edema], [no contractures] Neuro: [ CN II-XI grossly intact], [no focal neuro deficits] Psych: [Alert], [oriented], [appropriate affect] Data Reviewed Today: Pertinent Labs: Leukocytosis 13.2, hemoglobin stable 7.6, platelet count normal 200, sodium stable 132, potassium 3.4, normal creatinine, blood glucose is controlled Assessment and Plan: Generalized abdominal pain, bloating likely related to ovarian cancer -Patient had CT abdomen pelvis with contrast performed on 04/16/2024 while having similar complaints: Showed diffusely hypoattenuating parenchyma of the liver. 6.5 x 6 steatosis, s/p cholecystectomy, unremarkable pancreas, unremarkable spleen, management morning diffuse abdominal ascites -Abdominal ultrasound small amount of fluid in the abdomen, IR consulted, no fluid to drain -Give another dose of IV Lasix, hopefully that can help with abdominal discomfort -If patient has been recurrently admitted for worsening abdominal discomfort and states that she did not believe in Miquel and symptoms, and believe GI consultation is warranted Calorie malnutrition: Continue Ensure 3 times daily Hypokalemia: Potassium 3.4 after repletion, replete again and repeat in the morning Urinary retention UTI, gram-negative bacilli Leukocytosis -Neurology following, Walker catheter removed 05/02, patient to straight cath and monitor volumes -Continue Flomax -Continue ceftriaxone -Final urine cultures to follow-up History of PE, resume home Pradaxa 150 daily History of stage III ovarian cancer, patient has decided to not undergo any more treatment gynecology Infrarenal abdominal aorta and occlusion: Outpatient vascular surgery follow-up Supratherapeutic INR and transaminitis likely due to hepatic steatosis Type II DM: Continue SSI Anemia of chronic disease, hemoglobin stable DVT ppx: Continue Pradaxa Anticipated discharge place: Home with home care Anticipated discharge time: 24 to 48 hours Objective - Vital Signs Vital signs: Vital Signs Temp 98.5 F 05/02/24 13:24 Pulse 102 H 05/02/24 13:24 Resp 19 05/02/24 13:24 BP 123/76 05/02/24 13:24 Pulse Ox 99 05/02/24 13:24 FiO2 Intake & Output 05/01/24 05/02/24 05/02/24 18:59 06:59 18:59 Intake Total 1330 1080 50 Output Total 450 300 400 Balance 880 780 -350 Weight 90.718 kg Intake: Intake, IV Titration 250 50 Amount Heparin Sod,Pork in 0.45% 250 NaCl 25,000 unit In 0.45 % NaCl 1 250ml.bag @ 18 UNITS/KG/HR 16.329 mls/hr IV .[id number] KELSIE Rx#: [id number] cefTRIAXone 1 gm In 50 Sodium Chloride 0.9% 50 ml @ 100 mls/hr IVPB Q24HR [facility] Rx#:[id number] Oral 1080 1080 Output: Urine 450 300 400 Uretheral (Walker) 200 Other: Voiding Method Indwelling Catheter Indwelling Catheter Indwelling Catheter - Labs CBC & Chem 7: 05/02/24 12:27 05/02/24 12:27 Labs: Abnormal Lab Results - Last 24 Hours (Table) 05/01/24 05/01/24 05/02/24 Range/Units 17:27 20:18 05:26 WBC (4.50-10.00) X 10*3/uL RBC (3.80-5.40) m/uL Hgb (11.4-16.0) gm/dL Hct (34.0-46.0) % MCV (80.0-100.0) fL MCH (27.0-32.0) pg MCHC (32.0-37.0) g/dL RDW (11.5-15.5) % Lymphocytes # (1.0-4.8) k/uL NRBC/100 WBC Diff (0.00-0.01) X 10*3/uL Macrocytosis Sodium 132 L (137-145) mmol/L Potassium 3.4 L (3.5-5.1) mmol/L Creatinine 0.49 L (0.52-1.04) mg/dL Glucose 130 H (74-99) mg/dL POC Glucose (mg/dL) 183 H 166 H (70-110) mg/dL Calcium 7.3 L (8.4-10.2) mg/dL 05/02/24 05/02/24 05/02/24 Range/Units 05:26 07:08 12:03 WBC (4.50-10.00) X 10*3/uL RBC 2.06 L (3.80-5.40) m/uL Hgb 7.2 L (11.4-16.0) gm/dL Hct 23.1 L (34.0-46.0) % MCV 111.7 H (80.0-100.0) fL MCH (27.0-32.0) pg MCHC (32.0-37.0) g/dL RDW 24.4 H (11.5-15.5) % Lymphocytes # 0.4 L (1.0-4.8) k/uL NRBC/100 WBC Diff (0.00-0.01) X 10*3/uL Macrocytosis Marked A Sodium (137-145) mmol/L Potassium (3.5-5.1) mmol/L Creatinine (0.52-1.04) mg/dL Glucose (74-99) mg/dL POC Glucose (mg/dL) 145 H 153 H (70-110) mg/dL Calcium (8.4-10.2) mg/dL 05/02/24 05/02/24 Range/Units 12:27 12:27 WBC 10.02 H (4.50-10.00) X 10*3/uL RBC 2.19 L (3.80-5.40) m/uL Hgb 7.6 L (11.4-16.0) gm/dL Hct 24.3 L (34.0-46.0) % MCV 111.0 H (80.0-100.0) fL MCH 34.7 H (27.0-32.0) pg MCHC 31.3 L (32.0-37.0) g/dL RDW 25.2 H (11.5-15.5) % Lymphocytes # (1.0-4.8) k/uL NRBC/100 WBC Diff 0.03 H (0.00-0.01) X 10*3/uL Macrocytosis Sodium 132 L (137-145) mmol/L Potassium 3.4 L (3.5-5.1) mmol/L Creatinine 0.48 L (0.52-1.04) mg/dL Glucose 129 H (74-99) mg/dL POC Glucose (mg/dL) (70-110) mg/dL Calcium 7.4 L (8.4-10.2) mg/dL Microbiology - Last 24 Hours (Table) 04/30/24 14:56 Blood Culture - Preliminary Blood 04/30/24 13:35 Urine Culture - Preliminary Urine,Clean Catch Gram Neg Bacilli
[2024-05-02 15:44] LABS: Anisocytosis (M) 2+ (None Seen); Basophils # (A) 0.09 X 10*3/uL (0.00-0.10); Basophils % (A) 0.9 %; Lymphocytes # (A) 0.52 X 10*3/uL (0.90-5.00); Lymphocytes % (A) 5.2 %; Macrocytosis (M) 2+ (None Seen); Microcytosis (M) 2+ (None Seen); Monocytes # (A) 0.98 X 10*3/uL (0.20-1.00); Monocytes % (A) 9.8 %; Neutrophils # (A) 8.21 X 10*3/uL (1.80-7.70); Neutrophils % (A) 81.9 %; Spherocytes 2+ (None Seen)
[2024-05-02] MEDS: POTASSIUM CHLORIDE ER 20 MEQ TAB.ER PO STA (16:41)
[2024-05-02 17:24] LABS: Glucose,Whole Blood 168 mg/dL (70-110)
[2024-05-02 20:40] LABS: Glucose,Whole Blood 186 mg/dL (70-110)
[2024-05-03] MEDS: ALPRAZolam 0.5 MG TAB PO PRN (00:47)
[2024-05-03 07:26] LABS: Glucose,Whole Blood 121 mg/dL (70-110)
[2024-05-03 08:56] LABS: Basophils # (A) 0.06 X 10*3/uL (0.00-0.10); Basophils % (A) 0.5 %; Eosinophils # (A) 0.13 X 10*3/uL (0.04-0.35); Eosinophils % (A) 1.1 %; HCT 23.3 % (37.2-46.3); HGB 7.1 g/dL (12.0-15.0); Lymphocytes # (A) 0.57 X 10*3/uL (0.90-5.00); MCH 34.3 pg (27.0-32.0); MCHC 30.5 g/dL (32.0-37.0); MCV 112.6 FL (80.0-97.0); Mean Platelet Volume 10.5 FL (9.5-12.2); Monocytes # (A) 1.17 X 10*3/uL (0.20-1.00); Monocytes % (A) 10.3 %; NRBC Per 100 WBC 0.03 X 10*3/uL (0.00-0.01); Neutrophils # (A) 9.31 X 10*3/uL (1.80-7.70); Neutrophils % (A) 81.6 %; Platelet Count 222 X 10*3/uL (140-440); RBC 2.07 X 10*6/uL (4.10-5.20); RDW 25.1 % (11.5-14.5); WBC 11.41 X 10*3/uL (4.50-10.00)
[2024-05-03 08:59] LABS: ALT 25 U/L (8-44); AST 114 U/L (13-35); Albumin 2.1 g/dL (3.8-4.9); Albumin/Globulin Ratio 0.64 Ratio (1.60-3.17); Alkaline Phosphatase 602 U/L (41-126); BUN/Creat Ratio 13.75 Ratio (12.00-20.00); Blood Urea Nitrogen 5.5 mg/dL (9.0-27.0); Calcium 7.4 mg/dL (8.7-10.3); Carbon Dioxide 24.3 mmol/L (21.6-31.8); Chloride 103 mmol/L (96-109); Globulin 3.3 g/dL (1.6-3.3); Glucose 122 mg/dL (70-110); Potassium 3.9 mmol/L (3.5-5.5); Sodium 135 mmol/L (135-145); Total Bilirubin 1.2 mg/dL (0.3-1.2); Total Protein 5.4 g/dL (6.2-8.2)
--- NOTE | 2024-05-03 09:18 | P.PN ---
Subjective Progress Note Date: 05/03/24 Principal diagnosis: Mrs. Soliman'timothy Walker catheter was removed. She is voiding without difficulty. Bladder scan yesterday evening showed 700 cc. However, she was straight catheterized with 100 cc return. Objective - Vital Signs Vital signs: Vital Signs Temp 98.6 F 05/03/24 07:13 Pulse 93 05/03/24 07:13 Resp 16 05/03/24 07:13 BP 121/77 05/03/24 07:13 Pulse Ox 97 05/03/24 07:13 FiO2 Intake & Output 05/02/24 05/03/24 05/03/24 18:59 06:59 18:59 Intake Total 1670 1080 Output Total 630 500 Balance 1040 580 Intake: Intake, IV Titration 50 Amount cefTRIAXone 1 gm In 50 Sodium Chloride 0.9% 50 ml @ 100 mls/hr IVPB Q24HR [facility] Rx#:[id number] Oral 1620 1080 Output: Urine 630 300 Straight 30 100 Uretheral (Walker) 200 Post Void Residual 200 Other: Voiding Method Indwelling Catheter Toilet # Voids 3 - Constitutional General appearance: Present: average body habitus, cooperative, no acute distress - Psychiatric Psychiatric: Present: A&O x's 3 - Labs CBC & Chem 7: 05/03/24 04:45 05/03/24 04:45 Labs: Abnormal Lab Results - Last 24 Hours (Table) 05/02/24 05/02/24 05/02/24 Range/Units 12:03 12:27 12:27 WBC 10.02 H (4.50-10.00) X 10*3/uL RBC 2.19 L (4.10-5.20) X 10*6/uL Hgb 7.6 L (12.0-15.0) g/dL Hct 24.3 L (37.2-46.3) % MCV 111.0 H (80.0-97.0) FL MCH 34.7 H (27.0-32.0) pg MCHC 31.3 L (32.0-37.0) g/dL RDW 25.2 H (11.5-14.5) % Immature Gran # 0.12 H (0.00-0.04) X 10*3/uL Neutrophils # 8.21 H (1.80-7.70) X 10*3/uL Lymphocytes # 0.52 L (0.90-5.00) X 10*3/uL Monocytes # (0.20-1.00) X 10*3/uL NRBC/100 WBC Diff 0.03 H (0.00-0.01) X 10*3/uL Anisocytosis (manual) 2+ A (None Seen) Microcytosis (manual) 2+ A (None Seen) Macrocytosis (manual) 2+ A (None Seen) Spherocytes 2+ A (None Seen) Sodium 132 L (137-145) mmol/L Potassium 3.4 L (3.5-5.1) mmol/L BUN (9.0-27.0) mg/dL Creatinine 0.48 L (0.52-1.04) mg/dL Glucose 129 H (74-99) mg/dL POC Glucose (mg/dL) 153 H (70-110) mg/dL Calcium 7.4 L (8.4-10.2) mg/dL AST (13-35) U/L Alkaline Phosphatase (41-126) U/L Total Protein (6.2-8.2) g/dL Albumin (3.8-4.9) g/dL Albumin/Globulin Ratio (1.60-3.17) Ratio 05/02/24 05/02/24 05/03/24 Range/Units 17:13 20:39 04:45 WBC (4.50-10.00) X 10*3/uL RBC (4.10-5.20) X 10*6/uL Hgb (12.0-15.0) g/dL Hct (37.2-46.3) % MCV (80.0-97.0) FL MCH (27.0-32.0) pg MCHC (32.0-37.0) g/dL RDW (11.5-14.5) % Immature Gran # (0.00-0.04) X 10*3/uL Neutrophils # (1.80-7.70) X 10*3/uL Lymphocytes # (0.90-5.00) X 10*3/uL Monocytes # (0.20-1.00) X 10*3/uL NRBC/100 WBC Diff (0.00-0.01) X 10*3/uL Anisocytosis (manual) (None Seen) Microcytosis (manual) (None Seen) Macrocytosis (manual) (None Seen) Spherocytes (None Seen) Sodium (137-145) mmol/L Potassium (3.5-5.1) mmol/L BUN 5.5 L (9.0-27.0) mg/dL Creatinine 0.4 L (0.52-1.04) mg/dL Glucose 122 H (74-99) mg/dL POC Glucose (mg/dL) 168 H 186 H (70-110) mg/dL Calcium 7.4 L (8.4-10.2) mg/dL AST 114 H (13-35) U/L Alkaline Phosphatase 602 H (41-126) U/L Total Protein 5.4 L (6.2-8.2) g/dL Albumin 2.1 L (3.8-4.9) g/dL Albumin/Globulin Ratio 0.64 L (1.60-3.17) Ratio 05/03/24 05/03/24 Range/Units 04:45 07:23 WBC 11.41 H (4.50-10.00) X 10*3/uL RBC 2.07 L (4.10-5.20) X 10*6/uL Hgb 7.1 L (12.0-15.0) g/dL Hct 23.3 L (37.2-46.3) % MCV 112.6 H (80.0-97.0) FL MCH 34.3 H (27.0-32.0) pg MCHC 30.5 L (32.0-37.0) g/dL RDW 25.1 H (11.5-14.5) % Immature Gran # 0.17 H (0.00-0.04) X 10*3/uL Neutrophils # 9.31 H (1.80-7.70) X 10*3/uL Lymphocytes # 0.57 L (0.90-5.00) X 10*3/uL Monocytes # 1.17 H (0.20-1.00) X 10*3/uL NRBC/100 WBC Diff 0.03 H (0.00-0.01) X 10*3/uL Anisocytosis (manual) (None Seen) Microcytosis (manual) (None Seen) Macrocytosis (manual) (None Seen) Spherocytes (None Seen) Sodium (137-145) mmol/L Potassium (3.5-5.1) mmol/L BUN (9.0-27.0) mg/dL Creatinine (0.52-1.04) mg/dL Glucose (74-99) mg/dL POC Glucose (mg/dL) 121 H (70-110) mg/dL Calcium (8.4-10.2) mg/dL AST (13-35) U/L Alkaline Phosphatase (41-126) U/L Total Protein (6.2-8.2) g/dL Albumin (3.8-4.9) g/dL Albumin/Globulin Ratio (1.60-3.17) Ratio Microbiology - Last 24 Hours (Table) 04/30/24 14:56 Blood Culture - Preliminary Blood 04/30/24 13:35 Urine Culture - Final Urine,Clean Catch Citrobacter youngae Assessment and Plan (1) Retention of urine, unspecified Current Visit: Yes Status: Acute Code(s): R33.9 - RETENTION OF URINE, UNSPECIFIED SNOMED Code(s): 351321659 Plan: As stated in my initial consultation, bladder scan is inaccurate in patients with ascites. Mrs. Soliman has been verified to be emptying her bladder adequately, and will not require any further evaluation or treatment unless she experiences voiding difficulty. Please notify me if I can be of any further assistance.
--- NOTE | 2024-05-03 11:22 | P.CONS ---
History of Present Illness - Reason for Consult Consult date: 05/03/24 Abdominal distention and bloating Requesting physician: Victorina Ash - Chief Complaint Urinary retention, abdominal distention - History of Present Illness This a 49-year-old female with a past medical history including cervical cancer, urinary retention, pulmonary embolism on Pradaxa, and diabetes mellitus who presented to the hospital with complaints of urinary retention and inability to urinate as well as abdominal bloating and distention. Patient states she was re cently diagnosed with pulmonary embolism initially was on Eliquis and now on Pradaxa. She states was diagnosed with cervical cancer in 2023 following with oncologist and radiation oncologist underwent chemo and radiation that started in January and she states that she finished both about 4 weeks ago. She states she is no longer following with her oncologist. She was recently hospitalized and had some abdominal distention and underwent a paracentesis with 1.2 L removed on 04/19/2024. Since her last discharge she states that she is not really following with any oncologist. She denies any history of any liver disease, no history of alcoholism. She had initial ultrasound done on 04/30/2023 that showed a small amount of abdominal fluid, paracentesis was ordered however interventional radiologist that not enough fluid for paracentesis. Patient states she is having continued abdominal distention. She states that she is having normal bowel movements some have been loose. No nausea or vomiting. Patient also having lower extremity swelling. Patient is not on any diuretics. Currently on Rocephin I believe prophylactically. States she is voiding now. She was seen by urology, and had indwelling Walker catheter which was discontinued and they are now recommending intermittent straight cathing as needed. Labs WBC 11.4 hemoglobin 7.1 hematocrit 23 platelet count 222,000 sodium 135 po tassium 3.9 BUN 5.5 creatinine 0.4 total bilirubin 1.2 AST 114 ALT 25 alkaline phosphatase 602 stool occult blood negative Review of Systems REVIEW OF SYSTEMS: CARDIOPULMONARY: No chest pain or shortness of breath. Gastrointestinal: Abdominal discomfort, associated with abdominal distention. No nausea or vomiting. No hematemesis, coffee-ground emesis. No rectal bl eeding, or melena. GENITOURINARY: No dysuria or hematuria. Urinary retention. MUSCULOSKELETAL: Reports normal range of motion. SKIN: No rashes. No jaundice. ENDOCRINE: No chills, fevers. No excessive weight gain or loss. No polydipsia or polyuria. PSYCHIATRIC: Unremarkable. NEUROLOGY: No change in mental status. Denies dizziness, headache. ENT: Vision unremarkable. CONSTITUTIONAL: No recent weight loss. No fever, chills, night sweats. Past Medical History Past Medical History: Diabetes Mellitus, Deep Vein Thrombosis (DVT), Pulmonary Embolus (PE) Additional Past Medical History / Comment(s): Cervical cx stage- 3C. DVT History of Any Multi-Drug Resistant Organisms: None Reported Past Surgical History: Cholecystectomy, Tubal Ligation Additional Past Surgical History / Comment(s): right foot ortho surgery, left arm surgery Past Anesthesia/Blood Transfusion Reactions: No Reported Reaction Past Psychological History: No Psychological Hx Reported Smoking Status: Current every day smoker Past Alcohol Use History: None Reported Past Drug Use History: None Reported Medications and Allergies Home Medications Medication Instructions Recorded Confirmed Type Dabigatran [Pradaxa] 150 mg PO BID #60 capsule 04/21/24 04/30/24 Rx Allergies Allergy/AdvReac Type Severity Reaction Status Date / Time codeine Allergy Unknown Verified 04/30/24 15:02 Physical Exam Vitals: Vital Signs Temp Pulse Resp BP Pulse Ox 05/03/24 07:13 98.6 F 93 16 121/77 97 05/03/24 02:00 97.8 F 107 H 16 126/71 99 05/02/24 20:00 98.3 F 107 H 14 115/60 98 05/02/24 13:24 98.5 F 102 H 19 123/76 99 Intake and Output 05/02/24 05/03/24 05/03/24 22:59 06:59 14:59 Intake Total 1620 1080 Output Total 430 300 Balance 1190 780 Intake: Oral 1620 1080 Output: Urine 230 300 Straight 30 100 Post Void Residual 200 Other: Voiding Method Toilet # Voids 3 General appearance: The patient is alert, oriented, appears in no acute distress. HET: Head is normocephalic and atraumatic. Conjunctiva pink. Sclera anicteric. Neck: Supple without lymphadenopathy. Trachea midline. Heart: Regular. Lungs: Equal expansion, normal respiratory effort. Abdomen: Soft, nontender, distended, not much in way of ascites. Skin: No rashes. No jaundice. Extremities: Normal skin color and turgor. Bilateral lower extremity edema. Neurological: No focal deficits. Alert and oriented x3. Results CBC & Chem 7: 05/03/24 04:45 05/03/24 04:45 Labs: Abnormal Lab Results - Last 24 Hours (Table) 05/02/24 05/02/24 05/02/24 Range/Units 12:03 12:27 12:27 WBC 10.02 H (4.50-10.00) X 10*3/uL RBC 2.19 L (4.10-5.20) X 10*6/uL Hgb 7.6 L (12.0-15.0) g/dL Hct 24.3 L (37.2-46.3) % MCV 111.0 H (80.0-97.0) FL MCH 34.7 H (27.0-32.0) pg MCHC 31.3 L (32.0-37.0) g/dL RDW 25.2 H (11.5-14.5) % Immature Gran # 0.12 H (0.00-0.04) X 10*3/uL Neutrophils # 8.21 H (1.80-7.70) X 10*3/uL Lymphocytes # 0.52 L (0.90-5.00) X 10*3/uL Monocytes # (0.20-1.00) X 10*3/uL NRBC/100 WBC Diff 0.03 H (0.00-0.01) X 10*3/uL Anisocytosis (manual) 2+ A (None Seen) Microcytosis (manual) 2+ A (None Seen) Macrocytosis (manual) 2+ A (None Seen) Spherocytes 2+ A (None Seen) Sodium 132 L (137-145) mmol/L Potassium 3.4 L (3.5-5.1) mmol/L BUN (9.0-27.0) mg/dL Creatinine 0.48 L (0.52-1.04) mg/dL Glucose 129 H (74-99) mg/dL POC Glucose (mg/dL) 153 H (70-110) mg/dL Calcium 7.4 L (8.4-10.2) mg/dL AST (13-35) U/L Alkaline Phosphatase (41-126) U/L Total Protein (6.2-8.2) g/dL Albumin (3.8-4.9) g/dL Albumin/Globulin Ratio (1.60-3.17) Ratio 05/02/24 05/02/24 05/03/24 Range/Units 17:13 20:39 04:45 WBC (4.50-10.00) X 10*3/uL RBC (4.10-5.20) X 10*6/uL Hgb (12.0-15.0) g/dL Hct (37.2-46.3) % MCV (80.0-97.0) FL MCH (27.0-32.0) pg MCHC (32.0-37.0) g/dL RDW (11.5-14.5) % Immature Gran # (0.00-0.04) X 10*3/uL Neutrophils # (1.80-7.70) X 10*3/uL Lymphocytes # (0.90-5.00) X 10*3/uL Monocytes # (0.20-1.00) X 10*3/uL NRBC/100 WBC Diff (0.00-0.01) X 10*3/uL Anisocytosis (manual) (None Seen) Microcytosis (manual) (None Seen) Macrocytosis (manual) (None Seen) Spherocytes (None Seen) Sodium (137-145) mmol/L Potassium (3.5-5.1) mmol/L BUN 5.5 L (9.0-27.0) mg/dL Creatinine 0.4 L (0.52-1.04) mg/dL Glucose 122 H (74-99) mg/dL POC Glucose (mg/dL) 168 H 186 H (70-110) mg/dL Calcium 7.4 L (8.4-10.2) mg/dL AST 114 H (13-35) U/L Alkaline Phosphatase 602 H (41-126) U/L Total Protein 5.4 L (6.2-8.2) g/dL Albumin 2.1 L (3.8-4.9) g/dL Albumin/Globulin Ratio 0.64 L (1.60-3.17) Ratio 05/03/24 05/03/24 Range/Units 04:45 07:23 WBC 11.41 H (4.50-10.00) X 10*3/uL RBC 2.07 L (4.10-5.20) X 10*6/uL Hgb 7.1 L (12.0-15.0) g/dL Hct 23.3 L (37.2-46.3) % MCV 112.6 H (80.0-97.0) FL MCH 34.3 H (27.0-32.0) pg MCHC 30.5 L (32.0-37.0) g/dL RDW 25.1 H (11.5-14.5) % Immature Gran # 0.17 H (0.00-0.04) X 10*3/uL Neutrophils # 9.31 H (1.80-7.70) X 10*3/uL Lymphocytes # 0.57 L (0.90-5.00) X 10*3/uL Monocytes # 1.17 H (0.20-1.00) X 10*3/uL NRBC/100 WBC Diff 0.03 H (0.00-0.01) X 10*3/uL Anisocytosis (manual) (None Seen) Microcytosis (manual) (None Seen) Macrocytosis (manual) (None Seen) Spherocytes (None Seen) Sodium (137-145) mmol/L Potassium (3.5-5.1) mmol/L BUN (9.0-27.0) mg/dL Creatinine (0.52-1.04) mg/dL Glucose (74-99) mg/dL POC Glucose (mg/dL) 121 H (70-110) mg/dL Calcium (8.4-10.2) mg/dL AST (13-35) U/L Alkaline Phosphatase (41-126) U/L Total Protein (6.2-8.2) g/dL Albumin (3.8-4.9) g/dL Albumin/Globulin Ratio (1.60-3.17) Ratio Microbiology - Last 24 Hours (Table) 04/30/24 14:56 Blood Culture - Preliminary Blood 04/30/24 13:35 Urine Culture - Final Urine,Clean Catch Citrobacter youngae Comments: Abdominal ultrasound reports small amount of fluid in abdomen Assessment and Plan (1) Ascites Narrative/Plan: 49-year-old female recently diagnosed with cervical cancer in January 2024 and underwent chemotherapy and radiation therapy which she states she completed about 4 weeks ago however nursing is reporting that patient just stopped on her own. Patient presenting with new onset abdominal ascites with recent paracentesis and 1.2 L removed 04/19/2024. No previous history of liver disease or alcoholism. Likely secondary to cervical cancer however need to consider possible hepatology source. vical cancer. Recommend with patient to follow-up with oncology who can order outpatient paracentesis as needed. At this time we will get a repeat ultrasound and paracentesis with fluid studies if possible. Current Visit: Yes Status: Acute Code(s): R18.8 - OTHER ASCITES SNOMED Code(s): 004699266 (2) Abdominal distention Current Visit: Yes Status: Acute Code(s): R14.0 - ABDOMINAL DISTENSION (GASEOUS) SNOMED Code(s): 22266980 (3) Cervical cancer Current Visit: Yes Status: Acute Priority: High Code(s): C53.9 - MALIGNANT NEOPLASM OF CERVIX UTERI, UNSPECIFIED SNOMED Code(s): 484896818 (4) Pulmonary embolism Current Visit: Yes Status: Acute Priority: High Code(s): I26.99 - OTHER PULMONARY EMBOLISM WITHOUT ACUTE COR PULMONALE SNOMED Code(s): 56583956 (5) Retention of urine, unspecified Current Visit: Yes Status: Acute Code(s): R33.9 - RETENTION OF URINE, UNSPECIFIED SNOMED Code(s): 759442312 (6) Swelling of lower extremity Current Visit: No Status: Acute Code(s): M79.89 - OTHER SPECIFIED SOFT TISSUE DISORDERS SNOMED Code(s): 846854521 Plan: 1. Continue symptomatic and supportive care 2. Repeat ultrasound to evaluate for abdominal fluid/ascites 3. Possible paracentesis with fluid studies if there is enough fluid 4. Consult to oncology for anemia, cervical cancer and needs to establish with oncologist 5. Further recommendations forthcoming pending clinical course Thank you for this consultation, we will continue to follow. Dr. Eboni Mary I agree with the dictator's note, documented as a scribe by Brisa Terrazas.
--- NOTE | 2024-05-03 11:25 | US ---
EXAMINATION TYPE: US abdomen limited DATE OF EXAM: 05/03/2024 COMPARISON: Ultrasound abdomen limited 3 days ago. CLINICAL INDICATION: Female, 49 years old with history of Evaluate for ascites, abdominal pain and di stention; TECHNIQUE: Grayscale imaging of the abdomen for ascites. FINDINGS: All four quadrants of the abdomen scanned. Small amount of ascites in the bilateral lower quadrants on today's study. IMPRESSION: As above. [facility], , 05/03/2024 11:23 AM
[2024-05-03 12:47] LABS: Glucose,Whole Blood 114 mg/dL (70-110)
--- NOTE | 2024-05-03 13:24 | P.PN ---
Subjective Progress Note Date: 05/03/24 Hospital Course: 49-year-old female with PMH of stage III ovarian cancer decided to not undergo any more treatments with oncology, pulmonary embolus failed Eliquis currently on Pradaxa, DM, who presented to the ED with inability to urinate and worsening abdominal bloating, associated shortness of breath with ambulation. No dysuria, fevers, chills, nausea, vomiting, chest pain, changes in bowel habits, appetite, weight. BP 150/61, HR 116, RR 20, T 98F, 100% on RA. CBC, Coag panel, CMP significant for RBC 2.62, Hg 9.2, Hct 29.3, MCV 111.7, PT 14.6, INR 1.4, Na 136, K 2.8, Cr 0.51, glu 201, Ca 7.5, T. Bili 1.8, AST 125, alk phos 738, alb 2.5. Trop < 0.012. Mag 1.8. BNP 704. UA trace LE with 21 WBCs. CXR no acute process. CTA chest RLL filling defect, mild pulmonary edema, hepatomegaly, hepatic steatosis, chronic granulomatous disease. EKG sinus tachycardia. Patient is admitted for further workup and management. Urology consulted, patient had Walker catheter removed, patient to straight catheterize and check postvoid residuals to assess bladder emptying. Patient has been verified to be empty and the bladder adequately and no further urology evaluation is needed. Started on Rocephin for UTI, urine cultures pending. Abdominal ultrasound showed small amount of fluid in the abdomen, IR consulted, not enough fluid to drain. Patient was started on Ensure for protein calorie malnutrition. GI consulted due to ongoing abdominal discomfort, bloating, , suggested oncology consulted and repeat Abdominal ultrasound again showed small amount of ascites in the bilateral lower quadrants. Pertinent Imaging: Normal ultrasound as discussed above Subjective: Continues to complain of worsening bloating, distention, bilateral lower extremity pain, inability to ambulate, shortness of breath Pertinent positives and negatives as discussed above, a complete review of systems was performed and all other systems are negative. Vitals Signs Reviewed. General: [nontoxic], [no distress], [appears at stated age] Derm: [warm], [dry] Head: [atraumatic], [normocephalic], [symmetric] Eyes: [EOMI], [no lid lag], [anicteric sclera] Mouth: [no lip lesion], [mucus membranes moist] Cardiovascular: [S1S2 reg], [no murmur] Lungs: [CTA bilateral], [no rhonchi, no rales] , [no accessory muscle use] Abdominal: Distended, tender Ext: [no gross muscle atrophy], lower extremity edema], [no contractures] Neuro: [ CN II-XI grossly intact], [no focal neuro deficits] Psych: [Alert], [oriented], [appropriate affect] Data Reviewed Today: Pertinent Labs: [] Leukocytosis 11.4, hemoglobin 7.1, platelet count 222, normal sodium, potassium, creatinine, glucose well-controlled Imaging: ultrasound as discussed Assessment and Plan: Generalized abdominal pain, bloating likely related to ovarian cancer -Patient had CT abdomen pelvis with contrast performed on 04/16/2024 while having similar complaints: Showed diffusely hypoattenuating parenchyma of the liver. 6.5 x 6 steatosis, s/p cholecystectomy, unremarkable pancreas, unremarkable spleen, management morning diffuse abdominal ascites -Abdominal ultrasound small amount of fluid in the abdomen, IR consulted, no fluid to drain -No improvement after 1 dose of IV Lasix on 05/02 -GI consulted, repeat abdominal ultrasound showed small amount of ascites and again, oncology consulted Calorie malnutrition: Continue Ensure 3 times daily Hypokalemia, resolved Urinary retention, resolved UTI, gram-negative bacilli Leukocytosis -urology following, Walker catheter removed 05/02, patient to straight cath and monitor volumes, proved to have efficient bladder emptying -Continue Flomax -Continue ceftriaxone -Final urine cultures to follow-up History of PE, resume home Pradaxa 150 daily History of stage III ovarian cancer, oncology consulted Infrarenal abdominal aorta and occlusion: Outpatient vascular surgery follow-up Supratherapeutic INR and transaminitis likely due to hepatic steatosis Type II DM: Continue SSI Anemia of chronic disease, hemoglobin stable DVT ppx: Continue Pradaxa Anticipated discharge place: Home with home care Anticipated discharge time: 24 to 48 hours Objective - Vital Signs Vital signs: Vital Signs Temp 97.7 F 05/03/24 12:38 Pulse 96 05/03/24 12:38 Resp 16 05/03/24 12:38 BP 118/73 05/03/24 12:38 Pulse Ox 99 05/03/24 12:38 FiO2 Intake & Output 05/02/24 05/03/24 05/03/24 18:59 06:59 18:59 Intake Total 1670 1080 Output Total 630 500 Balance 1040 580 Intake: Intake, IV Titration 50 Amount cefTRIAXone 1 gm In 50 Sodium Chloride 0.9% 50 ml @ 100 mls/hr IVPB Q24HR [facility] Rx#:[id number] Oral 1620 1080 Output: Urine 630 300 Straight 30 100 Uretheral (Walker) 200 Post Void Residual 200 Other: Voiding Method Indwelling Catheter Toilet Toilet # Voids 3 - Labs CBC & Chem 7: 05/03/24 04:45 05/03/24 04:45 Labs: Abnormal Lab Results - Last 24 Hours (Table) 05/02/24 05/02/24 05/02/24 Range/Units 12:27 17:13 20:39 WBC 10.02 H (4.50-10.00) X 10*3/uL RBC 2.19 L (4.10-5.20) X 10*6/uL Hgb 7.6 L (12.0-15.0) g/dL Hct 24.3 L (37.2-46.3) % MCV 111.0 H (80.0-97.0) FL MCH 34.7 H (27.0-32.0) pg MCHC 31.3 L (32.0-37.0) g/dL RDW 25.2 H (11.5-14.5) % Immature Gran # 0.12 H (0.00-0.04) X 10*3/uL Neutrophils # 8.21 H (1.80-7.70) X 10*3/uL Lymphocytes # 0.52 L (0.90-5.00) X 10*3/uL Monocytes # (0.20-1.00) X 10*3/uL NRBC/100 WBC Diff 0.03 H (0.00-0.01) X 10*3/uL Anisocytosis (manual) 2+ A (None Seen) Microcytosis (manual) 2+ A (None Seen) Macrocytosis (manual) 2+ A (None Seen) Spherocytes 2+ A (None Seen) BUN (9.0-27.0) mg/dL Creatinine (0.6-1.5) mg/dL Glucose (70-110) mg/dL POC Glucose (mg/dL) 168 H 186 H (70-110) mg/dL Calcium (8.7-10.3) mg/dL AST (13-35) U/L Alkaline Phosphatase (41-126) U/L Total Protein (6.2-8.2) g/dL Albumin (3.8-4.9) g/dL Albumin/Globulin Ratio (1.60-3.17) Ratio 05/03/24 05/03/24 05/03/24 Range/Units 04:45 04:45 07:23 WBC 11.41 H (4.50-10.00) X 10*3/uL RBC 2.07 L (4.10-5.20) X 10*6/uL Hgb 7.1 L (12.0-15.0) g/dL Hct 23.3 L (37.2-46.3) % MCV 112.6 H (80.0-97.0) FL MCH 34.3 H (27.0-32.0) pg MCHC 30.5 L (32.0-37.0) g/dL RDW 25.1 H (11.5-14.5) % Immature Gran # 0.17 H (0.00-0.04) X 10*3/uL Neutrophils # 9.31 H (1.80-7.70) X 10*3/uL Lymphocytes # 0.57 L (0.90-5.00) X 10*3/uL Monocytes # 1.17 H (0.20-1.00) X 10*3/uL NRBC/100 WBC Diff 0.03 H (0.00-0.01) X 10*3/uL Anisocytosis (manual) (None Seen) Microcytosis (manual) (None Seen) Macrocytosis (manual) (None Seen) Spherocytes (None Seen) BUN 5.5 L (9.0-27.0) mg/dL Creatinine 0.4 L (0.6-1.5) mg/dL Glucose 122 H (70-110) mg/dL POC Glucose (mg/dL) 121 H (70-110) mg/dL Calcium 7.4 L (8.7-10.3) mg/dL AST 114 H (13-35) U/L Alkaline Phosphatase 602 H (41-126) U/L Total Protein 5.4 L (6.2-8.2) g/dL Albumin 2.1 L (3.8-4.9) g/dL Albumin/Globulin Ratio 0.64 L (1.60-3.17) Ratio 05/03/24 Range/Units 12:41 WBC (4.50-10.00) X 10*3/uL RBC (4.10-5.20) X 10*6/uL Hgb (12.0-15.0) g/dL Hct (37.2-46.3) % MCV (80.0-97.0) FL MCH (27.0-32.0) pg MCHC (32.0-37.0) g/dL RDW (11.5-14.5) % Immature Gran # (0.00-0.04) X 10*3/uL Neutrophils # (1.80-7.70) X 10*3/uL Lymphocytes # (0.90-5.00) X 10*3/uL Monocytes # (0.20-1.00) X 10*3/uL NRBC/100 WBC Diff (0.00-0.01) X 10*3/uL Anisocytosis (manual) (None Seen) Microcytosis (manual) (None Seen) Macrocytosis (manual) (None Seen) Spherocytes (None Seen) BUN (9.0-27.0) mg/dL Creatinine (0.6-1.5) mg/dL Glucose (70-110) mg/dL POC Glucose (mg/dL) 114 H (70-110) mg/dL Calcium (8.7-10.3) mg/dL AST (13-35) U/L Alkaline Phosphatase (41-126) U/L Total Protein (6.2-8.2) g/dL Albumin (3.8-4.9) g/dL Albumin/Globulin Ratio (1.60-3.17) Ratio Microbiology - Last 24 Hours (Table) 04/30/24 14:56 Blood Culture - Preliminary Blood 04/30/24 13:35 Urine Culture - Final Urine,Clean Catch Citrobacter youngae
[2024-05-03 17:12] LABS: Glucose,Whole Blood 146 mg/dL (70-110)
--- NOTE | 2024-05-03 19:08 | P.CONS ---
History of Present Illness - Reason for Consult Consult date: 05/03/24 pt needs an oncologist Requesting physician: Brisa Patel - Chief Complaint Anuria - History of Present Illness Mrs. Soliman is a 49-year-old female patient we have been asked to see because she was wanting to transfer treatment of her malignancy locally. She states that she has been being seen and [place], she is unable to tell me her medical oncologist name. She states her last treatment was about 4 weeks ago, it is supposed to be given every 21 days she is on 2 drugs, one of them she has received twice and other drugs she has received 4 times, she does not know their name. She reports that she has stopped treatment. She states that she was supposed to have brachytherapy but refused it because of concerns for bleeding as she is on blood thinners for history of a pulmonary embolism. Patient states that she does not have a cervical cancer. Her last treatment was more than 4 weeks ago. Since that time she has had progressive abdominal swelling and nicolas ateral lower extremity swelling. She has come to the hospital because she was no longer able to urinate. She has a Walker catheter placed with relief of retained urine. Patient denies any fevers, sweats, her abdomen is distended and uncomfortable, her lower extremity swelling makes it difficult for her to walk at times. Chart review showed that she had a paracentesis 04/19, cytology was negative for malignancy. Her CBC shows an elevated white count of 11.4, hemoglobin of 7.1, hematocrit 23.3, she is macrocytic, platelet count 222,000. Alk phos is elevated at 602. Her urine does have a positive culture Citrobacter Youngae Review of Systems 10 point review of systems is negative except as stated in HPI Past Medical History Past Medical History: Cancer, Diabetes Mellitus, Deep Vein Thrombosis (DVT), Pulmonary Embolus (PE) Additional Past Medical History / Comment(s): Cervical cx stage- 3C. DVT History of Any Multi-Drug Resistant Organisms: None Reported Past Surgical History: Cholecystectomy, Tubal Ligation Additional Past Surgical History / Comment(s): right foot ortho surgery, left arm surgery Past Anesthesia/Blood Transfusion Reactions: No Reported Reaction Past Psychological History: No Psychological Hx Reported Smoking Status: Current every day smoker Past Alcohol Use History: None Reported Past Drug Use History: None Reported Medications and Allergies Home Medications Medication Instructions Recorded Confirmed Type Dabigatran [Pradaxa] 150 mg PO BID #60 capsule 04/21/24 04/30/24 Rx Allergies Allergy/AdvReac Type Severity Reaction Status Date / Time codeine Allergy Unknown Verified 04/30/24 15:02 Physical Exam Vitals: Vital Signs Temp Pulse Resp BP Pulse Ox 05/03/24 12:38 97.7 F 96 16 118/73 99 05/03/24 07:13 98.6 F 93 16 121/77 97 05/03/24 02:00 97.8 F 107 H 16 126/71 99 05/02/24 20:00 98.3 F 107 H 14 115/60 98 Intake and Output 05/03/24 05/03/24 05/03/24 06:59 14:59 22:59 Intake Total 1080 Output Total 300 Balance 780 Intake: Oral 1080 Output: Urine 300 Straight 100 Other: Voiding Method Toilet # Voids 3 - Constitutional General appearance: cooperative, no acute distress, obese - EENT Eyes: anicteric sclerae, EOMI ENT: hearing grossly normal, normal oropharynx - Neck Neck: no lymphadenopathy - Respiratory Respiratory: bilateral: CTA - Cardiovascular Rhythm: regular Heart sounds: normal: S1, S2 Abnormal Heart Sounds: no systolic murmur, no diastolic murmur, no rub, no S3 Gallop, no S4 Gallop, no click, no other leg Peripheral Edema: bilateral: 1+, Pitting - Gastrointestinal General gastrointestinal: distended, normal bowel sounds, soft, tenderness Localized gastrointestinal: tender: LUQ (Fullness palpated) - Integumentary Integumentary: normal - Neurologic Neurologic: CNII-XII intact - Musculoskeletal Musculoskeletal: generalized weakness, strength equal bilaterally - Psychiatric Psychiatric: A&O x's 3, appropriate affect Results CBC & Chem 7: 05/03/24 04:45 05/03/24 04:45 Labs: Abnormal Lab Results - Last 24 Hours (Table) 05/02/24 05/03/24 05/03/24 Range/Units 20:39 04:45 04:45 WBC 11.41 H (4.50-10.00) X 10*3/uL RBC 2.07 L (4.10-5.20) X 10*6/uL Hgb 7.1 L (12.0-15.0) g/dL Hct 23.3 L (37.2-46.3) % MCV 112.6 H (80.0-97.0) FL MCH 34.3 H (27.0-32.0) pg MCHC 30.5 L (32.0-37.0) g/dL RDW 25.1 H (11.5-14.5) % Immature Gran # 0.17 H (0.00-0.04) X 10*3/uL Neutrophils # 9.31 H (1.80-7.70) X 10*3/uL Lymphocytes # 0.57 L (0.90-5.00) X 10*3/uL Monocytes # 1.17 H (0.20-1.00) X 10*3/uL NRBC/100 WBC Diff 0.03 H (0.00-0.01) X 10*3/uL BUN 5.5 L (9.0-27.0) mg/dL Creatinine 0.4 L (0.6-1.5) mg/dL Glucose 122 H (70-110) mg/dL POC Glucose (mg/dL) 186 H (70-110) mg/dL Calcium 7.4 L (8.7-10.3) mg/dL AST 114 H (13-35) U/L Alkaline Phosphatase 602 H (41-126) U/L Total Protein 5.4 L (6.2-8.2) g/dL Albumin 2.1 L (3.8-4.9) g/dL Albumin/Globulin Ratio 0.64 L (1.60-3.17) Ratio 05/03/24 05/03/24 05/03/24 Range/Units 07:23 12:41 17:08 WBC (4.50-10.00) X 10*3/uL RBC (4.10-5.20) X 10*6/uL Hgb (12.0-15.0) g/dL Hct (37.2-46.3) % MCV (80.0-97.0) FL MCH (27.0-32.0) pg MCHC (32.0-37.0) g/dL RDW (11.5-14.5) % Immature Gran # (0.00-0.04) X 10*3/uL Neutrophils # (1.80-7.70) X 10*3/uL Lymphocytes # (0.90-5.00) X 10*3/uL Monocytes # (0.20-1.00) X 10*3/uL NRBC/100 WBC Diff (0.00-0.01) X 10*3/uL BUN (9.0-27.0) mg/dL Creatinine (0.6-1.5) mg/dL Glucose (70-110) mg/dL POC Glucose (mg/dL) 121 H 114 H 146 H (70-110) mg/dL Calcium (8.7-10.3) mg/dL AST (13-35) U/L Alkaline Phosphatase (41-126) U/L Total Protein (6.2-8.2) g/dL Albumin (3.8-4.9) g/dL Albumin/Globulin Ratio (1.60-3.17) Ratio Microbiology - Last 24 Hours (Table) 04/30/24 14:56 Blood Culture - Preliminary Blood 04/30/24 13:35 Urine Culture - Final Urine,Clean Catch Citrobacter youngae Comments: CTA of the chest negative for PE, thought to still be a filling defect in at least the right lower lobe when compared to 04/16/2024. Mild pulmonary edema. Hepatomegaly reported. Sequela of chronic granulomatosis disease abdominal ultrasound reporting a small amount of ascites in the left upper quadrant. CT scan - chest: report reviewed US - abdomen: report reviewed Assessment and Plan (1) Cervical cancer Current Visit: Yes Status: Acute Priority: High Code(s): C53.9 - MALIGNANT NEOPLASM OF CERVIX UTERI, UNSPECIFIED SNOMED Code(s): 057671677 (2) Pulmonary embolism Current Visit: Yes Status: Acute Priority: High Code(s): I26.99 - OTHER PULMONARY EMBOLISM WITHOUT ACUTE COR PULMONALE SNOMED Code(s): 56211455 (3) Retention of urine, unspecified Current Visit: Yes Status: Acute Code(s): R33.9 - RETENTION OF URINE, UNSPECIFIED SNOMED Code(s): 528934452 Plan: Cervical cancer -Will request records from [facility] so that patient's malignancy history and current treatment plan can be reviewed and plan of care can possibly be continued. Will update medical record with the same -Patient would have been due for treatment about a week ago if, she was having treatment every 21 days. Not certain if her current presentation is reflective of something with her cervical cancer, though less likely. Fluid cytology 04/19/2024 was negative for any malignant cells. Pt treatment consisted of chemo/XRT which is used when intent of treatment is neoadj, definitive or curative. Abd distension -GI consulted. -Not thinking r/t cervical carcinoma. Pending GI assessment and recommendations. Will get records from Oncologist . Pulmonary embolism -Patient to remain on anticoagulation-she is on pradaxa Urinary retention -Unclear etiology. Suspect may be related to urinary tract infection. Urology consulted -Patient is on antibiotics. -Defer treatment at the same to IM
[2024-05-03] MEDS: guaiFENesin-DM 100-10MG/5ML 10 ML CUP PO PRN (20:09)
[2024-05-03 20:29] LABS: Glucose,Whole Blood 175 mg/dL (70-110)
[2024-05-04 02:58] LABS: % Iron Saturation 31.36 (12.00-45.00)
[2024-05-04 03:01] LABS: Protein, Total 5.8 g/dL (6.2-8.2)
[2024-05-04 07:49] LABS: Glucose,Whole Blood 129 mg/dL (70-110)
--- NOTE | 2024-05-04 09:39 | CDI ---
Documentation Clarification Form Date: 05/04/2024 09:23:14 AM From: Anila Nielsen RN CCDS Phone: [phone] Admit Date: 05/01/2024 08:42:00 AM Patient Name: Nell Soliman Visit Number: [id number] Discharge Date: ATTENTION: The Clinical Documentation Specialists (CDI) and [facility] Coding Staff appreciate your assistance in clarifying documentation. Please respond to the clarification below the line at the bottom and electronically sign. The CDI & [facility] Coding staff will review the response and follow-up if needed. Please note: Queries are made part of the Legal Health Record. If you have any questions, please contact the author of this message via ITS. Doctor: Victorina Ash Malnutrition is documented. Additional clarification regarding the severity of malnutrition is requested. History/Risk Factors: 49 year old female presents to the ED urinary retention for the past two days with abdominal bloating progressively getting worse over the past two weeks. Medical History: PE, Stage III ovarian CA and DM2 04/30, [place] Clinical Indicators: Current BMI: 30.4kg 05/01, Medicine note: Abdominal distention likely ascites related to ovarian CA and protein calorie malnutrition: Abd US shows small amount of fluid in the abdomen. IR consulted, not enough fluid to drain. Add Ensure TID to meals. 05/02 Medicine note: Calorie malnutrition: Continue Ensure Three times daily. Treatment: Heart Healthy Diet, Monitor po intake and output Supplements: Ensure TID Please clarify the severity of malnutrition, if known: [ x] Mild Protein-Calorie Malnutrition [ ] Moderate Protein-Calorie Malnutrition [ ] Severe Protein-Calorie Malnutrition [ ] Other condition, please specify [ ] Unable to Determine (Template Last Revised: October 2022) MTDD
[2024-05-04 11:26] LABS: Free Kappa Lt Chain Qnt, Serum 6.36 mg/dL (0.33-1.94); Free Lambda Lt Chain Qnt, Seru 6.26 mg/dL (0.57-2.63)
[2024-05-04 12:03] LABS: Glucose,Whole Blood 146 mg/dL (70-110)
--- NOTE | 2024-05-04 13:21 | P.PN ---
Subjective Progress Note Date: 05/04/24 Hospital Course: 49-year-old female with PMH of stage III ovarian cancer decided to not undergo any more treatments with oncology, pulmonary embolus failed Eliquis currently on Pradaxa, DM, who presented to the ED with inability to urinate and worsening abdominal bloating, associated shortness of breath with ambulation. No dysuria, fevers, chills, nausea, vomiting, chest pain, changes in bowel habits, appetite, weight. BP 150/61, HR 116, RR 20, T 98F, 100% on RA. CBC, Coag panel, CMP significant for RBC 2.62, Hg 9.2, Hct 29.3, MCV 111.7, PT 14.6, INR 1.4, Na 136, K 2.8, Cr 0.51, glu 201, Ca 7.5, T. Bili 1.8, AST 125, alk phos 738, alb 2.5. Trop < 0.012. Mag 1.8. BNP 704. UA trace LE with 21 WBCs. CXR no acute process. CTA chest RLL filling defect, mild pulmonary edema, hepatomegaly, hepatic steatosis, chronic granulomatous disease. EKG sinus tachycardia. Patient is admitted for further workup and management. Urology consulted, patient had Walker catheter removed, patient to straight catheterize and check postvoid residuals to assess bladder emptying. Patient has been verified to be empty and the bladder adequately and no further urology evaluation is needed.Sensitive to ceftriaxone Citrobacter growing in the urine Started on Rocephin for UTI, urine cultures pending. Abdominal ultrasound showed small amount of fluid in the abdomen, IR consulted, not enough fluid to drain. Patient was started on Ensure for protein calorie malnutrition. GI consulted due to ongoing abdominal discomfort, bloating, , suggested oncology consulted and repeat Abdominal ultrasound again showed small amount of ascites in the bilateral lower quadrants. Patient went for left-sided thoracentesis on 05/04 with 2 L removed, noted improved abdominal distention. Pertinent Imaging: Abdominal ultrasound paracentesis Subjective: Seen and examined at bedside after paracentesis, feeling better, abdominal pain improved Pertinent positives and negatives as discussed above, a complete review of systems was performed and all other systems are negative. Vitals Signs Reviewed. General: [nontoxic], [no distress], [appears at stated age] Derm: [warm], [dry] Head: [atraumatic], [normocephalic], [symmetric] Eyes: [EOMI], [no lid lag], [anicteric sclera] Mouth: [no lip lesion], [mucus membranes moist] Cardiovascular: [S1S2 reg], [no murmur] Lungs: [CTA bilateral], [no rhonchi, no rales] , [no accessory muscle use] Abdominal: Distended, tender, post paracentesis dressing with leaking Ext: [no gross muscle atrophy], lower extremity edema], [no contractures] Neuro: [ CN II-XI grossly intact], [no focal neuro deficits] Psych: [Alert], [oriented], [appropriate affect] Generalized abdominal pain, bloating Ascites -Patient had CT abdomen pelvis with contrast performed on 04/16/2024 while having similar complaints: Showed diffusely hypoattenuating parenchyma of the liver. 6.5 x 6 steatosis, s/p cholecystectomy, unremarkable pancreas, unremarkable spleen, management morning diffuse abdominal ascites -Abdominal ultrasound small amount of fluid in the abdomen, IR consulted, no fluid to drain -No improvement after 1 dose of IV Lasix on 05/02 -GI consulted, repeat abdominal ultrasound showed small amount of ascites and again, oncology consulted -Status post paracentesis 05/04, 2 L removed, follow-up body fluid analysis -Free kappa 6.36, free lambda 6.26 -Oncology following Mild Calorie malnutrition: Continue Ensure 3 times daily Hypokalemia, resolved Urinary retention, resolved UTI, Citrobacter Leukocytosis -urology following, Walker catheter removed 05/02, patient to straight cath and monitor volumes, proved to have efficient bladder emptying -Continue Flomax -Continue ceftriaxone -Sensitive to ceftriaxone Citrobacter growing in the urine History of PE, resume home Pradaxa 150 daily History of stage III ovarian cancer, oncology consulted Infrarenal abdominal aorta and occlusion: Outpatient vascular surgery follow-up Supratherapeutic INR and transaminitis likely due to hepatic steatosis Type II DM: Continue SSI Anemia of chronic disease, hemoglobin stable DVT ppx: Continue Pradaxa Anticipated discharge place: Home with home care Anticipated discharge time: pending clinical course Objective - Vital Signs Vital signs: Vital Signs Temp 97.7 F 05/04/24 11:40 Pulse 107 H 05/04/24 11:40 Resp 16 05/04/24 11:40 BP 123/71 05/04/24 11:40 Pulse Ox 97 05/04/24 11:40 FiO2 Intake & Output 05/03/24 05/04/24 05/04/24 18:59 06:59 18:59 Intake Total 780 Balance 780 Intake: Oral 780 Other: Voiding Method Toilet Toilet Toilet # Voids 3 - Labs CBC & Chem 7: 05/03/24 04:45 05/03/24 04:45 Labs: Abnormal Lab Results - Last 24 Hours (Table) 05/03/24 05/03/24 05/03/24 Range/Units 17:08 17:41 17:41 POC Glucose (mg/dL) 146 H (70-110) mg/dL Iron 37 L (50-170) UG/DL TIBC 118 L (228-460) UG/DL Transferrin 84.6 L (204.0-354.0) mg/dL Ferritin 632.0 H (10.0-291.0) ng/mL Total Protein (PEP) (6.2-8.2) g/dL Vitamin B12 2047.0 H (200.0-944.0) pg/mL RBC Folate 880 H (280 - 791) ng/mL Free Iva LC, Quant (0.33-1.94) mg/dL Free Lambda LC, Quant (0.57-2.63) mg/dL 05/03/24 05/03/24 05/04/24 Range/Units 17:41 20:27 07:36 POC Glucose (mg/dL) 175 H 129 H (70-110) mg/dL Iron (50-170) UG/DL TIBC (228-460) UG/DL Transferrin (204.0-354.0) mg/dL Ferritin (10.0-291.0) ng/mL Total Protein (PEP) 5.8 L (6.2-8.2) g/dL Vitamin B12 (200.0-944.0) pg/mL RBC Folate (280 - 791) ng/mL Free Iva LC, Quant 6.36 H (0.33-1.94) mg/dL Free Lambda LC, Quant 6.26 H (0.57-2.63) mg/dL 05/04/24 Range/Units 12:02 POC Glucose (mg/dL) 146 H (70-110) mg/dL Iron (50-170) UG/DL TIBC (228-460) UG/DL Transferrin (204.0-354.0) mg/dL Ferritin (10.0-291.0) ng/mL Total Protein (PEP) (6.2-8.2) g/dL Vitamin B12 (200.0-944.0) pg/mL RBC Folate (280 - 791) ng/mL Free Iva LC, Quant (0.33-1.94) mg/dL Free Lambda LC, Quant (0.57-2.63) mg/dL Microbiology - Last 24 Hours (Table) 04/30/24 14:56 Blood Culture - Preliminary Blood
--- NOTE | 2024-05-04 13:38 | US ---
EXAMINATION TYPE: US paracentesis abd w/image, diagnostic and therapeutic DATE OF EXAM: 05/04/2024 CLINICAL HISTORY: 49-year-old female with history of cervical cancer and ascites, referred for diagn ostic paracentesis. The procedure was discussed with the patient. The risks, complications, benefits, and alternatives we re discussed and any questions were answered. Informed consent was obtained. The patient was placed s upine on the ultrasound table and prepped and draped in the usual sterile fashion. All elements of maximal barrier technique were utilized. Ultrasound was utilized to determine the precise skin entry site along the left lower quadrant. A 5 [place] One-Step catheter and trocar technique was utilized to access the ascites collection under direct ultrasound guidance. Initial 150 mL sample was collected split in 3 separate syringes. These were labeled for laboratory a nalysis. Subsequently removal of a total of approximately 2.1 liters of clear, mountain dew colored fluid. Catheter was removed, hemostasis obtained, and a dressing placed. The patient was stable throughout the procedure and remained stable upon discharge from Department of Radiology. IMPRESSION: Successful diagnostic and therapeutic paracentesis under ultrasound guidance. 2.1 L of fluid removed. Fluid analysis pending. [facility], , 05/04/2024 1:35 PM
--- NOTE | 2024-05-04 13:46 | P.PN ---
Subjective Progress Note Date: 05/04/24 Principal diagnosis: Abdominal distention, ascites This a 49-year-old female with a past medical history including cervical cancer, urinary retention, pulmonary embolism on Pradaxa, and diabetes mellitus who presented to the hospital with complaints of urinary retention and inability to urinate as well as abdominal bloating and distention. Patient states she was recently diagnosed with pulmonary embolism initially was on Eliquis and now on Pradaxa. She states was diagnosed with cervical cancer in 2023 following with oncologist and radiation oncologist underwent chemo and radiation that started in January and she states that she finished both about 4 weeks ago. She states she is no longer following with her oncologist. She was recently hospitalized and had some abdominal distention and underwent a paracentesis with 1.2 L removed on 04/19/2024. Since her last discharge she states that she is not really following with any oncologist. She denies any history of any liver disease, no history of alcoholism. She had initial ultrasound done on 04/30/2023 that showed a small amount of abdominal fluid, paracentesis was ordered however interventional radiologist that not enough fluid for paracentesis. Patient states she is having continued abdominal distention. She states that she is having normal bowel movements some have been loose. No nausea or vomiting. Pat ient also having lower extremity swelling. Patient is not on any diuretics. Currently on Rocephin I believe prophylactically. States she is voiding now. She was seen by urology, and had indwelling Walker catheter which was discontinued and they are now recommending intermittent straight cathing as needed. Labs WBC 11.4 hemoglobin 7.1 hematocrit 23 platelet count 222,000 sodium 135 potassium 3.9 BUN 5.5 creatinine 0.4 total bilirubin 1.2 AST 114 ALT 25 alkaline phosphatase 602 stool occult blood negative 05/04/2024 Patient seen as a follow-up. Underwent paracentesis with 2.1 L of fluid johan maggy. Fluid studies collected and pending. Oncology following. No acute changes through the night. Objective - Vital Signs Vital signs: Vital Signs Temp 97.7 F 05/04/24 11:40 Pulse 107 H 05/04/24 11:40 Resp 16 05/04/24 11:40 BP 123/71 05/04/24 11:40 Pulse Ox 97 05/04/24 11:40 FiO2 Intake & Output 05/03/24 05/04/24 05/04/24 18:59 06:59 18:59 Intake Total 780 Balance 780 Intake: Oral 780 Other: Voiding Method Toilet Toilet Toilet # Voids 3 - Exam General appearance: The patient is alert, oriented, appears in no acute dis tress. HET: Head is normocephalic and atraumatic. Conjunctiva pink. Sclera anicteric. Neck: Supple without lymphadenopathy. Abdomen: Soft, lower abdominal tenderness, distended. Extremities: Normal skin color and turgor. Lower extremity edema. Skin: No rashes, no jaundice Neurological: No focal deficits. Alert and oriented. - Labs CBC & Chem 7: 05/03/24 04:45 05/03/24 04:45 Labs: Abnormal Lab Results - Last 24 Hours (Table) 05/03/24 05/03/24 05/03/24 Range/Units 17:08 17:41 17:41 POC Glucose (mg/dL) 146 H (70-110) mg/dL Iron 37 L (50-170) UG/DL TIBC 118 L (228-460) UG/DL Transferrin 84.6 L (204.0-354.0) mg/dL Ferritin 632.0 H (10.0-291.0) ng/mL Total Protein (PEP) (6.2-8.2) g/dL Vitamin B12 2047.0 H (200.0-944.0) pg/mL RBC Folate 880 H (280 - 791) ng/mL Free [place] LC, Quant (0.33-1.94) mg/dL Free Lambda LC, Quant (0.57-2.63) mg/dL 05/03/24 05/03/24 05/04/24 Range/Units 17:41 20:27 07:36 POC Glucose (mg/dL) 175 H 129 H (70-110) mg/dL Iron (50-170) UG/DL TIBC (228-460) UG/DL Transferrin (204.0-354.0) mg/dL Ferritin (10.0-291.0) ng/mL Total Protein (PEP) 5.8 L (6.2-8.2) g/dL Vitamin B12 (200.0-944.0) pg/mL RBC Folate (280 - 791) ng/mL Free [place] LC, Quant 6.36 H (0.33-1.94) mg/dL Free Lambda LC, Quant 6.26 H (0.57-2.63) mg/dL 05/04/24 Range/Units 12:02 POC Glucose (mg/dL) 146 H (70-110) mg/dL Iron (50-170) UG/DL TIBC (228-460) UG/DL Transferrin (204.0-354.0) mg/dL Ferritin (10.0-291.0) ng/mL Total Protein (PEP) (6.2-8.2) g/dL Vitamin B12 (200.0-944.0) pg/mL RBC Folate (280 - 791) ng/mL Free [place] LC, Quant (0.33-1.94) mg/dL Free Lambda LC, Quant (0.57-2.63) mg/dL Microbiology - Last 24 Hours (Table) 04/30/24 14:56 Blood Culture - Preliminary Blood Assessment and Plan (1) Ascites Narrative/Plan: 49-year-old female recently diagnosed with cervical cancer in January 2024 and underwent chemotherapy and radiation therapy which she states she completed about 4 weeks ago however nursing is reporting that patient just stopped on her own. Patient presenting with new onset abdominal ascites with recent paracentesis and 1.2 L removed 04/19/2024. No previous history of liver disease or alcoholism. Etiology unclear if secondary to portal hypertension versus other etiology. Paracentesis status post 2.1 L removed fluid studies pending. Will await fluid studies for further recommendations. Current Visit: Yes Status: Acute Code(s): R18.8 - OTHER ASCITES SNOMED Code(s): 900915948 (2) Abdominal distention Current Visit: Yes Status: Acute Code(s): R14.0 - ABDOMINAL DISTENSION (GASEOUS) SNOMED Code(s): 30179492 (3) Cervical cancer Current Visit: Yes Status: Acute Priority: High Code(s): C53.9 - MALIGNANT NEOPLASM OF CERVIX UTERI, UNSPECIFIED SNOMED Code(s): 516819561 (4) Pulmonary embolism Current Visit: Yes Status: Acute Priority: High Code(s): I26.99 - OTHER PULMONARY EMBOLISM WITHOUT ACUTE COR PULMONALE SNOMED Code(s): 98533011 (5) Retention of urine, unspecified Current Visit: Yes Status: Acute Code(s): R33.9 - RETENTION OF URINE, UNSPECIFIED SNOMED Code(s): 504872177 (6) Swelling of lower extremity Current Visit: No Status: Acute Code(s): M79.89 - OTHER SPECIFIED SOFT TISSUE DISORDERS SNOMED Code(s): 863779271 Plan: 1. Continue symptomatic and supportive care 2. Paracentesis ordered, await fluid studies. 3. Oncology on consultation, appreciate their recommendations 4. Recommend low-sodium diet 5. Further recommendations forthcoming based on fluid studies Thank you for this consultation, we will continue to follow. Dr. Eboni Mary I agree with the dictator's note, documented as a scribe by Brisa Terrazas.
[2024-05-04 17:05] LABS: Glucose,Whole Blood 161 mg/dL (70-110)
[2024-05-04 20:22] LABS: Glucose,Whole Blood 151 mg/dL (70-110)
[2024-05-04 21:00] LABS: T. Protein, Body Fluid Source Ascites; Total Protein, Body Fluid 2890 mg/dL
[2024-05-04 21:01] LABS: Albumin, Fluid Source Ascites
[2024-05-04 21:27] LABS: Appearance,BF Clear (Clear)
--- NOTE | 2024-05-04 23:06 | P.PN ---
Progress Note - Text Progress Note Date: 05/04/24 Malignancy Hx: Patient was off unit for paracentesis, note is placed in chart to complete malignancy Hx. Medical information was obtained from medical oncologist. Patient has a diagnosis of poorly differentiated carcinoma of the cervix, FIGO stage III C2. Treatment plan was for concurrent hemoradiation and immunotherapy with weekly cisplatin and pembrolizumab every 21 days. June 30, 2023 patient had a bladder biopsy that was normal. Patient reported vaginal bleeding. 11/02/2023 US showed 10 cm fundal myoma with a 25 mm endometrial stripe. 01/12/2024 biopsy of cervical mass, pathology positive for poorly differentiated carcinoma. 02/04/2024 MRI of the pelvis heterogenous enhancing abnormal cervix measuring 6.9 x 3.7 x 5.7 cm with no invasion or breach of the serosa, no surrounding adenopathy. 02/07/2024 PET/CT hypermetabolic cervical mass 7.5 cm. Hypermetabolic mildly enlarged left internal iliac lymph nodes consistent with local metastatic disease. No distant metastasis seen. 02/18/2024 started concurrent chemo/radiation plus immunotherapy. 04/06/2024 patient presented with right sided pain, pleuritic chest pain. CTA small volume lower lobe pulmonary emboli. CTAP showed right hydroureter without stone. She was started on Eliquis. When patient was seen by Dr. Denney on 04/13/2024 patient reported weak weakness and being tired. Swelling in the bilateral lower extremities and abdominal distention it is reported that the patient refused treatment. Patient was explained that missing treatment would jeopardize odds of success. She was referred to [facility] emergency department for evaluation. Patient did have a paracentesis earlier this month, negative for malignancy. Patient will be seen by medical oncology locally at her request. Diagnosis, prognosis, treatment options will be discussed.
[2024-05-05 05:23] LABS: Methylmalonic Acid 0.15 umol/L (<0.40)
[2024-05-05 07:43] LABS: Glucose,Whole Blood 141 mg/dL (70-110)
[2024-05-05 08:26] LABS: Calcium 7.3 mg/dL (8.7-10.3); Carbon Dioxide 24.7 mmol/L (21.6-31.8); Chloride 104 mmol/L (96-109); Glucose 122 mg/dL (70-110); Sodium 138 mmol/L (135-145)
[2024-05-05] MEDS: SPIRONOLACTONE 25 MG TAB PO SCH (08:26)
[2024-05-05 08:41] LABS: Basophils # (A) 0.11 X 10*3/uL (0.00-0.10); Basophils % (A) 0.8 %; Eosinophils # (A) 0.13 X 10*3/uL (0.04-0.35); HCT 24.3 % (37.2-46.3); HGB 7.4 g/dL (12.0-15.0); Lymphocytes # (A) 0.74 X 10*3/uL (0.90-5.00); Lymphocytes % (A) 5.5 %; MCH 34.3 pg (27.0-32.0); MCHC 30.5 g/dL (32.0-37.0); MCV 112.5 FL (80.0-97.0); Mean Platelet Volume 9.7 FL (9.5-12.2); Monocytes # (A) 1.37 X 10*3/uL (0.20-1.00); Monocytes % (A) 10.2 %; NRBC Per 100 WBC 0.03 X 10*3/uL (0.00-0.01); Neutrophils # (A) 10.88 X 10*3/uL (1.80-7.70); Neutrophils % (A) 80.6 %; Platelet Count 230 X 10*3/uL (140-440); RBC 2.16 X 10*6/uL (4.10-5.20); RDW 24.1 % (11.5-14.5); WBC 13.48 X 10*3/uL (4.50-10.00)
[2024-05-05] MEDS ORDERED: FUROSEMIDE 40 MG TAB PO SCH (09:00)
[2024-05-05 10:25] LABS: Albumin 1.98 g/dL (3.80-4.90); Gamma Globulin 1.51 g/dL (0.70-1.50)
--- NOTE | 2024-05-05 10:32 | P.PN ---
Subjective Principal diagnosis: Abdominal distention, ascites This a 49-year-old female with a past medical history including cervical cancer, urinary retention, pulmonary embolism on Pradaxa, and diabetes mellitus who presented to the hospital with complaints of urinary retention and inability to urinate as well as abdominal bloating and distention. Patient states she was recently diagnosed with pulmonary embolism initially was on Eliquis and now on Pradaxa. She states was diagnosed with cervical cancer in 2023 following with oncologist and radiation oncologist underwent chemo and radiation that started in January and she states that she finished both about 4 weeks ago. She states she is no longer following with her oncologist. She was recently hospitalized and had some abdominal distention and underwent a paracentesis with 1.2 L removed on 04/19/2024. Since her last discharge she states that she is not really following with any oncologist. She denies any history of any liver disease, no history of alcoholism. She had initial ultrasound done on 04/30/2023 that showed a small amount of abdominal fluid, paracentesis was ordered however interventional radiologist that not enough fluid for paracentesis. Patient states she is having continued abdominal distention. She states that she is having normal bowel movements some have been loose. No nausea or vomiting. Patient also having lower extremity swelling. Patient is not on any diuretics. Currently on Rocephin I believe prophylactically. States she is voiding now. She was seen by urology, and had indwelling Walker catheter which was discontinued and they are now recommending intermittent straight cathing as needed. Labs WBC 11.4 hemoglobin 7.1 hematocrit 23 platelet count 222,000 sodium 135 potassium 3.9 BUN 5.5 creatinine 0.4 total bilirubin 1.2 AST 114 ALT 25 alkaline phosphatase 602 stool occult blood negative 05/04/2024 Patient seen as a follow-up. Underwent paracentesis with 2.1 L of fluid removed. Fluid studies collected and pending. Oncology following. No acute changes through the night. 05/05/2024 Patient seen and examined today as a follow-up. Yesterday she underwent paracentesis with 2.1 L removed. Fluid studies are consistent with portal hypertension. She states abdominal distention improved some. She will follow with oncology here in [place]. She again denies any history of known liver disease or prior alcohol use. Objective - Vital Signs Vital signs: Vital Signs Temp 98.3 F 05/05/24 01:58 Pulse 101 H 05/05/24 01:58 Resp 16 05/05/24 01:58 BP 117/67 05/05/24 01:58 Pulse Ox 96 05/05/24 01:58 FiO2 Intake & Output 05/04/24 05/04/24 05/05/24 06:59 18:59 06:59 Intake Total 780 200 590 Balance 780 200 590 Intake: Oral 780 200 590 Other: Voiding Method Toilet Toilet Toilet # Voids 3 3 - Exam General appearance: The patient is alert, oriented, appears in no acute distress. HET: Head is normocephalic and atraumatic. Conjunctiva pink. Sclera anicteric. Neck: Supple without lymphadenopathy. Abdomen: Soft, lower abdominal tenderness, distention improved. Extremities: Normal skin color and turgor. Lower extremity edema. Skin: No rashes, no jaundice Neurological: No focal deficits. Alert and oriented. - Labs CBC & Chem 7: 05/05/24 05:39 05/05/24 05:39 Labs: Abnormal Lab Results - Last 24 Hours (Table) 05/03/24 05/03/24 05/04/24 Range/Units 17:41 17:41 07:36 POC Glucose (mg/dL) 129 H (70-110) mg/dL RBC Folate 880 H (280 - 791) ng/mL Free [place] LC, Quant 6.36 H (0.33-1.94) mg/dL Free Lambda LC, Quant 6.26 H (0.57-2.63) mg/dL 05/04/24 05/04/24 05/04/24 Range/Units 12:02 17:04 20:20 POC Glucose (mg/dL) 146 H 161 H 151 H (70-110) mg/dL RBC Folate (280 - 791) ng/mL Free [place] LC, Quant (0.33-1.94) mg/dL Free Lambda LC, Quant (0.57-2.63) mg/dL Microbiology - Last 24 Hours (Table) 05/04/24 11:00 Gram Stain - Preliminary Ascites Fluid Assessment and Plan (1) Ascites Narrative/Plan: 49-year-old female recently diagnosed with cervical cancer in January 2024 and underwent chemotherapy and radiation therapy which she states she completed about 4 weeks ago however nursing is reporting that patient just stopped on her own. Patient presenting with new onset abdominal ascites with recent paracentesis and 1.2 L removed 04/19/2024. No previous history of liver disease or alcoholism. Etiology unclear if secondary to portal hypertension versus other etiology. Paracentesis status post 2.1 L removed fluid studies pending. Fluid cytology pending. Fluid protein and albumin consistent with portal hypertension likely secondary to liver disease. Will run liver serology and hepatitis panel. Recommend outpatient follow-up. Will start spironolactone 50 mg twice daily for ascites. Recommend low-sodium diet. Current Visit: Yes Status: Acute Code(s): R18.8 - OTHER ASCITES SNOMED Code(s): 287330363 (2) Abdominal distention Current Visit: Yes Status: Acute Code(s): R14.0 - ABDOMINAL DISTENSION (GASEOUS) SNOMED Code(s): 35206240 (3) Cervical cancer Current Visit: Yes Status: Acute Priority: High Code(s): C53.9 - MALIGNANT NEOPLASM OF CERVIX UTERI, UNSPECIFIED SNOMED Code(s): 490511171 (4) Pulmonary embolism Current Visit: Yes Status: Acute Priority: High Code(s): I26.99 - OTHER PULMONARY EMBOLISM WITHOUT ACUTE COR PULMONALE SNOMED Code(s): 12281402 (5) Retention of urine, unspecified Current Visit: Yes Status: Acute Code(s): R33.9 - RETENTION OF URINE, UNSPECIFIED SNOMED Code(s): 945290682 (6) Swelling of lower extremity Current Visit: No Status: Acute Code(s): M79.89 - OTHER SPECIFIED SOFT TISSUE DISORDERS SNOMED Code(s): 387437003 Plan: 1. Continue symptomatic and supportive care 2. Hepatitis panel and liver serologies ordered 3. Oncology on consultation, appreciate their recommendations 4. Recommend low-sodium diet 5. Will start patient on spironolactone 50 mg twice daily 6. Recommend follow-up with gastroenterology in 1 to 2 weeks to follow-up on liver serologies 7. No further workup at this time Thank you for this consultation, patient is cleared from gastroenterology for discharge. We will sign off at this time. Dr. Eboni Mary I agree with the dictator's note, documented as a scribe by Brisa Terrazas.
[2024-05-05 10:33] LABS: Alpha Fetoprotein, Tumor Mkr <3.00 ng/mL (0.00-7.90); Hepatitis A Antibody IgM Nonreactive (Nonreactive); Hepatitis B Core IgM Nonreactive (Nonreactive); Hepatitis B Surface Antigen Nonreactive (Nonreactive); Hepatitis C IgG Antibody Nonreactive (Nonreactive)
[2024-05-05 10:56] LABS: Ceruloplasmin 25.7 mg/dL (20.0-60.0)
[2024-05-05 12:12] LABS: Glucose,Whole Blood 124 mg/dL (70-110)
--- NOTE | 2024-05-05 14:51 | P.PN ---
Subjective Progress Note Date: 05/05/24 Hospital Course: 49-year-old female with PMH of stage III ovarian cancer decided to not undergo any more treatments with oncology, pulmonary embolus failed Eliquis currently on Pradaxa, DM, who presented to the ED with inability to urinate and worsening abdominal bloating, associated shortness of breath with ambulation. No dysuria, fevers, chills, nausea, vomiting, chest pain, changes in bowel habits, appetite, weight. BP 150/61, HR 116, RR 20, T 98F, 100% on RA. CBC, Coag panel, CMP significant for RBC 2.62, Hg 9.2, Hct 29.3, MCV 111.7, PT 14.6, INR 1.4, Na 136, K 2.8, Cr 0.51, glu 201, Ca 7.5, T. Bili 1.8, AST 125, alk phos 738, alb 2.5. Trop < 0.012. Mag 1.8. BNP 704. UA trace LE with 21 WBCs. CXR no acute process. CTA chest RLL filling defect, mild pulmonary edema, hepatomegaly, hepatic steatosis, chronic granulomatous disease. EKG sinus tachycardia. Patient is admitted for further workup and management. Urology consulted, patient had Walker catheter removed, patient to straight catheterize and check postvoid residuals to assess bladder emptying. Patient has been verified to be empty and the bladder adequately and no further urology evaluation is needed.Sensitive to ceftriaxone Citrobacter growing in the urine Started on Rocephin for UTI, urine cultures pending. Abdominal ultrasound showed small amount of fluid in the abdomen, IR consulted, not enough fluid to drain. Patient was started on Ensure for protein calorie malnutrition. GI consulted due to ongoing abdominal discomfort, bloating, , suggested oncology consulted and repeat Abdominal ultrasound again showed small amount of ascites in the bilateral lower quadrants. Patient went for left-sided thoracentesis on 05/04 with 2 L removed, noted improved abdominal distention. patient started on spironolactone. CORRY negative, hepatitis panel negative, AFP negative, ceruloplasmin 25.7, negative, alpha-1 antitrypsin significantly elevated 347. Patient will need to follow-up with GI as outpatient in 1 or 2 weeks. Pertinent Imaging: No new imaging Subjective: Continues to complain of abdominal distention, leaking after paracentesis. Patient was able to ambulate in the hallway, uses bathroom independently Pertinent positives and negatives as discussed above, a complete review of systems was performed and all other systems are negative. Vitals Signs Reviewed. General: [nontoxic], [no distress], [appears at stated age] Derm: [warm], [dry] Head: [atraumatic], [normocephalic], [symmetric] Eyes: [EOMI], [no lid lag], [anicteric sclera] Mouth: [no lip lesion], [mucus membranes moist] Cardiovascular: [S1S2 reg], [no murmur] Lungs: [CTA bilateral], [no rhonchi, no rales] , [no accessory muscle use] Abdominal: Distended, tender, post paracentesis dressing with leaking Ext: [no gross muscle atrophy], lower extremity edema], [no contractures] Neuro: [ CN II-XI grossly intact], [no focal neuro deficits] Psych: [Alert], [oriented], [appropriate affect] Data Reviewed Today: Pertinent Labs: Hemoglobin 4.7, leukocytes 13.48, platelet count 230, sodium and potassium normal, creatinine normal, glucose well-controlled, positive alpha-1 antitrypsin, negative serum plasmin and AFP, negative CORRY, hepatitis serology Assessment and Plan: Generalized abdominal pain, bloating Ascites status post paracentesis 05/04/2024 Positive alpha 1 antitrypsin -Patient had CT abdomen pelvis with contrast performed on 04/16/2024 while having similar complaints: Showed diffusely hypoattenuating parenchyma of the liver. 6.5 x 6 steatosis, s/p cholecystectomy, unremarkable pancreas, unremarkable spleen, management morning diffuse abdominal ascites -Abdominal ultrasound small amount of fluid in the abdomen, IR consulted, no fluid to drain -No improvement after 1 dose of IV Lasix on 05/02 -GI consulted, patient started on spironolactone. Will need to follow-up in 1 or 2 weeks as outpatient, signed off -Status post paracentesis 05/04, 2 L removed, follow-up body fluid analysis -Free kappa 6.36, free lambda 6.26 -Oncology following -Patient refuses rehab, plan to discharge on 05/06 Mild Calorie malnutrition: Continue Ensure 3 times daily Hypokalemia, resolved Urinary retention, resolved UTI, Citrobacter Leukocytosis -urology signed off, Walker catheter removed 05/02, patient to straight cath and monitor volumes, proved to have efficient bladder emptying -Continue Flomax -Continue ceftriaxone -Sensitive to ceftriaxone Citrobacter growing in the urine History of PE, resume home Pradaxa 150 daily History of stage III ovarian cancer, oncology consulted Infrarenal abdominal aorta and occlusion: Outpatient vascular surgery follow-up Supratherapeutic INR and transaminitis likely due to hepatic steatosis Type II DM: Continue SSI Anemia of chronic disease, hemoglobin stable DVT ppx: Continue Pradaxa Anticipated discharge place: Home with home care, declines rehab Anticipated discharge time: 24 hours Objective - Vital Signs Vital signs: Vital Signs Temp 97.4 F L 05/05/24 14:23 Pulse 90 05/05/24 14:23 Resp 18 05/05/24 14:23 BP 117/67 05/05/24 14:23 Pulse Ox 95 05/05/24 11:56 FiO2 Intake & Output 05/04/24 05/05/24 05/05/24 18:59 06:59 18:59 Intake Total 200 590 Balance 200 590 Intake: Oral 200 590 Other: Voiding Method Toilet Toilet Toilet # Voids 3 - Labs CBC & Chem 7: 05/05/24 05:39 05/05/24 05:39 Labs: Abnormal Lab Results - Last 24 Hours (Table) 05/03/24 05/04/24 05/04/24 Range/Units 17:41 17:04 20:20 WBC (4.50-10.00) X 10*3/uL RBC (4.10-5.20) X 10*6/uL Hgb (12.0-15.0) g/dL Hct (37.2-46.3) % MCV (80.0-97.0) FL MCH (27.0-32.0) pg MCHC (32.0-37.0) g/dL RDW (11.5-14.5) % Immature Gran # (0.00-0.04) X 10*3/uL Neutrophils # (1.80-7.70) X 10*3/uL Lymphocytes # (0.90-5.00) X 10*3/uL Monocytes # (0.20-1.00) X 10*3/uL Basophils # (0.00-0.10) X 10*3/uL NRBC/100 WBC Diff (0.00-0.01) X 10*3/uL BUN (9.0-27.0) mg/dL Creatinine (0.6-1.5) mg/dL Glucose (70-110) mg/dL POC Glucose (mg/dL) 161 H 151 H (70-110) mg/dL Calcium (8.7-10.3) mg/dL Albumin (PEP) 1.98 L (3.80-4.90) g/dL Ieohc-9-Dgrltwzus 0.56 H (0.10-0.40) g/dL Gamma Globulins 1.51 H (0.70-1.50) g/dL Udcmc-3-Iiicmtcgspm (99.0-242.0) mg/dL 05/05/24 05/05/24 05/05/24 Range/Units 05:39 05:39 07:20 WBC 13.48 H (4.50-10.00) X 10*3/uL RBC 2.16 L (4.10-5.20) X 10*6/uL Hgb 7.4 L (12.0-15.0) g/dL Hct 24.3 L (37.2-46.3) % MCV 112.5 H (80.0-97.0) FL MCH 34.3 H (27.0-32.0) pg MCHC 30.5 L (32.0-37.0) g/dL RDW 24.1 H (11.5-14.5) % Immature Gran # 0.25 H (0.00-0.04) X 10*3/uL Neutrophils # 10.88 H (1.80-7.70) X 10*3/uL Lymphocytes # 0.74 L (0.90-5.00) X 10*3/uL Monocytes # 1.37 H (0.20-1.00) X 10*3/uL Basophils # 0.11 H (0.00-0.10) X 10*3/uL NRBC/100 WBC Diff 0.03 H (0.00-0.01) X 10*3/uL BUN 8.0 L (9.0-27.0) mg/dL Creatinine 0.4 L (0.6-1.5) mg/dL Glucose 122 H (70-110) mg/dL POC Glucose (mg/dL) (70-110) mg/dL Calcium 7.3 L (8.7-10.3) mg/dL Albumin (PEP) (3.80-4.90) g/dL Uuiew-4-Xkescuhgw (0.10-0.40) g/dL Gamma Globulins (0.70-1.50) g/dL Doanq-6-Qwxwqjygary 347.0 H (99.0-242.0) mg/dL 05/05/24 05/05/24 Range/Units 07:42 12:11 WBC (4.50-10.00) X 10*3/uL RBC (4.10-5.20) X 10*6/uL Hgb (12.0-15.0) g/dL Hct (37.2-46.3) % MCV (80.0-97.0) FL MCH (27.0-32.0) pg MCHC (32.0-37.0) g/dL RDW (11.5-14.5) % Immature Gran # (0.00-0.04) X 10*3/uL Neutrophils # (1.80-7.70) X 10*3/uL Lymphocytes # (0.90-5.00) X 10*3/uL Monocytes # (0.20-1.00) X 10*3/uL Basophils # (0.00-0.10) X 10*3/uL NRBC/100 WBC Diff (0.00-0.01) X 10*3/uL BUN (9.0-27.0) mg/dL Creatinine (0.6-1.5) mg/dL Glucose (70-110) mg/dL POC Glucose (mg/dL) 141 H 124 H (70-110) mg/dL Calcium (8.7-10.3) mg/dL Albumin (PEP) (3.80-4.90) g/dL Mmcgg-9-Mziekcygo (0.10-0.40) g/dL Gamma Globulins (0.70-1.50) g/dL Bzgce-0-Hvrzwbcrymy (99.0-242.0) mg/dL Microbiology - Last 24 Hours (Table) 05/04/24 11:00 Gram Stain - Final Ascites Fluid Body Fluid Culture - Final
[2024-05-05 17:14] LABS: Glucose,Whole Blood 136 mg/dL (70-110)
--- NOTE | 2024-05-05 20:24 | P.PN ---
Subjective Progress Note Date: 05/05/24 No acute events. S/p para, 2/1 L removed, cytology removed. Abd pain controlled on current regimen Objective - Vital Signs Vital signs: Vital Signs Temp 98.3 F 05/05/24 11:56 Pulse 99 05/05/24 11:56 Resp 16 05/05/24 11:56 BP 115/77 05/05/24 11:56 Pulse Ox 95 05/05/24 11:56 FiO2 Intake & Output 05/04/24 05/05/24 05/05/24 18:59 06:59 18:59 Intake Total 200 590 Balance 200 590 Intake: Oral 200 590 Other: Voiding Method Toilet Toilet Toilet # Voids 3 - Constitutional General appearance: Present: average body habitus, no acute distress - EENT Eyes: Present: anicteric sclerae, EOMI - Neck Details: breathing is even and unlabored - Respiratory Details: skin warm and dry - Cardiovascular Details: well perfused - Integumentary Integumentary: Absent: cyanotic, jaundiced - Musculoskeletal Musculoskeletal: Present: strength equal bilaterally - Psychiatric Psychiatric: Present: A&O x's 3 - Labs CBC & Chem 7: 05/05/24 05:39 05/05/24 05:39 Labs: Abnormal Lab Results - Last 24 Hours (Table) 05/03/24 05/04/24 05/04/24 Range/Units 17:41 17:04 20:20 WBC (4.50-10.00) X 10*3/uL RBC (4.10-5.20) X 10*6/uL Hgb (12.0-15.0) g/dL Hct (37.2-46.3) % MCV (80.0-97.0) FL MCH (27.0-32.0) pg MCHC (32.0-37.0) g/dL RDW (11.5-14.5) % Immature Gran # (0.00-0.04) X 10*3/uL Neutrophils # (1.80-7.70) X 10*3/uL Lymphocytes # (0.90-5.00) X 10*3/uL Monocytes # (0.20-1.00) X 10*3/uL Basophils # (0.00-0.10) X 10*3/uL NRBC/100 WBC Diff (0.00-0.01) X 10*3/uL BUN (9.0-27.0) mg/dL Creatinine (0.6-1.5) mg/dL Glucose (70-110) mg/dL POC Glucose (mg/dL) 161 H 151 H (70-110) mg/dL Calcium (8.7-10.3) mg/dL Albumin (PEP) 1.98 L (3.80-4.90) g/dL Duawa-4-Yxweigbvp 0.56 H (0.10-0.40) g/dL Gamma Globulins 1.51 H (0.70-1.50) g/dL Upuub-5-Qgbqyjumxxd (99.0-242.0) mg/dL 05/05/24 05/05/24 05/05/24 Range/Units 05:39 05:39 07:20 WBC 13.48 H (4.50-10.00) X 10*3/uL RBC 2.16 L (4.10-5.20) X 10*6/uL Hgb 7.4 L (12.0-15.0) g/dL Hct 24.3 L (37.2-46.3) % MCV 112.5 H (80.0-97.0) FL MCH 34.3 H (27.0-32.0) pg MCHC 30.5 L (32.0-37.0) g/dL RDW 24.1 H (11.5-14.5) % Immature Gran # 0.25 H (0.00-0.04) X 10*3/uL Neutrophils # 10.88 H (1.80-7.70) X 10*3/uL Lymphocytes # 0.74 L (0.90-5.00) X 10*3/uL Monocytes # 1.37 H (0.20-1.00) X 10*3/uL Basophils # 0.11 H (0.00-0.10) X 10*3/uL NRBC/100 WBC Diff 0.03 H (0.00-0.01) X 10*3/uL BUN 8.0 L (9.0-27.0) mg/dL Creatinine 0.4 L (0.6-1.5) mg/dL Glucose 122 H (70-110) mg/dL POC Glucose (mg/dL) (70-110) mg/dL Calcium 7.3 L (8.7-10.3) mg/dL Albumin (PEP) (3.80-4.90) g/dL Dginc-0-Yxuwhmgqt (0.10-0.40) g/dL Gamma Globulins (0.70-1.50) g/dL Kjsag-0-Mnlwwymqfza 347.0 H (99.0-242.0) mg/dL 05/05/24 05/05/24 Range/Units 07:42 12:11 WBC (4.50-10.00) X 10*3/uL RBC (4.10-5.20) X 10*6/uL Hgb (12.0-15.0) g/dL Hct (37.2-46.3) % MCV (80.0-97.0) FL MCH (27.0-32.0) pg MCHC (32.0-37.0) g/dL RDW (11.5-14.5) % Immature Gran # (0.00-0.04) X 10*3/uL Neutrophils # (1.80-7.70) X 10*3/uL Lymphocytes # (0.90-5.00) X 10*3/uL Monocytes # (0.20-1.00) X 10*3/uL Basophils # (0.00-0.10) X 10*3/uL NRBC/100 WBC Diff (0.00-0.01) X 10*3/uL BUN (9.0-27.0) mg/dL Creatinine (0.6-1.5) mg/dL Glucose (70-110) mg/dL POC Glucose (mg/dL) 141 H 124 H (70-110) mg/dL Calcium (8.7-10.3) mg/dL Albumin (PEP) (3.80-4.90) g/dL Rulzr-1-Xqmfodrsq (0.10-0.40) g/dL Gamma Globulins (0.70-1.50) g/dL Ymjzc-4-Uonmovngdqv (99.0-242.0) mg/dL Microbiology - Last 24 Hours (Table) 05/04/24 11:00 Gram Stain - Final Ascites Fluid Body Fluid Culture - Final Assessment and Plan (1) Abdominal distention Current Visit: Yes Status: Acute Code(s): R14.0 - ABDOMINAL DISTENSION (GASEOUS) SNOMED Code(s): 05729688 (2) Ascites Current Visit: Yes Status: Acute Code(s): R18.8 - OTHER ASCITES SNOMED Code(s): 951406991 (3) Cervical cancer Current Visit: Yes Status: Acute Priority: High Code(s): C53.9 - MALIGNANT NEOPLASM OF CERVIX UTERI, UNSPECIFIED SNOMED Code(s): 857109354 Plan: Cervical cancer -Will request records from [facility] so that patient's malignancy history and current treatment plan can be reviewed and plan of care can possibly be continued. Will update medical record with the same -Patient would have been due for treatment about a week ago if, she was having treatment every 21 days. Not certain if her current presentation is reflective of something with her cervical cancer, though less likely. Fluid cytology 04/19/2024 was negative for any malignant cells. Pt treatment consisted of chemo/XRT which is used when intent of treatment is neoadj, definitive or curative -Medical information was obtained from medical oncologist. Patient has a diagnosis of poorly differentiated carcinoma of the cervix, FIGO stage III C2. Treatment plan was for concurrent hemoradiation and immunotherapy with weekly cisplatin and pembrolizumab every 21 days. June 30, 2023 patient had a bladder biopsy that was normal. Patient reported vaginal bleeding. 11/02/2023 US showed 10 cm fundal myoma with a 25 mm endometrial stripe. 01/12/2024 biopsy of cervical mass, pathology positive for poorly differentiated carcinoma. MRI of the pelvis heterogenous enhancing abnormal cervix measuring 6.9 x 3.7 x 5.7 cm with no invasion or breach of the serosa, no surrounding adenopathy. 02/07/2024 PET/CT hypermetabolic cervical mass 7.5 cm. Hypermetabolic mildly enlarged left internal iliac lymph nodes consistent with local metastatic disease. No distant metastasis seen. 02/18/2024 started concurrent chemo/radiation plus immunotherapy. 04/06/2024 patient presented with right sided pain, pleuritic chest pain. CTA small volume lower lobe pulmonary emboli. CTAP showed right hydroureter without stone. She was started on Eliquis. When patient was seen by Dr. Denney on 04/13/2024 patient reported weakness and being tired. Swelling in the bilateral lower extremities and abdominal distention it is reported that the patient refused treatment. Patient was explained that missing treatment would jeopardize odds of success. She was referred to [facility] emergency department for evaluation. Patient did have a paracentesis earlier this month, negative for malignancy. She has completed 5 cycles of chemo and concurrent RT but reports missing approx 6 RT treatments -Patient will be seen by medical oncology locally at her request. Diagnosis, prognosis, treatment options will be discussed Abd distension -GI consulted. -Not thinking r/t cervical carcinoma. -S/p para, 2.1 L removed. Cytology pending Pulmonary embolism -Patient to remain on anticoagulation-she is on pradaxa Urinary retention -Unclear etiology. Suspect may be related to urinary tract infection. Urology following -Patient is on antibiotics. -Defer treatment of the same to IM
[2024-05-05 20:26] LABS: Glucose,Whole Blood 178 mg/dL (70-110)
[2024-05-06 07:43] LABS: Glucose,Whole Blood 111 mg/dL (70-110)
[2024-05-06 09:49] LABS: Basophils # (A) 0.11 X 10*3/uL (0.00-0.10); Basophils % (A) 0.9 %; Eosinophils # (A) 0.11 X 10*3/uL (0.04-0.35); Eosinophils % (A) 0.9 %; HCT 24.6 % (37.2-46.3); HGB 7.5 g/dL (12.0-15.0); Lymphocytes # (A) 0.67 X 10*3/uL (0.90-5.00); Lymphocytes % (A) 5.6 %; MCH 34.4 pg (27.0-32.0); MCHC 30.5 g/dL (32.0-37.0); MCV 112.8 FL (80.0-97.0); Mean Platelet Volume 10.2 FL (9.5-12.2); Monocytes # (A) 1.22 X 10*3/uL (0.20-1.00); Monocytes % (A) 10.1 %; NRBC Per 100 WBC 0.04 X 10*3/uL (0.00-0.01); Neutrophils # (A) 9.61 X 10*3/uL (1.80-7.70); Platelet Count 230 X 10*3/uL (140-440); RBC 2.18 X 10*6/uL (4.10-5.20); RDW 23.6 % (11.5-14.5); WBC 12.02 X 10*3/uL (4.50-10.00)
[2024-05-06 10:22] LABS: Blood Urea Nitrogen 6.4 mg/dL (9.0-27.0); Calcium 7.5 mg/dL (8.7-10.3); Carbon Dioxide 24.2 mmol/L (21.6-31.8); Chloride 105 mmol/L (96-109); Glucose 114 mg/dL (70-110); Potassium 3.9 mmol/L (3.5-5.5); Sodium 137 mmol/L (135-145)
[2024-05-06 12:47] LABS: Glucose,Whole Blood 107 mg/dL (70-110)
--- NOTE | 2024-05-06 16:45 | P.PN ---
Subjective Hospital Course: 49-year-old female with PMH of stage III ovarian cancer decided to not undergo any more treatments with oncology, pulmonary embolus failed Eliquis currently on Pradaxa, DM, who presented to the ED with inability to urinate and worsening abdominal bloating, associated shortness of breath with ambulation. No dysuria, fevers, chills, nausea, vomiting, chest pain, changes in bowel habits, appetite, weight. BP 150/61, HR 116, RR 20, T 98F, 100% on RA. CBC, Coag panel, CMP significant for RBC 2.62, Hg 9.2, Hct 29.3, MCV 111.7, PT 14.6, INR 1.4, Na 136, K 2.8, Cr 0.51, glu 201, Ca 7.5, T. Bili 1.8, AST 125, alk phos 738, alb 2.5. Trop < 0.012. Mag 1.8. BNP 704. UA trace LE with 21 WBCs. CXR no acute process. CTA chest RLL filling defect, mild pulmonary edema, hepatomegaly, hepatic steatosis, chronic granulomatous disease. EKG sinus tachycardia. Patient is admitted for further workup and management. Urology consulted, patient had Walker catheter removed, patient to straight catheterize and check postvoid residuals to assess bladder emptying. Patient has been verified to be empty and the bladder adequately and no further urology evaluation is needed.Sensitive to ceftriaxone Citrobacter growing in the urine Started on Rocephin for UTI, urine cultures pending. Abdominal ultrasound showed small amount of fluid in the abdomen, IR consulted, not enough fluid to drain. Patient was started on Ensure for protein calorie malnutrition. GI consulted due to ongoing abdominal discomfort, bloating, , suggested oncology consulted and repeat Abdominal ultrasound again showed small amount of ascites in the bilateral lower quadrants. Patient went for left-sided thoracentesis on 05/04 with 2 L removed, noted improved abdominal distention. patient started on spironolactone. CORRY negative, hepatitis panel negative, AFP negative, ceruloplasmin 25.7, negative, alpha-1 antitrypsin significantly elevated 347. Patient will need to follow-up with GI as outpatient in 1 or 2 weeks. 05/05 overnight due to constant leak from the paracentesis site she had stoma bag attached, now fluid draining running into it. Will check how much fluid she accumulates in a day, possible discharge 05/07 Pertinent Imaging: No new imaging Pertinent Imaging: Feeling better today, had a stoma bag attached to the site of paracentesis with no fluid draining into the bag Pertinent positives and negatives as discussed above, a complete review of systems was performed and all other systems are negative. Vitals Signs Reviewed. General: [nontoxic], [no distress], [appears at stated age] Derm: [warm], [dry] Head: [atraumatic], [normocephalic], [symmetric] Eyes: [EOMI], [no lid lag], [anicteric sclera] Mouth: [no lip lesion], [mucus membranes moist] Cardiovascular: [S1S2 reg], [no murmur] Lungs: [CTA bilateral], [no rhonchi, no rales] , [no accessory muscle use] Abdominal: Distended, tender, stoma bag with clear yellow fluid Ext: [no gross muscle atrophy], lower extremity edema], [no contractures] Neuro: [ CN II-XI grossly intact], [no focal neuro deficits] Psych: [Alert], [oriented], [appropriate affect] Data Reviewed Today: Pertinent Labs: WBC 12.2, hemoglobin 7.5, platelet count 230, normal sodium, potassium, creatinine, glucose is well-controlled. Imaging: [] Assessment and Plan:Generalized abdominal pain, bloating Ascites status post paracentesis 05/04/2024 Positive alpha 1 antitrypsin -Patient had CT abdomen pelvis with contrast performed on 04/16/2024 while having similar complaints: Showed diffusely hypoattenuating parenchyma of the liver. 6.5 x 6 steatosis, s/p cholecystectomy, unremarkable pancreas, unremarkable spleen, management morning diffuse abdominal ascites -Abdominal ultrasound small amount of fluid in the abdomen, IR consulted, no fluid to drain -No improvement after 1 dose of IV Lasix on 05/02 -GI consulted, patient started on spironolactone. Will need to follow-up in 1 or 2 weeks as outpatient, signed off -Status post paracentesis 05/04, 2 L removed, follow-up body fluid analysis -Free kappa 6.36, free lambda 6.26 -Oncology following -Patient refuses rehab, plan to discharge on 05/07, stay overnight to monitor for peritoneal fluid collection in bag. Mild Calorie malnutrition: Continue Ensure 3 times daily Hypokalemia, resolved Urinary retention, resolved UTI, Citrobacter Leukocytosis -urology signed off, Walker catheter removed 05/02, patient to straight cath and monitor volumes, proved to have efficient bladder emptying -Continue Flomax -Continue ceftriaxone -Sensitive to ceftriaxone Citrobacter growing in the urine History of PE, resume home Pradaxa 150 daily History of stage III ovarian cancer, oncology consulted Infrarenal abdominal aorta and occlusion: Outpatient vascular surgery follow-up Supratherapeutic INR and transaminitis likely due to hepatic steatosis Type II DM: Continue SSI Anemia of chronic disease, hemoglobin stable DVT ppx: Continue Pradaxa Anticipated discharge place: Home with home care, declines rehab Anticipated discharge time: 24 hours Objective - Vital Signs Vital signs: Vital Signs Temp 98.6 F 05/06/24 12:43 Pulse 95 05/06/24 12:43 Resp 20 05/06/24 12:43 BP 120/75 05/06/24 12:43 Pulse Ox 97 05/06/24 12:43 FiO2 Intake & Output 05/05/24 05/06/24 05/06/24 18:59 06:59 18:59 Intake Total 300 590 Output Total 150 Balance 300 440 Intake: Oral 300 590 Output: Drainage 150 Old paracentesis site 150 Other: Voiding Method Toilet Toilet Toilet # Voids 2 3 - Labs CBC & Chem 7: 05/06/24 04:32 05/06/24 04:32 Labs: Abnormal Lab Results - Last 24 Hours (Table) 05/05/24 05/05/24 05/06/24 Range/Units 17:12 20:25 04:32 WBC 12.02 H (4.50-10.00) X 10*3/uL RBC 2.18 L (4.10-5.20) X 10*6/uL Hgb 7.5 L (12.0-15.0) g/dL Hct 24.6 L (37.2-46.3) % MCV 112.8 H (80.0-97.0) FL MCH 34.4 H (27.0-32.0) pg MCHC 30.5 L (32.0-37.0) g/dL RDW 23.6 H (11.5-14.5) % Immature Gran # 0.30 H (0.00-0.04) X 10*3/uL Neutrophils # 9.61 H (1.80-7.70) X 10*3/uL Lymphocytes # 0.67 L (0.90-5.00) X 10*3/uL Monocytes # 1.22 H (0.20-1.00) X 10*3/uL Basophils # 0.11 H (0.00-0.10) X 10*3/uL NRBC/100 WBC Diff 0.04 H (0.00-0.01) X 10*3/uL BUN (9.0-27.0) mg/dL Creatinine (0.6-1.5) mg/dL Glucose (70-110) mg/dL POC Glucose (mg/dL) 136 H 178 H (70-110) mg/dL Calcium (8.7-10.3) mg/dL 05/06/24 05/06/24 Range/Units 04:32 07:42 WBC (4.50-10.00) X 10*3/uL RBC (4.10-5.20) X 10*6/uL Hgb (12.0-15.0) g/dL Hct (37.2-46.3) % MCV (80.0-97.0) FL MCH (27.0-32.0) pg MCHC (32.0-37.0) g/dL RDW (11.5-14.5) % Immature Gran # (0.00-0.04) X 10*3/uL Neutrophils # (1.80-7.70) X 10*3/uL Lymphocytes # (0.90-5.00) X 10*3/uL Monocytes # (0.20-1.00) X 10*3/uL Basophils # (0.00-0.10) X 10*3/uL NRBC/100 WBC Diff (0.00-0.01) X 10*3/uL BUN 6.4 L (9.0-27.0) mg/dL Creatinine 0.4 L (0.6-1.5) mg/dL Glucose 114 H (70-110) mg/dL POC Glucose (mg/dL) 111 H (70-110) mg/dL Calcium 7.5 L (8.7-10.3) mg/dL Microbiology - Last 24 Hours (Table) 04/30/24 14:56 Blood Culture - Final Blood 05/04/24 11:00 Gram Stain - Final Ascites Fluid Body Fluid Culture - Final
[2024-05-06 17:25] LABS: Glucose,Whole Blood 142 mg/dL (70-110)
[2024-05-06 20:07] LABS: Glucose,Whole Blood 177 mg/dL (70-110)
[2024-05-06 23:02] LABS: Protein/Creatinine Ratio,Urine 0.298
[2024-05-07 07:23] LABS: Glucose,Whole Blood 100 mg/dL (70-110)
[2024-05-07 12:17] LABS: Glucose,Whole Blood 120 mg/dL (70-110)
--- NOTE | 2024-05-07 14:26 | P.PN ---
Subjective Progress Note Date: 05/07/24 Hospital Course: 49-year-old female with PMH of stage III ovarian cancer decided to not undergo any more treatments with oncology, pulmonary embolus failed Eliquis currently on Pradaxa, DM, who presented to the ED with inability to urinate and worsening abdominal bloating, associated shortness of breath with ambulation. No dysuria, fevers, chills, nausea, vomiting, chest pain, changes in bowel habits, appetite, weight. BP 150/61, HR 116, RR 20, T 98F, 100% on RA. CBC, Coag panel, CMP significant for RBC 2.62, Hg 9.2, Hct 29.3, MCV 111.7, PT 14.6, INR 1.4, Na 136, K 2.8, Cr 0.51, glu 201, Ca 7.5, T. Bili 1.8, AST 125, alk phos 738, alb 2.5. Trop < 0.012. Mag 1.8. BNP 704. UA trace LE with 21 WBCs. CXR no acute process. CTA chest RLL filling defect, mild pulmonary edema, hepatomegaly, hepatic steatosis, chronic granulomatous disease. EKG sinus tachycardia. Patient is admitted for further workup and management. Urology consulted, patient had Walker catheter removed, patient to straight catheterize and check postvoid residuals to assess bladder emptying. Patient has been verified to be empty and the bladder adequately and no further urology evaluation is needed.Sensitive to ceftriaxone Citrobacter growing in the urine Started on Rocephin for UTI, urine cultures pending. Abdominal ultrasound showed small amount of fluid in the abdomen, IR consulted, not enough fluid to drain. Urine protein creatinine 0.29, converting to approximately 0.3 g/day of protein in the urine. Patient will need to follow-up with nephrology Patient was started on Ensure for protein calorie malnutrition. GI consulted due to ongoing abdominal discomfort, bloating, , suggested oncology consulted and repeat Abdominal ultrasound again showed small amount of ascites in the bilateral lower quadrants. Patient went for left-sided thoracentesis on 05/04 with 2 L removed, noted improved abdominal distention. Fluid analysis showed noncirrhotic, no portal hypertension. Patient started on spironolactone. CORRY negative, hepatitis panel negative, AFP negative, ceruloplasmin 25.7, negative, alpha-1 antitrypsin significantly elevated 347. Patient will need to follow-up with GI as outpatient in 1 or 2 weeks. 05/05 overnight due to constant leak from the paracentesis site she had stoma bag attached, now fluid draining running into it. Will check how much fluid she accumulates in a day, accumulated 725 cc in 30 hours, will consult IR for further evaluation., No signs of inflammation, infection so far. Subjective: Overall feels okay, complains of continuing leakage from the paracentesis site, tenderness, lower extremity edema Pertinent positives and negatives as discussed above, a complete review of systems was performed and all other systems are negative. Vitals Signs Reviewed. General: [nontoxic], [no distress], [appears at stated age] Derm: [warm], [dry] Head: [atraumatic], [normocephalic], [symmetric] Eyes: [EOMI], [no lid lag], [anicteric sclera] Mouth: [no lip lesion], [mucus membranes moist] Cardiovascular: [S1S2 reg], [no murmur] Lungs: [CTA bilateral], [no rhonchi, no rales] , [no accessory muscle use] Abdominal: Distended, tender, stoma bag with clear yellow fluid Ext: [no gross muscle atrophy], lower extremity edema], [no contractures] Neuro: [ CN II-XI grossly intact], [no focal neuro deficits] Psych: [Alert], [oriented], [appropriate affect] Data Reviewed Today: Pertinent Labs: Urine protein creatinine ratio 0.29, glucose is well-controlled Assessment and Plan: Generalized abdominal pain, bloating Ascites status post paracentesis 05/04/2024, noncirrhotic, non portal hypertension Proteinuria Post paracentesis peritoneal fluid leak Positive alpha 1 antitrypsin -Patient had CT abdomen pelvis with contrast performed on 04/16/2024 while having similar complaints: Showed diffusely hypoattenuating parenchyma of the liver. 6.5 x 6 steatosis, s/p cholecystectomy, unremarkable pancreas, unremarkable spleen, management morning diffuse abdominal ascites -GI consulted, patient started on spironolactone. Will need to follow-up in 1 or 2 weeks as outpatient, signed off -Status post paracentesis 05/04, 2 L removed, follow-up body fluid analysis -Free kappa 6.36, free lambda 6.26 -Oncology following -Patient refuses rehab -IR reconsult -Urine protein creatinine 0.29, converting to approximately 0.3 g/day of protein in the urine. Patient will need to follow-up with nephrology Mild Calorie malnutrition: Continue Ensure 3 times daily Hypokalemia, resolved Urinary retention, resolved UTI, Citrobacter, treated Leukocytosis -urology signed off, Walker catheter removed 05/02, patient to straight cath and monitor volumes, proved to have efficient bladder emptying -Continue Flomax -Finished ceftriaxone 05/07 -Sensitive to ceftriaxone Citrobacter growing in the urine History of PE, resume home Pradaxa 150 daily History of stage III ovarian cancer, oncology consulted Infrarenal abdominal aorta and occlusion: Outpatient vascular surgery follow-up Supratherapeutic INR and transaminitis likely due to hepatic steatosis Type II DM: Continue SSI Anemia of chronic disease, hemoglobin stable DVT ppx: Continue Pradaxa Anticipated discharge place: Home with home care, declines rehab Anticipated discharge time: 24 hours Objective - Vital Signs Vital signs: Vital Signs Temp 98.0 F 05/07/24 13:17 Pulse 99 05/07/24 13:17 Resp 16 05/07/24 13:17 BP 118/72 05/07/24 13:17 Pulse Ox 97 05/07/24 13:17 FiO2 Intake & Output 05/06/24 05/07/24 05/07/24 18:59 06:59 18:59 Intake Total 590 Output Total 175 225 175 Balance -175 365 -175 Intake: Oral 590 Output: Drainage 175 225 175 Old paracentesis site 175 225 175 Other: Voiding Method Toilet Toilet Toilet # Voids 4 2 # Bowel Movements 3 - Labs CBC & Chem 7: 05/06/24 04:32 05/06/24 04:32 Labs: Abnormal Lab Results - Last 24 Hours (Table) 05/06/24 05/06/24 05/07/24 Range/Units 17:23 20:06 12:16 POC Glucose (mg/dL) 142 H 177 H 120 H (70-110) mg/dL Microbiology - Last 24 Hours (Table) 05/04/24 11:00 Gram Stain - Final Ascites Fluid Body Fluid Culture - Final
[2024-05-07 17:20] LABS: Glucose,Whole Blood 159 mg/dL (70-110)
[2024-05-07 20:32] LABS: Glucose,Whole Blood 136 mg/dL (70-110)
[2024-05-08 04:56] LABS: INR 1.3 (<1.2); Partial Thromboplastin Time 34.9 sec (22.0-30.0); Prothrombin Time 13.8 sec (10.0-12.5)
[2024-05-08 07:34] LABS: Glucose,Whole Blood 108 mg/dL (70-110)
[2024-05-08 08:48] LABS: Blood Urea Nitrogen 5.8 mg/dL (9.0-27.0); Calcium 7.5 mg/dL (8.7-10.3); Carbon Dioxide 24.8 mmol/L (21.6-31.8); Chloride 106 mmol/L (96-109); Glucose 108 mg/dL (70-110); Potassium 3.7 mmol/L (3.5-5.5); Sodium 139 mmol/L (135-145)
[2024-05-08 10:02] LABS: Basophils # (A) 0.08 X 10*3/uL (0.00-0.10); Basophils % (A) 0.6 %; Eosinophils # (A) 0.12 X 10*3/uL (0.04-0.35); Eosinophils % (A) 0.9 %; HCT 25.2 % (37.2-46.3); HGB 7.7 g/dL (12.0-15.0); Lymphocytes # (A) 0.66 X 10*3/uL (0.90-5.00); Lymphocytes % (A) 5.2 %; MCH 35.5 pg (27.0-32.0); MCHC 30.6 g/dL (32.0-37.0); MCV 116.1 FL (80.0-97.0); Monocytes # (A) 1.24 X 10*3/uL (0.20-1.00); Monocytes % (A) 9.7 %; NRBC Per 100 WBC 0.03 X 10*3/uL (0.00-0.01); Neutrophils # (A) 10.42 X 10*3/uL (1.80-7.70); Neutrophils % (A) 81.5 %; Platelet Count 270 X 10*3/uL (140-440); RBC 2.17 X 10*6/uL (4.10-5.20); RDW 22.5 % (11.5-14.5); WBC 12.79 X 10*3/uL (4.50-10.00)
[2024-05-08 12:23] LABS: Glucose,Whole Blood 129 mg/dL (70-110)
--- NOTE | 2024-05-08 12:43 | US ---
EXAMINATION TYPE: US abdomen limited DATE OF EXAM: 05/08/2024 COMPARISON: NONE CLINICAL INDICATION: Female, 49 years old with history of distention ascites check TECHNIQUE: Grayscale imaging of the abdomen for ascites. FINDINGS AND IMPRESSION: No fluid seen in any of the 4 abdominal quadrants [facility] Christina Darling, Workstation: [employer], 05/08/2024 12:41 PM
[2024-05-08] MEDS: FUROSEMIDE 40 MG TAB PO SCH (12:47)
--- NOTE | 2024-05-08 14:57 | P.PN ---
Subjective Progress Note Date: 05/08/24 Hospital Course: 49-year-old female with PMH of stage III ovarian cancer decided to not undergo any more treatments with oncology, pulmonary embolus failed Eliquis currently on Pradaxa, DM, who presented to the ED with inability to urinate and worsening abdominal bloating, associated shortness of breath with ambulation. No dysuria, fevers, chills, nausea, vomiting, chest pain, changes in bowel habits, appetite, weight. BP 150/61, HR 116, RR 20, T 98F, 100% on RA. CBC, Coag panel, CMP significant for RBC 2.62, Hg 9.2, Hct 29.3, MCV 111.7, PT 14.6, INR 1.4, Na 136, K 2.8, Cr 0.51, glu 201, Ca 7.5, T. Bili 1.8, AST 125, alk phos 738, alb 2.5. Trop < 0.012. Mag 1.8. BNP 704. UA trace LE with 21 WBCs. CXR no acute process. CTA chest RLL filling defect, mild pulmonary edema, hepatomegaly, hepatic steatosis, chronic granulomatous disease. EKG sinus tachycardia. Patient is admitted for further workup and management. Urology consulted, patient had Walker catheter removed, patient to straight catheterize and check postvoid residuals to assess bladder emptying. Patient has been verified to be empty and the bladder adequately and no further urology evaluation is needed.Sensitive to ceftriaxone Citrobacter growing in the urine Started on Rocephin for UTI, urine cultures pending. Abdominal ultrasound showed small amount of fluid in the abdomen, IR consulted, not enough fluid to drain. Urine protein creatinine 0.29, converting to approximately 0.3 g/day of protein in the urine. Patient will need to follow-up with nephrology Patient was started on Ensure for protein calorie malnutrition. GI consulted due to ongoing abdominal discomfort, bloating, , suggested oncology consulted and repeat Abdominal ultrasound again showed small amount of ascites in the bilateral lower quadrants. Patient went for left-sided thoracentesis on 05/04 with 2 L removed, noted improved abdominal distention. Fluid analysis showed noncirrhotic, no portal hypertension. Patient started on spironolactone. CORRY negative, hepatitis panel negative, AFP negative, ceruloplasmin 25.7, negative, alpha-1 antitrypsin significantly elevated 347. Patient will need to follow-up with GI as outpatient in 1 or 2 weeks. 05/05 overnight due to constant leak from the paracentesis site she had stoma bag attached, now fluid draining running into it. Will check how much fluid she accumulates in a day, accumulated 725 cc in 30 hours, will consult IR for further evaluation. 05/08, repeat ultrasound showed no fluid, patient continues to have leakage of peritoneal fluid, 450 cc in addition, No signs of inflammati on, infection so far. Will disconnect stoma bag, apply pressure, monitor for further leakage overnight. Likely discharge 05/09 Started on Lasix in addition to Aldactone due to persistent lower extremity edema Pertinent Imaging: Abdominal ultrasound showed no fluid to drain Subjective: No significant changes, continues to complain of left sided posterior abdominal wall tenderness Pertinent positives and negatives as discussed above, a complete review of systems was performed and all other systems are negative. Vitals Signs Reviewed. General: [nontoxic], [no distress], [appears at stated age] Derm: [warm], [dry] Head: [atraumatic], [normocephalic], [symmetric] Eyes: [EOMI], [no lid lag], [anicteric sclera] Mouth: [no lip lesion], [mucus membranes moist] Cardiovascular: [S1S2 reg], [no murmur] Lungs: [CTA bilateral], [no rhonchi, no rales] , [no accessory muscle use] Abdominal: Distended, tender, stoma bag with clear yellow fluid Ext: [no gross muscle atrophy], lower extremity edema], [no contractures] Neuro: [ CN II-XI grossly intact], [no focal neuro deficits] Psych: [Alert], [oriented], [appropriate affect] Data Reviewed Today: Pertinent Labs: Urine protein creatinine ratio 0.29, glucose is well-controlled Assessment and Plan: Generalized abdominal pain, bloating Ascites status post paracentesis 05/04/2024, noncirrhotic, non portal hypertension Proteinuria Post paracentesis peritoneal fluid leak Positive alpha 1 antitrypsin -Patient had CT abdomen pelvis with contrast performed on 04/16/2024 while having similar complaints: Showed diffusely hypoattenuating parenchyma of the liver. 6.5 x 6 steatosis, s/p cholecystectomy, unremarkable pancreas, unremarkable sple en, management morning diffuse abdominal ascites -GI consulted, patient started on spironolactone. Will need to follow-up in 1 or 2 weeks as outpatient, signed off -Added Lasix 40 daily -Status post paracentesis 05/04, 2 L removed, follow-up body fluid analysis -Free kappa 6.36, free lambda 6.26 -Oncology following -Patient refuses rehab -IR reconsult, repeat US done, not enough fluid -Blood pressure, monitor for further leakage -Urine protein creatinine 0.29, converting to approximately 0.3 g/day of protein in the urine. Patient will need to follow-up with nephrology Mild Calorie malnutrition: Continue Ensure 3 times daily Hypokalemia, resolved Urinary retention, resolved UTI, Citrobacter, treated Leukocytosis -urology signed off, Walker catheter removed 05/02, patient to straight cath and monitor volumes, proved to have efficient bladder emptying -Continue Flomax -Finished ceftriaxone 05/07 -Sensitive to ceftriaxone Citrobacter growing in the urine History of PE, resume home Pradaxa 150 daily History of stage III ovarian cancer, oncology consulted Infrarenal abdominal aorta and occlusion: Outpatient vascular surgery follow-up Supratherapeutic INR and transaminitis likely due to hepatic steatosis Type II DM: Continue SSI Anemia of chronic disease, hemoglobin stable DVT ppx: Continue Pradaxa Anticipated discharge place: Home with home care, declines rehab Anticipated discharge time: 24 hours Objective - Vital Signs Vital signs: Vital Signs Temp 98.0 F 05/08/24 12:38 Pulse 94 05/08/24 12:38 Resp 17 05/08/24 12:38 BP 114/72 05/08/24 12:38 Pulse Ox 96 05/08/24 12:38 FiO2 Intake & Output 05/07/24 05/08/24 05/08/24 18:59 06:59 18:59 Intake Total 240 Output Total 325 200 Balance -325 -200 240 Intake: Oral 240 Output: Drainage 325 200 Old paracentesis site 325 200 Other: Voiding Method Toilet # Voids 3 3 - Labs CBC & Chem 7: 05/08/24 04:00 05/08/24 04:00 Labs: Abnormal Lab Results - Last 24 Hours (Table) 05/07/24 05/07/24 05/08/24 Range/Units 17:19 20:29 04:00 WBC 12.79 H (4.50-10.00) X 10*3/uL RBC 2.17 L (4.10-5.20) X 10*6/uL Hgb 7.7 L (12.0-15.0) g/dL Hct 25.2 L (37.2-46.3) % MCV 116.1 H (80.0-97.0) FL MCH 35.5 H (27.0-32.0) pg MCHC 30.6 L (32.0-37.0) g/dL RDW 22.5 H (11.5-14.5) % Immature Gran # 0.27 H (0.00-0.04) X 10*3/uL Neutrophils # 10.42 H (1.80-7.70) X 10*3/uL Lymphocytes # 0.66 L (0.90-5.00) X 10*3/uL Monocytes # 1.24 H (0.20-1.00) X 10*3/uL NRBC/100 WBC Diff 0.03 H (0.00-0.01) X 10*3/uL PT (10.0-12.5) sec INR (<1.2) APTT (22.0-30.0) sec BUN (9.0-27.0) mg/dL Creatinine (0.6-1.5) mg/dL BUN/Creatinine Ratio (12.00-20.00) Ratio POC Glucose (mg/dL) 159 H 136 H (70-110) mg/dL Calcium (8.7-10.3) mg/dL 05/08/24 05/08/24 05/08/24 Range/Units 04:00 04:00 12:22 WBC (4.50-10.00) X 10*3/uL RBC (4.10-5.20) X 10*6/uL Hgb (12.0-15.0) g/dL Hct (37.2-46.3) % MCV (80.0-97.0) FL MCH (27.0-32.0) pg MCHC (32.0-37.0) g/dL RDW (11.5-14.5) % Immature Gran # (0.00-0.04) X 10*3/uL Neutrophils # (1.80-7.70) X 10*3/uL Lymphocytes # (0.90-5.00) X 10*3/uL Monocytes # (0.20-1.00) X 10*3/uL NRBC/100 WBC Diff (0.00-0.01) X 10*3/uL PT 13.8 H (10.0-12.5) sec INR 1.3 H (<1.2) APTT 34.9 H (22.0-30.0) sec BUN 5.8 L (9.0-27.0) mg/dL Creatinine 0.5 L (0.6-1.5) mg/dL BUN/Creatinine Ratio 11.60 L (12.00-20.00) Ratio POC Glucose (mg/dL) 129 H (70-110) mg/dL Calcium 7.5 L (8.7-10.3) mg/dL Microbiology - Last 24 Hours (Table) 05/04/24 11:00 Gram Stain - Final Ascites Fluid Body Fluid Culture - Final
[2024-05-08 16:12] VITALS: BMI 30.4
[2024-05-08 17:13] LABS: Glucose,Whole Blood 207 mg/dL (70-110)
[2024-05-08 20:14] LABS: Glucose,Whole Blood 115 mg/dL (70-110)
[2024-05-08] MEDS: SPIRONOLACTONE 25 MG TAB PO SCH (20:36)
[2024-05-08] MEDS ORDERED: SPIRONOLACTONE 25 MG TAB PO SCH (21:00)
--- NOTE | 2024-05-08 21:04 | P.PN ---
Subjective Progress Note Date: 05/08/24 Principal diagnosis: cervical carcinoma In f/u today pt is getting into shower. No acute c/o, no vaginal bleeding or new abd pain. Back pain persists. No underlying cause identified Objective - Vital Signs Vital signs: Vital Signs Temp 98.0 F 05/08/24 12:38 Pulse 94 05/08/24 12:38 Resp 17 05/08/24 12:38 BP 114/72 05/08/24 12:38 Pulse Ox 96 05/08/24 12:38 FiO2 Intake & Output 05/07/24 05/08/24 05/08/24 18:59 06:59 18:59 Intake Total 240 Output Total 325 200 Balance -325 -200 240 Intake: Oral 240 Output: Drainage 325 200 Old paracentesis site 325 200 Other: Voiding Method Toilet # Voids 3 3 - Constitutional General appearance: Present: cooperative, no acute distress, obese - EENT Eyes: Present: anicteric sclerae, EOMI ENT: Present: hearing grossly normal - Respiratory Details: resp unlabored - Cardiovascular Details: skin warm, well perfused - Peripheral edema leg Peripheral Edema: bilateral: None - Integumentary Integumentary: Present: normal - Neurologic Neurologic: Present: CNII-XII intact - Psychiatric Psychiatric: Present: A&O x's 3, appropriate affect, intact judgment & insight - Labs CBC & Chem 7: 05/08/24 04:00 05/08/24 04:00 Labs: Abnormal Lab Results - Last 24 Hours (Table) 05/07/24 05/07/24 05/08/24 Range/Units 17:19 20:29 04:00 WBC 12.79 H (4.50-10.00) X 10*3/uL RBC 2.17 L (4.10-5.20) X 10*6/uL Hgb 7.7 L (12.0-15.0) g/dL Hct 25.2 L (37.2-46.3) % MCV 116.1 H (80.0-97.0) FL MCH 35.5 H (27.0-32.0) pg MCHC 30.6 L (32.0-37.0) g/dL RDW 22.5 H (11.5-14.5) % Immature Gran # 0.27 H (0.00-0.04) X 10*3/uL Neutrophils # 10.42 H (1.80-7.70) X 10*3/uL Lymphocytes # 0.66 L (0.90-5.00) X 10*3/uL Monocytes # 1.24 H (0.20-1.00) X 10*3/uL NRBC/100 WBC Diff 0.03 H (0.00-0.01) X 10*3/uL PT (10.0-12.5) sec INR (<1.2) APTT (22.0-30.0) sec BUN (9.0-27.0) mg/dL Creatinine (0.6-1.5) mg/dL BUN/Creatinine Ratio (12.00-20.00) Ratio POC Glucose (mg/dL) 159 H 136 H (70-110) mg/dL Calcium (8.7-10.3) mg/dL 05/08/24 05/08/24 05/08/24 Range/Units 04:00 04:00 12:22 WBC (4.50-10.00) X 10*3/uL RBC (4.10-5.20) X 10*6/uL Hgb (12.0-15.0) g/dL Hct (37.2-46.3) % MCV (80.0-97.0) FL MCH (27.0-32.0) pg MCHC (32.0-37.0) g/dL RDW (11.5-14.5) % Immature Gran # (0.00-0.04) X 10*3/uL Neutrophils # (1.80-7.70) X 10*3/uL Lymphocytes # (0.90-5.00) X 10*3/uL Monocytes # (0.20-1.00) X 10*3/uL NRBC/100 WBC Diff (0.00-0.01) X 10*3/uL PT 13.8 H (10.0-12.5) sec INR 1.3 H (<1.2) APTT 34.9 H (22.0-30.0) sec BUN 5.8 L (9.0-27.0) mg/dL Creatinine 0.5 L (0.6-1.5) mg/dL BUN/Creatinine Ratio 11.60 L (12.00-20.00) Ratio POC Glucose (mg/dL) 129 H (70-110) mg/dL Calcium 7.5 L (8.7-10.3) mg/dL Microbiology - Last 24 Hours (Table) 05/04/24 11:00 Gram Stain - Final Ascites Fluid Body Fluid Culture - Final Assessment and Plan (1) Cervical cancer Current Visit: Yes Status: Acute Priority: High Code(s): C53.9 - MALIGNANT NEOPLASM OF CERVIX UTERI, UNSPECIFIED SNOMED Code(s): 798121544 (2) Pulmonary embolism Current Visit: Yes Status: Acute Priority: High Code(s): I26.99 - OTHER PULMONARY EMBOLISM WITHOUT ACUTE COR PULMONALE SNOMED Code(s): 59941112 (3) Retention of urine, unspecified Current Visit: Yes Status: Resolved Priority: High Code(s): R33.9 - RETENTION OF URINE, UNSPECIFIED SNOMED Code(s): 973578256 Plan: Cervical cancer -Treatment as noted-concurrent chemo/XRT, 5/6 weekly chemo, all but 6 scheduled radiation treatments -1st para was neg for malignancy. 2nd para cytology pending, -F/U locally per pt request Abd distension, ascites -GI has seen pt. Plans for f/u outpt. -Not thinking r/t cervical carcinoma. Pulmonary embolism -Patient to remain on anticoagulation-she is on pradaxa Urinary retention -Urology has seen pt. She is now urinating without difficulty. -She was treated for UTI Back pain -Noted in JUN as reason for pt needing dilaudid frequently. May need spine imaging Pt is ok from an Oncology standpoint to be discharged once cleared by Attending and Consulting Physicians
[2024-05-09 07:07] LABS: Glucose,Whole Blood 103 mg/dL (70-110)
--- NOTE | 2024-05-09 11:55 | P.DS ---
Providers Date of admission: 05/01/24 08:42 Attending physician: Wesley Lazo MD Consults: 05/01/24 10:58 Consult Physician Routine Consulting Provider: Cecil Momin Consult Reason/Comments: urinary retention also during previous hospitalization Do you want consulting provider notified?: Yes 05/02/24 15:27 Consult Physician Routine Consulting Provider: Bety Mary Consult Reason/Comments: abdmonial distention, bloating, recurrent, worsening Do you want consulting provider notified?: Yes 05/03/24 09:43 Consult Physician Routine Consulting Provider: Lauryn Coronel Consult Reason/Comments: cervical cancer, needs oncologist, ascites Do you want consulting provider notified?: Yes Primary care physician: Ca Bernal MD Hospital Course: 49-year-old female with PMH of stage III ovarian cancer decided to not undergo any more treatments with oncology, pulmonary embolus failed Eliquis currently on Pradaxa, DM, who presented to the ED with inability to urinate and worsening abdominal bloating, associated shortness of breath with ambulation. No dysuria, fevers, chills, nausea, vomiting, chest pain, changes in bowel habits, appetite, weight. BP 150/61, HR 116, RR 20, T 98F, 100% on RA. CBC, Coag panel, CMP significant for RBC 2.62, Hg 9.2, Hct 29.3, MCV 111.7, PT 14.6, INR 1.4, Na 136, K 2.8, Cr 0.51, glu 201, Ca 7.5, T. Bili 1.8, AST 125, alk phos 738, alb 2.5. Trop < 0.01 2. Mag 1.8. BNP 704. UA trace LE with 21 WBCs. CXR no acute process. CTA chest RLL filling defect, mild pulmonary edema, hepatomegaly, hepatic steatosis, chronic granulomatous disease. EKG sinus tachycardia. Patient is admitted for further workup and management. Urology consulted, patient had Walker catheter removed, patient to straight catheterize and check postvoid residuals to assess bladder emptying. Patient has been verified to be empty and the bladder adequately and no further urology evaluation is needed.Sensitive to ceftriaxone Citrobacter growing in the urine Started on Rocephin for UTI, urine cultures pending. Abdominal ultrasound showed small amount of fluid in the abdomen, IR consulted, not enough fluid to drain. Urine protein creatinine 0.29, converting to approximately 0.3 g/day of protein in the urine. Patient will need to follow-up with nephrology Patient was started on Ensure for protein calorie malnutrition. GI consulted due to ongoing abdominal discomfort, bloating, , suggested oncology consulted and repeat Abdominal ultrasound again showed small amount of ascites in the bilateral lower quadrants. Patient went for left-sided thoracentesis on 05/04 with 2 L removed, noted improved abdominal distention. Fluid analysis showed noncirrhotic, no portal hypertension. Patient started on spironolactone. CORRY negative, hepatitis panel negative, AFP negative, ceruloplasmin 25.7, negative, alpha-1 antitrypsin significantly elevated 347. Patient will need to follow-up with GI as outpatient in 1 or 2 weeks. 05/05 overnight due to constant leak from the paracentesis site she had stoma bag attached, now fluid draining running into it. Will check how much fluid she accumulates in a day, accumulated 725 cc in 30 hours, will consult IR for further evaluation. 05/08, repeat ultrasound showed no fluid, patient continues to have leakage of peritoneal fluid, 450 cc in addition, No signs of inflammation, infection so far. Continue to have less leakage and she was discharged home on October 07. I prescribed her [place] for pain control she will need to see her PCP for refills. Continue spironolactone Lasix for volume control Assessment: #) Gernalized abdominal pain/bloating #) ascites s/p paracentesis on 05/04/2023 nonrcirrhotiic nonportal htn. COntinue lasix/sprinolactone for ascites control #) stage 3 cervical cancer, f/u with oncology outpatient. norco rxed for pain control Patient Condition at Discharge: Fair Plan - Discharge Summary Discharge Rx Participant: No New Discharge Prescriptions: New Nicotine 14Mg/24Hr Patch [Habitrol] 1 patch TRANSDERM DAILY 28 Days #28 patch Furosemide [Lasix] 40 mg PO DAILY 30 Days #30 tab Naloxone HCl [Narcan] 4 mg NASAL ONCE #1 each Spironolactone [Aldactone] 50 mg PO BID 30 Days #30 tab Tamsulosin [Flomax] 0.4 mg PO PC-BRKFST 30 Days #30 cap HYDROcodone/APAP 5-325MG [[place] 5-325] 1 tab PO Q4HR PRN 3 Days #18 tab PRN Reason: Mild To Moderate Pain (1 - 6) Continue Dabigatran [Pradaxa] 150 mg PO BID #60 capsule Discharge Medication List Dabigatran [Pradaxa] 150 mg PO BID #60 capsule 04/21/24 [Rx] Furosemide [Lasix] 40 mg PO DAILY 30 Days #30 tab 05/09/24 [Rx] HYDROcodone/APAP 5-325MG [[place] 5-325] 1 tab PO Q4HR PRN 3 Days #18 tab 05/09/24 [Rx] Naloxone HCl [Narcan] 4 mg NASAL ONCE #1 each 05/09/24 [Rx] Nicotine 14Mg/24Hr Patch [Habitrol] 1 patch TRANSDERM DAILY 28 Days #28 patch 05/09/24 [Rx] Spironolactone [Aldactone] 50 mg PO BID 30 Days #30 tab 05/09/24 [Rx] Tamsulosin [Flomax] 0.4 mg PO PC-BRKFST 30 Days #30 cap 05/09/24 [Rx] Follow up Appointment(s)/Referral(s): Lauryn Coronel MD [STAFF PHYSICIAN] - 3 Weeks Bety Mary MD [STAFF PHYSICIAN] - 2 Weeks Ca Bernal MD [Primary Care Provider] - 1-2 days Discharge Disposition: HOME SELF-CARE
[2024-05-09 12:09] LABS: Glucose,Whole Blood 202 mg/dL (70-110)
[2024-05-09 13:15] VITALS: BP 115/69; PULSE 94; RESP 17; TEMP 98
== END 2024-05-09 14:10 | disposition home or self-care (01) | DRG 690 ==
LOC: EC 11:59 → 4SSUR 14:50 → 3SCARD 16:13 → 5NMEDONC 23:37 → OBSVTOIN 05-01 08:42
PROVIDERS: ADMIT Family Medicine; ATTEND Family Medicine
PROC: 0W9G3ZX Drainage of Peritoneal Cavity, Percutaneous Approach, Diagnostic (ICD-10-PCS; principal; 2024-05-04)
DX: N39.0 Urinary tract infection, site not specified (principal); C77.5 Secondary and unspecified malignant neoplasm of intrapelvic lymph nodes; E44.1 Mild protein-calorie malnutrition; R18.8 Other ascites; E87.20 Acidosis, unspecified; J81.1 Chronic pulmonary edema; D63.8 Anemia in other chronic diseases classified elsewhere; D71 Functional disorders of polymorphonuclear neutrophils; B96.89 Other specified bacterial agents as the cause of diseases classified elsewhere; C56.9 Malignant neoplasm of unspecified ovary; C53.9 Malignant neoplasm of cervix uteri, unspecified; K76.6 Portal hypertension; E11.9 Type 2 diabetes mellitus without complications; Z68.30 Body mass index [BMI] 30.0-30.9, adult; E88.01 Alpha-1-antitrypsin deficiency; R16.0 Hepatomegaly, not elsewhere classified; R33.9 Retention of urine, unspecified; R79.1 Abnormal coagulation profile; R74.01 Elevation of levels of liver transaminase levels; K76.0 Fatty (change of) liver, not elsewhere classified; F17.200 Nicotine dependence, unspecified, uncomplicated; E87.6 Hypokalemia; Z91.199 Patient's noncompliance with other medical treatment and regimen due to unspecified reason; Z92.21 Personal history of antineoplastic chemotherapy; Z92.3 Personal history of irradiation; Z86.711 Personal history of pulmonary embolism; Z79.899 Other long term (current) drug therapy; Z79.02 Long term (current) use of antithrombotics/antiplatelets
CPT/HCPCS: 36415; 49083; 51798; 71046; 71275; 76705; 80048; 80053; 80074; 81001; 82042; 82103; 82105; 82272; 82390; 82570; 82607; 82728; 82746; 82747; 83516; 83540; 83550; 83605; 83735; 83880; 83883; 83921; 84156; 84157; 84165; 84166; 84484; 85025; 85610; 85730; 86038; 86334; 86850; 86900; 86901; 87040; 87070; 87075; 87077; 87086; 87186; 87205; 88108; 88305; 88341; 88342; 89050; 93005; 94760; 96365; 96366; 96368; 96375; 96376; 99285

== ENCOUNTER → 2024-07-13 | Outpatient (CLI) | payer BC, OTHER ==
--- NOTE | 2024-07-16 18:51 | PE ---
EXAMINATION TYPE: PET CT fusion skull to thigh DATE OF EXAM: 07/13/2024 COMPARISON: 05/18/2024 CT Prior PET/CT: No prior PET/CT at this location for comparison CLINICAL INDICATION: Female, 49 years old with history of C53.8 cervical ca, TECHNIQUE: Following the intravenous administration of 12.33 mCi of F-18 FDG, whole body images are performed PET CT fusion skull to thigh. Images are reviewed on the computer in the coronal, axial, a nd sagittal planes. Reconstructed rotating images are created on independent workstation and reviewe d on the computer. A localization and attenuation correction CT is performed in conjunction with e PET scan. DLP: 849.14 mGycm SCAN: Subsequent Blood glucose: 146 mg/dL Average Mediastinum SUV: 1.3 Average Liver SUV: 2.02 FINDINGS: NECK: No abnormal uptake THORAX: No abnormal uptake ABDOMEN: No abnormal uptake PELVIS: There is a focal area of intense uptake along the lateral mons, image 240, SUV 7.14. This cou ld be contamination. A cutaneous uptake should be considered. There is intense uptake in the region of the cervix may be related to the patient's known cervical ca ncer, example image 2-1, SUV 16.56 OSSEOUS STRUCTURES: Small mild focal uptake within the cervical spine, image 39, SUV 3.92. Some addit ional mild uptake within the cervical spine, bilateral diaphyseal humeri and bilateral femur diaphysi s and scattered thoracic vertebral levels. Some mild uptake may be within the left iliac wing with MCCORD V 3.9 Correlate with the treatment which may reflect osseous marrow changes from treatment. LOCALIZATION CT: Couple of calcified granuloma are noted within the lung fischer. COMPARISON: No prior PET/CT IMPRESSION: 1. Intense uptake in the region of the uterine cervix cannulated patient's cervical cancer. 2. Focal area of subcutaneous uptake right mons. Contamination cutaneous metastasis should be conside red. 3. Mild scattered diffuse uptake within osseous marrow may be related to treatment. Correlate with hi story. [facility], , 07/16/2024 6:48 PM
== END | disposition home or self-care (01) ==
LOC: RADPETMAIN 11:34
PROVIDERS: ATTEND Internal Medicine
DX: C53.8 Malignant neoplasm of overlapping sites of cervix uteri (principal)
CPT/HCPCS: 78815; A9552

== ENCOUNTER → 2024-11-02 | Outpatient (CLI) | payer BC, OTHER ==
--- NOTE | 2024-11-04 17:43 | PE ---
EXAMINATION TYPE: PET CT fusion skull to thigh DATE OF EXAM: 11/02/2024 CLINICAL INDICATION:Female, 49 years old with history of C53.8 CERVICAL CANCER; TECHNIQUE: Following the intravenous administration of 11.95 mCi of F-18 FDG, whole body images are performed from the skull base to the midthigh. Images are reviewed on the computer in the coronal, axial, and sagittal planes. Reconstructed rotating images are created on independent workstation and reviewed on the computer. A non-contrast CT is performed in conjunction with the PET scan. Glucose level 132 mg/dL CT DLP: 742 mGycm, Automated exposure control for dose reduction was used. COMPARISON: CT 05/18/2024, 04/30/2024, 04/16/2024, 11/03/2021, PET/CT 07/13/2024, MRI: None FINDINGS: Mediastinal SUV mean is 2.0. Hepatic parenchyma SUV mean is 2.9. SKULL BASE AND NECK: No suspicious radiotracer activity. CHEST, MEDIASTINUM, AND HILAR REGION: No suspicious radiotracer activity. ABDOMEN AND PELVIS: Irregular wall thickening of the cervix with increased FDG activity redemonstrated. Region of FDG act ivity as extended to the region of the lower uterine segment. Demonstrates a max SUV of 18.8, previou sly 16.6. MUSCULOSKELETAL STRUCTURES: No suspicious radiotracer activity. OTHER CT: Asymmetrically enlarged left thyroid lobe. Left anterior chest wall Mediport catheter with subclavian approach. Distal tip terminates in the high SVC. Bilateral calcified mediastinal and hilar lymph nodes. Scattered calcified granulomas within the lungs. Cardiomegaly. Gallbladder is surgicall y absent. Enlarged liver measuring 22.6 cm in CC dimension. Punctate nonobstructing bilateral renal c alculi. Atherosclerotic calcification of the distal abdominal aorta. IMPRESSION: Localized progression of cervical cancer extending now into the lower uterine segment. No other suspi cious FDG activity to suggest distant metastasis. [facility], , 11/04/2024 5:41 PM
== END | disposition home or self-care (01) ==
LOC: RADPETMAIN 11:39
PROVIDERS: ATTEND Internal Medicine
DX: C53.8 Malignant neoplasm of overlapping sites of cervix uteri (principal)
CPT/HCPCS: 78815; A9552